=== PATIENT | female | born 1980 | race Caucasian/White ===

== ENCOUNTER 2020-12-09 11:23 | Emergency (ER) | payer OTHER, SELFPAY ==
[2020-12-09 11:27] VITALS: BP 130/105; BP 150/90; PULSE 105; PULSE 115; RESP 18; TEMP 37; O2SAT 100; O2SAT 99; BMI 25.1
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
[2020-12-09] MEDS: clonazePAM 1 MG TABLET PO (12:17)
[2020-12-09] MEDS: Gabapentin 600 MG TABLET PO (12:17)
== END 2020-12-09 12:23 | disposition home or self-care (01) ==
LOC: HO.ED 12:07
PROVIDERS: Emergency Provider Emergency Medicine Emergency Medical Services; PCP Internal Medicine Endocrinology, Diabetes & Metabolism
DX: F41.1 Generalized anxiety disorder (principal); F43.0 Acute stress reaction; Z79.899 Other long term (current) drug therapy; F17.200 Nicotine dependence, unspecified, uncomplicated; Z71.6 Tobacco abuse counseling
CPT/HCPCS: 99283; 99284

== ENCOUNTER 2021-01-01 10:41 | Inpatient (IN) | payer OTHER, SELFPAY ==
--- NOTE | ~2021-01-01 | XR_ITS ---
EXAMINATION: XR ANKLE, RIGHT CLINICAL INFORMATION: Pain bruising COMPARISON: None TECHNIQUE: AP, lateral, and mortise views of the right ankle. FINDINGS: The bones and soft tissues are normal. No fracture. Alignment is anatomic. Joint spaces are maintained. No joint effusion. There is a small posterior calcaneal spur. XR/XR ankle RT 2V IMPRESSION: Small posterior calcaneal spur, No fracture or dislocation.
[2021-01-01 10:50] VITALS: BP 150/72; PULSE 70; O2SAT 100
[2021-01-01 12:07] VITALS: BP 137/77; PULSE 87; RESP 18; TEMP 36.8; O2SAT 97; BMI 25.0
[2021-01-01 14:31] LABS: MANUAL DIFF FLAG NO
[2021-01-01 14:32] VITALS: BP 133/104; PULSE 72; RESP 17; O2SAT 100
[2021-01-01 14:32] LABS: Basophils Percent Auto 0.4 % (0-2); Eosinophils Absolute Auto 0.1 X10*3/uL (0.0-0.4); Eosinophils Percent Auto 1.3 % (0-4); Hematocrit 37.5 % (37.0-47.0); Hemoglobin 11.7 g/dl (12.0-16.0); Imm Gran Abs Auto 0.05 X10*3/uL (0.00-0.03); Imm Gran Pct Auto 0.6 % (0.0-0.4); Lymphocytes Absolute Auto 2.3 X10*3/uL (1.2-4.9); Lymphocytes Percent Auto 25.5 % (20-40); Mean Corpuscular HGB Conc 31.2 g/dl (31.0-35.0); Mean Corpuscular Hemoglobin 25.1 pg (27.0-33.0); Mean Corpuscular Volume 80.5 fL (80.0-98.0); Mean Platelet Volume 9.8 fL (9.4-12.3); Monocytes Percent Auto 10.6 % (2-11); Neutrophils Absolute Auto 5.58 x10*3/uL (2.0-8.3); Neutrophils Percent Auto 61.6 % (45-73); Platelet Count 300 X10*3/uL (160-400); Red Blood Count 4.66 X10*6/uL (4.20-5.50); Red Cell Distribution Width 16.7 % (11.0-16.0); White Blood Count 9.1 X10*3/uL (4.8-10.8)
[2021-01-01] MEDS: 0.9 % Sodium Chloride 1,000 ML 999 ML IV (14:46)
[2021-01-01] MEDS: ondansetron HCL 4 MG/2 ML VIAL IVPUSH (14:47)
[2021-01-01] MEDS: Ketorolac Tromethamine 15 MG/ML VIAL 30 MG IVPUSH (14:48)
[2021-01-01 14:52] LABS: Lactic Acid 3.4 mmol/L (0.5-2.0)
[2021-01-01 14:55] LABS: Alanine Aminotransferase 9 U/L (0-31); Albumin Level 4.5 g/dL (3.5-5.0); Alkaline Phosphatase 63 U/L (39-117); Anion Gap 21 (12-20); Aspartate Amino Transferase 15 U/L (5-31); Bilirubin Total 0.3 mg/dL (0.0-1.0); Blood Urea Nitrogen 14 mg/dL (9-16); Calcium 10.7 mg/dL (8.4-10.2); Carbon Dioxide 20 mmol/L (22-29); Chloride 104 mmol/L (96-108); Estimated Glomerular Filt Rate 54; Glucose Random 97 mg/dL (60-115); Lipase 66 U/L (8-78); Potassium 4.3 mmol/L (3.3-5.1); Sodium 141 mmol/L (135-145); Total Protein 7.8 g/dL (6.5-8.0)
[2021-01-01 15:02] LABS: COVID-19 Test Negative (Negative)
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
[2021-01-01] MEDS: 0.9 % Sodium Chloride 2,041.17 ML 2041.17 ML IV (15:37)
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
[2021-01-01 16:29] LABS: Reflex Lactate? Lactic Acid Added
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
[2021-01-01 16:55] VITALS: BP 151/93; PULSE 80; RESP 20; TEMP 36.9; O2SAT 97
[2021-01-01] MEDS: Ketorolac Tromethamine 15 MG/ML VIAL IVPUSH (16:57)
[2021-01-01 17:49] LABS: Ethanol < 10 mg/dL
[2021-01-01 17:52] LABS: ~Lactic Acid-LAB USE ONLY 0.9 mmol/L (0.5-2.0)
--- NOTE | 2021-01-01 19:02 | PC.NURSE ---
This RN rec'd report from Sid RN including need for pt to have safe DC home. During report, JANY contacted Sid to inquire about CARE team involvement. Sid reports to this RN that she is unsure who is managing pt's plan for DC. This RN spoke with Kristine in CARE team who reports she will touch base with N to discern who is managing pt's DC plan. This rn awaiting update/plan.
[2021-01-01 19:34] VITALS: BP 139/86; PULSE 70; RESP 16; TEMP 36.8; O2SAT 100
[2021-01-01 20:47] LABS: Appearance Urine CLOUDY; Color Urine YELLOW; Glucose Urine UA NEG (NEG); Leukocyte Esterase Urine NEG (NEG); Nitrite Urine NEG (NEG); Specific Gravity - Urine 1.015 (1.005-1.025); UACC Culture Trigger NO; Urine Blood 2+ (NEG); Urine Ketones NEG (NEG); Urine Protein NEG (NEG-TRACE)
[2021-01-01 20:49] LABS: UPreg QC Valid YES; Urine Pregnancy NEGATIVE (NEGATIVE)
--- NOTE | 2021-01-01 20:51 | PHA.MEDREC ---
Pharmacy Consult ? Medication Reconciliation Pharmacy has completed the medication reconciliation. Confirmed doses and directions with [facility] [place] PharmD
[2021-01-01 21:00] LABS: Amphetamine Screen Urine Not Detected (Not Detect); Barbiturates, Urine Not Detected (Not Detect); Benzodiazepines Screen Urine Not Detected (Not Detect); Cannabinoid Screen Urine POSITIVE (Not Detect); Cocaine Screen Urine POSITIVE (Not Detect); Fentanyl, urine Not Detected (Not Detect); Opiate Screen Urine Not Detected (Not Detect); Phencyclidine Screen Urine Not Detected (Not Detect)
[2021-01-01 21:47] LABS: Bacteria Urine 1+ /LPF; Hyaline Casts Urine 0-2 /LPF; Mucus Urine 3+ /LPF; RBC Urine 0 /HPF (0); Squamous Epithelial Cell Urine 4+ /LPF
[2021-01-01 22:37] VITALS: BP 143/101; PULSE 71
[2021-01-01] MEDS: lamoTRIgine 25 MG TABLET 150 MG PO (22:37)
[2021-01-01] MEDS: Propranolol HCL 20 MG TABLET PO (22:37)
[2021-01-01] MEDS: Gabapentin 600 MG TABLET PO (22:37)
[2021-01-01] MEDS: clonazePAM 1 MG TABLET PO (22:39)
[2021-01-01] MEDS: QUEtiapine Fumarate 400 MG TABLET 800 MG PO (22:42)
--- NOTE | 2021-01-02 05:09 | PC.NURSE ---
Patient slept through the night, no distress observed/reported, respiration +/=/non-labored bilaterally, behavior pleasant and appropriate, medication compliant, patient was assessed by care team pending disposition, patient will be reassessed in the morning to confirm disposition, appetite good, contracted for the safety, will continue to monitor.
--- NOTE | 2021-01-02 07:15 | PC.NURSE ---
patient appears to remain asleep at present respirations are even and unlabored, patient appears in no distress
[2021-01-02 08:00] VITALS: BP 132/93; PULSE 75; RESP 15; TEMP 36.4; O2SAT 98
[2021-01-02 10:00] VITALS: BP 132/93; PULSE 75
[2021-01-02] MEDS: Propranolol HCL 20 MG TABLET PO ×3 (10:00→21:12)
[2021-01-02] MEDS: lamoTRIgine 25 MG TABLET 150 MG PO ×2 (10:00→21:11)
[2021-01-02] MEDS: buPROPion HCl XL 300 MG TAB.ER.24H PO (10:00)
[2021-01-02] MEDS: Gabapentin 600 MG TABLET PO ×4 (10:00→20:56)
[2021-01-02] MEDS: clonazePAM 1 MG TABLET PO ×3 (10:05→23:20)
[2021-01-02 14:53] VITALS: BP 132/93; PULSE 75
[2021-01-02 17:33] VITALS: BP 154/99; PULSE 84; RESP 20; TEMP 37.2; O2SAT 100
[2021-01-02] MEDS: Nicotine Polacrilex 2 MG GUM BUCCAL (20:22)
[2021-01-02] MEDS: QUEtiapine Fumarate 400 MG TABLET 800 MG PO (20:56)
[2021-01-02 21:12] VITALS: BP 112/67; PULSE 90
[2021-01-03] VITALS (7 sets, daily range): BP systolic 126–146; BP diastolic 79–106; PULSE 77–103; RESP 16–18; TEMP 36.6–36.7; O2SAT 98–100
--- NOTE | 2021-01-03 | ECG_ITS ---
Test Reason : MEDICAL CLEARANCE Blood Pressure : / mmHG Vent. Rate : 067 BPM Atrial Rate : 067 BPM P-R Int : 162 ms QRS Dur : 080 ms QT Int : 402 ms P-R-T Axes : 054 029 055 degrees QTc Int : 424 ms Normal sinus rhythm Nonspecific ST abnormality Borderline ECG No previous ECGs available Referred By: Denise Brown Electronically Signed By:WILLIAM MONTERO MD
--- NOTE | 2021-01-03 05:41 | PC.NURSE ---
Patient slept through the night, no distress observed/reported, behavior appropriate, medication compliant, appetite good, elimination intact, patient's disposition is voluntary inpatient bed search, VSS, will continue to monitor.
[2021-01-03] MEDS: clonazePAM 1 MG TABLET PO ×3 (07:08→19:44)
--- NOTE | 2021-01-03 07:11 | PC.NURSE ---
patient appears to be relaxing at present was awake upon arrival asking for bacitracin and prn availability. patient appears in no distress
[2021-01-03] MEDS: buPROPion HCl XL 300 MG TAB.ER.24H PO (08:15)
[2021-01-03] MEDS: Gabapentin 600 MG TABLET PO ×4 (08:15→21:01)
[2021-01-03] MEDS: lamoTRIgine 25 MG TABLET 150 MG PO ×2 (08:16→21:02)
[2021-01-03] MEDS: Propranolol HCL 20 MG TABLET PO ×3 (08:16→21:02)
[2021-01-03] MEDS: Nicotine 21 MG PATCH.TD24 TRANSDERMA (09:25)
--- NOTE | 2021-01-03 10:40 | PC.NURSE ---
client expresses irritability, mentions gisselle to myself and another staff. explained to client we may not continue all medication in patients history, client mentioned a higher dose of wellbutrin and buspar. t/w explained that medicianes may be changed or titrated on the inpatient unit
--- NOTE | 2021-01-03 14:27 | PC.NURSE ---
Report given to Loan on M3
[2021-01-03] MEDS: Acetaminophen 325 MG TABLET 650 MG PO (18:39)
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
[2021-01-03] MEDS: QUEtiapine Fumarate 400 MG TABLET 800 MG PO (21:02)
[2021-01-04 08:14] VITALS: BP 136/82; PULSE 86
[2021-01-04] MEDS: Propranolol HCL 20 MG TABLET PO ×3 (08:14→21:27)
[2021-01-04] MEDS: clonazePAM 1 MG TABLET PO ×3 (08:14→19:35)
[2021-01-04] MEDS: Gabapentin 600 MG TABLET PO ×4 (08:14→19:35)
[2021-01-04] MEDS: buPROPion HCl XL 300 MG TAB.ER.24H PO (08:14)
[2021-01-04] MEDS: lamoTRIgine 25 MG TABLET 50 MG PO ×2 (08:14→21:27)
[2021-01-04] MEDS: lamoTRIgine 100 MG TABLET PO ×2 (08:14→21:28)
[2021-01-04 08:17] LABS: Estimated Average Glucose 100 mg/dL; Hemoglobin A1c % 5.1 %
[2021-01-04 08:44] LABS: Cholesterol 177 mg/dL; HDL Cholesterol 45 mg/dL; LDL Cholesterol Calculated 114 mg/dl; Triglycerides 92 mg/dL
[2021-01-04 09:05] LABS: Thyroid Stimulating Hormone 0.48 uIU/mL (0.32-4.0)
[2021-01-04 09:19] VITALS: BP 136/82; PULSE 86; RESP 14; TEMP 36.6; O2SAT 98
[2021-01-04 09:25] LABS: Folate 5.9 ng/mL (> or = 4.0); Vitamin B12 423 pg/mL (200-900)
[2021-01-04] MEDS: Nicotine 21 MG PATCH.TD24 TRANSDERMA (10:20)
--- NOTE | 2021-01-04 12:13 | MHC.CLN ---
RE: WT REVIEW CURRENT WT UPON ADMISSION 149.6# PREVIOUS ADMIT WT HX: 150# (10/23/19) PT REMAINS WITHIN UBW RANGE, BMI 25 INDICATES ADEQUATE WT FOR HT NOTED ALBUMIN 4.5 WNL
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
[2021-01-04 14:28] VITALS: BP 160/97; PULSE 76
[2021-01-04] MEDS: busPIRone HCl 5 MG TABLET 15 MG PO ×2 (14:28→21:28)
[2021-01-04] MEDS: Cyproheptadine HCl 4 MG TABLET PO (16:39)
[2021-01-04] MEDS: Acetaminophen 325 MG TABLET 650 MG PO (19:07)
[2021-01-04 21:25] VITALS: TEMP 36.6; O2SAT 100
[2021-01-04 21:27] VITALS: BP 133/103; PULSE 77
[2021-01-04] MEDS: QUEtiapine Fumarate 300 MG TABLET 600 MG PO (21:28)
[2021-01-05 08:20] VITALS: BP 125/79; PULSE 88; RESP 18; TEMP 36.4; O2SAT 99
[2021-01-05] MEDS: buPROPion HCl XL 150 MG TAB.ER.24H 450 MG PO (08:27)
[2021-01-05 08:28] VITALS: BP 125/79; PULSE 88
[2021-01-05] MEDS: lamoTRIgine 25 MG TABLET 50 MG PO ×2 (08:28→20:14)
[2021-01-05] MEDS: Propranolol HCL 20 MG TABLET PO ×2 (08:28→20:15)
[2021-01-05] MEDS: clonazePAM 1 MG TABLET PO ×4 (08:28→20:14)
[2021-01-05] MEDS: busPIRone HCl 5 MG TABLET 15 MG PO ×2 (08:28→18:22)
[2021-01-05] MEDS: Gabapentin 600 MG TABLET PO ×4 (08:28→20:14)
[2021-01-05] MEDS: lamoTRIgine 100 MG TABLET PO ×2 (08:29→20:14)
[2021-01-05] MEDS: Nicotine 21 MG PATCH.TD24 TRANSDERMA (08:31)
[2021-01-05] MEDS: Acetaminophen 325 MG TABLET 650 MG PO ×2 (13:10→20:58)
--- NOTE | 2021-01-05 13:37 | HO.PSYCHPN ---
Subjective Subjective Date of Service: 01/05/21 Reason For Visit: SI Subjective Notes: Conditional Voluntary Interim History: Viviana reports that she is much calmer today. She reports sleeping fairly well with 600mg po seroquel. We had discussed possibility to akathisia worsened by seroquel. She reports feeling less anxious, less restless, She denies SI/HI. She has been more visible in the unit. Some dysphoric mood noted but not as pronounced. Per nursing, pt visible in the unit, irritable at times but able to be redirected. Medication Compliance: Yes Side effects from medications: No Attending Groups: Yes Review of Systems Review of Systems Yes all other systems are reviewed and are negative Constitutional: Reports headache(s), Reports poor appetite, Reports weakness and Reports weight loss Eyes: Reports no additional eye complaints Reports headache(s) and Denies sore throat Cardiovascular: Denies chest pain, Denies chest pain at rest, Reports epigastric discomfort, Denies diaphoresis, Denies syncope, Denies rapid heart rate, Denies palpitations, Denies dyspnea, Denies orthopnea and Denies slow heart rate Respiratory: Denies dyspnea Gastrointestinal: Denies bloating, Denies GI cramping, Denies excessive flatus, Denies early satiety, Reports dyspepsia and Denies diarrhea Denies syncope, Reports headache(s) and Reports weakness Endocrine: Denies palpitations Mental Status Exam Mental Status Exam Narrative: Appearance: casually groomed, poor hygiene, restless Behavior: calmer, less irritable psychomotor:less agitation noted Speech:clear, normal rate/rhythm/volume, spontaneous Thought process: tangential Thought content:no signs of psychosis, mistrust of system/providers, feeling restless, overwhelmed Mood: better Affect: congruent SI:none -denies plan or intent HI:none VH/AH:none Delusions:none Insight/judgment:poor x 2. Memory/cog: alert, oriented x 3. Diagnostics Vital Signs (24Hr): Vital Signs - 24 hr 01/04/21 21:25 01/04/21 21:27 01/05/21 08:20 Temperature 97.8 F 97.6 F Pulse Rate 77 88 Respiratory Rate 18 Blood Pressure 133/103 H 125/79 Pulse Oximetry 100 99 01/05/21 08:28 Temperature Pulse Rate 88 Respiratory Rate Blood Pressure 125/79 Pulse Oximetry Body Mass Index 25.0 Labs Results: 01/01/21 14:27 01/01/21 14:27 Labs: Laboratory Results - last 48 hr 01/04/21 01/04/21 01/04/21 07:30 07:30 07:30 Estimat Average Glucose 100 Hemoglobin A1c % 5.1 Triglycerides 92 Cholesterol 177 LDL Cholesterol, Calc 114 HDL Cholesterol 45 Vitamin B12 423 Folate 5.9 TSH 0.48 Medications Medications Current Medications Acetaminophen (Acetaminophen 325 Mg Tablet) 650 mg PO Q6H PRN PRN Reason: Headache/Pain Mild Scale (1-3) Last Admin: 01/05/21 13:10 Dose: 650 mg Documented by: Al Hydroxide/Mg Hydroxide (Magnesium Hydrox/Alum Hydrox 30 Ml Oral.Susp) 30 ml PO Q6H PRN PRN Reason: Heartburn/Nausea Bupropion HCl (Bupropion Hcl Xl 150 Mg Tab.Er.24h) 450 mg PO DAILY [facility] Last Admin: 01/05/21 08:27 Dose: 450 mg Documented by: Buspirone HCl (Buspirone Hcl 5 Mg Tablet) 15 mg PO BID [facility] Last Admin: 01/05/21 08:28 Dose: 15 mg Documented by: Clonazepam (Clonazepam 1 Mg Tablet) 1 mg PO DAILY@1400 [facility] Last Admin: 01/05/21 13:05 Dose: 1 mg Documented by: Clonazepam (Clonazepam 1 Mg Tablet) 1 mg PO BID [facility] Cyproheptadine HCl (Cyproheptadine Hcl 4 Mg Tablet) 4 mg PO Q6H PRN PRN Reason: anxiety/sleep Last Admin: 01/04/21 16:39 Dose: 4 mg Documented by: Gabapentin (Gabapentin 600 Mg Tablet) 600 mg PO QID [facility] Last Admin: 01/05/21 12:07 Dose: 600 mg Documented by: Lamotrigine (Lamotrigine 100 Mg Tablet) 100 mg PO BID [facility] Last Admin: 01/05/21 08:29 Dose: 100 mg Documented by: Lamotrigine (Lamotrigine 25 Mg Tablet) 50 mg PO BID [facility] Last Admin: 01/05/21 08:28 Dose: 50 mg Documented by: Magnesium Hydroxide (Milk Of Magnesia 30 Ml Oral.Susp) 30 ml PO DAILY PRN PRN Reason: Constipation Nicotine (Nicotine 21 Mg Patch.Td24) 21 mg TRANSDERMA DAILY [facility] Last Admin: 01/05/21 08:31 Dose: 21 mg Documented by: Propranolol HCl (Propranolol Hcl 20 Mg Tablet) 20 mg PO TID [facility]; Protocol Last Admin: 01/05/21 08:28 Dose: 20 mg Documented by: Quetiapine Fumarate (Quetiapine Fumarate 300 Mg Tablet) 600 mg PO BEDTIME [facility] Last Admin: 01/04/21 21:28 Dose: 600 mg Documented by: Quetiapine Fumarate (Quetiapine Fumarate 200 Mg Tablet) 200 mg PO BEDTIME PRN PRN Reason: sleep Trazodone HCl (Trazodone Hcl 50 Mg Tablet) 50 mg PO BEDTIME PRN PRN Reason: Insomnia Allergies Allergies Allergy/AdvReac Type Severity Reaction Status Date / Time Penicillins [PCN] Allergy Unknown UNKNOWN Verified 01/01/21 19:37 tramadol [TRAMADOL] Allergy Unknown HIVES Verified 01/01/21 19:37 Assessment & Plan Assessment & Plan (1) PTSD (post-traumatic stress disorder): Status: Acute Code(s): F43.10 - Post-traumatic stress disorder, unspecified (2) Cocaine use disorder, moderate, dependence: Status: Acute Code(s): F14.20 - Cocaine dependence, uncomplicated (3) Bipolar 2 disorder, major depressive episode: Status: Acute Code(s): F31.81 - Bipolar II disorder Assessment and Plan: Ms. Rivera is a 40 y/o woman with hx of PTSD, Bipolar Disorder, cocaine use disorder who recently self presented to [facility] ED reporting increase depressed mood, restlessness, anxious mood. She reports recent relapsed on cocaine. In the ED utox positive for cocaine and cannabis. She describes increase restlessness, need to pace, tapping foot. Note that cocaine major risk factor for antipsychotic induced akathisia, which suspect is part of pt's presentation and fact that she is on seroquel 800mg po qhs. Pt reports relieve of symptoms with propanolol and some benefit with buspar. we discussed taper of seroquel, but pt currently hesitant to make changes as she reports severe restlessness and worries that less medications will increase anxiety. Pt explained underlying mechanism by which her sense of restlessness is worsened by antipsychotic. PLAN: 1. Admit to M3 2. Will decrease seroquel from 800mg po to 600mg po qhs due to possible akathisia- pt hesitant to stop completely. 3. Continue propanolol 20mg po TID 4. Continue clonazepam- pt on this medications for years, we discussed risks of misuse/abuse as pt continues to work towards recovery. Pt understands RX has to be continued by her OP provider. 5. Obtain collateral information 6. Aftercare planning. I spent minutes with the patient and/or on the patient floor today, greater than?50% of which was spent counseling/coordinating care. Reason for contiued inpatient stay Substantial Risk for: harm to self
[2021-01-05] MEDS: Cyproheptadine HCl 4 MG TABLET PO (17:56)
[2021-01-05 18:00] VITALS: BP 135/91; PULSE 75; RESP 18; TEMP 36.7; O2SAT 98
[2021-01-05] MEDS: LORazepam 1 MG TABLET PO (18:21)
[2021-01-05 20:15] VITALS: BP 135/91; PULSE 75
[2021-01-05] MEDS: QUEtiapine Fumarate 300 MG TABLET 600 MG PO (23:05)
[2021-01-06 08:00] VITALS: BP 120/91; PULSE 89; RESP 16; TEMP 36.7; O2SAT 97
[2021-01-06 08:06] LABS: Iron 16 mcg/dL (30-160); Percent Iron Saturation 5 % (15-50); Total Iron Binding Capacity 329 mcg/dL (228-428); Unsaturated Iron Binding 313 ug/dL
[2021-01-06] MEDS: clonazePAM 1 MG TABLET PO ×3 (08:20→20:09)
[2021-01-06 08:21] VITALS: BP 120/91; PULSE 89
[2021-01-06] MEDS: Gabapentin 600 MG TABLET PO ×4 (08:21→20:09)
[2021-01-06] MEDS: Propranolol HCL 20 MG TABLET PO ×3 (08:21→20:09)
[2021-01-06] MEDS: busPIRone HCl 5 MG TABLET 15 MG PO ×2 (08:21→14:52)
[2021-01-06] MEDS: lamoTRIgine 25 MG TABLET 50 MG PO ×2 (08:21→20:09)
[2021-01-06] MEDS: buPROPion HCl XL 150 MG TAB.ER.24H 450 MG PO (08:21)
[2021-01-06] MEDS: Nicotine 21 MG PATCH.TD24 TRANSDERMA (08:22)
[2021-01-06] MEDS: lamoTRIgine 100 MG TABLET PO ×2 (08:22→20:09)
[2021-01-06 08:30] LABS: Ferritin 8 ng/mL (10-250)
[2021-01-06] MEDS: Acetaminophen 325 MG TABLET 650 MG PO ×2 (08:51→20:14)
--- NOTE | 2021-01-06 12:48 | HO.PSYCHPN ---
Subjective Subjective Date of Service: 01/06/21 Reason For Visit: SI Subjective Notes: Conditional Voluntary Interim History: The nursing staff reported that the patient was very irritable and yelled on staff, she later apologized and stated that she had an disassociation episode . Today on interview, she was irritable, and manipulative, she wanted more Klonopin and as per her peer, she has withdrawal symptoms of benzodiazepines. Mental Status Exam Mental Status Exam Patient Appearance: Disheveled and Inappropriate Patient Orientation: Person, Place, Time and Situation Level of Consciousness: Awake, Restless and Inappropriate Patient Behavior: Belligerent Mood Description: Hostile and Labile Affect Description: Labile Patient Cognition Impaired: No Ability to Follow Directions: Fair Speech Pattern: Rapid and Loud Hallucinations: None Delusions: Not Present Thought Process: Racing Thought Content: positive for Poverty of Content, positive for Preoccupation and positive for Evasive Judgement: Fair Diagnostics Vital Signs (24Hr): Vital Signs - 24 hr 01/05/21 18:00 01/05/21 20:15 01/06/21 08:00 Temperature 98.0 F 98.0 F Pulse Rate 75 75 89 Respiratory Rate 18 16 Blood Pressure 135/91 H 135/91 H 120/91 H Pulse Oximetry 98 97 01/06/21 08:21 Temperature Pulse Rate 89 Respiratory Rate Blood Pressure 120/91 H Pulse Oximetry Body Mass Index 25.0 Labs Results: 01/01/21 14:27 01/01/21 14:27 Labs: Laboratory Results - last 48 hr 01/06/21 07:21 Iron 16 L TIBC 329 % Saturation 5 L Unsat Iron Binding 313 Ferritin 8 L Medications Medications Current Medications Acetaminophen (Acetaminophen 325 Mg Tablet) 650 mg PO Q6H PRN PRN Reason: Headache/Pain Mild Scale (1-3) Last Admin: 01/06/21 08:51 Dose: 650 mg Documented by: Al Hydroxide/Mg Hydroxide (Magnesium Hydrox/Alum Hydrox 30 Ml Oral.Susp) 30 ml PO Q6H PRN PRN Reason: Heartburn/Nausea Bupropion HCl (Bupropion Hcl Xl 150 Mg Tab.Er.24h) 450 mg PO DAILY [facility] Last Admin: 01/06/21 08:21 Dose: 450 mg Documented by: Buspirone HCl (Buspirone Hcl 5 Mg Tablet) 15 mg PO BID@0900,1500 [facility] Last Admin: 01/06/21 08:21 Dose: 15 mg Documented by: Clonazepam (Clonazepam 1 Mg Tablet) 1 mg PO DAILY@1400 [facility] Last Admin: 01/05/21 13:05 Dose: 1 mg Documented by: Clonazepam (Clonazepam 1 Mg Tablet) 1 mg PO BID [facility] Last Admin: 01/06/21 08:20 Dose: 1 mg Documented by: Cyproheptadine HCl (Cyproheptadine Hcl 4 Mg Tablet) 4 mg PO Q6H PRN PRN Reason: anxiety/sleep Last Admin: 01/05/21 17:56 Dose: 4 mg Documented by: Gabapentin (Gabapentin 600 Mg Tablet) 600 mg PO QID [facility] Last Admin: 01/06/21 08:21 Dose: 600 mg Documented by: Lamotrigine (Lamotrigine 100 Mg Tablet) 100 mg PO BID [facility] Last Admin: 01/06/21 08:22 Dose: 100 mg Documented by: Lamotrigine (Lamotrigine 25 Mg Tablet) 50 mg PO BID [facility] Last Admin: 01/06/21 08:21 Dose: 50 mg Documented by: Magnesium Hydroxide (Milk Of Magnesia 30 Ml Oral.Susp) 30 ml PO DAILY PRN PRN Reason: Constipation Nicotine (Nicotine 21 Mg Patch.Td24) 21 mg TRANSDERMA DAILY [facility] Last Admin: 01/06/21 08:22 Dose: 21 mg Documented by: Non-Formulary Medication (Buspirone) 15 mg PO BID [facility] Propranolol HCl (Propranolol Hcl 20 Mg Tablet) 20 mg PO TID [facility]; Protocol Last Admin: 01/06/21 08:21 Dose: 20 mg Documented by: Quetiapine Fumarate (Quetiapine Fumarate 300 Mg Tablet) 600 mg PO BEDTIME [facility] Last Admin: 01/05/21 23:05 Dose: 600 mg Documented by: Quetiapine Fumarate (Quetiapine Fumarate 200 Mg Tablet) 200 mg PO BEDTIME PRN PRN Reason: sleep Trazodone HCl (Trazodone Hcl 50 Mg Tablet) 50 mg PO BEDTIME PRN PRN Reason: Insomnia Allergies Allergies Allergy/AdvReac Type Severity Reaction Status Date / Time Penicillins [PCN] Allergy Unknown UNKNOWN Verified 01/01/21 19:37 tramadol [TRAMADOL] Allergy Unknown HIVES Verified 01/01/21 19:37 Assessment & Plan Assessment & Plan (1) PTSD (post-traumatic stress disorder): Status: Acute Code(s): F43.10 - Post-traumatic stress disorder, unspecified (2) Cocaine use disorder, moderate, dependence: Status: Acute Code(s): F14.20 - Cocaine dependence, uncomplicated (3) Bipolar 2 disorder, major depressive episode: Status: Acute Code(s): F31.81 - Bipolar II disorder Assessment and Plan: Ms. Rivera is a 40 y/o woman with hx of PTSD, Bipolar Disorder, cocaine use disorder who recently self presented to [facility] ED reporting increase depressed mood, restlessness, anxious mood. She reports recent relapsed on cocaine. In the ED utox positive for cocaine and cannabis. She describes increase restlessness, need to pace, tapping foot. Note that cocaine major risk factor for antipsychotic induced akathisia, which suspect is part of pt's presentation and fact that she is on seroquel 800mg po qhs. Pt reports relieve of symptoms with propanolol and some benefit with buspar. we discussed taper of seroquel, but pt currently hesitant to make changes as she reports severe restlessness and worries that less medications will increase anxiety. Pt explained underlying mechanism by which her sense of restlessness is worsened by antipsychotic. PLAN: 1. Keep same treatment. I spent minutes with the patient and/or on the patient floor today, greater than?50% of which was spent counseling/coordinating care. Reason for contiued inpatient stay Substantial Risk for: inability to function, rapid decompensation and med/psych decompensation
--- NOTE | 2021-01-06 12:51 | PC.NURSE ---
Patient angry, agitated, irritable, yelling at staff feeling like she is having withdrawal from medications. Reports she is having withdrawal from benzo however states she is taking the same amount of benzo she had been taking prior to admission. Reports she is having panic and anxiety and needs increase in dose. Tangential, frustrated I have nothing and I have no idea what I am going to do when I get out . Why do I have to fight for everything What don't you people get ? Reports med times were supposed to be changed yesterday to no avail. Dr. Stanley made aware of request to change med times.
[2021-01-06 14:52] VITALS: BP 127/86; PULSE 84
[2021-01-06] MEDS: LORazepam 1 MG TABLET PO (17:23)
[2021-01-06 20:09] VITALS: BP 132/94; PULSE 80
[2021-01-06 20:15] VITALS: BP 132/94; PULSE 80; RESP 18; TEMP 36.8; O2SAT 98
[2021-01-06] MEDS: QUEtiapine Fumarate 300 MG TABLET 600 MG PO (22:57)
[2021-01-07 06:00] VITALS: BP 114/87; PULSE 82; RESP 16; TEMP 36.3; O2SAT 100
[2021-01-07] MEDS: busPIRone HCl 5 MG TABLET 15 MG PO ×2 (08:14→14:52)
[2021-01-07] MEDS: clonazePAM 1 MG TABLET PO ×3 (08:14→20:08)
[2021-01-07 08:15] VITALS: BP 114/87; PULSE 82
[2021-01-07] MEDS: buPROPion HCl XL 150 MG TAB.ER.24H 450 MG PO (08:15)
[2021-01-07] MEDS: Propranolol HCL 20 MG TABLET PO ×3 (08:15→20:08)
[2021-01-07] MEDS: lamoTRIgine 100 MG TABLET PO ×2 (08:16→20:07)
[2021-01-07] MEDS: lamoTRIgine 25 MG TABLET 50 MG PO ×2 (08:16→20:08)
[2021-01-07] MEDS: Gabapentin 600 MG TABLET PO ×4 (08:16→20:08)
[2021-01-07] MEDS: Nicotine 21 MG PATCH.TD24 TRANSDERMA (08:16)
[2021-01-07] MEDS: Acetaminophen 325 MG TABLET 650 MG PO (08:20)
[2021-01-07 14:52] VITALS: BP 136/90; PULSE 86
--- NOTE | 2021-01-07 15:43 | P.PNPSI_ITS ---
Subjective Subjective Date of Service: 01/07/21 Reason For Visit: SI Interim History: The nursing staff reported that she was pleasant and cooperative after the initial melt-down that she had yesterday with this prescirber since she advocated for more benzodiazepines. She stated to the RN that she was withdrawing of Seroquel . Today, I tried to interview her but she was crying in her room, apparently a peer draw a picture and that upset her. Mental Status Exam Mental Status Exam Patient Appearance: Well Grooomed Patient Orientation: Person and Situation Level of Consciousness: Awake Patient Behavior: Appropriate (childish) Mood Description: Labile Affect Description: Constricted Patient Cognition Impaired: No Ability to Follow Directions: Good Speech Pattern: Clear Hallucinations: None Delusions: Not Present Thought Process: Distracted Thought Content: positive for Circumstantial Judgement: Fair Diagnostics Vital Signs (24Hr): Vital Signs - 24 hr 01/06/21 20:09 01/06/21 20:15 01/07/21 06:00 Temperature 98.2 F 97.3 F Pulse Rate 80 80 82 Respiratory Rate 18 16 Blood Pressure 132/94 H 132/94 H 114/87 Pulse Oximetry 98 100 01/07/21 08:15 01/07/21 14:52 Temperature Pulse Rate 82 86 Respiratory Rate Blood Pressure 114/87 136/90 H Pulse Oximetry Body Mass Index 25.0 Labs Results: 01/01/21 14:27 01/01/21 14:27 Labs: Laboratory Results - last 48 hr 01/06/21 07:21 Iron 16 L TIBC 329 % Saturation 5 L Unsat Iron Binding 313 Ferritin 8 L Medications Medications Current Medications Acetaminophen (Acetaminophen 325 Mg Tablet) 650 mg PO Q6H PRN PRN Reason: Headache/Pain Mild Scale (1-3) Last Admin: 01/07/21 08:20 Dose: 650 mg Documented by: Al Hydroxide/Mg Hydroxide (Magnesium Hydrox/Alum Hydrox 30 Ml Oral.Susp) 30 ml PO Q6H PRN PRN Reason: Heartburn/Nausea Bupropion HCl (Bupropion Hcl Xl 150 Mg Tab.Er.24h) 450 mg PO DAILY [facility] Last Admin: 01/07/21 08:15 Dose: 450 mg Documented by: Buspirone HCl (Buspirone Hcl 5 Mg Tablet) 15 mg PO BID@0900,1500 [facility] Last Admin: 01/07/21 14:52 Dose: 15 mg Documented by: Clonazepam (Clonazepam 1 Mg Tablet) 1 mg PO DAILY@1400 [facility] Last Admin: 01/07/21 13:34 Dose: 1 mg Documented by: Clonazepam (Clonazepam 1 Mg Tablet) 1 mg PO BID [facility] Last Admin: 01/07/21 08:14 Dose: 1 mg Documented by: Cyproheptadine HCl (Cyproheptadine Hcl 4 Mg Tablet) 4 mg PO Q6H PRN PRN Reason: anxiety/sleep Last Admin: 01/05/21 17:56 Dose: 4 mg Documented by: Gabapentin (Gabapentin 600 Mg Tablet) 600 mg PO QID [facility] Last Admin: 01/07/21 13:34 Dose: 600 mg Documented by: Lamotrigine (Lamotrigine 100 Mg Tablet) 100 mg PO BID [facility] Last Admin: 01/07/21 08:16 Dose: 100 mg Documented by: Lamotrigine (Lamotrigine 25 Mg Tablet) 50 mg PO BID [facility] Last Admin: 01/07/21 08:16 Dose: 50 mg Documented by: Lorazepam (Lorazepam 1 Mg Tablet) 1 mg PO DAILY PRN PRN Reason: anxiety Last Admin: 01/06/21 17:23 Dose: 1 mg Documented by: Magnesium Hydroxide (Milk Of Magnesia 30 Ml Oral.Susp) 30 ml PO DAILY PRN PRN Reason: Constipation Nicotine (Nicotine 21 Mg Patch.Td24) 21 mg TRANSDERMA DAILY [facility] Last Admin: 01/07/21 08:16 Dose: 21 mg Documented by: Propranolol HCl (Propranolol Hcl 20 Mg Tablet) 20 mg PO TID [facility]; Protocol Last Admin: 01/07/21 14:52 Dose: 20 mg Documented by: Quetiapine Fumarate (Quetiapine Fumarate 300 Mg Tablet) 600 mg PO BEDTIME [facility] Last Admin: 01/06/21 22:57 Dose: 600 mg Documented by: Quetiapine Fumarate (Quetiapine Fumarate 200 Mg Tablet) 200 mg PO BEDTIME PRN PRN Reason: sleep Trazodone HCl (Trazodone Hcl 50 Mg Tablet) 50 mg PO BEDTIME PRN PRN Reason: Insomnia Allergies Allergies Allergy/AdvReac Type Severity Reaction Status Date / Time Penicillins [PCN] Allergy Unknown UNKNOWN Verified 01/01/21 19:37 tramadol [TRAMADOL] Allergy Unknown HIVES Verified 01/01/21 19:37 Assessment & Plan Assessment & Plan (1) PTSD (post-traumatic stress disorder): Status: Acute Code(s): F43.10 - Post-traumatic stress disorder, unspecified (2) Cocaine use disorder, moderate, dependence: Status: Acute Code(s): F14.20 - Cocaine dependence, uncomplicated (3) Bipolar 2 disorder, major depressive episode: Status: Acute Code(s): F31.81 - Bipolar II disorder Assessment and Plan: Ms. Rivera is a 40 y/o woman with hx of PTSD, Bipolar Disorder, cocaine use disorder who recently self presented to [facility] ED reporting increase depressed mood, restlessness, anxious mood. She reports recent relapsed on cocaine. In the ED utox positive for cocaine and cannabis. She describes increase restlessness, need to pace, tapping foot. Note that cocaine major risk factor for antipsychotic induced akathisia, which suspect is part of pt's presentation and fact that she is on seroquel 800mg po qhs. Pt reports relieve of symptoms with propanolol and some benefit with buspar. we discussed taper of seroquel, but pt currently hesitant to make changes as she reports severe restlessness and worries that less medications will increase anxiety. Pt explained underlying mechanism by which her sense of restlessness is worsened by antipsychotic. PLAN: 1. Keep same treatment. I spent minutes with the patient and/or on the patient floor today, greater than?50% of which was spent counseling/coordinating care. Reason for contiued inpatient stay Substantial Risk for: inability to function, rapid decompensation and med/psych decompensation
[2021-01-07] MEDS: LORazepam 1 MG TABLET PO (16:33)
[2021-01-07 19:59] VITALS: O2SAT 99
[2021-01-07 20:08] VITALS: BP 137/86; PULSE 86
[2021-01-07] MEDS: QUEtiapine Fumarate 300 MG TABLET 600 MG PO (22:29)
[2021-01-08 08:05] VITALS: BP 142/95; PULSE 99; RESP 18; TEMP 36.8; O2SAT 99
[2021-01-08] MEDS: busPIRone HCl 5 MG TABLET 15 MG PO ×2 (08:09→15:11)
[2021-01-08] MEDS: lamoTRIgine 100 MG TABLET PO (08:09)
[2021-01-08] MEDS: clonazePAM 1 MG TABLET PO ×3 (08:10→18:58)
[2021-01-08] MEDS: buPROPion HCl XL 150 MG TAB.ER.24H 450 MG PO (08:10)
[2021-01-08] MEDS: Gabapentin 600 MG TABLET PO ×2 (08:10→12:45)
[2021-01-08 08:11] VITALS: BP 142/95; PULSE 99
[2021-01-08] MEDS: Nicotine 21 MG PATCH.TD24 TRANSDERMA (08:11)
[2021-01-08] MEDS: lamoTRIgine 25 MG TABLET 50 MG PO (08:11)
[2021-01-08] MEDS: Propranolol HCL 20 MG TABLET PO ×3 (08:11→18:58)
[2021-01-08] MEDS: Acetaminophen 325 MG TABLET 650 MG PO ×2 (08:21→16:36)
--- NOTE | 2021-01-08 11:26 | P.PNPSI_ITS ---
Subjective Subjective Date of Service: 01/08/21 Reason For Visit: SI Subjective Notes: Conditional Voluntary Interim History: Pt reports losing it when her medications were not given early in morning. Pt reports anxious mood, restlessness. She does report feeling calmer but feeling that if she does not get medications on time her anxiety would worsened. We discussed again, some of this internal sense of restless, need to pace related to akathisia. We also discussed concerned of adding more benzodiazepines. Pt reports main concern of lowering seroquel would be lack of sleep, which she has been having. She reports passive suicidal ideation but denies any plan or intent to hurt herself. Per nursing, pt has been eating and sleeping through the night. She attends some groups, social with select peers. Medication Compliance: Yes Side effects from medications: Yes (akathisia) Attending Groups: Intermittent Review of Systems Acute medical concerns: No Review of Systems Review of Systems Yes all other systems are reviewed and are negative Constitutional: Reports headache(s), Reports poor appetite, Reports weakness and Reports weight loss Eyes: Reports no additional eye complaints Reports headache(s) and Denies sore throat Cardiovascular: Denies chest pain, Denies chest pain at rest, Reports epigastric discomfort, Denies diaphoresis, Denies syncope, Denies rapid heart rate, Denies palpitations, Denies dyspnea, Denies orthopnea and Denies slow heart rate Respiratory: Denies dyspnea Gastrointestinal: Denies bloating, Denies GI cramping, Denies excessive flatus, Denies early satiety, Reports dyspepsia and Denies diarrhea Denies syncope, Reports headache(s) and Reports weakness Endocrine: Denies palpitations Mental Status Exam Mental Status Exam Narrative: Appearance: casually groomed, poor hygiene, restless Behavior: calmer, less irritable psychomotor:less agitation noted Speech:clear, normal rate/rhythm/volume, spontaneous Thought process: tangential Thought content:no signs of psychosis, mistrust of system/providers, feeling restless, overwhelmed Mood: better Affect: congruent SI:passive -denies plan or intent HI:none VH/AH:none Delusions:none Insight/judgment:poor x 2. Memory/cog: alert, oriented x 3. Diagnostics Vital Signs (24Hr): Vital Signs - 24 hr 01/07/21 14:52 01/07/21 19:59 01/07/21 20:08 Temperature Pulse Rate 86 86 Respiratory Rate Blood Pressure 136/90 H 137/86 Pulse Oximetry 99 01/08/21 08:05 01/08/21 08:11 Temperature 98.3 F Pulse Rate 99 99 Respiratory Rate 18 Blood Pressure 142/95 H 142/95 H Pulse Oximetry 99 Body Mass Index 25.0 Labs Results: 01/01/21 14:27 01/01/21 14:27 Medications Medications Current Medications Acetaminophen (Acetaminophen 325 Mg Tablet) 650 mg PO Q6H PRN PRN Reason: Headache/Pain Mild Scale (1-3) Last Admin: 01/08/21 08:21 Dose: 650 mg Documented by: Al Hydroxide/Mg Hydroxide (Magnesium Hydrox/Alum Hydrox 30 Ml Oral.Susp) 30 ml PO Q6H PRN PRN Reason: Heartburn/Nausea Bupropion HCl (Bupropion Hcl Xl 150 Mg Tab.Er.24h) 450 mg PO DAILY [facility] Last Admin: 01/08/21 08:10 Dose: 450 mg Documented by: Buspirone HCl (Buspirone Hcl 5 Mg Tablet) 15 mg PO BID@0900,1500 [facility] Last Admin: 01/08/21 08:09 Dose: 15 mg Documented by: Clonazepam (Clonazepam 1 Mg Tablet) 1 mg PO DAILY@1300 [facility] Clonazepam (Clonazepam 1 Mg Tablet) 1 mg PO DAILY@0730 [facility] Clonazepam (Clonazepam 1 Mg Tablet) 1 mg PO DAILY@1930 [facility] Cyproheptadine HCl (Cyproheptadine Hcl 4 Mg Tablet) 4 mg PO Q6H PRN PRN Reason: anxiety/sleep Last Admin: 01/05/21 17:56 Dose: 4 mg Documented by: Gabapentin (Gabapentin 600 Mg Tablet) 600 mg PO QID [facility] Last Admin: 01/08/21 08:10 Dose: 600 mg Documented by: Lamotrigine (Lamotrigine 100 Mg Tablet) 100 mg PO BID [facility] Last Admin: 01/08/21 08:09 Dose: 100 mg Documented by: Lamotrigine (Lamotrigine 25 Mg Tablet) 50 mg PO BID [facility] Last Admin: 01/08/21 08:11 Dose: 50 mg Documented by: Lorazepam (Lorazepam 1 Mg Tablet) 1 mg PO DAILY PRN PRN Reason: anxiety Last Admin: 01/07/21 16:33 Dose: 1 mg Documented by: Magnesium Hydroxide (Milk Of Magnesia 30 Ml Oral.Susp) 30 ml PO DAILY PRN PRN Reason: Constipation Nicotine (Nicotine 21 Mg Patch.Td24) 21 mg TRANSDERMA DAILY [facility] Last Admin: 01/08/21 08:11 Dose: 21 mg Documented by: Propranolol HCl (Propranolol Hcl 20 Mg Tablet) 20 mg PO TID [facility]; Protocol Last Admin: 01/08/21 08:11 Dose: 20 mg Documented by: Quetiapine Fumarate (Quetiapine Fumarate 200 Mg Tablet) 200 mg PO BEDTIME PRN PRN Reason: sleep Quetiapine Fumarate (Quetiapine Fumarate 100 Mg Tablet) 500 mg PO BEDTIME [facility] Trazodone HCl (Trazodone Hcl 50 Mg Tablet) 50 mg PO BEDTIME PRN PRN Reason: Insomnia Allergies Allergies Allergy/AdvReac Type Severity Reaction Status Date / Time Penicillins [PCN] Allergy Unknown UNKNOWN Verified 01/01/21 19:37 tramadol [TRAMADOL] Allergy Unknown HIVES Verified 01/01/21 19:37 Assessment & Plan Assessment & Plan (1) PTSD (post-traumatic stress disorder): Status: Acute Code(s): F43.10 - Post-traumatic stress disorder, unspecified (2) Cocaine use disorder, moderate, dependence: Status: Acute Code(s): F14.20 - Cocaine dependence, uncomplicated (3) Bipolar 2 disorder, major depressive episode: Status: Acute Code(s): F31.81 - Bipolar II disorder Assessment and Plan: Ms. Rivera is a 40 y/o woman with hx of PTSD, Bipolar Disorder, cocaine use disorder who recently self presented to [facility] ED reporting increase depressed mood , restlessness, anxious mood. She reports recent relapsed on cocaine. In the ED utox positive for cocaine and cannabis. She describes increase restlessness, need to pace, tapping foot. Note that cocaine major risk factor for antipsychotic induced akathisia, which suspect is part of pt's presentation and fact that she is on seroquel 800mg po qhs. Pt reports relieve of symptoms with propanolol and some benefit with buspar. we discussed taper of seroquel, but pt currently hesitant to make changes as she reports severe restlessness and worries that less medications will increase anxiety. Pt explained underlying mechanism by which her sense of restlessness is worsened by antipsychotic. PLAN: 1. Akathisia- lower seroquel to 500mg po qhs- continue propanolol, clonazepam, 2. Depression- continue wellbutrin current dose, 3. continue gabapentin 4. Aftercare planning- lack of stable housing, referrals to care home, step down to care home. I spent minutes with the patient and/or on the patient floor today, greater than?50% of which was spent counseling/coordinating care. Reason for contiued inpatient stay Substantial Risk for: harm to self
[2021-01-08] MEDS: Magnesium Hydrox/Alum Hydrox 30 ML ORAL.SUSP PO (13:10)
[2021-01-08] MEDS: Gabapentin 400 MG CAPSULE 800 MG PO ×2 (15:11→18:58)
[2021-01-08 15:12] VITALS: BP 126/77; PULSE 85
[2021-01-08] MEDS: LORazepam 1 MG TABLET PO (16:36)
[2021-01-08 18:58] VITALS: BP 128/87; PULSE 82
[2021-01-08] MEDS: lamoTRIgine 25 MG TABLET 150 MG PO (18:59)
[2021-01-08] MEDS: QUEtiapine Fumarate 100 MG TABLET 500 MG PO (22:37)
[2021-01-08] MEDS: Ibuprofen 600 MG TABLET PO (22:48)
[2021-01-09 07:41] VITALS: BP 90/63; PULSE 82; RESP 17; TEMP 36.7; O2SAT 99
[2021-01-09] MEDS: buPROPion HCl XL 150 MG TAB.ER.24H 450 MG PO (07:43)
[2021-01-09 07:44] VITALS: BP 90/63; PULSE 82
[2021-01-09] MEDS: busPIRone HCl 5 MG TABLET 15 MG PO ×2 (07:44→15:52)
[2021-01-09] MEDS: Gabapentin 400 MG CAPSULE 800 MG PO ×3 (07:44→19:48)
[2021-01-09] MEDS: clonazePAM 1 MG TABLET PO ×3 (07:44→19:47)
[2021-01-09] MEDS: Propranolol HCL 20 MG TABLET PO ×3 (07:44→19:48)
[2021-01-09] MEDS: Ibuprofen 600 MG TABLET PO ×2 (08:47→17:10)
[2021-01-09] MEDS: Nicotine 21 MG PATCH.TD24 TRANSDERMA (08:48)
[2021-01-09] MEDS: lamoTRIgine 25 MG TABLET 150 MG PO ×2 (09:37→20:52)
--- NOTE | 2021-01-09 11:20 | P.PNPSI_ITS ---
Subjective Subjective Date of Service: 01/09/21 Reason For Visit: SI Subjective Notes: Conditional Voluntary Interim History: Pt reports she feels less anxious, less depressed. She reports sleeping better but did wake up few times. She denies suicidal or homicidal i deation. She worries about her safety in community as she does not have safe place to stay. She has been visible in the unit, social with select peers. No behavioral concerns. Ankle X-ray completed yesterday- no fracture, small spur of calcanean. Iron deficiency Medication Compliance: Yes Side effects from medications: No Attending Groups: Yes Review of Systems Review of Systems Yes all other systems are reviewed and are negative Constitutional: Reports headache(s), Reports poor appetite, Reports weakness and Reports weight loss Eyes: Reports no additional eye complaints Reports headache(s) and Denies sore throat Cardiovascular: Denies chest pain, Denies chest pain at rest, Reports epigastric discomfort, Denies diaphoresis, Denies syncope, Denies rapid heart rate, Denies palpitations, Denies dyspnea, Denies orthopnea and Denies slow heart rate Respiratory: Denies dyspnea Gastrointestinal: Denies bloating, Denies GI cramping, Denies excessive flatus, Denies early satiety, Reports dyspepsia and Denies diarrhea Denies syncope, Reports headache(s) and Reports weakness Endocrine: Denies palpitations Mental Status Exam Mental Status Exam Narrative: Appearance: casually groomed, poor hygiene, restless Behavior: calmer, less irritable psychomotor:less agitation noted Speech:clear, normal rate/rhythm/volume, spontaneous Thought process: tangential Thought content:no signs of psychosis, mistrust of system/providers, feeling restless, overwhelmed Mood: better Affect: congruent SI:passive -denies plan or intent HI:none VH/AH:none Delusions:none Insight/judgment:poor x 2. Memory/cog: alert, oriented x 3. Diagnostics Vital Signs (24Hr): Vital Signs - 24 hr 01/08/21 15:12 01/08/21 18:58 01/09/21 07:41 Temperature 98.0 F Pulse Rate 85 82 82 Respiratory Rate 17 Blood Pressure 126/77 128/87 90/63 Pulse Oximetry 99 01/09/21 07:44 Temperature Pulse Rate 82 Respiratory Rate Blood Pressure 90/63 Pulse Oximetry Body Mass Index 25.0 Labs Results: 01/01/21 14:27 01/01/21 14:27 Imaging Radiology Impressions: ITS Impressions Ankle X-Ray 01/08/21 16:52 IMPRESSION: Small posterior calcaneal spur, No fracture or dislocation. Medications Medications Current Medications Acetaminophen (Acetaminophen 325 Mg Tablet) 650 mg PO Q6H PRN PRN Reason: Headache/Pain Mild Scale (1-3) Last Admin: 01/08/21 16:36 Dose: 650 mg Documented by: Al Hydroxide/Mg Hydroxide (Magnesium Hydrox/Alum Hydrox 30 Ml Oral.Susp) 30 ml PO Q6H PRN PRN Reason: Heartburn/Nausea Last Admin: 01/08/21 13:10 Dose: 30 ml Documented by: Bupropion HCl (Bupropion Hcl Xl 150 Mg Tab.Er.24h) 450 mg PO DAILY@0730 [facility] Last Admin: 01/09/21 07:43 Dose: 450 mg Documented by: Buspirone HCl (Buspirone Hcl 5 Mg Tablet) 15 mg PO BID@0730,1500 [facility] Last Admin: 01/09/21 07:44 Dose: 15 mg Documented by: Clonazepam (Clonazepam 1 Mg Tablet) 1 mg PO DAILY@1300 [facility] Last Admin: 01/08/21 12:45 Dose: 1 mg Documented by: Clonazepam (Clonazepam 1 Mg Tablet) 1 mg PO DAILY@0730 [facility] Last Admin: 01/09/21 07:44 Dose: 1 mg Documented by: Clonazepam (Clonazepam 1 Mg Tablet) 1 mg PO DAILY@193 [facility] Last Admin: 01/08/21 18:58 Dose: 1 mg Documented by: Cyproheptadine HCl (Cyproheptadine Hcl 4 Mg Tablet) 4 mg PO Q6H PRN PRN Reason: anxiety/sleep Last Admin: 01/05/21 17:56 Dose: 4 mg Documented by: Gabapentin (Gabapentin 400 Mg Capsule) 800 mg PO TID@0730,1300,1930 [facility] Last Admin: 01/09/21 07:44 Dose: 800 mg Documented by: Ibuprofen (Ibuprofen 600 Mg Tablet) 600 mg PO Q6H PRN PRN Reason: Pain, Moderate (Pain Scale 4-6 Last Admin: 01/09/21 08:47 Dose: 600 mg Documented by: Lamotrigine (Lamotrigine 25 Mg Tablet) 150 mg PO BID@0730,1929 [facility] Last Admin: 01/09/21 09:37 Dose: 150 mg Documented by: Lorazepam (Lorazepam 1 Mg Tablet) 1 mg PO DAILY PRN PRN Reason: anxiety Last Admin: 01/08/21 16:36 Dose: 1 mg Documented by: Magnesium Hydroxide (Milk Of Magnesia 30 Ml Oral.Susp) 30 ml PO DAILY PRN PRN Reason: Constipation Nicotine (Nicotine 21 Mg Patch.Td24) 21 mg TRANSDERMA DAILY [facility] Last Admin: 01/09/21 08:48 Dose: 21 mg Documented by: Propranolol HCl (Propranolol Hcl 20 Mg Tablet) 20 mg PO TID@0730,1300,1930 [facility]; Protocol Last Admin: 01/09/21 07:44 Dose: 20 mg Documented by: Quetiapine Fumarate (Quetiapine Fumarate 200 Mg Tablet) 200 mg PO BEDTIME PRN PRN Reason: sleep Quetiapine Fumarate (Quetiapine Fumarate 100 Mg Tablet) 500 mg PO DAILY@193 [facility] Last Admin: 01/08/21 22:37 Dose: 500 mg Documented by: Trazodone HCl (Trazodone Hcl 50 Mg Tablet) 50 mg PO BEDTIME PRN PRN Reason: Insomnia Allergies Allergies Allergy/AdvReac Type Severity Reaction Status Date / Time Penicillins [PCN] Allergy Unknown UNKNOWN Verified 01/01/21 19:37 tramadol [TRAMADOL] Allergy Unknown HIVES Verified 01/01/21 19:37 Assessment & Plan Assessment & Plan (1) PTSD (post-traumatic stress disorder): Status: Acute Code(s): F43.10 - Post-traumatic stress disorder, unspecified (2) Cocaine use disorder, moderate, dependence: Status: Acute Code(s): F14.20 - Cocaine dependence, uncomplicated (3) Bipolar 2 disorder, major depressive episode: Status: Acute Code(s): F31.81 - Bipolar II disorder Assessment and Plan: Ms. Rivera is a 40 y/o woman with hx of PTSD, Bipolar Disorder, cocaine use disorder who recently self presented to [facility] reporting increase depressed mood, restlessness, anxious mood. She reports recent relapsed on cocaine. In the ED utox positive for cocaine and cannabis. She describes increase restlessness, need to pace, tapping foot. Note that cocaine major risk factor for antipsychotic induced akathisia, which suspect is part of pt's presentation and fact that she is on seroquel 800mg po qhs. Pt reports relieve of symptoms with propanolol and some benefit with buspar. we discussed taper of seroquel, but pt currently hesitant to make changes as she reports severe restlessness and worries that less medications will increase anxiety. Pt explained underlying mechanism by which her sense of restlessness is worsened by antipsychotic. PLAN: 1. Akathisia- lower seroquel to 500mg po qhs- continue propanolol, clonazepam, 2. Depression- continue wellbutrin current dose, 3. continue gabapentin 4. Aftercare planning- lack of stable housing, referrals to [facility], step down to [facility]. I spent minutes with the patient and/or on the patient floor today, gre ater than?50% of which was spent counseling/coordinating care. Reason for contiued inpatient stay Substantial Risk for: inability to function
[2021-01-09 12:31] VITALS: BP 147/96; PULSE 73
[2021-01-09] MEDS: LORazepam 1 MG TABLET PO (17:10)
[2021-01-09] MEDS: Cyproheptadine HCl 4 MG TABLET PO (17:10)
[2021-01-09 19:51] VITALS: BP 149/108; PULSE 89; RESP 18; TEMP 36.8; O2SAT 97
[2021-01-09] MEDS: Acetaminophen 325 MG TABLET 650 MG PO (20:02)
[2021-01-09] MEDS: oxyCODONE HCl Immed Release 5 MG TABLET PO (22:51)
[2021-01-09] MEDS: QUEtiapine Fumarate 100 MG TABLET 500 MG PO (22:52)
[2021-01-10] MEDS: Ibuprofen 600 MG TABLET PO ×2 (05:50→22:39)
[2021-01-10 07:30] VITALS: BP 128/85; PULSE 89; RESP 16; TEMP 36.2; O2SAT 93
[2021-01-10 07:49] VITALS: BP 128/85; PULSE 89
[2021-01-10] MEDS: Propranolol HCL 20 MG TABLET PO ×3 (07:49→19:31)
[2021-01-10] MEDS: lamoTRIgine 25 MG TABLET 150 MG PO ×2 (07:50→19:24)
[2021-01-10] MEDS: buPROPion HCl XL 150 MG TAB.ER.24H 450 MG PO (07:50)
[2021-01-10] MEDS: Gabapentin 400 MG CAPSULE 800 MG PO ×3 (07:50→19:24)
[2021-01-10] MEDS: clonazePAM 1 MG TABLET PO ×3 (07:51→19:24)
[2021-01-10] MEDS: oxyCODONE HCl Immed Release 5 MG TABLET PO ×2 (07:51→14:16)
[2021-01-10] MEDS: busPIRone HCl 5 MG TABLET 15 MG PO ×2 (07:52→14:51)
[2021-01-10] MEDS: Nicotine 21 MG PATCH.TD24 TRANSDERMA (08:39)
[2021-01-10 12:32] VITALS: BP 167/112; PULSE 82
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
[2021-01-10] MEDS: LORazepam 1 MG TABLET PO (17:06)
[2021-01-10 19:25] VITALS: BP 159/88; PULSE 84; RESP 18; TEMP 36.6; O2SAT 98
[2021-01-10 19:31] VITALS: BP 159/88; PULSE 84
[2021-01-10] MEDS: QUEtiapine Fumarate 100 MG TABLET 500 MG PO (22:39)
[2021-01-11 06:00] VITALS: BP 130/68; PULSE 90; RESP 18; TEMP 36.5; O2SAT 97
[2021-01-11] MEDS: Nicotine 21 MG PATCH.TD24 TRANSDERMA (07:50)
[2021-01-11] MEDS: Acetaminophen 325 MG TABLET 650 MG PO ×2 (07:50→18:24)
[2021-01-11] MEDS: buPROPion HCl XL 150 MG TAB.ER.24H 450 MG PO (07:50)
[2021-01-11] MEDS: clonazePAM 1 MG TABLET PO ×3 (07:51→18:36)
[2021-01-11] MEDS: oxyCODONE HCl Immed Release 5 MG TABLET PO (07:51)
[2021-01-11] MEDS: lamoTRIgine 25 MG TABLET 150 MG PO ×2 (07:57→18:35)
[2021-01-11] MEDS: Gabapentin 400 MG CAPSULE 800 MG PO ×3 (07:57→18:36)
[2021-01-11 07:58] VITALS: BP 130/68; PULSE 90
[2021-01-11] MEDS: busPIRone HCl 5 MG TABLET 15 MG PO ×2 (07:58→14:56)
[2021-01-11] MEDS: Propranolol HCL 20 MG TABLET PO ×3 (07:58→18:36)
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
[2021-01-11 13:04] VITALS: BP 126/94; PULSE 80
[2021-01-11] MEDS: Ibuprofen 600 MG TABLET PO ×2 (13:52→20:21)
[2021-01-11 18:00] VITALS: BP 161/107; PULSE 100; RESP 18; TEMP 36.4; O2SAT 98
[2021-01-11 18:36] VITALS: BP 167/107; PULSE 100
[2021-01-11 20:27] VITALS: BP 128/68; PULSE 81; RESP 18; O2SAT 95
[2021-01-11] MEDS: LORazepam 1 MG TABLET PO (22:09)
[2021-01-11] MEDS: QUEtiapine Fumarate 100 MG TABLET 500 MG PO (22:38)
[2021-01-12 07:55] VITALS: BP 122/72; PULSE 94; RESP 18; TEMP 36.3; O2SAT 99
[2021-01-12] MEDS: Nicotine 21 MG PATCH.TD24 TRANSDERMA (07:59)
[2021-01-12] MEDS: clonazePAM 1 MG TABLET PO ×3 (08:00→18:34)
[2021-01-12] MEDS: Gabapentin 400 MG CAPSULE 800 MG PO ×3 (08:00→18:34)
[2021-01-12] MEDS: lamoTRIgine 25 MG TABLET 150 MG PO ×2 (08:00→18:35)
[2021-01-12 08:01] VITALS: BP 122/72; PULSE 94
[2021-01-12] MEDS: Ibuprofen 600 MG TABLET PO ×3 (08:01→22:25)
[2021-01-12] MEDS: Propranolol HCL 20 MG TABLET PO ×3 (08:01→18:34)
[2021-01-12] MEDS: busPIRone HCl 5 MG TABLET 15 MG PO ×2 (08:01→14:50)
[2021-01-12] MEDS: buPROPion HCl XL 150 MG TAB.ER.24H 450 MG PO (08:01)
[2021-01-12 12:31] VITALS: BP 134/91; PULSE 82
--- NOTE | 2021-01-12 13:39 | PM.PSYDC ---
DS: Providers Provider Date of admission: 01/03/21 16:12 Primary care physician: Unknown Physician DS: Diagnosis Discharge Diagnosis (1) PTSD (post-traumatic stress disorder): Status: Acute (2) Cocaine use disorder, moderate, dependence: Status: Acute (3) Bipolar 2 disorder, major depressive episode: Status: Acute DS: Medications Discharge Medications Home Medications: Previous Rx's Medication Instructions Recorded bupropion HCl 150 mg 24 hr tablet, 450 mg PO DAILY@0730 #42 tab 01/12/21 extended release buspirone 15 mg tablet 15 mg PO BID@0730,1500 #60 tab 01/12/21 clonazepam 1 mg tablet 1 mg PO TID PRN #42 tab 01/12/21 gabapentin 800 mg tablet 800 mg PO TID@0730,1300,1930 #90 01/12/21 tab ibuprofen 600 mg tablet 600 mg PO Q6H PRN #30 tab 01/12/21 lamotrigine 150 mg tablet 150 mg PO BID@0730,1930 #60 tab 01/12/21 nicotine 21 mg/24 hr daily 21 mg TRANSDERMAL DAILY #30 ea 01/12/21 transdermal patch propranolol 20 mg tablet 20 mg PO TID@0730,1300,1930 #42 tab 01/12/21 quetiapine 300 mg tablet 600 mg PO DAILY@1930 #60 tab 01/12/21 Data Data Completed and Pending Completed studies during hospitalization [Text1]: 01/06/21 07:21 Iron 16 L TIBC 329 % Saturation 5 L Unsat Iron Binding 313 Ferritin 8 L Imaging Diagnostic Imaging Impressions Ankle X-Ray 01/08/21 16:52 IMPRESSION: Small posterior calcaneal spur, No fracture or dislocation. DS: Summary Time Spent with Patient Time attestation: Total time spent providing and/or coordinating discharge services: Discharge Plan Discharge Patient Disposition: Home, Self-Care Discharge Diagnosis: PTSD Bipolar type 2 Disorder BPD cocaine use disorder Referrals: Zach Driscoll (Therapy) [Other] - 01/17/21 11:45 am (Telehealth Appointment) [facility] - [facility]) [Other] - 1 Week (Please follow up daily with Elke Mederos in regards to Bed Availability) Gracie Yang (Psychiatry) [Other] - 1 Week (Your psychiatrist will reach out to you for a follow up appointment via telehealth) Physician,Unknown J [Primary Care Provider] - 1 Week Discharge Medications: New nicotine 21 mg/24 hr Patch 24 Hour 21 mg transdermal DAILY Qty: 30 RF: 0 propranolol 20 mg Tablet 20 mg PO TID@0730,1300,1930 Qty: 42 RF: 0 buspirone 15 mg tablet 15 mg PO BID@0730,1500 Qty: 60 RF: 0 bupropion HCl 150 mg Tablet Extended Release 24 Hr 450 mg PO DAILY@0730 Qty: 42 RF: 0 gabapentin 800 mg tablet 800 mg PO TID@0730,1300,1930 Qty: 90 RF: 0 ibuprofen 600 mg Tablet 600 mg PO Q6H PRN (Reason: Pain, Moderate (Pain Scale 4-6) Qty: 30 RF: 0 lamotrigine 150 mg tablet 150 mg PO BID@0730,1930 Qty: 60 RF: 0 quetiapine 300 mg tablet 600 mg PO DAILY@1930 Qty: 60 RF: 0 Changed clonazepam 1 mg tablet 1 mg PO TID PRN (Reason: Anxiety) Qty: 42 RF: 0 Discontinued gabapentin 600 mg tablet 600 mg PO QID 3 Days Qty: 12 RF: 0 lamotrigine 150 mg Tablet 150 mg PO BID RF: 0 propranolol 20 mg Tablet 20 mg PO TID RF: 0 bupropion HCl 300 mg Tablet Extended Release 24 Hr 300 mg PO QAM RF: 0 quetiapine 400 mg Tablet 800 mg PO BEDTIME RF: 0 clonazepam 1 mg tablet 1 mg PO TID PRN (Reason: Anxiety) RF: 0 bupropion HCl [Wellbutrin XL] 150 mg Tablet Extended Release 24 Hr 150 mg PO DAILY RF: 0 buspirone 15 mg PO BID RF: 0 Discharge Orders: Discharge Order (Routine); Ordered 01/12/21 Ordered By: Mary Ramirez Diet: regular diet Activity on Discharge: As tolerated Stand Alone Forms: Patient Portal Discharge page, Work/School Release Care Plan Goals: 1. Maintain mood. 2. No SI/HI. 3. No aggression towards self or others. Health Concerns: 1. Follow up with PCP Plan of Treatment: 1. Take medications as prescribed 2. Follow up with referrals for residential substance use treatment 3. Go to nearest ED or call 911 in event of emergency Assessment: Pt with much less dysphoric mood. Much less irritable. Brighter affect. Chronic trauma and ongoing substance use, exacerbated by psychosocial stressors including lack of stable housing. No SI/HI.
[2021-01-12] MEDS: LORazepam 1 MG TABLET PO (14:50)
--- NOTE | 2021-01-12 16:00 | P.PNPSI_ITS ---
Subjective Subjective Date of Service: 01/12/21 Reason For Visit: SI Subjective Notes: Conditional Voluntary Interim History: Pt was initially due for discharged today, more stable psychiatrically, no SI. She did get accepted into [facility], bed open Friday. Pt reports she slept well. She reports anxiety related to not having safe place to go. She reports chronic issues with stable housing. Pt has called some shelters with no luck. We had discussed [facility] but they have no beds open. Pt overall appears much less dysphoric. She denies VH/AH. She has been visible in the unit, social with select peers. Medication Compliance: Yes Side effects from medications: No Attending Groups: Intermittent Review of Systems Review of Systems Yes all other systems are reviewed and are negative Constitutional: Reports headache(s), Reports poor appetite, Reports weakness and Reports weight loss Eyes: Reports no additional eye complaints Reports headache(s) and Denies sore throat Cardiovascular: Denies chest pain, Denies chest pain at rest, Reports epigastric discomfort, Denies diaphoresis, Denies syncope, Denies rapid heart rate, Denies palpitations, Denies dyspnea, Denies orthopnea and Denies slow heart rate Respiratory: Denies dyspnea Gastrointestinal: Denies bloating, Denies GI cramping, Denies excessive flatus, Denies early satiety, Reports dyspepsia and Denies diarrhea Denies syncope, Reports headache(s) and Reports weakness Endocrine: Denies palpitations Mental Status Exam Mental Status Exam Narrative: Narrative:?Appearance: casually groomed, poor hygiene, restless Behavior: calmer, less irritable psychomotor:less agitation noted Speech:clear, normal rate/rhythm/volume, spontaneous Thought process: tangential Thought content:no signs of psychosis, mistrust of system/providers, future oriented Mood: better Affect: congruent SI:none -denies plan or intent HI:none VH/AH:none Delusions:none Insight/judgment:poor x 2. Memory/cog: alert, oriented x 3. Patient Appearance: Well Grooomed Patient Orientation: Person and Situation Level of Consciousness: Awake Patient Behavior: Appropriate (childish) Mood Description: Labile Affect Description: Constricted Patient Cognition Impaired: No Ability to Follow Directions: Good Speech Pattern: Clear Diagnostics Vital Signs (24Hr): Vital Signs - 24 hr 01/11/21 18:00 01/11/21 18:36 01/11/21 20:27 Temperature 97.5 F Pulse Rate 100 100 81 Respiratory Rate 18 18 Blood Pressure 161/107 H 167/107 H 128/68 Pulse Oximetry 98 95 01/12/21 07:55 01/12/21 08:01 01/12/21 12:31 Temperature 97.3 F Pulse Rate 94 94 82 Respiratory Rate 18 Blood Pressure 122/72 122/72 134/91 H Pulse Oximetry 99 Body Mass Index 25.0 Labs Results: 01/01/21 14:27 01/01/21 14:27 Imaging Radiology Impressions: ITS Impressions Ankle X-Ray 01/08/21 16:52 IMPRESSION: Small posterior calcaneal spur, No fracture or dislocation. Medications Medications Current Medications Acetaminophen (Acetaminophen 325 Mg Tablet) 650 mg PO Q6H PRN PRN Reason: Headache/Pain Mild Scale (1-3) Last Admin: 01/11/21 18:24 Dose: 650 mg Documented by: Al Hydroxide/Mg Hydroxide (Magnesium Hydrox/Alum Hydrox 30 Ml Oral.Susp) 30 ml PO Q6H PRN PRN Reason: Heartburn/Nausea Last Admin: 01/08/21 13:10 Dose: 30 ml Documented by: Bupropion HCl (Bupropion Hcl Xl 150 Mg Tab.Er.24h) 450 mg PO DAILY@0730 [facility] Last Admin: 01/12/21 08:01 Dose: 450 mg Documented by: Buspirone HCl (Buspirone Hcl 5 Mg Tablet) 15 mg PO BID@0730,1500 [facility] Last Admin: 01/12/21 14:50 Dose: 15 mg Documented by: Clonazepam (Clonazepam 1 Mg Tablet) 1 mg PO DAILY@1300 [facility] Last Admin: 01/12/21 12:31 Dose: 1 mg Documented by: Clonazepam (Clonazepam 1 Mg Tablet) 1 mg PO DAILY@0730 [facility] Last Admin: 01/12/21 08:00 Dose: 1 mg Documented by: Clonazepam (Clonazepam 1 Mg Tablet) 1 mg PO DAILY@1930 [facility] Last Admin: 01/11/21 18:36 Dose: 1 mg Documented by: Cyproheptadine HCl (Cyproheptadine Hcl 4 Mg Tablet) 4 mg PO Q6H PRN PRN Reason: anxiety/sleep Last Admin: 01/09/21 17:10 Dose: 4 mg Documented by: Gabapentin (Gabapentin 400 Mg Capsule) 800 mg PO TID@0730,1300,1929 [facility] Last Admin: 01/12/21 12:31 Dose: 800 mg Documented by: Ibuprofen (Ibuprofen 600 Mg Tablet) 600 mg PO Q6H PRN PRN Reason: Pain, Moderate (Pain Scale 4-6 Last Admin: 01/12/21 14:51 Dose: 600 mg Documented by: Lamotrigine (Lamotrigine 25 Mg Tablet) 150 mg PO BID@07,1929 [facility] Last Admin: 01/12/21 08:00 Dose: 150 mg Documented by: Lorazepam (Lorazepam 1 Mg Tablet) 1 mg PO DAILY PRN PRN Reason: anxiety, agitation Last Admin: 01/12/21 14:50 Dose: 1 mg Documented by: Magnesium Hydroxide (Milk Of Magnesia 30 Ml Oral.Susp) 30 ml PO DAILY PRN PRN Reason: Constipation Nicotine (Nicotine 21 Mg Patch.Td24) 21 mg TRANSDERMA DAILY [facility] Last Admin: 01/12/21 07:59 Dose: 21 mg Documented by: Propranolol HCl (Propranolol Hcl 20 Mg Tablet) 20 mg PO TID@0730,1300,1929 [facility]; Protocol Last Admin: 01/12/21 12:31 Dose: 20 mg Documented by: Quetiapine Fumarate (Quetiapine Fumarate 200 Mg Tablet) 200 mg PO BEDTIME PRN PRN Reason: sleep Quetiapine Fumarate (Quetiapine Fumarate 100 Mg Tablet) 500 mg PO DAILY@1929 [facility] Last Admin: 01/11/21 22:38 Dose: 500 mg Documented by: Trazodone HCl (Trazodone Hcl 50 Mg Tablet) 50 mg PO BEDTIME PRN PRN Reason: Insomnia Allergies Allergies Allergy/AdvReac Type Severity Reaction Status Date / Time Penicillins [PCN] Allergy Unknown UNKNOWN Verified 01/01/21 19:37 tramadol [TRAMADOL] Allergy Unknown HIVES Verified 01/01/21 19:37 Assessment & Plan Assessment & Plan (1) PTSD (post-traumatic stress disorder): Status: Acute Code(s): F43.10 - Post-traumatic stress disorder, unspecified (2) Cocaine use disorder, moderate, dependence: Status: Acute Code(s): F14.20 - Cocaine dependence, uncomplicated (3) Bipolar 2 disorder, major depressive episode: Status: Acute Code(s): F31.81 - Bipolar II disorder Assessment and Plan: Ms. Close is a 40 y/o woman with hx of PTSD, Bipolar Disorder, cocaine use disorder who recently self presented to [facility] ED reporting increase depressed mood, restlessness, anxious mood. She reports recent relapsed on cocaine. In the ED utox positive for cocaine and cannabis. She describes increase restlessness, need to pace, tapping foot. Note that cocaine major risk factor for antipsychotic induced akathisia, which suspect is part of pt's presentation and fact that she is on seroquel 800mg po qhs. Pt reports relieve of symptoms with propanolol and some benefit with buspar. we discussed taper of seroquel, but pt currently hesitant to make changes as she reports severe restlessness and worries that less medications will increase anxiety. Pt explained underlying mechanism by which her sense of restlessness is worsened by antipsychotic. PLAN: 1. Continue seroquel to 500mg po qhs- continue propanolol, clonazepam, 2. Depression- continue wellbutrin current dose, 3. continue gabapentin 4. Aftercare planning- lack of stable housing, referrals to correction, step down to correction. Accepted to [facility] through [facility]. I spent minutes with the patient and/or on the patient floor today, greater than?50% of which was spent counseling/coordinating care. Reason for contiued inpatient stay Substantial Risk for: stable for discharge
[2021-01-12] MEDS: Acetaminophen 325 MG TABLET 650 MG PO (17:55)
[2021-01-12 18:34] VITALS: BP 118/77; PULSE 77
[2021-01-12 21:56] VITALS: TEMP 36.6; O2SAT 100
[2021-01-12] MEDS: QUEtiapine Fumarate 100 MG TABLET 500 MG PO (22:25)
[2021-01-13 07:45] VITALS: BP 122/93; PULSE 80; RESP 16; TEMP 36.4; O2SAT 98
[2021-01-13] MEDS: Nicotine 21 MG PATCH.TD24 TRANSDERMA (07:50)
[2021-01-13] MEDS: buPROPion HCl XL 150 MG TAB.ER.24H 450 MG PO (07:50)
[2021-01-13] MEDS: Gabapentin 400 MG CAPSULE 800 MG PO ×2 (07:50→12:51)
--- NOTE | 2021-01-13 07:50 | HO.PSYCHPN ---
Subjective Subjective Date of Service: 01/13/21 Reason For Visit: SI Interim History: Pt appears much less dysphoric and less irritable. however, asks for increase in dose of clonazepam which was explained to pt would increase already concern of misuse or dependence on benzos. Pt was given prn dose of ativan, which she will not be discharged on. No higher dose of clonazepam, already on 3 mg prescribed by her OP provider. Pt overall appears much less dysphoric. She denies VH/AH. She has been visible in the unit, social with select peers. poor boundaries with peers. Medication Compliance: Yes Side effects from medications: No Review of Systems Review of Systems Yes all other systems are reviewed and are negative Constitutional: Reports headache(s), Reports poor appetite, Reports weakness and Reports weight loss Eyes: Reports no additional eye complaints Reports headache(s) and Denies sore throat Cardiovascular: Denies chest pain, Denies chest pain at rest, Reports epigastric discomfort, Denies diaphoresis, Denies syncope, Denies rapid heart rate, Denies palpitations, Denies dyspnea, Denies orthopnea and Denies slow heart rate Respiratory: Denies dyspnea Gastrointestinal: Denies bloating, Denies GI cramping, Denies excessive flatus, Denies early satiety, Reports dyspepsia and Denies diarrhea Denies syncope, Reports headache(s) and Reports weakness Endocrine: Denies palpitations Mental Status Exam Mental Status Exam Narrative: Narrative:?Appearance: casually groomed, poor hygiene, restless Behavior: calmer, less irritable psychomotor:less agitation noted Speech:clear, normal rate/rhythm/volume, spontaneous Thought process: tangential Thought content:no signs of psychosis, mistrust of system/providers, future oriented Mood: better Affect: congruent SI:none -denies plan or intent HI:none VH/AH:none Delusions:none Insight/judgment:poor x 2. Memory/cog: alert, oriented x 3. Diagnostics Vital Signs (24Hr): Vital Signs - 24 hr 01/13/21 07:51 01/13/21 12:52 01/13/21 19:46 Temperature 98.0 F Pulse Rate 80 80 Respiratory Rate Blood Pressure 122/93 H 143/91 H Pulse Oximetry 97 01/13/21 19:50 01/13/21 21:30 Temperature Pulse Rate 87 80 Respiratory Rate 19 Blood Pressure 173/97 H 130/85 Pulse Oximetry Body Mass Index 25.0 Labs Results: 01/01/21 14:27 01/01/21 14:27 Imaging Radiology Impressions: ITS Impressions Ankle X-Ray 01/08/21 16:52 IMPRESSION: Small posterior calcaneal spur, No fracture or dislocation. Medications Medications Current Medications Acetaminophen (Acetaminophen 325 Mg Tablet) 650 mg PO Q6H PRN PRN Reason: Headache/Pain Mild Scale (1-3) Last Admin: 01/13/21 19:51 Dose: 650 mg Documented by: Al Hydroxide/Mg Hydroxide (Magnesium Hydrox/Alum Hydrox 30 Ml Oral.Susp) 30 ml PO Q6H PRN PRN Reason: Heartburn/Nausea Last Admin: 01/08/21 13:10 Dose: 30 ml Documented by: Bupropion HCl (Bupropion Hcl Xl 150 Mg Tab.Er.24h) 450 mg PO DAILY@0730 [facility] Last Admin: 01/13/21 07:50 Dose: 450 mg Documented by: Buspirone HCl (Buspirone Hcl 5 Mg Tablet) 15 mg PO BID@0730,1500 [facility] Last Admin: 01/13/21 15:00 Dose: 15 mg Documented by: Clonazepam (Clonazepam 1 Mg Tablet) 1 mg PO DAILY@1930 [facility] Last Admin: 01/13/21 20:24 Dose: 1 mg Documented by: Clonazepam (Clonazepam 1 Mg Tablet) 1 mg PO DAILY@0730 [facility] Clonazepam (Clonazepam 1 Mg Tablet) 1 mg PO DAILY@1300 [facility] Cyproheptadine HCl (Cyproheptadine Hcl 4 Mg Tablet) 4 mg PO Q6H PRN PRN Reason: anxiety/sleep Last Admin: 01/09/21 17:10 Dose: 4 mg Documented by: Gabapentin (Gabapentin 400 Mg Capsule) 1,200 mg PO TID@0730,1300,1930 [facility] Last Admin: 01/13/21 19:51 Dose: 1,200 mg Documented by: Ibuprofen (Ibuprofen 600 Mg Tablet) 600 mg PO Q6H PRN PRN Reason: Pain, Moderate (Pain Scale 4-6 Last Admin: 01/13/21 15:01 Dose: 600 mg Documented by: Lamotrigine (Lamotrigine 25 Mg Tablet) 50 mg PO BID@0730,1930 [facility] Lamotrigine (Lamotrigine 100 Mg Tablet) 100 mg PO BID@0730,1929 [facility] Lorazepam (Lorazepam 1 Mg Tablet) 1 mg PO DAILY PRN PRN Reason: anxiety, agitation Last Admin: 01/13/21 12:12 Dose: 1 mg Documented by: Magnesium Hydroxide (Milk Of Magnesia 30 Ml Oral.Susp) 30 ml PO DAILY PRN PRN Reason: Constipation Last Admin: 01/13/21 11:49 Dose: 30 ml Documented by: Nicotine (Nicotine 21 Mg Patch.Td24) 21 mg TRANSDERMA DAILY [facility] Last Admin: 01/13/21 07:50 Dose: 21 mg Documented by: Propranolol HCl (Propranolol Hcl 20 Mg Tablet) 20 mg PO TID@0730,1300,1929 [facility]; Protocol Last Admin: 01/13/21 19:50 Dose: 20 mg Documented by: Quetiapine Fumarate (Quetiapine Fumarate 200 Mg Tablet) 200 mg PO BEDTIME PRN PRN Reason: sleep Quetiapine Fumarate (Quetiapine Fumarate 300 Mg Tablet) 600 mg PO DAILY@1929 [facility] Last Admin: 01/13/21 22:30 Dose: 600 mg Documented by: Trazodone HCl (Trazodone Hcl 50 Mg Tablet) 50 mg PO BEDTIME PRN PRN Reason: Insomnia Allergies Allergies Allergy/AdvReac Type Severity Reaction Status Date / Time Penicillins [PCN] Allergy Unknown UNKNOWN Verified 01/01/21 19:37 tramadol [TRAMADOL] Allergy Unknown HIVES Verified 01/01/21 19:37 Assessment & Plan Assessment & Plan (1) PTSD (post-traumatic stress disorder): Status: Acute Code(s): F43.10 - Post-traumatic stress disorder, unspecified (2) Cocaine use disorder, moderate, dependence: Status: Acute Code(s): F14.20 - Cocaine dependence, uncomplicated (3) Bipolar 2 disorder, major depressive episode: Status: Acute Code(s): F31.81 - Bipolar II disorder Assessment and Plan: Ms. Rivera is a 40 y/o woman with hx of PTSD, Bipolar Disorder, cocaine use disorder who recently self presented to [facility] reporting increase depressed mood, restlessness, anxious mood. She reports recent relapsed on cocaine. In the ED utox positive for cocaine and cannabis. She describes increase restlessness, need to pace, tapping foot. Note that cocaine major risk factor for antipsychotic induced akathisia, which suspect is part of pt's presentation and fact that she is on seroquel 800mg po qhs. Pt reports relieve of symptoms with propanolol and some benefit with buspar. we discussed taper of seroquel, but pt currently hesitant to make changes as she reports severe restlessness and worries that less medications will increase anxiety. Pt explained underlying mechanism by which her sense of restlessness is worsened by antipsychotic. PLAN: 1. Continue seroquel to 500mg po qhs- continue propanolol, clonazepam, 2. Depression- continue wellbutrin current dose, 3. continue gabapentin 4. Aftercare planning- lack of stable housing, referrals to correction, step down to correction. Accepted to [facility] through [facility]. I spent minutes with the patient and/or on the patient floor today, greater than?50% of which was spent counseling/coordinating care. Reason for contiued inpatient stay Substantial Risk for: stable for discharge
[2021-01-13 07:51] VITALS: BP 122/93; PULSE 80
[2021-01-13] MEDS: lamoTRIgine 25 MG TABLET 150 MG PO ×2 (07:51→19:52)
[2021-01-13] MEDS: Propranolol HCL 20 MG TABLET PO ×3 (07:51→19:50)
[2021-01-13] MEDS: busPIRone HCl 5 MG TABLET 15 MG PO ×2 (07:51→15:00)
[2021-01-13] MEDS: Ibuprofen 600 MG TABLET PO ×2 (07:52→15:01)
[2021-01-13] MEDS: clonazePAM 1 MG TABLET PO ×3 (07:52→20:24)
[2021-01-13] MEDS: Milk of Magnesia 30 ML ORAL.SUSP PO (11:49)
[2021-01-13] MEDS: Acetaminophen 325 MG TABLET 650 MG PO ×2 (12:11→19:51)
[2021-01-13] MEDS: LORazepam 1 MG TABLET PO (12:12)
[2021-01-13 12:52] VITALS: BP 143/91; PULSE 80
[2021-01-13] MEDS: bisacodyL 5 MG TABLET.DR 10 MG PO (17:32)
[2021-01-13 19:46] VITALS: TEMP 36.7; O2SAT 97
[2021-01-13 19:50] VITALS: BP 173/97; PULSE 87
[2021-01-13] MEDS: Gabapentin 400 MG CAPSULE 1200 MG PO (19:51)
[2021-01-13 21:30] VITALS: BP 130/85; PULSE 80; RESP 19
[2021-01-13] MEDS: QUEtiapine Fumarate 300 MG TABLET 600 MG PO (22:30)
[2021-01-14] MEDS: Nicotine 21 MG PATCH.TD24 TRANSDERMA (08:40)
[2021-01-14] MEDS: Ibuprofen 600 MG TABLET PO ×2 (08:40→20:09)
[2021-01-14] MEDS: buPROPion HCl XL 150 MG TAB.ER.24H 450 MG PO (08:41)
[2021-01-14] MEDS: Gabapentin 400 MG CAPSULE 1200 MG PO ×3 (08:42→19:51)
[2021-01-14] MEDS: busPIRone HCl 5 MG TABLET 15 MG PO ×2 (08:42→14:39)
[2021-01-14] MEDS: lamoTRIgine 25 MG TABLET 50 MG PO ×2 (08:42→19:51)
[2021-01-14 08:43] VITALS: BP 143/95; PULSE 88
[2021-01-14] MEDS: Propranolol HCL 20 MG TABLET PO ×3 (08:43→19:51)
[2021-01-14] MEDS: clonazePAM 1 MG TABLET PO ×3 (08:43→19:51)
[2021-01-14] MEDS: lamoTRIgine 100 MG TABLET PO ×2 (08:43→19:50)
[2021-01-14 08:46] VITALS: BP 143/95; PULSE 88; RESP 16; TEMP 36.4; O2SAT 95
[2021-01-14 12:57] VITALS: BP 184/108; PULSE 100
[2021-01-14] MEDS: Acetaminophen 325 MG TABLET 650 MG PO (14:40)
[2021-01-14] MEDS: LORazepam 1 MG TABLET PO (15:12)
[2021-01-14 18:00] VITALS: BP 154/100; PULSE 80; RESP 18; TEMP 36.6; O2SAT 98
--- NOTE | 2021-01-14 18:16 | P.PNPSI_ITS ---
Subjective Subjective Date of Service: 01/14/21 Reason For Visit: SI Interim History: pt reports she is feeling well, nearing time to discharge. recent med changes reviewed, pt states her constipation issue has resolved. she has no questions or concerns for MD. planning to discharge friday. per staff, constipated yesterday. had gabapentin and seroquel increased yesterday. slept 9 hours overnight. appetite good. planning to discharge on friday. taking PRNs for ankle pain. Mental Status Exam Mental Status Exam Narrative: Narrative:?Appearance: casually groomed, fair hygiene Behavior: calmer, less irritable psychomotor:less agitation noted Speech:clear, normal rate/rhythm/volume, spontaneous Thought process: generally linear and logical Thought content:no signs of psychosis, mistrust of system/providers, future oriented Mood: euthymic Affect: congruent SI:none -denies plan or intent HI:none VH/AH:none Delusions:none Insight/judgment:poor x 2. Memory/cog: alert, oriented x 3. Diagnostics Vital Signs (24Hr): Vital Signs - 24 hr 01/13/21 19:46 01/13/21 19:50 01/13/21 21:30 Temperature 98.0 F Pulse Rate 87 80 Respiratory Rate 19 Blood Pressure 173/97 H 130/85 Pulse Oximetry 97 01/14/21 08:43 01/14/21 08:46 01/14/21 12:57 Temperature 97.6 F Pulse Rate 88 88 100 Respiratory Rate 16 Blood Pressure 143/95 H 143/95 H 184/108 H Pulse Oximetry 95 Body Mass Index 25.0 Labs Results: 01/01/21 14:27 01/01/21 14:27 Imaging Radiology Impressions: ITS Impressions Ankle X-Ray 01/08/21 16:52 IMPRESSION: Small posterior calcaneal spur, No fracture or dislocation. Medications Medications Current Medications Acetaminophen (Acetaminophen 325 Mg Tablet) 650 mg PO Q6H PRN PRN Reason: Headache/Pain Mild Scale (1-3) Last Admin: 01/14/21 14:40 Dose: 650 mg Documented by: Al Hydroxide/Mg Hydroxide (Magnesium Hydrox/Alum Hydrox 30 Ml Oral.Susp) 30 ml PO Q6H PRN PRN Reason: Heartburn/Nausea Last Admin: 01/08/21 13:10 Dose: 30 ml Documented by: Bupropion HCl (Bupropion Hcl Xl 150 Mg Tab.Er.24h) 450 mg PO DAILY@0730 [facility] Last Admin: 01/14/21 08:41 Dose: 450 mg Documented by: Buspirone HCl (Buspirone Hcl 5 Mg Tablet) 15 mg PO BID@0730,1500 [facility] Last Admin: 01/14/21 14:39 Dose: 15 mg Documented by: Clonazepam (Clonazepam 1 Mg Tablet) 1 mg PO DAILY@1929 [facility] Last Admin: 01/13/21 20:24 Dose: 1 mg Documented by: Clonazepam (Clonazepam 1 Mg Tablet) 1 mg PO DAILY@0730 [facility] Last Admin: 01/14/21 08:43 Dose: 1 mg Documented by: Clonazepam (Clonazepam 1 Mg Tablet) 1 mg PO DAILY@1300 [facility] Last Admin: 01/14/21 12:57 Dose: 1 mg Documented by: Cyproheptadine HCl (Cyproheptadine Hcl 4 Mg Tablet) 4 mg PO Q6H PRN PRN Reason: anxiety/sleep Last Admin: 01/09/21 17:10 Dose: 4 mg Documented by: Gabapentin (Gabapentin 400 Mg Capsule) 1,200 mg PO TID@0730,1300,1930 [facility] Last Admin: 01/14/21 12:57 Dose: 1,200 mg Documented by: Ibuprofen (Ibuprofen 600 Mg Tablet) 600 mg PO Q6H PRN PRN Reason: Pain, Moderate (Pain Scale 4-6 Last Admin: 01/14/21 08:40 Dose: 600 mg Documented by: Lamotrigine (Lamotrigine 25 Mg Tablet) 50 mg PO BID@ [facility] Last Admin: 01/14/21 08:42 Dose: 50 mg Documented by: Lamotrigine (Lamotrigine 100 Mg Tablet) 100 mg PO BID@0730,1930 [facility] Last Admin: 01/14/21 08:43 Dose: 100 mg Documented by: Lorazepam (Lorazepam 1 Mg Tablet) 1 mg PO DAILY PRN PRN Reason: anxiety, agitation Last Admin: 01/14/21 15:12 Dose: 1 mg Documented by: Magnesium Hydroxide (Milk Of Magnesia 30 Ml Oral.Susp) 30 ml PO DAILY PRN PRN Reason: Constipation Last Admin: 01/13/21 11:49 Dose: 30 ml Documented by: Nicotine (Nicotine 21 Mg Patch.Td24) 21 mg TRANSDERMA DAILY [facility] Last Admin: 01/14/21 08:40 Dose: 21 mg Documented by: Propranolol HCl (Propranolol Hcl 20 Mg Tablet) 20 mg PO TID@0730,1300,1930 [facility]; Protocol Last Admin: 01/14/21 12:57 Dose: 20 mg Documented by: Quetiapine Fumarate (Quetiapine Fumarate 200 Mg Tablet) 200 mg PO BEDTIME PRN PRN Reason: sleep Quetiapine Fumarate (Quetiapine Fumarate 300 Mg Tablet) 600 mg PO DAILY@1930 [facility] Last Admin: 01/13/21 22:30 Dose: 600 mg Documented by: Trazodone HCl (Trazodone Hcl 50 Mg Tablet) 50 mg PO BEDTIME PRN PRN Reason: Insomnia Allergies Allergies Allergy/AdvReac Type Severity Reaction Status Date / Time Penicillins [PCN] Allergy Unknown UNKNOWN Verified 01/01/21 19:37 tramadol [TRAMADOL] Allergy Unknown HIVES Verified 01/01/21 19:37 Assessment & Plan Assessment & Plan (1) PTSD (post-traumatic stress disorder): Status: Acute Code(s): F43.10 - Post-traumatic stress disorder, unspecified (2) Cocaine use disorder, moderate, dependence: Status: Acute Code(s): F14.20 - Cocaine dependence, uncomplicated (3) Bipolar 2 disorder, major depressive episode: Status: Acute Code(s): F31.81 - Bipolar II disorder Assessment and Plan: Ms. Rivera is a 40 y/o woman with hx of PTSD, Bipolar Disorder, cocaine use disorder who recently self presented to [facility] ED reporting increase depressed mood, restlessness, anxious mood. She reports recent relapsed on cocaine. In the ED utox positive for cocaine and cannabis. She describes increase restlessness, need to pace, tapping foot. Note that cocaine major risk factor for antipsychotic induced akathisia, which suspect is part of pt's presentation and fact that she is on seroquel 800mg po qhs. Pt reports relieve of symptoms with propanolol and some benefit with buspar. we discussed taper of seroquel, but pt currently hesitant to make changes as she reports severe restlessness and worries that less medications will increase anxiety. Pt explained underlying mechanism by which her sense of restlessness is worsened by antipsychotic. PLAN: 1. Continue seroquel to 500mg po qhs- continue propanolol, clonazepam, 2. Depression- continue wellbutrin current dose, 3. continue gabapentin 4. HTN - start clonidine 0.1 mg TID as propranolol 20 TID is not controlling BP. weigh risk/benefit of using beta may in cocaine user (increased cardiac risk) with utility of propranolol for akathisia. 5. Aftercare planning- lack of stable housing, referrals to detention, step down to detention. Accepted to [facility] through [facility]. I spent minutes with the patient and/or on the patient floor today, greater than?50% of which was spent counseling/coordinating care. Reason for contiued inpatient stay Substantial Risk for: inability to function and rapid decompensation
[2021-01-14 19:51] VITALS: BP 150/100; PULSE 80
[2021-01-14] MEDS: QUEtiapine Fumarate 300 MG TABLET 600 MG PO (22:34)
[2021-01-14] MEDS: cloNIDine HCL 0.1 MG TABLET PO (22:34)
[2021-01-15] VITALS (7 sets, daily range): BP systolic 117–130; BP diastolic 74–88; PULSE 72–94; RESP 18; TEMP 36.6–36.7; O2SAT 97–100
[2021-01-15] MEDS: Nicotine 21 MG PATCH.TD24 TRANSDERMA (07:57)
[2021-01-15] MEDS: busPIRone HCl 5 MG TABLET 15 MG PO ×2 (07:58→15:17)
[2021-01-15] MEDS: buPROPion HCl XL 150 MG TAB.ER.24H 450 MG PO (07:58)
[2021-01-15] MEDS: Gabapentin 400 MG CAPSULE 1200 MG PO ×3 (07:58→18:34)
[2021-01-15] MEDS: lamoTRIgine 100 MG TABLET PO ×2 (07:59→18:35)
[2021-01-15] MEDS: clonazePAM 1 MG TABLET PO ×3 (07:59→18:36)
[2021-01-15] MEDS: cloNIDine HCL 0.1 MG TABLET PO ×2 (07:59→15:16)
[2021-01-15] MEDS: Propranolol HCL 20 MG TABLET PO ×3 (07:59→18:35)
[2021-01-15] MEDS: lamoTRIgine 25 MG TABLET 50 MG PO ×2 (07:59→18:35)
[2021-01-15] MEDS: Ibuprofen 600 MG TABLET PO ×2 (10:59→19:06)
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
[2021-01-15] MEDS: LORazepam 1 MG TABLET PO (15:16)
[2021-01-15] MEDS: QUEtiapine Fumarate 300 MG TABLET 600 MG PO (22:54)
[2021-01-16 07:59] VITALS: BP 116/85; PULSE 89; RESP 16; TEMP 36.7; O2SAT 96
[2021-01-16] MEDS: Nicotine 21 MG PATCH.TD24 TRANSDERMA (08:00)
[2021-01-16] MEDS: buPROPion HCl XL 150 MG TAB.ER.24H 450 MG PO (08:01)
[2021-01-16] MEDS: Ibuprofen 600 MG TABLET PO (08:02)
[2021-01-16] MEDS: clonazePAM 1 MG TABLET PO ×2 (08:03→10:11)
[2021-01-16] MEDS: Gabapentin 400 MG CAPSULE 1200 MG PO ×2 (08:08→10:11)
[2021-01-16] MEDS: lamoTRIgine 100 MG TABLET PO (08:09)
[2021-01-16 08:10] VITALS: BP 116/85; PULSE 89
[2021-01-16] MEDS: lamoTRIgine 25 MG TABLET 50 MG PO (08:10)
[2021-01-16] MEDS: Propranolol HCL 20 MG TABLET PO ×2 (08:10→10:12)
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
[2021-01-16 10:12] VITALS: BP 132/79; PULSE 90
[2021-01-16] MEDS: busPIRone HCl 5 MG TABLET 15 MG PO (10:12)
--- NOTE | 2021-01-16 11:36 | PC.NURSE ---
Patient is alert and oriented x4. Patient's vital signs are stable and within normal limits. Patient is med compliant. Upon approach patient is pleasant and cooperative. Patient denied SI/HI/AH/VH. Patient reported some mild anxiety due to being nervous about happens next . Patient reported feeling safe and ready for discharge. Patient was in agreement and an understanding of discharge. Patient denied complaints at this time.
== END 2021-01-16 10:45 | disposition home or self-care (01) | DRG 753 ==
LOC: HO.ED 19:47 → HO.PADLT16 01-03 16:47
PROVIDERS: Emergency Medicine Emergency Medical Services; Admitting Provider Psychiatry & Neurology Psychiatry; Emergency Provider Emergency Medicine; Visit Provider Social Worker
DX: F31.81 Bipolar II disorder (principal); R45.851 Suicidal ideations; F14.20 Cocaine dependence, uncomplicated; F43.10 Post-traumatic stress disorder, unspecified; F17.210 Nicotine dependence, cigarettes, uncomplicated; Z20.822 Contact with and (suspected) exposure to COVID-19; Z71.6 Tobacco abuse counseling; Z88.0 Allergy status to penicillin; Z88.5 Allergy status to narcotic agent; Z79.1 Long term (current) use of non-steroidal anti-inflammatories (NSAID); Z79.899 Other long term (current) drug therapy
CPT/HCPCS: 36415; 73600; 80053; 80061; 80307; 81001; 81025; 82077; 82607; 82728; 82746; 83036; 83540; 83605; 83690; 84443; 85025; 87635; 93005; 99285; J1885; J2405

== ENCOUNTER 2021-01-28 09:09 | Emergency (ER) | payer OTHER, SELFPAY ==
--- NOTE | ~2021-01-28 | XR_ITS ---
EXAMINATION: XR ABDOMEN KUB CLINICAL INDICATION: Constipation for 12 days. COMPARISON: None TECHNIQUE: AP view of the abdomen. FINDINGS: Lung bases are unremarkable. Cholecystectomy clips in the right upper abdomen. Large amount of fecal material is present in the colon and extending to level of rectum, consistent with history of constipation. The visualized bowel loops are in the normal size range. No pneumoperitoneum. No evidence of renal calculi. Multiple small calcifications in the pelvis have the appearance of phleboliths. Mild dextrocurvature of the lumbar spine. XR/XR KUB IMPRESSION: Findings are consistent with history of constipation. A large volume of fecal material is present within the colon. No evidence of bowel obstruction.
[2021-01-28 09:14] VITALS: BP 123/99; PULSE 83; RESP 16; TEMP 36.8; O2SAT 99; BMI 23.3
--- NOTE | 2021-01-28 09:28 | ED_ITS ---
HPI - Ear Problem General Chief complaint: Ear Problems Stated complaint: bleeding r ear Time Seen by Provider: 01/28/21 09:20 Source: patient Mode of arrival: ambulatory Limitations: no limitations History of Present Illness HPI Narrative: 1-year-old female past medical history significant for cocaine use disorder, PTSD, bipolar disorder presents to the emergency department complaints of bleeding from the right ear, decreased hearing X2 days, headache X1 week and constipation X 12 days. Patient tells me that she was cleaning her ear with a Q-tip yesterday, and she noticed blood, out of the Q-tip. She tells me it happened again this morning. She reports decreased hearing out of bilateral ears. She reports that she has had a diffuse headache for a week, feels like her typical headache. Denies trauma to the area. She also tells me she has not had a bowel movement for 12 days and she is extremely worried. She has been passing flatness without an issue. She tells me she has been eating less than usual. She denies abdominal pain, chest pain, fevers, chills, nausea, vomiting, diarrhea, weakness, headache, dizziness, photophobia Complaint: ear pain Location: right ear Duration: constant Severity: moderate Relieving factors: nothing Exacerbating factors: nothing Discharge from ear: yes - bloody (small amount on Q-tip) Associated symptoms ear: decreased hearing and headache Treatment prior to arrival: none Related Data Previous Rx's Medication Instructions Recorded buspirone 15 mg tablet 15 mg PO BID@0730,1500 #60 tab 01/12/21 ibuprofen 600 mg tablet 600 mg PO Q6H PRN #30 tab 01/12/21 lamotrigine 150 mg tablet 150 mg PO BID@0730,1929 #60 tab 01/12/21 nicotine 21 mg/24 hr daily 21 mg TRANSDERMAL DAILY #30 ea 01/12/21 transdermal patch propranolol 20 mg tablet 20 mg PO TID@0730,1300,1929 #42 tab 01/12/21 quetiapine 300 mg tablet 600 mg PO DAILY@193 #60 tab 01/12/21 bupropion HCl 150 mg 24 hr tablet, 450 mg PO QAM #45 tab 01/16/21 extended release (Wellbutrin XL) buspirone 15 mg tablet 15 mg PO BID #60 tab 01/16/21 clonazepam 1 mg tablet 1 mg PO TID #45 tab 01/16/21 clonidine HCl 0.1 mg tablet 0.1 mg PO TID #45 tab 01/16/21 gabapentin 600 mg tablet 1,200 mg PO TID@0730,1300,1930 #90 01/16/21 tab lamotrigine 150 mg tablet 150 mg PO BID #60 tab 01/16/21 (Lamictal) propranolol 20 mg tablet 20 mg PO TID #45 tab 01/16/21 quetiapine 300 mg tablet 600 mg PO DAILY@1930 #60 tab 01/16/21 docusate sodium 100 mg capsule 100 mg PO BID #20 cap 01/28/21 (Colace) polyethylene glycol 3350 17 17 g PO BID #238 g 01/28/21 gram/dose oral powder (Miralax) sennosides 8.6 mg tablet (senna) 8.6 mg PO BEDTIME #14 tab 01/28/21 Allergies Allergy/AdvReac Type Severity Reaction Status Date / Time Penicillins [PCN] Allergy Unknown UNKNOWN Verified 01/01/21 19:37 tramadol [TRAMADOL] Allergy Unknown HIVES Verified 01/01/21 19:37 Review of Systems Review of Systems: Constitutional : No Weight loss, No Fever, No Chills, No Fatigue, No Malaise ENT/Mouth : No sore throat, No Rhinorrhea, + decreased hearing, + blood from right ear Eyes: No Eye Pain, No Swelling, No Redness Cardiovascular : No Chest Pain, No SOB, No Dyspnea on Exertion, No Orthopnea, No Edema, No Palpitations Respiratory : No Cough, No Sputum, No Wheezing Gastrointestinal : No Nausea, No Vomiting, No Diarrhea, + Constipation, No abdominal Pain, No Hematochezia, No Melena Genitourinary : No Dysuria, No Urinary Frequency, No Hematuria, Musculoskeletal : No joint pain, No Myalgias, No Joint Swelling Skin : No Skin Lesions, No rash Neuro : No Weakness, No Numbness, No Dizziness, + Headache Psych : No Anxiety/Panic, No Depression All other systems reviewed and are negative [facility] Past Medical History Attestation statement: The following information was validated with the patient. Source: old records reviewed and nursing notes reviewed Social History Social History Household Members: Other Household Members Other:: I don't have a home now . Housing: Other Housing Other:: Reports homeless Do you presently have visiting nurse or other home services: Yes ([facility]) Alcohol intake: never Patient Tobacco Use Status: Current everyday Tobacco user Tobacco use type: Cigarette Cigarettes Per Day: 20 Years Smoked: 25 e-Cigarette/Vaping Use: Currently Using Second Hand Smoke Exposure: Yes Substance Use Type: Marijuana and Caffiene Advance Directives: No Advance Directives Information Provided: No service: No Sexual orientation: Straight/Heterosexual Physical Exam Vital Signs: Vital Signs: Last Vital Signs Temp 98.3 F 01/28/21 09:14 Pulse 83 01/28/21 09:14 Resp 16 01/28/21 09:14 BP 123/99 H 01/28/21 09:14 Pulse Ox 99 01/28/21 09:14 Body Mass Index 23.3 VSS Appearance: Alert.? Oriented X3.? No acute distress.? Head: Normocephalic, atraumatic, no step-offs or deformities Eyes: Pupils equal, round and reactive to light.?EOMI ENT: Pharynx normal.? + bilateral small abrasions noted to ear canals. No tympanic membrane erythema, bulging or effusions noted bilaterally. No pain with manipulation of external ear. Neck: Normal inspection.? Neck supple.? CVS: Normal heart rate and rhythm.? Pulses normal.? Respiratory: No respiratory distress.? Breath sounds normal.? Abdomen: Soft and nontender.? Skin: Skin warm and dry.? Normal skin color.? Normal skin turgor.? Extremities: No lower extremity edema.? No calf ttp. 5/5 strength to bilateral upper and lower extremities Back: No midline tenderness, no C-spine tenderness, full range of motion, no CVA tenderness bilaterally Neuro: Oriented X 3.? No motor deficit.? No sensory deficit. Course Reevaluation(s) Reevaluation #1: KUB with large volume stool patient has been given fleet enema, colace and senna. Time: 10:52 Reevaluation #2: Patient still not able to have a bowel movement, I discussed manual disimpaction with her, she tells me that she would rather wait to see of the medication work. She tells me her ear is bothering her however there is no signs of otitis media, otitis externa, foreign body, tympanic membrane perforation, cerumen impaction. I have advised her to follow-up with ENT and have given her phone number she can call to schedule appointment. I have told her to return to the emergency department tomorrow she still does not have a bowel movement. Patient is safe for discharge home with PCP follow-up. And she is to return to the emergency department if she does not have a bowel movement by tomorrow. Time: 11:47 MDM - Ear MDM Narrative Medical decision making narrative: 927 40-year-old female past medical history significant for bipolar disorder, co paxton use disorder, PTSD presenting to the emergency department with bilateral decreased hearing, blood from right ear X2 days s/p trauma with Q-tip, diffuse boring headache (similar to previous) X1 week constipation, passing flatus X 12 days. Upon physical examination patient appears well. S1-S2 appreciated free of murmurs. Lungs are clear. Abdomen soft nontender nondistended with normoactive bowel sounds. Bilateral small abrasions noted to ear canals. No tympanic membrane erythema, bulging or effusions noted bilaterally. No perferated TM. No pain with manipulation of external ear. EOMI. PERRL b/l. No focal neuro deficits. No pain with neck movement. VSS Plan at this time is to give patient a fleet enema and do a KUB to determine stool burden. Critical Care Time Critical Care Time Critical Care Time: No Discharge Plan Discharge Clinical Impression: Abrasion of ear canal Qualifiers: Encounter type: initial encounter Laterality: unspecified laterality Qualified Code(s): S00.419A - Abrasion of unspecified ear, initial encounter Constipation Qualifiers: Constipation type: unspecified constipation type Qualified Code(s): K59.00 - Constipation, unspecified Presbycusis Qualifiers: Laterality: bilateral Qualified Code(s): H91.13 - Presbycusis, bilateral Patient Disposition: Home, Self-Care Instructions: Constipation (ED), High Fiber Diet (ED), Abrasion (ED), Fleet Enema (ED), Ear Abrasion (ED) Additional Instructions: Take your medications as prescribed. Do not use Q-tips anymore. Follow-up with your primary care provider this week. If you do not have a bowel movement by tomorrow you need to return to the emergency department to be reevaluated Return to the emergency department with new or worsening symptoms. Such as worsening headache, vision changes, dizziness, fevers, chills, nausea, vomiting, neck pain, chest pain, shortness of breath, wosening pain. In case of emergency call 911 [facility] [place] [id number] [facility] [address], [place], [place] [id number] Prescriptions: New sennosides [senna] 8.6 mg tablet 8.6 mg PO BEDTIME Qty: 14 RF: 0 docusate sodium [Colace] 100 mg capsule 100 mg PO BID Qty: 20 RF: 0 polyethylene glycol 3350 [Miralax] 17 gram/dose powder 17 g PO BID Qty: 238 RF: 0 No Action nicotine 21 mg/24 hr Patch 24 Hour 21 mg transdermal DAILY Qty: 30 RF: 0 propranolol 20 mg Tablet 20 mg PO TID@0730,1300,193 Qty: 42 RF: 0 buspirone 15 mg tablet 15 mg PO BID@0730,1500 Qty: 60 RF: 0 ibuprofen 600 mg Tablet 600 mg PO Q6H PRN (Reason: Pain, Moderate (Pain Scale 4-6) Qty: 30 RF: 0 lamotrigine 150 mg tablet 150 mg PO BID@07,1929 Qty: 60 RF: 0 quetiapine 300 mg tablet 600 mg PO DAILY@1929 Qty: 60 RF: 0 clonidine HCl 0.1 mg Tablet 0.1 mg PO TID Qty: 45 RF: 0 gabapentin 600 mg tablet 1,200 mg PO TID@0730,1300,0 Qty: 90 RF: 0 quetiapine 300 mg Tablet 600 mg PO DAILY@1929 Qty: 60 RF: 0 clonazepam 1 mg tablet 1 mg PO TID Qty: 45 RF: 0 bupropion HCl [Wellbutrin XL] 150 mg tablet extended release 24 hr 450 mg PO QAM Qty: 45 RF: 0 buspirone 15 mg tablet 15 mg PO BID Qty: 60 RF: 0 propranolol 20 mg tablet 20 mg PO TID Qty: 45 RF: 0 lamotrigine [Lamictal] 150 mg tablet 150 mg PO BID Qty: 60 RF: 0 Referrals: Physician,None [Primary Care Provider] - 2 days
[2021-01-28] MEDS: Sodium Phosphate,Mono-Dibasic 133 ML ENEMA PR (10:13)
[2021-01-28] MEDS: Sennosides 8.6 MG TABLET 17.2 MG PO (10:56)
[2021-01-28] MEDS: Docusate Sodium 100 MG CAPSULE PO (10:56)
== END 2021-01-28 12:01 | disposition home or self-care (01) ==
PROVIDERS: Emergency Provider Emergency Medicine
DX: S00.411A Abrasion of right ear, initial encounter (principal); W45.8XXA Other foreign body or object entering through skin, initial encounter; H91.13 Presbycusis, bilateral; K59.00 Constipation, unspecified; F17.200 Nicotine dependence, unspecified, uncomplicated; Y93.E8 Activity, other personal hygiene; Y92.9 Unspecified place or not applicable; Y99.9 Unspecified external cause status; F31.81 Bipolar II disorder; F14.20 Cocaine dependence, uncomplicated; F43.10 Post-traumatic stress disorder, unspecified
CPT/HCPCS: 74018; 99283

== ENCOUNTER 2021-01-29 10:30 | Emergency (ER) | payer OTHER, SELFPAY ==
--- NOTE | ~2021-01-29 | XR_ITS ---
EXAMINATION: XR ABDOMEN KUB CLINICAL INDICATION: Constipation COMPARISON: None TECHNIQUE: AP view of the abdomen. FINDINGS: There is stool throughout the colon suggestive of constipation. There is mild dilatation of small and large bowel. There is no evidence of free air. No calcifications are seen. There is curvature of the lumbar spine to the right. There are right upper quadrant surgical clips probably from cholecystectomy. XR/XR KUB IMPRESSION: Constipation.
[2021-01-29 10:50] VITALS: BP 122/74; PULSE 75; RESP 16; TEMP 36.8; O2SAT 98; BMI 24.1
[2021-01-29 12:26] LABS: MANUAL DIFF FLAG NO
[2021-01-29 12:28] LABS: Basophils Absolute Auto 0.1 X10*3/uL (0.0-0.2); Basophils Percent Auto 0.6 % (0-2); Eosinophils Absolute Auto 0.2 X10*3/uL (0.0-0.4); Eosinophils Percent Auto 2.3 % (0-4); Hematocrit 37.5 % (37.0-47.0); Hemoglobin 11.1 g/dl (12.0-16.0); Imm Gran Abs Auto 0.03 X10*3/uL (0.00-0.03); Imm Gran Pct Auto 0.4 % (0.0-0.4); Lymphocytes Percent Auto 25.9 % (20-40); Mean Corpuscular HGB Conc 29.6 g/dl (31.0-35.0); Mean Corpuscular Hemoglobin 24.4 pg (27.0-33.0); Mean Corpuscular Volume 82.4 fL (80.0-98.0); Mean Platelet Volume 10.3 fL (9.4-12.3); Monocytes Absolute Auto 0.6 X10*3/uL (0.1-1.2); Neutrophils Absolute Auto 4.8 x10*3/uL (2.0-8.3); Neutrophils Percent Auto 62.8 % (45-73); Platelet Count 305 X10*3/uL (160-400); Red Blood Count 4.55 X10*6/uL (4.20-5.50); Red Cell Distribution Width 16.8 % (11.0-16.0); White Blood Count 7.7 X10*3/uL (4.8-10.8)
[2021-01-29 12:46] LABS: Alanine Aminotransferase 10 U/L (0-31); Albumin Level 4.1 g/dL (3.5-5.0); Alkaline Phosphatase 67 U/L (39-117); Anion Gap 13 (12-20); Aspartate Amino Transferase 12 U/L (5-31); Bilirubin Total 0.2 mg/dL (0.0-1.0); Blood Urea Nitrogen 10 mg/dL (9-16); Calcium 9.7 mg/dL (8.4-10.2); Carbon Dioxide 23 mmol/L (22-29); Chloride 107 mmol/L (96-108); Creatinine Clr Calc Pharmacy 55.9; Estimated Glomerular Filt Rate 50; Glucose Random 96 mg/dL (60-115); Potassium 4.3 mmol/L (3.3-5.1); Sodium 139 mmol/L (135-145); Total Protein 7.3 g/dL (6.5-8.0)
--- NOTE | 2021-01-29 13:56 | ED_ITS ---
HPI - Abdominal Pain General Chief Complaint: Abdominal Pain Stated Complaint: abd pain Time Seen by Provider: 01/29/21 12:17 Source: patient Mode of arrival: ambulatory Limitations: no limitations History of Present Illness HPI narrative: seen yesterday for constipation. patient has not had BM for 11 days. Had an enema with no relief. MD elicited complaint: abdominal pain Pertinent past history: constipation Onset (ago): day(s) (12) Pain Consistency: constant Severity: moderate Quality: cramping Associated symptoms: nausea Related Data Previous Rx's Medication Instructions Recorded buspirone 15 mg tablet 15 mg PO BID@0730,1500 #60 tab 01/12/21 ibuprofen 600 mg tablet 600 mg PO Q6H PRN #30 tab 01/12/21 lamotrigine 150 mg tablet 150 mg PO BID@0730,1930 #60 tab 01/12/21 nicotine 21 mg/24 hr daily 21 mg TRANSDERMAL DAILY #30 ea 01/12/21 transdermal patch propranolol 20 mg tablet 20 mg PO TID@0730,1300,1930 #42 tab 01/12/21 quetiapine 300 mg tablet 600 mg PO DAILY@1930 #60 tab 01/12/21 bupropion HCl 150 mg 24 hr tablet, 450 mg PO QAM #45 tab 01/16/21 extended release (Wellbutrin XL) buspirone 15 mg tablet 15 mg PO BID #60 tab 01/16/21 clonazepam 1 mg tablet 1 mg PO TID #45 tab 01/16/21 clonidine HCl 0.1 mg tablet 0.1 mg PO TID #45 tab 01/16/21 gabapentin 600 mg tablet 1,200 mg PO TID@0730,1300,1930 #90 01/16/21 tab lamotrigine 150 mg tablet 150 mg PO BID #60 tab 01/16/21 (Lamictal) propranolol 20 mg tablet 20 mg PO TID #45 tab 01/16/21 quetiapine 300 mg tablet 600 mg PO DAILY@1930 #60 tab 01/16/21 docusate sodium 100 mg capsule 100 mg PO BID #20 cap 01/28/21 (Colace) polyethylene glycol 3350 17 17 g PO BID #238 g 01/28/21 gram/dose oral powder (Miralax) sennosides 8.6 mg tablet (senna) 8.6 mg PO BEDTIME #14 tab 01/28/21 psyllium husk 0.4 gram capsule 0.4 g PO BEDTIME #30 cap 01/29/21 (Metamucil) Allergies Allergy/AdvReac Type Severity Reaction Status Date / Time Penicillins [PCN] Allergy Unknown UNKNOWN Verified 01/01/21 19:37 tramadol [TRAMADOL] Allergy Unknown HIVES Verified 01/01/21 19:37 Review of Systems Constitutional: Reports no additional constitutional complaints Eyes: Reports no additional eye complaints Denies dizziness Cardiovascular: Reports no additional cardiovascular complaints Respiratory: Reports as per HPI Gastrointestinal: Reports no additional gastrointestinal complaints Genitourinary: Reports no additional female genitourinary complaints Musculoskeletal: Reports no additional musculoskeletal complaints Skin/Breast: Denies rash Reports system reviewed and no additional complaints, except as documented, Denies dizziness and Denies Sensory deficit (Neuro) Psychiatric: Denies anxiety Physical Exam Vital Signs: Vital Signs: Last Vital Signs Temp 98.2 F 01/29/21 10:50 Pulse 75 01/29/21 10:50 Resp 16 01/29/21 10:50 BP 122/74 01/29/21 10:50 Pulse Ox 98 01/29/21 10:50 Body Mass Index 24.1 Const: General: healthy appearing Nutritional Appearance: average body habitus Orientation/consciousness: oriented to person and patient oriented x3 Limitations: no limitations HENMT: Head: Yes normal to inspection Ears: external ears normal General nose exam: Normal external nose present Mouth: Normal oral and palatal mucosa present and oropharynx normal Throat: Yes posterior oropharynx normal Eyes: General: appearance normal, both eyes and all related structures Neck: Other: supple Neck: Yes normal visual inspection Chest: Chest palpation & inspection: normal inspection of the chest Resp: Auscultation: clear to auscultation bilaterally Cardio: Jugular venous distension: no JVD Rate: regular rate Rhythm: regular rhythm Heart sounds: S1 normal heart sound present and S2 normal heart sound present GI: Inspection: Yes normal to inspection Palpation (GI): Soft to palpation, nontender and No hepatosplenomegaly present Auscultation: normal bowel sounds : General: Yes no CVA tenderness Back/Spine/Pelvis: Back: no CVA tenderness Skin: General skin exam: no rashes or lesions noted Neuro: General: oriented to person and patient oriented x3 Cranial nerves: Yes CN's II-XII intact bilaterally Motor exam (neuro): 5/5 motor strength present throughout Sensory Exam: No Sensory deficit (Neuro) Extrem: General: Yes normal to inspection Psych: Appearance: grossly normal Course Reevaluation(s) Reevaluation #1: patient is not toxic, soft abdomen, vitals normal, patient with constipation Time: 14:05 MDM - Abdominal Pain Lab Data Result diagrams: 01/29/21 12:14 01/29/21 12:14 Labs: Lab Results 01/29/21 01/29/21 Range/Units 12:14 12:14 WBC 7.7 (4.8-10.8) X10*3/uL RBC 4.55 (4.20-5.50) X10*6/uL Hgb 11.1 L (12.0-16.0) g/dl Hct 37.5 (37.0-47.0) % MCV 82.4 (80.0-98.0) fL MCH 24.4 L (27.0-33.0) pg MCHC 29.6 L (31.0-35.0) g/dl RDW 16.8 H (11.0-16.0) % Plt Count 305 (160-400) X10*3/uL MPV 10.3 (9.4-12.3) fL Immature Gran % (Auto) 0.4 (0.0-0.4) % Neut % (Auto) 62.8 (45-73) % Lymph % (Auto) 25.9 (20-40) % [place] % (Auto) 8.0 (2-11) % Eos % (Auto) 2.3 (0-4) % Baso % (Auto) 0.6 (0-2) % Lymph # (Auto) 2.0 (1.2-4.9) X10*3/uL [place] # (Auto) 0.6 (0.1-1.2) X10*3/uL Eos # (Auto) 0.2 (0.0-0.4) X10*3/uL Baso # (Auto) 0.1 (0.0-0.2) X10*3/uL Abs Immat Gran (auto) 0.03 (0.00-0.03) X10*3/uL Absolute Neuts (auto) 4.8 (2.0-8.3) x10*3/uL Absolute Nucleated RBC 0.000 (0.0-0.012) X10*3/uL Nucleated RBC % (auto) 0.0 (0.0-0.2) /100WBC Sodium 139 (135-145) mmol/L Potassium 4.3 (3.3-5.1) mmol/L Chloride 107 (96-108) mmol/L Carbon Dioxide 23 (22-29) mmol/L Anion Gap 13 (12-20) BUN 10 (9-16) mg/dL Creatinine 1.19 (0.5-1.4) mg/dL Estim Creat Clear Calc 55.9 Estimated GFR 50 Random Glucose 96 (60-115) mg/dL Calcium 9.7 D (8.4-10.2) mg/dL Total Bilirubin 0.2 (0.0-1.0) mg/dL AST 12 (5-31) U/L ALT 10 (0-31) U/L Alkaline Phosphatase 67 (39-117) U/L Total Protein 7.3 (6.5-8.0) g/dL Albumin 4.1 (3.5-5.0) g/dL Imaging Data KUB: Radiologist's impression: FINDINGS: There is stool throughout the colon suggestive of constipation. There is mild dilatation of small and large bowel. There is no evidence of free air. No calcifications are seen. There is curvature of the lumbar spine to the right. There are right upper quadrant surgical clips probably from cholecystectomy. XR/XR KUB IMPRESSION: Constipation. ? Discharge Plan Discharge Clinical Impression: Constipation Qualifiers: Constipation type: unspecified constipation type Qualified Code(s): K59.00 - Constipation, unspecified Patient Disposition: Home, Self-Care Instructions: Constipation (ED) Additional Instructions: after you start to have liquid stools, stop taking golytely. Then start metamucil Prescriptions: New psyllium husk [Metamucil] 0.4 gram capsule 0.4 g PO BEDTIME Qty: 30 RF: 0 No Action sennosides [senna] 8.6 mg tablet 8.6 mg PO BEDTIME Qty: 14 RF: 0 docusate sodium [Colace] 100 mg capsule 100 mg PO BID Qty: 20 RF: 0 polyethylene glycol 3350 [Miralax] 17 gram/dose powder 17 g PO BID Qty: 238 RF: 0 nicotine 21 mg/24 hr Patch 24 Hour 21 mg transdermal DAILY Qty: 30 RF: 0 propranolol 20 mg Tablet 20 mg PO TID@0730,1300,1930 Qty: 42 RF: 0 buspirone 15 mg tablet 15 mg PO BID@0730,1500 Qty: 60 RF: 0 ibuprofen 600 mg Tablet 600 mg PO Q6H PRN (Reason: Pain, Moderate (Pain Scale 4-6) Qty: 30 RF: 0 lamotrigine 150 mg tablet 150 mg PO BID@07,1929 Qty: 60 RF: 0 quetiapine 300 mg tablet 600 mg PO DAILY@1929 Qty: 60 RF: 0 clonidine HCl 0.1 mg Tablet 0.1 mg PO TID Qty: 45 RF: 0 gabapentin 600 mg tablet 1,200 mg PO TID@0730,1300,0 Qty: 90 RF: 0 quetiapine 300 mg Tablet 600 mg PO DAILY@1929 Qty: 60 RF: 0 clonazepam 1 mg tablet 1 mg PO TID Qty: 45 RF: 0 bupropion HCl [Wellbutrin XL] 150 mg tablet extended release 24 hr 450 mg PO QAM Qty: 45 RF: 0 buspirone 15 mg tablet 15 mg PO BID Qty: 60 RF: 0 propranolol 20 mg tablet 20 mg PO TID Qty: 45 RF: 0 lamotrigine [Lamictal] 150 mg tablet 150 mg PO BID Qty: 60 RF: 0 Referrals: Physician,None [Primary Care Provider] - 1 week [facility] Social History Social History Household Members: Other Household Members Other:: I don't have a home now . Housing: Other Housing Other:: Reports homeless Do you presently have visiting nurse or other home services: Yes ([facility]) Alcohol intake: never Patient Tobacco Use Status: Current everyday Tobacco user Tobacco use type: Cigarette Cigarettes Per Day: 20 Years Smoked: 25 e-Cigarette/Vaping Use: Currently Using Second Hand Smoke Exposure: Yes Substance Use Type: Marijuana and Caffiene Advance Directives: No service: No Sexual orientation: Straight/Heterosexual
[2021-01-29] MEDS: PEG 3350/Na Sulf,Bicarb,Cl/KCL 4,000 ML SOLN.RECON 4000 ML PO (14:54)
== END 2021-01-29 14:55 | disposition home or self-care (01) ==
PROVIDERS: Emergency Provider Emergency Medicine
DX: K59.00 Constipation, unspecified (principal); R10.9 Unspecified abdominal pain; Z79.899 Other long term (current) drug therapy
CPT/HCPCS: 36415; 74018; 80053; 85025; 99283

== ENCOUNTER 2022-11-05 21:30 | Inpatient (IN) | payer OTHER, SELFPAY ==
[2022-11-05 23:24] VITALS: BMI 29.5
--- NOTE | 2022-11-05 23:39 | PC.ADMIT ---
Pt is a 41y/o female admitted on CV for Psychosis, Pt is alert and oriented x2, VSS, Covid negative, tox screen positive for cocaine, THC, Benzos. Per crises reports; Pt was found trying to enter into cars in a [employer] parking lot two days prior to her admission at [facility]. Pt presents as calm, uncooperative, disorganized, sleepy. Speech is tangential, unable to participate in admission and asked to go to bed. She declined to sign a release. She denies depression and anxiety, endorsed vague SI, Denies AH/VH. Pt states that she needs help to get back on her meds. Admission order obtained.
[2022-11-06] MEDS: Nicotine Polacrilex 2 MG GUM 4 MG BUCCAL (00:22)
[2022-11-06] MEDS: Acetaminophen 325 MG TABLET 650 MG PO (00:23)
[2022-11-06] MEDS: hydrOXYzine HCL 25 MG TABLET PO (08:59)
[2022-11-06 09:00] VITALS: BP 170/92; PULSE 113; RESP 18; TEMP 36.2; O2SAT 97
[2022-11-06 09:44] LABS: Estimated Average Glucose 97 mg/dL
[2022-11-06] MEDS: Docusate Sodium 100 MG CAPSULE PO ×2 (10:13→20:38)
[2022-11-06] MEDS: Gabapentin 400 MG CAPSULE 1200 MG PO ×3 (10:13→20:38)
[2022-11-06] MEDS: buPROPion HCl XL 150 MG TAB.ER.24H 450 MG PO (10:13)
[2022-11-06] MEDS: clonazePAM 1 MG TABLET PO ×3 (10:13→20:38)
[2022-11-06] MEDS: busPIRone HCl 5 MG TABLET 15 MG PO ×2 (10:13→14:04)
[2022-11-06 10:23] LABS: Alanine Aminotransferase 19 U/L (0-31); Albumin Level 4.6 g/dL (3.5-5.0); Alkaline Phosphatase 72 U/L (39-117); Anion Gap 15 (12-20); Aspartate Amino Transferase 24 U/L (5-31); Bilirubin Total 0.2 mg/dL (0.0-1.0); Blood Urea Nitrogen 16 mg/dL (9-16); Calcium 10.7 mg/dL (8.4-10.2); Carbon Dioxide 26 mmol/L (22-29); Chloride 105 mmol/L (96-108); Cholesterol 218 mg/dL (<200); Creatinine Clr Calc Pharmacy 66.3; Estimated Glomerular Filt Rate 45; Glucose Fasting 92 mg/dL (60-99); HDL Cholesterol 71 mg/dL (>40); LDL Cholesterol Calculated 125 mg/dL (<100); Potassium 4.3 mmol/L (3.3-5.1); Sodium 142 mmol/L (135-145); Total Protein 8.5 g/dL (6.5-8.0); Triglycerides 114 mg/dL (<150)
[2022-11-06 10:42] LABS: Free T4 (Free Thyroxine) 0.96 ng/dL (0.71-1.85); Thyroid Stimulating Hormone 1.06 uIU/mL (0.32-4.0)
[2022-11-06 10:54] LABS: Folate 12.5 ng/mL (> or = 4.0); Vitamin B12 627 pg/mL (200-900)
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
--- NOTE | 2022-11-06 17:29 | PC.NURSE ---
Pt signed 3-day notice at 1700. Pt had difficulty understanding 3-day process and insists I have done nothing wrong, so I should be free to go . This loan underwriter exhaustively explained to pt that 3-day is about safety, is between her and her provider, and is up on 11/11/22. Pt says she has someone coming to pick her up tonight.
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
[2022-11-06 19:30] VITALS: BP 135/94; PULSE 104; TEMP 36.1
--- NOTE | 2022-11-06 22:54 | PC.NURSE ---
At 1245 pt has appeared confused. Pt stated, Someone put an extra bed in my room. When I came in, there was only one bed. Pt entered 515, a single room inhabited by another patient and stated, This was my room. Who moved all of this stuff in here? At 2220, pt entered 514, another inhabited single bedroom. Pt did appear receptive to redirection.
[2022-11-07 07:00] VITALS: BMI 23.5
[2022-11-07] MEDS: Docusate Sodium 100 MG CAPSULE PO ×2 (08:53→21:44)
[2022-11-07] MEDS: busPIRone HCl 5 MG TABLET 15 MG PO ×2 (08:53→14:49)
[2022-11-07] MEDS: clonazePAM 1 MG TABLET PO ×3 (08:53→21:44)
[2022-11-07] MEDS: buPROPion HCl XL 150 MG TAB.ER.24H 450 MG PO (08:53)
[2022-11-07] MEDS: Gabapentin 400 MG CAPSULE 1200 MG PO ×3 (08:56→21:44)
[2022-11-07 09:02] VITALS: BP 156/100; PULSE 87; RESP 18; TEMP 36.1; O2SAT 100
--- NOTE | 2022-11-07 09:06 | HO.PSYCHPN ---
Subjective Subjective Date of Service: 11/07/22 Reason For Visit: F43.10 F16.959 F31.9 Interim History: Met with patient; discussed with team feels much less pressure now that she knows her housing situation is stable. However, expressing paranoid thinking, saying aware that nursing staff using drugs and may have contaminated her urine with PCP. Put in 3 day notice wanting discharge; later however agreed she's not ready for DC and still not clear minded, needing a few more days. HTN remians Mental Status Exam Mental Status Exam Narrative: Pt is alert and oriented; behavior is cooperative, intermittently disorganized; patient is not in distress; dressed in casual attire, disheveled; mood is described as anxious and affect congruent; eye contact appropriate; Speech normal rate, prosody, normal volume; no psychomotor agitation/retardation present; thought process is goal oriented, sometimes circumstantial; Thought content is on what happened, a treatment, discharge; still with some confusion; patient has some paranoid thinking; denies any SI/HI. Denies AVH Patients insight and judgment impaired Diagnostics Vital Signs (24Hr): Vital Signs - 24 hr 11/06/22 19:30 11/07/22 09:02 Temperature 97 F 97.0 F Pulse Rate 104 H 87 Respiratory Rate 18 Blood Pressure 135/94 H 156/100 H Pulse Oximetry 100 Oxygen Delivery Method Room Air BMI result Body Mass Index 29.5 Labs 11/06/22 08:10 Labs: Laboratory Results - last 48 hr 11/06/22 08:10 Sodium 142 Potassium 4.3 Chloride 105 Carbon Dioxide 26 Anion Gap 15 BUN 16 Creatinine 1.29 Estim Creat Clear Calc 66.3 Estimated GFR 45 Fasting Glucose 92 Estimat Average Glucose 97 Hemoglobin A1c % 5.0 Calcium 10.7 H D Total Bilirubin 0.2 AST 24 ALT 19 Alkaline Phosphatase 72 Total Protein 8.5 H Albumin 4.6 Triglycerides 114 Cholesterol 218 H LDL Cholesterol, Calc 125 H HDL Cholesterol 71 Vitamin B12 627 Folate 12.5 TSH 1.06 Free T4 0.96 Medications Medications Current Medications Acetaminophen (Acetaminophen 325 Mg Tablet) 650 mg PO Q6H PRN PRN Reason: Headache/Pain Mild Scale (1-3) Last Admin: 11/06/22 00:23 Dose: 650 mg Al Hydroxide/Mg Hydroxide (Magnesium Hydrox/Alum Hydrox 30 Ml Oral.Susp) 30 ml PO Q6H PRN PRN Reason: Heartburn/Nausea Bupropion HCl (Bupropion Hcl Xl 150 Mg Tab.Er.24h) 450 mg PO DAILY [facility] Last Admin: 11/07/22 08:53 Dose: 450 mg Buspirone HCl (Buspirone Hcl 5 Mg Tablet) 15 mg PO BID@0730,1500 [facility] Last Admin: 11/07/22 08:53 Dose: 15 mg Clonazepam (Clonazepam 1 Mg Tablet) 1 mg PO TID [facility] Last Admin: 11/07/22 08:53 Dose: 1 mg Docusate Sodium (Docusate Sodium 100 Mg Capsule) 100 mg PO BID [facility] Last Admin: 11/07/22 08:53 Dose: 100 mg Gabapentin (Gabapentin 400 Mg Capsule) 1,200 mg PO 0730,1300,1930 [facility] Last Admin: 11/07/22 08:56 Dose: 1,200 mg Hydroxyzine HCl (Hydroxyzine Hcl 25 Mg Tablet) 25 mg PO Q6H PRN PRN Reason: Anxiety Last Admin: 11/06/22 08:59 Dose: 25 mg Ibuprofen (Ibuprofen 600 Mg Tablet) 600 mg PO Q6H PRN PRN Reason: Pain, Mild (Pain Scale 1-3) Magnesium Hydroxide (Milk Of Magnesia 30 Ml Oral.Susp) 30 ml PO DAILY PRN PRN Reason: Constipation Nicotine Polacrilex (Nicotine Polacrilex 2 Mg Gum) 4 mg BUCCAL Q2H PRN PRN Reason: Nicotine Cravings Last Admin: 11/06/22 00:22 Dose: 4 mg Trazodone HCl (Trazodone Hcl 50 Mg Tablet) 50 mg PO BEDTIME MRX1 PRN PRN Reason: Insomnia Allergies Allergies Allergy/AdvReac Type Severity Reaction Status Date / Time Penicillins [PCN] Allergy Unknown UNKNOWN Verified 01/01/21 19:37 tramadol [TRAMADOL] Allergy Unknown HIVES Verified 01/01/21 19:37 Assessment & Plan Assessment & Plan (1) Phencyclidine (PCP)-induced psychosis: Status: Acute Code(s): F16.959 - Hallucinogen use, unspecified with hallucinogen-induced psychotic disorder, unspecified (2) Bipolar disorder: Status: Acute Code(s): F31.9 - Bipolar disorder, unspecified (3) PTSD (post-traumatic stress disorder): Status: Acute Code(s): F43.10 - Post-traumatic stress disorder, unspecified (4) Cocaine use disorder, moderate, dependence: Status: Acute Code(s): F14.20 - Cocaine dependence, uncomplicated Plan Patient is a 41-year-old female with history of bipolar disorder, substance abuse, PTSD, hypertension, CKD, hep B, hep C who presents for dysregulated behavior, psychotic symptoms and the face of substance abuse including PCP. Patient reports she has no idea how she 1st got to [place]; she says she hardly remembers anything prior to coming to [place]. Patient said that she has been taking her medications and went to a friend's house to smoke some cannabis and spent time. She does not think he has the type of person that would spike the cannabis but accepts that PCP was found in her urine. After going to a friend's house patient was found and [employer]'s parking lot trying to get into various scars, disorganized and nonsensical and was then taken to [facility] ED. Patient still feels a little confused but is grateful that she is now more clear minded. Wants to continue with medications. -patient talked with provider from [facility]; initially psychiatry thought that patients psychotic confusion, secondary to PCP was resolving and she was going to be discharged, however on reassessment, patient remained confused and not a baseline and so was presented for admission. Patient saying for the 1st time in a few days is starting to be more clear minded. Wants to stabilize and discharge hospital course: 11/07 still some confusion, paranoid thinking; says she not yet back to regular self; signed 3 day but agrees to remain longer to better stabilize Plan: 3 day Q 15 minute checks Continue home medication Continue to monitor Patient educated on: diagnosis, medication risk/benefits, substance abuse and therapeutic strategies Informed Consent: understands and further education needed Reason for continued inpatient stay Substantial Risk for: rapid decompensation Time Spent With Patient Time: Total time managing care of this patient today ____ minutes.
[2022-11-07] MEDS: Nicotine 21 MG PATCH.TD24 TRANSDERMA (11:28)
[2022-11-07] MEDS: Ibuprofen 600 MG TABLET PO (12:11)
[2022-11-07 14:50] VITALS: BP 162/97; PULSE 111
[2022-11-07 16:32] VITALS: BP 155/99; PULSE 91; RESP 18; TEMP 36.5; O2SAT 97
[2022-11-07] MEDS: traZODone HCL 50 MG TABLET PO (23:07)
[2022-11-07] MEDS: hydrOXYzine HCL 25 MG TABLET PO (23:09)
[2022-11-08 08:00] VITALS: BP 135/80; PULSE 108; RESP 18; TEMP 36.3; O2SAT 97
[2022-11-08] MEDS: clonazePAM 1 MG TABLET PO ×3 (08:29→19:55)
[2022-11-08] MEDS: busPIRone HCl 5 MG TABLET 15 MG PO ×2 (08:29→14:57)
[2022-11-08] MEDS: buPROPion HCl XL 150 MG TAB.ER.24H 450 MG PO (08:29)
[2022-11-08] MEDS: Docusate Sodium 100 MG CAPSULE PO ×2 (08:29→19:55)
[2022-11-08] MEDS: Gabapentin 400 MG CAPSULE 1200 MG PO ×3 (08:31→18:32)
[2022-11-08] MEDS: Nicotine 21 MG PATCH.TD24 TRANSDERMA (08:33)
--- NOTE | 2022-11-08 10:45 | HO.PSYCHPN ---
Subjective Subjective Date of Service: 11/08/22 Reason For Visit: F43.10 F16.959 F31.9 Subjective Notes: Conditional Voluntary Interim History: Pt reports feeling very restless. She reports having some cravings to use cocaine. She reports she was not aware PCP was laced with cocaine. She reports seroquel had been very helpful- wants to have it back. She used to be on 200mg po daily and 600mg po qhs. She denies SI. She reports head feeling like smaller than brain- she describes as pressure. Pt also reports seeing floaties, white spots. Medication Compliance: Yes Diagnostics Vital Signs (24Hr): Vital Signs - 24 hr 11/07/22 14:50 11/07/22 16:32 11/08/22 08:00 Temperature 97.7 F 97.4 F Pulse Rate 111 H 91 108 H Respiratory Rate 18 18 Blood Pressure 162/97 H 155/99 H 135/80 Pulse Oximetry 97 97 Oxygen Delivery Method Room Air Room Air BMI result Body Mass Index 23.5 Labs 11/06/22 08:10 Labs: Laboratory Results - last 48 hr 11/06/22 08:10 Vitamin B12 627 Folate 12.5 Medications Medications Current Medications Acetaminophen (Acetaminophen 325 Mg Tablet) 650 mg PO Q6H PRN PRN Reason: Headache/Pain Mild Scale (1-3) Last Admin: 11/06/22 00:23 Dose: 650 mg Al Hydroxide/Mg Hydroxide (Magnesium Hydrox/Alum Hydrox 30 Ml Oral.Susp) 30 ml PO Q6H PRN PRN Reason: Heartburn/Nausea Bupropion HCl (Bupropion Hcl Xl 150 Mg Tab.Er.24h) 450 mg PO DAILY [facility] Last Admin: 11/08/22 08:29 Dose: 450 mg Buspirone HCl (Buspirone Hcl 5 Mg Tablet) 15 mg PO BID@0730,1500 [facility] Last Admin: 11/08/22 08:29 Dose: 15 mg Clonazepam (Clonazepam 1 Mg Tablet) 1 mg PO TID [facility] Last Admin: 11/08/22 08:29 Dose: 1 mg Docusate Sodium (Docusate Sodium 100 Mg Capsule) 100 mg PO BID [facility] Last Admin: 11/08/22 08:29 Dose: 100 mg Gabapentin (Gabapentin 400 Mg Capsule) 1,200 mg PO 0730,1300,1930 [facility] Last Admin: 11/08/22 08:31 Dose: 1,200 mg Hydroxyzine HCl (Hydroxyzine Hcl 25 Mg Tablet) 25 mg PO Q6H PRN PRN Reason: Anxiety Last Admin: 11/07/22 23:09 Dose: 25 mg Ibuprofen (Ibuprofen 600 Mg Tablet) 600 mg PO Q6H PRN PRN Reason: Pain, Mild (Pain Scale 1-3) Last Admin: 11/07/22 12:11 Dose: 600 mg Magnesium Hydroxide (Milk Of Magnesia 30 Ml Oral.Susp) 30 ml PO DAILY PRN PRN Reason: Constipation Nicotine (Nicotine 21 Mg Patch.Td24) 21 mg TRANSDERMA DAILY [facility] Last Admin: 11/08/22 08:33 Dose: 21 mg Nicotine Polacrilex (Nicotine Polacrilex 2 Mg Gum) 4 mg BUCCAL Q2H PRN PRN Reason: Nicotine Cravings Last Admin: 11/06/22 00:22 Dose: 4 mg Trazodone HCl (Trazodone Hcl 50 Mg Tablet) 50 mg PO BEDTIME MRX1 PRN PRN Reason: Insomnia Last Admin: 11/07/22 23:07 Dose: 50 mg Allergies Allergies Allergy/AdvReac Type Severity Reaction Status Date / Time Penicillins [PCN] Allergy Unknown UNKNOWN Verified 01/01/21 19:37 tramadol [TRAMADOL] Allergy Unknown HIVES Verified 01/01/21 19:37 Assessment & Plan Assessment & Plan (1) Phencyclidine (PCP)-induced psychosis: Status: Acute Code(s): F16.959 - Hallucinogen use, unspecified with hallucinogen-induced psychotic disorder, unspecified (2) Bipolar disorder: Status: Acute Code(s): F31.9 - Bipolar disorder, unspecified (3) PTSD (post-traumatic stress disorder): Status: Acute Code(s): F43.10 - Post-traumatic stress disorder, unspecified (4) Cocaine use disorder, moderate, dependence: Status: Acute Code(s): F14.20 - Cocaine dependence, uncomplicated Plan Patient is a 41-year-old female with history of bipolar disorder, substance abuse, PTSD, hypertension, CKD, hep B, hep C who presents for dysregulated behavior, psychotic symptoms and the face of substance abuse including PCP. Patient reports she has no idea how she 1st got to [place]; she says she hardly remembers anything prior to coming to [place]. Patient said that she has been taking her medications and went to a friend's house to smoke some cannabis and spent time. She does not think he has the type of person that would spike the cannabis but accepts that PCP was found in her urine. After going to a friend's house patient was found and [employer] parking lot trying to get into various scars, disorganized and nonsensical and was then taken to [facility] ED. Patient still feels a little confused but is grateful that she is now more clear minded. Wants to continue with medications. -patient talked with provider from [facility]; initially psychiatry thought that patients psychotic confusion, secondary to PCP was resolving and she was going to be discharged, however on reassessment, patient remained confused and not a baseline and so was presented for admission. Patient saying for the 1st time in a few days is starting to be more clear minded. Wants to stabilize and discharge hospital course: 11/07 still some confusion, paranoid thinking; says she not yet back to regular self; signed 3 day but agrees to remain longer to better stabilize Plan: 3 day Q 15 minute checks Continue home medication Continue to monitor 11/08 pt reports feeling restless, restarted seroquel and lamictal. Reason for continued inpatient stay Substantial Risk for: inability to function Time Spent With Patient Time: Total time managing care of this patient today ____ minutes.
[2022-11-08] MEDS: QUEtiapine Fumarate 200 MG TABLET PO (11:01)
[2022-11-08] MEDS: lamoTRIgine 100 MG TABLET 300 MG PO (11:23)
[2022-11-08 17:30] VITALS: BP 139/81; PULSE 104; RESP 18; TEMP 36.9
[2022-11-08] MEDS: traZODone HCL 50 MG TABLET PO ×3 (19:55→23:34)
[2022-11-08] MEDS: QUEtiapine Fumarate 300 MG TABLET 600 MG PO (19:55)
[2022-11-08] MEDS: hydrOXYzine HCL 25 MG TABLET PO (23:34)
--- NOTE | 2022-11-09 08:48 | P.PNPSI_ITS ---
Subjective Subjective Date of Service: 11/09/22 Reason For Visit: F43.10 F16.959 F31.9 Interim History: Pt seen, discussed with team. Plan of care reviewed. Pt resting when seen- asks that we change timing of Klonopin to 0900,1300,1700 which is completed. Reports sleep and appetite are adjusting since admission. Attributes this to Lamictal, Seroquel reintroduction. Medication Compliance: Yes Side effects from medications: No Attending Groups: Intermittent Review of Systems Acute medical concerns: No Medical Review of Systems: unchanged Mental Status Exam Mental Status Exam Patient Appearance: Fatigued Patient Orientation: Person, Place, Time and Situation Level of Consciousness: Alert Patient Behavior: Talkative and Good Eye Contact Mood Description: Labile Affect Description: Constricted Patient Cognition Impaired: No Ability to Follow Directions: Good Speech Pattern: Spontaneous Speech Thought Process: Distracted Thought Content: positive for [place] and positive for Circumstantial Judgement: Fair Diagnostics Vital Signs (24Hr): Vital Signs - 24 hr 11/08/22 17:30 Temperature 98.4 F Pulse Rate 104 H Respiratory Rate 18 Blood Pressure 139/81 BMI result Body Mass Index 23.5 Labs 11/06/22 08:10 Medications Medications Current Medications Acetaminophen (Acetaminophen 325 Mg Tablet) 650 mg PO Q6H PRN PRN Reason: Headache/Pain Mild Scale (1-3) Last Admin: 11/06/22 00:23 Dose: 650 mg Al Hydroxide/Mg Hydroxide (Magnesium Hydrox/Alum Hydrox 30 Ml Oral.Susp) 30 ml PO Q6H PRN PRN Reason: Heartburn/Nausea Bupropion HCl (Bupropion Hcl Xl 300 Mg Tab.Er.24h) 300 mg PO DAILY [facility] Buspirone HCl (Buspirone Hcl 5 Mg Tablet) 15 mg PO BID@0730,1500 [facility] Last Admin: 11/08/22 14:57 Dose: 15 mg Clonazepam (Clonazepam 1 Mg Tablet) 1 mg PO TID [facility] Last Admin: 11/08/22 19:55 Dose: 1 mg Docusate Sodium (Docusate Sodium 100 Mg Capsule) 100 mg PO BID [facility] Last Admin: 11/08/22 19:55 Dose: 100 mg Gabapentin (Gabapentin 400 Mg Capsule) 1,200 mg PO 0730,1300,1930 [facility] Last Admin: 11/08/22 18:32 Dose: 1,200 mg Hydroxyzine HCl (Hydroxyzine Hcl 25 Mg Tablet) 25 mg PO Q6H PRN PRN Reason: Anxiety Last Admin: 11/08/22 23:34 Dose: 25 mg Ibuprofen (Ibuprofen 600 Mg Tablet) 600 mg PO Q6H PRN PRN Reason: Pain, Mild (Pain Scale 1-3) Last Admin: 11/07/22 12:11 Dose: 600 mg Lamotrigine (Lamotrigine 100 Mg Tablet) 300 mg PO DAILY [facility] Last Admin: 11/08/22 11:23 Dose: 300 mg Magnesium Hydroxide (Milk Of Magnesia 30 Ml Oral.Susp) 30 ml PO DAILY PRN PRN Reason: Constipation Nicotine (Nicotine 21 Mg Patch.Td24) 21 mg TRANSDERMA DAILY [facility] Last Admin: 11/08/22 08:33 Dose: 21 mg Nicotine Polacrilex (Nicotine Polacrilex 2 Mg Gum) 4 mg BUCCAL Q2H PRN PRN Reason: Nicotine Cravings Last Admin: 11/06/22 00:22 Dose: 4 mg Quetiapine Fumarate (Quetiapine Fumarate 200 Mg Tablet) 200 mg PO DAILY [facility] Last Admin: 11/08/22 11:01 Dose: 200 mg Quetiapine Fumarate (Quetiapine Fumarate 300 Mg Tablet) 600 mg PO BEDTIME [facility] Last Admin: 11/08/22 19:55 Dose: 600 mg Trazodone HCl (Trazodone Hcl 50 Mg Tablet) 50 mg PO BEDTIME MRX1 PRN PRN Reason: Insomnia Last Admin: 11/08/22 23:34 Dose: 50 mg Allergies Allergies Allergy/AdvReac Type Severity Reaction Status Date / Time Penicillins [PCN] Allergy Unknown UNKNOWN Verified 01/01/21 19:37 tramadol [TRAMADOL] Allergy Unknown HIVES Verified 01/01/21 19:37 Assessment & Plan Assessment & Plan (1) Phencyclidine (PCP)-induced psychosis: Status: Acute Code(s): F16.959 - Hallucinogen use, unspecified with hallucinogen-induced psychotic disorder, unspecified (2) Bipolar disorder: Status: Acute Code(s): F31.9 - Bipolar disorder, unspecified (3) PTSD (post-traumatic stress disorder): Status: Acute Code(s): F43.10 - Post-traumatic stress disorder, unspecified (4) Cocaine use disorder, moderate, dependence: Status: Acute Code(s): F14.20 - Cocaine dependence, uncomplicated Plan Patient is a 41-year-old female with history of bipolar disorder, substance abuse, PTSD, hypertension, CKD, hep B, hep C who presents for dysregulated behavior, psychotic symptoms and the face of substance abuse including PCP. Patient reports she has no idea how she 1st got to [place]; she says she hardly remembers anything prior to coming to [place]. Patient said that she has been taking her medications and went to a friend's house to smoke some cannabis and spent time. She does not think he has the type of person that would spike the cannabis but accepts that PCP was found in her urine. After going to a friend's house patient was found and [employer]'s parking lot trying to get into various scars, disorganized and nonsensical and was then taken to [facility] ED. Patient still feels a little confused but is grateful that she is now more clear minded. Wants to continue with medications. -patient talked with provider from [facility]; initially psychiatry thought that patients psychotic confusion, secondary to PCP was resolving and she was going to be discharged, however on reassessment, patient remained confused and not a baseline and so was presented for admission. Patient saying for the 1st time in a few days is starting to be more clear minded. Wants to stabilize and discharge hospital course: 11/07 still some confusion, paranoid thinking; says she not yet back to regular self; signed 3 day but agrees to remain longer to better stabilize Plan: 3 day Q 15 minute checks Continue home medication Continue to monitor 11/08 pt reports feeling restless, restarted seroquel and lamictal. 11/09 klonopin times changes, continue regime/plan. Informed Consent: understands Reason for continued inpatient stay Substantial Risk for: rapid decompensation Time Spent With Patient Time: Total time managing care of this patient today ____ minutes.
[2022-11-09] MEDS: Nicotine 21 MG PATCH.TD24 TRANSDERMA (08:49)
[2022-11-09] MEDS: lamoTRIgine 100 MG TABLET 300 MG PO (08:50)
[2022-11-09] MEDS: QUEtiapine Fumarate 200 MG TABLET PO (08:51)
[2022-11-09] MEDS: clonazePAM 1 MG TABLET PO ×3 (08:51→18:17)
[2022-11-09] MEDS: busPIRone HCl 5 MG TABLET 15 MG PO ×2 (08:51→14:01)
[2022-11-09] MEDS: buPROPion HCl XL 300 MG TAB.ER.24H PO (08:51)
[2022-11-09] MEDS: Docusate Sodium 100 MG CAPSULE PO ×2 (08:51→19:15)
[2022-11-09] MEDS: Gabapentin 400 MG CAPSULE 1200 MG PO ×3 (08:58→19:15)
[2022-11-09 09:00] VITALS: BP 125/66; PULSE 82; RESP 18; TEMP 36.6; O2SAT 98
[2022-11-09 13:00] VITALS: RESP 16
[2022-11-09] MEDS: hydrOXYzine HCL 25 MG TABLET PO (13:32)
[2022-11-09 18:00] VITALS: BP 118/84; PULSE 98; TEMP 36.6; O2SAT 98
[2022-11-09] MEDS: QUEtiapine Fumarate 300 MG TABLET 600 MG PO (19:15)
--- NOTE | 2022-11-09 21:49 | PC.NURSE ---
pt was given third dose of kloponin on 11/09 unscheduled due to medication change starting tomorrow 11/10.
--- NOTE | 2022-11-10 05:56 | P.PNPSI_ITS ---
Subjective Subjective Date of Service: 11/10/22 Reason For Visit: F43.10 F16.959 F31.9 Interim History: Pt seen in milieu, discussed with team. Plan of care reviewed. She seems more integrated, less distressed today. No concerns about medication/regime raised. Sleep/Appetite improving Pt learned today that she will not be able to return to her apartment She is processing this with the team with greater insight. She is reflective on precipitants to her admission and acknowledging substance use. Medication Compliance: Yes Side effects from medications: No Attending Groups: Intermittent Review of Systems Acute medical concerns: No Medical Review of Systems: unchanged Mental Status Exam Mental Status Exam Patient Appearance: Fatigued Patient Orientation: Person, Place, Time and Situation Level of Consciousness: Alert Patient Behavior: Talkative and Good Eye Contact Mood Description: Labile Affect Description: Constricted Patient Cognition Impaired: No Ability to Follow Directions: Good Speech Pattern: Spontaneous Speech Thought Process: Distracted Thought Content: positive for [place] and positive for Circumstantial Judgement: Fair Diagnostics Vital Signs (24Hr): Vital Signs - 24 hr 11/09/22 09:00 11/09/22 13:00 11/09/22 18:00 Temperature 97.9 F 97.9 F Pulse Rate 82 98 Respiratory Rate 18 16 Blood Pressure 125/66 118/84 Pulse Oximetry 98 98 Oxygen Delivery Method Room Air Room Air BMI result Body Mass Index 23.5 Labs 11/06/22 08:10 Medications Medications Current Medications Acetaminophen (Acetaminophen 325 Mg Tablet) 650 mg PO Q6H PRN PRN Reason: Headache/Pain Mild Scale (1-3) Last Admin: 11/06/22 00:23 Dose: 650 mg Al Hydroxide/Mg Hydroxide (Magnesium Hydrox/Alum Hydrox 30 Ml Oral.Susp) 30 ml PO Q6H PRN PRN Reason: Heartburn/Nausea Bupropion HCl (Bupropion Hcl Xl 300 Mg Tab.Er.24h) 300 mg PO DAILY [facility] Last Admin: 11/09/22 08:51 Dose: 300 mg Buspirone HCl (Buspirone Hcl 5 Mg Tablet) 15 mg PO BID@0730,1500 [facility] Last Admin: 11/09/22 14:01 Dose: 15 mg Clonazepam (Clonazepam 1 Mg Tablet) 1 mg PO 0900,1300,1700 [facility] Last Admin: 11/09/22 18:17 Dose: 1 mg Docusate Sodium (Docusate Sodium 100 Mg Capsule) 100 mg PO BID [facility] Last Admin: 11/09/22 19:15 Dose: 100 mg Gabapentin (Gabapentin 400 Mg Capsule) 1,200 mg PO 0730,1300,1930 [facility] Last Admin: 11/09/22 19:15 Dose: 1,200 mg Hydroxyzine HCl (Hydroxyzine Hcl 25 Mg Tablet) 25 mg PO Q6H PRN PRN Reason: Anxiety Last Admin: 11/09/22 13:32 Dose: 25 mg Ibuprofen (Ibuprofen 600 Mg Tablet) 600 mg PO Q6H PRN PRN Reason: Pain, Mild (Pain Scale 1-3) Last Admin: 11/07/22 12:11 Dose: 600 mg Lamotrigine (Lamotrigine 100 Mg Tablet) 300 mg PO DAILY [facility] Last Admin: 11/09/22 08:50 Dose: 300 mg Magnesium Hydroxide (Milk Of Magnesia 30 Ml Oral.Susp) 30 ml PO DAILY PRN PRN Reason: Constipation Nicotine (Nicotine 21 Mg Patch.Td24) 21 mg TRANSDERMA DAILY [facility] Last Admin: 11/09/22 08:49 Dose: 21 mg Nicotine Polacrilex (Nicotine Polacrilex 2 Mg Gum) 4 mg BUCCAL Q2H PRN PRN Reason: Nicotine Cravings Last Admin: 11/06/22 00:22 Dose: 4 mg Quetiapine Fumarate (Quetiapine Fumarate 200 Mg Tablet) 200 mg PO DAILY [facility] Last Admin: 11/09/22 08:51 Dose: 200 mg Quetiapine Fumarate (Quetiapine Fumarate 300 Mg Tablet) 600 mg PO BEDTIME [facility] Last Admin: 11/09/22 19:15 Dose: 600 mg Trazodone HCl (Trazodone Hcl 50 Mg Tablet) 50 mg PO BEDTIME MRX1 PRN PRN Reason: Insomnia Last Admin: 11/08/22 23:34 Dose: 50 mg Allergies Allergies Allergy/AdvReac Type Severity Reaction Status Date / Time Penicillins [PCN] Allergy Unknown UNKNOWN Verified 01/01/21 19:37 tramadol [TRAMADOL] Allergy Unknown HIVES Verified 01/01/21 19:37 Assessment & Plan Assessment & Plan (1) Phencyclidine (PCP)-induced psychosis: Status: Acute Code(s): F16.959 - Hallucinogen use, unspecified with hallucinogen-induced psychotic disorder, unspecified (2) Bipolar disorder: Status: Acute Code(s): F31.9 - Bipolar disorder, unspecified (3) PTSD (post-traumatic stress disorder): Status: Acute Code(s): F43.10 - Post-traumatic stress disorder, unspecified (4) Cocaine use disorder, moderate, dependence: Status: Acute Code(s): F14.20 - Cocaine dependence, uncomplicated Plan Patient is a 41-year-old female with history of bipolar disorder, substance abuse, PTSD, hypertension, CKD, hep B, hep C who presents for dysregulated behavior, psychotic symptoms and the face of substance abuse including PCP. Patient reports she has no idea how she 1st got to [place]; she says she hardly remembers anything prior to coming to [email or web address]. Patient said that she has been taking her medications and went to a friend's house to smoke some cannabis and spent time. She does not think he has the type of person that would spike the cannabis but accepts that PCP was found in her urine. After going to a friend's house patient was found and [employer] parking lot trying to get into various scars, disorganized and nonsensical and was then taken to [facility] ED. Patient still feels a little confused but is grateful that she is now more clear minded. Wants to continue with medications. -patient talked with provider from [facility]; initially psychiatry thought that patients psychotic confusion, secondary to PCP was resolving and she was going to be discharged, however on reassessment, patient remained confused and not a baseline and so was presented for admission. Patient saying for the 1st time in a few days is starting to be more clear minded. Wants to stabilize and discharge hospital course: 11/07 still some confusion, paranoid thinking; says she not yet back to regular self; signed 3 day but agrees to remain longer to better stabilize Plan: 3 day Q 15 minute checks Continue home medication Continue to monitor 11/08 pt reports feeling restless, restarted seroquel and lamictal. 11/10 continue current plan of care and regime Informed Consent: understands Reason for continued inpatient stay Substantial Risk for: rapid decompensation Time Spent With Patient Time: Total time managing care of this patient today ____ minutes.
[2022-11-10 08:38] VITALS: BP 133/76; PULSE 90; RESP 16; TEMP 36.6; O2SAT 99
[2022-11-10] MEDS: Nicotine 21 MG PATCH.TD24 TRANSDERMA (08:39)
[2022-11-10] MEDS: Docusate Sodium 100 MG CAPSULE PO ×2 (08:41→20:05)
[2022-11-10] MEDS: lamoTRIgine 100 MG TABLET 300 MG PO (08:41)
[2022-11-10] MEDS: buPROPion HCl XL 300 MG TAB.ER.24H PO (08:42)
[2022-11-10] MEDS: busPIRone HCl 5 MG TABLET 15 MG PO ×2 (08:42→14:21)
[2022-11-10] MEDS: clonazePAM 1 MG TABLET PO ×3 (08:42→16:34)
[2022-11-10] MEDS: QUEtiapine Fumarate 200 MG TABLET PO (08:42)
[2022-11-10] MEDS: Gabapentin 400 MG CAPSULE 1200 MG PO ×3 (08:51→20:07)
[2022-11-10] MEDS: hydrOXYzine HCL 25 MG TABLET PO (14:21)
[2022-11-10 14:22] VITALS: BP 141/73; PULSE 96; RESP 16; TEMP 36.6; O2SAT 96
[2022-11-10] MEDS: OLANZapine 5 MG TABLET PO (15:46)
[2022-11-10 16:47] VITALS: BP 149/92; PULSE 90; TEMP 36.4; O2SAT 97
[2022-11-10] MEDS: QUEtiapine Fumarate 300 MG TABLET 600 MG PO (20:05)
[2022-11-11] MEDS: Nicotine 21 MG PATCH.TD24 TRANSDERMA (08:44)
[2022-11-11] MEDS: Docusate Sodium 100 MG CAPSULE PO (08:45)
[2022-11-11] MEDS: lamoTRIgine 100 MG TABLET 300 MG PO (08:45)
[2022-11-11] MEDS: QUEtiapine Fumarate 200 MG TABLET PO (08:45)
[2022-11-11] MEDS: buPROPion HCl XL 300 MG TAB.ER.24H PO (08:45)
[2022-11-11] MEDS: busPIRone HCl 5 MG TABLET 15 MG PO (08:45)
[2022-11-11] MEDS: clonazePAM 1 MG TABLET PO ×2 (08:45→12:28)
[2022-11-11 08:48] VITALS: BP 152/91; PULSE 92; RESP 16; TEMP 36.8; O2SAT 100
[2022-11-11] MEDS: Gabapentin 400 MG CAPSULE 1200 MG PO ×2 (08:52→12:46)
[2022-11-11] MEDS: Ibuprofen 600 MG TABLET PO (11:19)
[2022-11-11] MEDS: hydrOXYzine HCL 25 MG TABLET PO (11:19)
--- NOTE | 2022-11-11 11:36 | PM.PSYDC ---
DS: Providers Provider Date of Service: 11/11/22 Date of admission: 11/05/22 21:30 Date of discharge: 11/11/22 Primary care physician: Unknown Physician Attending physician on admission: Stan Vargas Consults: 11/05/22 21:40 Consult to Hospitalist Routine Comment: Consulting Provider: Hospitalist Reason For Exam: OSH admission 11/08/22 10:59 Consult to Hospitalist Routine Comment: Consulting Provider: Hospitalist Reason For Exam: new onset white spots (floaties), headache Attending physician on discharge: Stan Vargas DS: Diagnosis Discharge Diagnosis (1) Phencyclidine (PCP)-induced psychosis: Status: Acute (2) Bipolar disorder: Status: Acute (3) PTSD (post-traumatic stress disorder): Status: Acute (4) Cocaine use disorder, moderate, dependence: Status: Acute DS: Medications Discharge Medications Home Medications: Previous Rx's Medication Instructions Recorded ibuprofen 600 mg tablet 600 mg PO Q6H PRN Pain, Moderate 01/12/21 (Pain Scale 4-6 #30 tabs docusate sodium 100 mg capsule 100 mg PO BID #20 caps 01/28/21 (Colace) polyethylene glycol 3350 17 17 g PO BID #238 grams 01/28/21 gram/dose oral powder (Miralax) sennosides 8.6 mg tablet (senna) 8.6 mg PO BEDTIME #14 tabs 01/28/21 psyllium husk 0.4 gram capsule 0.4 g PO BEDTIME #30 caps 01/29/21 (Metamucil) bupropion HCl 300 mg 24 hr tablet, 300 mg PO QAM 30 days #30 tabs 11/11/22 extended release buspirone 15 mg tablet 15 mg PO BID@0730,1500 3 days #60 11/11/22 tabs clonazepam 1 mg tablet 1 mg PO TID 7 days #21 tabs 11/11/22 gabapentin 600 mg tablet 1,200 mg (2 x 600 mg) PO 11/11/22 TID@0730,1300,1930 7 days #42 tabs hydroxyzine HCl 25 mg tablet 25 mg PO Q6H PRN Anxiety 30 days 11/11/22 #60 tabs lamotrigine 150 mg tablet 150 mg PO BID 30 days #60 tabs 11/11/22 (Lamictal) nicotine (polacrilex) 2 mg gum 4 mg buccal Q2H PRN Nicotine 11/11/22 Cravings 30 days #100 ea nicotine 21 mg/24 hr daily 21 mg transdermal DAILY 28 days 11/11/22 transdermal patch #28 ea quetiapine 200 mg tablet See Rx Instructions .Route 11/11/22 .COMPLEX 30 days #120 tabs Mental Status Exam Mental Status Exam Narrative: Pt is alert and oriented; behavior is cooperative, intermittently disorganized; patient is not in distress; dressed in casual attire, adequate grooming/hygiene; mood is described as better and affect congruent; eye contact appropriate; Speech normal rate, prosody, normal volume; no psychomotor agitation/retardation present; thought process is goal oriented, organized; Thought content is discharge and returning home; relevant to conversation and no paranoid/delusional thinking; denies any SI/HI. Denies AVH Patients insight and judgment fair. Data Data Completed and Pending Completed studies during hospitalization [Text1]: 11/06/22 08:10 Sodium 142 Potassium 4.3 Chloride 105 Carbon Dioxide 26 Anion Gap 15 BUN 16 Creatinine 1.29 Estim Creat Clear Calc 66.3 Estimated GFR 45 Fasting Glucose 92 Estimat Average Glucose 97 Hemoglobin A1c % 5.0 Calcium 10.7 H D Total Bilirubin 0.2 AST 24 ALT 19 Alkaline Phosphatase 72 Total Protein 8.5 H Albumin 4.6 Triglycerides 114 Cholesterol 218 H LDL Cholesterol, Calc 125 H HDL Cholesterol 71 Vitamin B12 627 Folate 12.5 TSH 1.06 Free T4 0.96 DS: Summary Hospital Course Hospital Course: HPI: Patient is a 41-year-old female with history of bipolar disorder, substance abuse, PTSD, hypertension, CKD, hep B, hep C who presents for dysregulated behavior, psychotic symptoms and the face of substance abuse including PCP. Patient reports she has no idea how she 1st got to [place]; she says she hardly remembers anything prior to coming to [facility]. Patient said that she has been taking her medications and went to a friend's house to smoke some cannabis and spent time. She does not think he has the type of person that would spike the cannabis but accepts that PCP was found in her urine. After going to a friend's house patient was found and [employer] parking lot trying to get into various scars, disorganized and nonsensical and was then taken to [facility] ED. Patient still feels a little confused but is grateful that she is now more clear minded. Wants to continue with medications. Hospital course: Patient said she was feeling better on admission and that this was the 1st time she is feeling more clear minded; she reported having very little memory of what happened prior to coming to [facility] other than she was tased by police in the community. Patient maintains that she had no idea PCP was mixed in with other drugs she was using. Although patient says she was starting to feel more clear headed, was still confused the 1st couple days and had some delusional, paranoid type thinking but, surmising that nurses were using drugs in the back room and put PCP in her urine. Patient was continued on home medication; she asked if Seroquel could be restarted which it was. Patient continued to clear up and returned to baseline. No delusional thinking, no SI or HI or AVH. She had placed a 3 day notice. Patient felt that she was doing much better and ready to return home. Patient has extensive outpatient support with providers, therapist and case management. On the unit she was appropriate with peers and staff and remained in good behavioral and impulse control throughout her stay on the unit. No manic symptoms observed. Three day notice came due and patient felt ready for discharge. She was not in imminent risk for harm to self or others and request for discharge honored. Time spent discussing smoking cessation with patient: 3 to 10 minutes Status at Discharge Functional status at discharge: independent ambulation Overall status at discharge: patient is back to baseline Time Spent with Patient Time attestation: Total time managing care of this patient today ____ minutes. Time spent: Less than 30 minutes Discharge Plan Discharge Anticipated Discharge Date/Time: 11/11/22 11:45 Patient Disposition: Home, Self-Care Discharge Diagnosis: PCP induced psychosis, in full remission. Referrals: EVELYN Iqbal Medication Management [Other] - 11/22/22 9:00 am Physician,Unknown J [Primary Care Provider] - 1 Week Discharge Medications: New nicotine (polacrilex) 2 mg Gum 4 mg buccal Q2H PRN (Reason: Nicotine Cravings) 30 Days Qty: 100 1RF quetiapine 200 mg Tablet See Rx Instructions .ROUTE .COMPLEX 30 Days Qty: 120 0RF Rx Instructions: take 1 tab daily and take 3 tabs at bedtime hydroxyzine HCl 25 mg Tablet 25 mg PO Q6H PRN (Reason: Anxiety) 30 Days Qty: 60 0RF Continued sennosides [senna] 8.6 mg tablet 8.6 mg PO BEDTIME Qty: 14 0RF docusate sodium [Colace] 100 mg capsule 100 mg PO BID Qty: 20 0RF polyethylene glycol 3350 [Miralax] 17 gram/dose powder 17 g PO BID Qty: 238 0RF psyllium husk [Metamucil] 0.4 gram capsule 0.4 g PO BEDTIME Qty: 30 0RF ibuprofen 600 mg Tablet 600 mg PO Q6H PRN (Reason: Pain, Moderate (Pain Scale 4-6) Qty: 30 0RF lamotrigine [Lamictal] 150 mg tablet 150 mg PO BID 30 Days Qty: 60 0RF gabapentin 600 mg tablet 1,200 mg PO TID@0730,1300,1930 7 Days Qty: 42 0RF clonazepam 1 mg tablet 1 mg PO TID 7 Days Qty: 21 0RF nicotine 21 mg/24 hr Patch 24 Hour 21 mg transdermal DAILY 28 Days Qty: 28 1RF buspirone 15 mg tablet 15 mg PO BID@0730,1500 3 Days Qty: 60 0RF Changed bupropion HCl 300 mg tablet extended release 24 hr 300 mg PO QAM 30 Days Qty: 30 0RF Discontinued propranolol 20 mg Tablet 20 mg PO TID@0730,1300,1930 Qty: 42 0RF Protocol: Hold for SBP/HR < HOLD for SBP < : 90 HOLD for HR < : 60 lamotrigine 150 mg tablet 150 mg PO BID@0730,1930 Qty: 60 0RF quetiapine 300 mg tablet 600 mg PO DAILY@1930 Qty: 60 0RF clonidine HCl 0.1 mg Tablet 0.1 mg PO TID Qty: 45 0RF Protocol: Hold for SBP< HOLD for SBP < : 90 quetiapine 300 mg Tablet 600 mg PO DAILY@1930 Qty: 60 0RF buspirone 15 mg tablet 15 mg PO BID Qty: 60 0RF propranolol 20 mg tablet 20 mg PO TID Qty: 45 0RF Discharge Orders: Discharge Order (Routine); Ordered 11/11/22 Ordered By: Stan Vargas Diet: Regular diet Activity on Discharge: As tolerated Stand Alone Forms: Patient Portal Discharge page Care Plan Goals: Maintain mood and safe behaviors Take medications as prescribed Continue to pursue sobriety Practice coping skills Continue with outpatient providers and reach out to them as needed Health Concerns: Mood stability and behaviors Sobriety Plan of Treatment: Follow up with your PCP, psychiatric provider and other outpatient providers regarding above concerns Take medications as prescribed Assessment: Risk assessment at time of discharge:? Patient was interviewed prior to discharge and found to be fully oriented and without any SI or HI. Patient has insight and demonstrates good judgment in terms of wanting to pursue treatment. Patient is not in imminent risk of harm to self or others and has a safety plan that includes presenting to the closest ER or calling 911 if feeling unsafe.? Patient has been observed closely by nursing and unit staff throughout admission; patient has not engaged in any behaviors that suggest dangerousness to self or others and has demonstrated appropriate behaviors and impulse control
== END 2022-11-11 13:00 | disposition home or self-care (01) | DRG 774 ==
PROVIDERS: Admitting Provider Psychiatry & Neurology Psychiatry; Visit Provider Psychiatry & Neurology Psychiatry
DX: F16.159 Hallucinogen abuse with hallucinogen-induced psychotic disorder, unspecified (principal); F14.20 Cocaine dependence, uncomplicated; F31.9 Bipolar disorder, unspecified; F17.210 Nicotine dependence, cigarettes, uncomplicated; F43.10 Post-traumatic stress disorder, unspecified; I12.9 Hypertensive chronic kidney disease with stage 1 through stage 4 chronic kidney disease, or unspecified chronic kidney disease; N18.9 Chronic kidney disease, unspecified; Z59.02 Unsheltered homelessness; Z71.6 Tobacco abuse counseling; Z79.899 Other long term (current) drug therapy
CPT/HCPCS: 36415; 80053; 80061; 82607; 82746; 83036; 84439; 84443

== ENCOUNTER → 2022-11-05 21:30 | Outpatient (BNV) | payer OTHER, SELFPAY | PROVIDERS: Admitting Provider Psychiatry & Neurology Psychiatry; Visit Provider Psychiatry & Neurology Psychiatry | DX: F16.959 Hallucinogen use, unspecified with hallucinogen-induced psychotic disorder, unspecified (principal); F31.9 Bipolar disorder, unspecified; F43.11 Post-traumatic stress disorder, acute; F14.20 Cocaine dependence, uncomplicated | CPT/HCPCS: 90792; 99231; 99232; 99238 ==

== ENCOUNTER → 2022-11-05 21:30 | Outpatient (BNV) | payer OTHER, SELFPAY | PROVIDERS: Admitting Provider Psychiatry & Neurology Psychiatry; Visit Provider Student in an Organized Health Care Education/Training Program | DX: Z02.2 Encounter for examination for admission to residential institution (principal) | CPT/HCPCS: 99429 ==

== ENCOUNTER 2022-11-23 10:18 | Inpatient (IN) | payer OTHER, SELFPAY ==
[2022-11-23 10:33] VITALS: BP 128/90; BP 134/82; PULSE 104; PULSE 122; RESP 18; TEMP 36.2; O2SAT 96; O2SAT 99; BMI 27.5
[2022-11-23 11:16] LABS: MANUAL DIFF FLAG NO
[2022-11-23 11:17] LABS: Basophils Absolute Auto 0.1 X10*3/uL (0.0-0.2); Eosinophils Absolute Auto 0.1 X10*3/uL (0.0-0.4); Eosinophils Percent Auto 2.2 % (0-4); Hematocrit 29.5 % (37.0-47.0); Hemoglobin 8.8 g/dl (12.0-16.0); Imm Gran Abs Auto 0.02 X10*3/uL (0.00-0.03); Imm Gran Pct Auto 0.4 % (0.0-0.4); Lymphocytes Absolute Auto 1.5 X10*3/uL (1.2-4.9); Lymphocytes Percent Auto 31.3 % (20-40); Mean Corpuscular HGB Conc 29.8 g/dl (31.0-35.0); Mean Corpuscular Hemoglobin 20.5 pg (27.0-33.0); Mean Corpuscular Volume 68.8 fL (80.0-98.0); Mean Platelet Volume 9.4 fL (9.4-12.3); Monocytes Absolute Auto 0.4 X10*3/uL (0.1-1.2); Monocytes Percent Auto 8.2 % (2-11); Neutrophils Absolute Auto 2.8 x10*3/uL (2.0-8.3); Neutrophils Percent Auto 56.9 % (45-73); Platelet Count 393 X10*3/uL (160-400); Red Blood Count 4.29 X10*6/uL (4.20-5.50); Red Cell Distribution Width 20.2 % (11.0-16.0); White Blood Count 4.9 X10*3/uL (4.8-10.8)
[2022-11-23 11:37] LABS: Alanine Aminotransferase 14 U/L (0-31); Albumin Level 4.2 g/dL (3.5-5.0); Alkaline Phosphatase 64 U/L (39-117); Anion Gap 15 (12-20); Aspartate Amino Transferase 23 U/L (5-31); Bilirubin Total 0.3 mg/dL (0.0-1.0); Blood Urea Nitrogen 8 mg/dL (9-16); Calcium 9.4 mg/dL (8.4-10.2); Carbon Dioxide 21 mmol/L (22-29); Chloride 106 mmol/L (96-108); Creatinine Clr Calc Pharmacy 56.6; Estimated Glomerular Filt Rate 45; Glucose Fasting 96 mg/dL (60-99); Potassium 4.1 mmol/L (3.3-5.1); Sodium 138 mmol/L (135-145); Total Protein 7.6 g/dL (6.5-8.0)
[2022-11-23 11:43] LABS: Ethanol < 10 mg/dL
[2022-11-23 11:44] LABS: Acetaminophen LAB < 17 mcg/mL (<30); Salicylate < 5.0 mg/dL (15-30)
--- NOTE | 2022-11-23 11:46 | ED.PSYCH ---
HPI - Psych General Chief Complaint: Psychiatric Symptoms Stated Complaint: PSYCH,NON MED COMP PER [facility] Time Seen by Provider: 11/23/22 10:36 Source: patient Mode of arrival: ambulatory Limitations: no limitations History of Present Illness HPI Narrative: 41-year-old female with history of bipolar disorder, substance abuse, PTSD, hypertension, CKD, hep B, hep C who presents to the emergency department for evaluation of paranoid ideation on a Section 12. The patient states that she has had 2 nervous breakdowns recently and does not remember being hospitalized. She states that at home, she felt that her roommate was coming after her and that people were after her as well. The patient was recently hospitalized on our psychiatric service from 11/06/2022 until 11/11/2022 for dysregulated behavior, psychotic symptoms attributed to substance use disorder with a urine tox screen positive for PCP and THC. Related Data Previous Rx's Medication Instructions Recorded ibuprofen 600 mg tablet 600 mg PO Q6H PRN Pain, Moderate 01/12/21 (Pain Scale 4-6 #30 tabs docusate sodium 100 mg capsule 100 mg PO BID #20 caps 01/28/21 (Colace) polyethylene glycol 3350 17 17 g PO BID #238 grams 01/28/21 gram/dose oral powder (Miralax) sennosides 8.6 mg tablet (senna) 8.6 mg PO BEDTIME #14 tabs 01/28/21 psyllium husk 0.4 gram capsule 0.4 g PO BEDTIME #30 caps 01/29/21 (Metamucil) bupropion HCl 300 mg 24 hr tablet, 300 mg PO QAM 30 days #30 tabs 11/11/22 extended release buspirone 15 mg tablet 15 mg PO BID@0730,1500 3 days #60 11/11/22 tabs clonazepam 1 mg tablet 1 mg PO TID 7 days #21 tabs 11/11/22 gabapentin 600 mg tablet 1,200 mg (2 x 600 mg) PO 11/11/22 TID@0730,1300,1930 7 days #42 tabs hydroxyzine HCl 25 mg tablet 25 mg PO Q6H PRN Anxiety 30 days 11/11/22 #60 tabs lamotrigine 150 mg tablet 150 mg PO BID 30 days #60 tabs 11/11/22 (Lamictal) nicotine (polacrilex) 2 mg gum 4 mg buccal Q2H PRN Nicotine 11/11/22 Cravings 30 days #100 ea nicotine 21 mg/24 hr daily 21 mg transdermal DAILY 28 days 11/11/22 transdermal patch #28 ea quetiapine 200 mg tablet (Seroquel) 200 mg PO DAILY 30 days #30 tabs 11/12/22 quetiapine 300 mg tablet (Seroquel) 600 mg (2 x 300 mg) PO BEDTIME 30 11/12/22 days #60 tabs Allergies Allergy/AdvReac Type Severity Reaction Status Date / Time Penicillins [PCN] Allergy Unknown UNKNOWN Verified 01/01/21 19:37 tramadol [TRAMADOL] Allergy Unknown HIVES Verified 01/01/21 19:37 Review of Systems Review of Systems: Yes all other systems are reviewed and are negative [facility] Past Medical History [facility] Narrative: Past medical history: bipolar disorder, substance abuse, PTSD, hypertension, CKD, hep B, hep C , substance abuse including PCP. Social history: She does smoke cigarettes, she denies alcohol use, she states she smokes marijuana but denies other drug use. Medical History Bipolar disorder Social History Social History Household Members: None Household Members Other:: I don't have a home now . Housing: Homeless Housing Other:: Reports homeless Do you presently have visiting nurse or other home services: No Alcohol intake: never Patient Tobacco Use Status: Current everyday Tobacco user Tobacco use type: Cigarette Cigarettes Per Day: 20 Years Smoked: 25 e-Cigarette/Vaping Use: Currently Using Second Hand Smoke Exposure: No Substance Use Type: Crack/Cocaine, Marijuana and Opiates Advance Directives: No service: No Sexual orientation: Bisexual Physical Exam Vital Signs: Vital Signs: Last Vital Signs Temp 97.2 F 11/23/22 10:33 Pulse 122 H 11/23/22 10:33 Resp 18 11/23/22 10:33 BP 134/82 11/23/22 10:33 Pulse Ox 96 11/23/22 10:33 O2 Del Method Room Air 11/23/22 10:33 BMI result Body Mass Index 27.5 Vital signs revealed an elevated heart rate of 122 Exam: General: Awake, alert in no distress Head: Normocephalic, atraumatic EENT: Pupils are symmetric and dilated, Lids normal, sclera normal, conjunctiva normal, nose normal , ears normal, throat without erythema or exudates Neck: Supple, no adenopathy, trachea midline and nontender Lung: breath sounds symmetric, no wheezing, rales or rhonchi Chest: symmetric movement, nontender Heart: regular rate and rhythm, normal S1, S2 no murmurs or rubs Abdomen: soft, non-tender, nondistended, normal bowel sounds Back: no vertebral tenderness, no CVAT Extremities: no deformities, moves all extremities symmetrically Skin: no rashes, no lesion, normal color and warmth Neuro: Awake, alert, oriented, normal speech, cranial nerves intact, moves all extremities symmetrically Psych: Pleasant, cooperative, patient answers questions appropriately, does have paranoid ideation, denies suicidal ideation. Medical Decision Making Medical Decision Making [facility] Narrative: 41-year-old female with history of bipolar disorder, substance abuse, PTSD, hypertension, CKD, hep B, hep C who presents to the emergency department for evaluation of paranoid ideation on a Section 12. Patient did have paranoid ideation but denied suicidal ideation, exam did reveal dilated pupils which is most likely caused by substance abuse. The following was ordered on the patient: CBC, CMP, urine drug screen, ethanol level, salicylate and acetaminophen levels, urinalysis, urine , COVID-19, influenza, RSV. 1209: Start physician observation Patient's laboratory evaluation was consistent with a microcytic anemia-iron profile was added. Patient's labs otherwise unremarkable, urine tox screen is pending. Patient is medically further evaluation, patient remained on Section 12 until disposition can be determined or patient's symptoms improve over time. Differential Diagnosis Differential Diagnoses: The differential diagnosis associated with the presentation includes Differential diagnosis includes was not limit paranoid ideation, decompensation of bipolar disorder, polysubstance use, electrolyte abnormalities, anemia Admission/Observation Consideration of admission/observation: Escalation of care including admission/observation considered Lab Data [facility] Lab Attestation statement: I reviewed the patient's lab results. Patient's laboratory evaluation did reveal microcytic anemia with an H&H of 8.829.5 MCV of 68. Iron profile was added. BMP and liver profile was normal. I ETOH was below detectable limits, acetaminophen and salicylates were nondetectable. Urine drug screen is pending. 11/23/22 11:08 11/23/22 11:08 Labs: Lab Results 11/23/22 Range/Units 11:08 WBC 4.9 (4.8-10.8) X10*3/uL RBC 4.29 (4.20-5.50) X10*6/uL Hgb 8.8 L D (12.0-16.0) g/dl Hct 29.5 L D (37.0-47.0) % MCV 68.8 L (80.0-98.0) fL MCH 20.5 L (27.0-33.0) pg MCHC 29.8 L (31.0-35.0) g/dl RDW 20.2 H (11.0-16.0) % Plt Count 393 D (160-400) X10*3/uL MPV 9.4 (9.4-12.3) fL Immature Gran % (Auto) 0.4 (0.0-0.4) % Neut % (Auto) 56.9 (45-73) % Lymph % (Auto) 31.3 (20-40) % Braxton % (Auto) 8.2 (2-11) % Eos % (Auto) 2.2 (0-4) % Baso % (Auto) 1.0 (0-2) % Lymph # (Auto) 1.5 (1.2-4.9) X10*3/uL Braxton # (Auto) 0.4 (0.1-1.2) X10*3/uL Eos # (Auto) 0.1 (0.0-0.4) X10*3/uL Baso # (Auto) 0.1 (0.0-0.2) X10*3/uL Abs Immat Gran (auto) 0.02 (0.00-0.03) X10*3/uL Absolute Neuts (auto) 2.8 (2.0-8.3) x10*3/uL Absolute Nucleated RBC 0.000 (0.0-0.012) X10*3/uL Nucleated RBC % (auto) 0.0 (0.0-0.2) /100WBC Sodium 138 (135-145) mmol/L Potassium 4.1 (3.3-5.1) mmol/L Chloride 106 (96-108) mmol/L Carbon Dioxide 21 L (22-29) mmol/L Anion Gap 15 (12-20) BUN 8 L (9-16) mg/dL Creatinine 1.31 (0.5-1.4) mg/dL Estim Creat Clear Calc 56.6 Estimated GFR 45 Fasting Glucose 96 (60-99) mg/dL Calcium 9.4 D (8.4-10.2) mg/dL Total Bilirubin 0.3 (0.0-1.0) mg/dL AST 23 (5-31) U/L ALT 14 (0-31) U/L Alkaline Phosphatase 64 (39-117) U/L Total Protein 7.6 (6.5-8.0) g/dL Albumin 4.2 (3.5-5.0) g/dL Salicylates < 5.0 L (15-30) mg/dL Acetaminophen < 17 (<30) mcg/mL Ethyl Alcohol < 10 mg/dL Discharge Plan Discharge Clinical Impression: Paranoid ideation Patient Disposition: Still a Patient Prescriptions: No Action sennosides [senna] 8.6 mg tablet 8.6 mg PO BEDTIME Qty: 14 0RF docusate sodium [Colace] 100 mg capsule 100 mg PO BID Qty: 20 0RF polyethylene glycol 3350 [Miralax] 17 gram/dose powder 17 g PO BID Qty: 238 0RF psyllium husk [Metamucil] 0.4 gram capsule 0.4 g PO BEDTIME Qty: 30 0RF ibuprofen 600 mg Tablet 600 mg PO Q6H PRN (Reason: Pain, Moderate (Pain Scale 4-6) Qty: 30 0RF nicotine (polacrilex) 2 mg Gum 4 mg buccal Q2H PRN (Reason: Nicotine Cravings) 30 Days Qty: 100 1RF hydroxyzine HCl 25 mg Tablet 25 mg PO Q6H PRN (Reason: Anxiety) 30 Days Qty: 60 0RF lamotrigine [Lamictal] 150 mg tablet 150 mg PO BID 30 Days Qty: 60 0RF gabapentin 600 mg tablet 1,200 mg PO TID@0730,1300,1930 7 Days Qty: 42 0RF clonazepam 1 mg tablet 1 mg PO TID 7 Days Qty: 21 0RF nicotine 21 mg/24 hr Patch 24 Hour 21 mg transdermal DAILY 28 Days Qty: 28 1RF buspirone 15 mg tablet 15 mg PO BID@0730,1500 3 Days Qty: 60 0RF bupropion HCl 300 mg tablet extended release 24 hr 300 mg PO QAM 30 Days Qty: 30 0RF quetiapine [Seroquel] 200 mg tablet 200 mg PO DAILY 30 Days Qty: 30 0RF quetiapine [Seroquel] 300 mg tablet 600 mg PO BEDTIME 30 Days Qty: 60 0RF Interventions: [place]-Suicide Risk Severity Scale Last Done: 11/23/22 11:44
[2022-11-23] MEDS: Nicotine 21 MG PATCH.TD24 TRANSDERMA (12:00)
[2022-11-23 12:48] LABS: Influenza A PCR NEGATIVE (Negative); Influenza B PCR NEGATIVE (Negative); Resp Syncy Virus RNA Qual PCR NEGATIVE (Negative); SARS COV2 PCR INHOUSE NEGATIVE (Negative)
[2022-11-23 14:20] LABS: Appearance Urine Cloudy; Color Urine Yellow; Glucose Urine UA Negative (Negative); Leukocyte Esterase Urine Moderate (2+) (Negative); Nitrite Urine Positive (Negative); Specific Gravity - Urine 1.015 (1.005-1.025); UMIC TRIGGER UACC YES; Urine Blood Negative (Negative); Urine Ketones Negative (Negative); Urine Protein 30 (1+) mg/dL (Neg-Trace)
[2022-11-23 14:23] LABS: Bacteria Urine 4+ (None Seen); Hyaline Casts Urine 0-2 /LPF (0-2); RBC Urine 0-2 /HPF (0-2); Squamous Epithelial Cell Urine >20 /HPF (0-2); UACC Culture Trigger YES
[2022-11-23 14:24] LABS: Amphetamine Screen Urine Not Detected (Not Detect); Barbiturates, Urine Not Detected (Not Detect); Benzodiazepines Screen Urine POSITIVE (Not Detect); Cannabinoid Screen Urine POSITIVE (Not Detect); Cocaine Screen Urine POSITIVE (Not Detect); Fentanyl, urine Not Detected (Not Detect); Opiate Screen Urine Not Detected (Not Detect); Phencyclidine Screen Urine Not Detected (Not Detect)
[2022-11-23 14:25] LABS: UPreg QC Valid YES; Urine Pregnancy NEGATIVE (NEGATIVE)
--- NOTE | 2022-11-23 16:58 | PHA.MEDREC ---
Pharmacy Consult ? Medication Reconciliation Pharmacy has completed the medication reconciliation. Spoke to patient to confirm meds.
[2022-11-23] MEDS: Gabapentin 300 MG CAPSULE 600 MG PO ×2 (17:37→20:45)
[2022-11-23 19:27] VITALS: BP 135/89; PULSE 85; RESP 18; TEMP 36.1; O2SAT 98
[2022-11-23 19:48] LABS: Iron 12 mcg/dL (30-160); Percent Iron Saturation 4 % (15-50); Total Iron Binding Capacity 310 mcg/dL (228-428); Unsaturated Iron Binding 298 ug/dL
[2022-11-23] MEDS: lamoTRIgine 25 MG TABLET 150 MG PO (20:46)
[2022-11-23] MEDS: Lurasidone HCl 40 MG TABLET PO (20:46)
[2022-11-23] MEDS: cloNIDine HCL 0.1 MG TABLET PO (20:46)
[2022-11-23] MEDS: Benztropine Mesylate 0.5 MG TABLET PO (20:46)
[2022-11-23] MEDS: clonazePAM 1 MG TABLET PO (20:46)
[2022-11-23] MEDS: QUEtiapine Fumarate 300 MG TABLET 600 MG PO (20:48)
--- NOTE | 2022-11-24 | ECG_ITS ---
Test Reason : POSITIVE COCAINE Blood Pressure : / mmHG Vent. Rate : 080 BPM Atrial Rate : 080 BPM P-R Int : 162 ms QRS Dur : 086 ms QT Int : 402 ms P-R-T Axes : 034 032 056 degrees QTc Int : 463 ms Normal sinus rhythm Normal ECG When compared with ECG of 03-JAN-2021 10:21, No significant change was found Referred By: Riki Storm Electronically Signed By:LINDY BALTAZAR
--- NOTE | 2022-11-24 05:46 | PC.NURSE ---
Patient slept through the night, no distress observed/reported, disposition per [facility] is section 12 inpatient bed search fro paranoid ideation, behavior non concerning, medication compliant, labs completed/resulted, VSS, will continue to monitor.
[2022-11-24 06:33] VITALS: BP 119/80; PULSE 73; RESP 16; TEMP 36.7; O2SAT 98
--- NOTE | 2022-11-24 07:05 | PC.NURSE ---
Resumed care of patient this am, she is up and at nursing station, redirected to room to eat breakfast. Pt kept asking staff if she was in trouble, support provided to cindy. Awaiting careteam/placement at this time
[2022-11-24] MEDS: Nicotine 21 MG PATCH.TD24 TRANSDERMA (07:33)
[2022-11-24] MEDS: Gabapentin 300 MG CAPSULE 600 MG PO ×4 (07:33→20:19)
[2022-11-24] MEDS: clonazePAM 1 MG TABLET PO ×3 (07:33→20:18)
[2022-11-24] MEDS: lamoTRIgine 25 MG TABLET 150 MG PO ×2 (07:34→20:18)
[2022-11-24] MEDS: cloNIDine HCL 0.1 MG TABLET PO ×3 (07:34→20:18)
[2022-11-24] MEDS: buPROPion HCl XL 300 MG TAB.ER.24H PO (07:34)
[2022-11-24] MEDS: busPIRone HCl 10 MG TABLET 30 MG PO ×2 (07:34→14:27)
[2022-11-24] MEDS: QUEtiapine Fumarate 200 MG TABLET PO (07:35)
[2022-11-24] MEDS: Benztropine Mesylate 0.5 MG TABLET PO ×2 (07:35→20:18)
--- NOTE | 2022-11-24 12:08 | PC.NURSE ---
Nurse to nurse report given
[2022-11-24] MEDS: hydrOXYzine HCL 25 MG TABLET PO (14:27)
[2022-11-24 14:48] VITALS: BP 117/79; PULSE 75; RESP 18; TEMP 36.1; O2SAT 100
--- NOTE | 2022-11-24 15:36 | PC.NURSE ---
patient is sleeping in room at this time, per previous nurse, report has been called and we are just awaiting transport upstairs at this time
[2022-11-24 16:43] VITALS: BP 140/89; PULSE 99; RESP 16; TEMP 36.4; O2SAT 100; BMI 25.4
[2022-11-24 18:00] VITALS: BP 140/89; PULSE 80; RESP 16; TEMP 36.4; O2SAT 100
[2022-11-24] MEDS: QUEtiapine Fumarate 300 MG TABLET 600 MG PO (20:18)
[2022-11-24] MEDS: Lurasidone HCl 40 MG TABLET PO (20:18)
--- NOTE | 2022-11-24 21:57 | PC.ADMIT ---
Pt is a 41 year old female admitted on CV for increased paranoia, delusions, and auditory hallucination. Pt appears disorganized in thoughts, confused, and flat in affect. Pt is alert and oriented to self, calm and cooperative. Vital signs stable, Covid negative, tox screen positive for cocaine, marijuana and opioids. Per care team: Pt reports that she is scaring herself as she feels people are after her and trying to steal her items. Pt endorses AH and reports telling herself she is not suicidal. Pt confirms she has not been taking her meds. Pt appears sedated. kept tilting to the side during admission assessment. Speech is pressured, with normal tone. Pt denies SI/HI/AH/VH. She endorsed depression of 5/10, anxiety of 6/10. Pt is paraniod; She was concerned about getting all her medications and became tearful when talking about it. Pt is currently in bed resting. respirations are normal, no sign of distress noted/reported. Admission order obtained to start treatment.
[2022-11-25 08:24] VITALS: BP 119/78; PULSE 109; RESP 16; TEMP 36.1; O2SAT 99
[2022-11-25] MEDS: clonazePAM 1 MG TABLET PO ×3 (08:27→20:03)
[2022-11-25] MEDS: cloNIDine HCL 0.1 MG TABLET PO ×3 (08:27→20:03)
[2022-11-25] MEDS: busPIRone HCl 10 MG TABLET 30 MG PO ×2 (08:27→14:42)
[2022-11-25] MEDS: lamoTRIgine 25 MG TABLET 150 MG PO ×2 (08:27→20:03)
[2022-11-25] MEDS: Gabapentin 300 MG CAPSULE 600 MG PO ×4 (08:27→20:02)
[2022-11-25] MEDS: Benztropine Mesylate 0.5 MG TABLET PO ×2 (08:27→20:03)
[2022-11-25] MEDS: buPROPion HCl XL 300 MG TAB.ER.24H PO (08:28)
[2022-11-25] MEDS: QUEtiapine Fumarate 200 MG TABLET PO (08:28)
[2022-11-25] MEDS: Nicotine 21 MG PATCH.TD24 TRANSDERMA (09:17)
[2022-11-25 09:47] VITALS: BP 118/70; PULSE 86; RESP 16; O2SAT 97
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
[2022-11-25 14:35] VITALS: BP 133/78; PULSE 100
[2022-11-25] MEDS: Lactulose 20 GM/30 ML SOLUTION 10 GM PO (16:48)
[2022-11-25] MEDS: Acetaminophen 325 MG TABLET 650 MG PO (16:50)
[2022-11-25 18:00] VITALS: BP 139/82; PULSE 116; TEMP 36.3; O2SAT 99
[2022-11-25] MEDS: Lurasidone HCl 40 MG TABLET PO (20:02)
[2022-11-25] MEDS: QUEtiapine Fumarate 300 MG TABLET 600 MG PO (20:03)
[2022-11-26 08:21] VITALS: BP 128/61; PULSE 73; RESP 16; TEMP 36.2; O2SAT 100
[2022-11-26] MEDS: QUEtiapine Fumarate 200 MG TABLET PO (08:28)
[2022-11-26] MEDS: clonazePAM 1 MG TABLET PO ×3 (08:28→19:19)
[2022-11-26] MEDS: cloNIDine HCL 0.1 MG TABLET PO ×2 (08:28→14:56)
[2022-11-26] MEDS: lamoTRIgine 25 MG TABLET 150 MG PO ×2 (08:28→19:19)
[2022-11-26] MEDS: buPROPion HCl XL 300 MG TAB.ER.24H PO (08:29)
[2022-11-26] MEDS: Benztropine Mesylate 0.5 MG TABLET PO ×2 (08:29→19:19)
[2022-11-26] MEDS: Gabapentin 300 MG CAPSULE 600 MG PO ×4 (08:29→19:18)
[2022-11-26] MEDS: Nicotine 21 MG PATCH.TD24 TRANSDERMA (08:30)
[2022-11-26] MEDS: busPIRone HCl 10 MG TABLET 30 MG PO ×2 (09:09→14:56)
--- NOTE | 2022-11-26 09:59 | HO.PSYCHPN ---
Subjective Subjective Date of Service: 11/26/22 Reason For Visit: paranoia Subjective Notes: Conditional Voluntary Interim History: Reviewed in team and . Patient reports feeling sad and anxious today. Patient stated, I'm too anxious to be around people but I will try to go to one group today . Patient reports she is not having paranoia anymore ; pt reports nightmares; risks/benefits discussed regarding Prozosin, pt agreed to trial. Medication Compliance: Yes Side effects from medications: No Attending Groups: No Review of Systems Review of Systems Yes all other systems are reviewed and are negative Constitutional: Reports as per HPI Eyes: Reports as per HPI Reports as per HPI Cardiovascular: Reports as per HPI Respiratory: Reports as per HPI Gastrointestinal: Reports as per HPI Genitourinary: Reports as per HPI Musculoskeletal: Reports as per HPI Skin/Breast: Reports as per HPI Reports as per HPI Psychiatric: Reports as per HPI Endocrine: Reports as per HPI Hematologic/Lymphatic: Reports as per HPI Allergic/Immunologic: Reports as per HPI Mental Status Exam Mental Status Exam Narrative: Pt is alert and oriented; behavior is cooperative and calm; dressed in casual attire; mood is described as depressed and anxious ; eye contact appropriate; Speech is normal rate, volume and prosody and not pressured; no psychomotor agitation/retardation present; thought process is organized and goal directed; Thought content is on tx; denies SI/HI/VH. Pt reports auditory hallucinations of mumbles .Patients insight and judgment are poor. Diagnostics Vital Signs (24Hr): Vital Signs - 24 hr 11/25/22 14:35 11/25/22 18:00 11/26/22 08:21 Temperature 97.3 F 97.2 F Pulse Rate 100 116 H 73 Respiratory Rate 16 Blood Pressure 133/78 139/82 128/61 Pulse Oximetry 99 100 Oxygen Delivery Method Room Air Room Air BMI result Body Mass Index 25.4 Labs 11/23/22 11:08 11/23/22 11:08 Medications Medications Current Medications Acetaminophen (Acetaminophen 325 Mg Tablet) 650 mg PO Q6H PRN PRN Reason: Headache/Pain Mild Scale (1-3) Last Admin: 11/25/22 16:50 Dose: 650 mg Al Hydroxide/Mg Hydroxide (Magnesium Hydrox/Alum Hydrox 30 Ml Oral.Susp) 30 ml PO Q6H PRN PRN Reason: Heartburn/Nausea Benztropine Mesylate (Benztropine Mesylate 0.5 Mg Tablet) 0.5 mg PO BID [facility] Last Admin: 11/26/22 08:29 Dose: 0.5 mg Bupropion HCl (Bupropion Hcl Xl 300 Mg Tab.Er.24h) 300 mg PO DAILY [facility] Last Admin: 11/26/22 08:29 Dose: 300 mg Buspirone HCl (Buspirone Hcl 10 Mg Tablet) 30 mg PO BID@0730,1500 [facility] Last Admin: 11/26/22 09:09 Dose: 30 mg Cefuroxime Axetil (Cefuroxime Axetil 250 Mg Tablet) 250 mg PO BID [facility] Stop: 11/27/22 09:01 Last Admin: 11/26/22 08:30 Dose: 250 mg Clonazepam (Clonazepam 1 Mg Tablet) 1 mg PO TID [facility] Last Admin: 11/26/22 08:28 Dose: 1 mg Clonidine HCl (Clonidine Hcl 0.1 Mg Tablet) 0.1 mg PO TID [facility]; Protocol Last Admin: 11/26/22 08:28 Dose: 0.1 mg Gabapentin (Gabapentin 300 Mg Capsule) 600 mg PO QID [facility] Last Admin: 11/26/22 08:29 Dose: 600 mg Hydroxyzine HCl (Hydroxyzine Hcl 25 Mg Tablet) 25 mg PO Q6H PRN PRN Reason: Anxiety Last Admin: 11/24/22 14:27 Dose: 25 mg Lamotrigine (Lamotrigine 25 Mg Tablet) 150 mg PO BID [facility] Last Admin: 11/26/22 08:28 Dose: 150 mg Lurasidone HCl (Lurasidone Hcl 40 Mg Tablet) 40 mg PO BEDTIME [facility] Last Admin: 11/25/22 20:02 Dose: 40 mg Magnesium Hydroxide (Milk Of Magnesia 30 Ml Oral.Susp) 30 ml PO DAILY PRN PRN Reason: Constipation Nicotine (Nicotine 21 Mg Patch.Td24) 21 mg TRANSDERMA DAILY [facility] Last Admin: 11/26/22 08:30 Dose: 21 mg Nicotine Polacrilex (Nicotine Polacrilex 2 Mg Gum) 4 mg BUCCAL Q2H PRN PRN Reason: Nicotine Cravings Quetiapine Fumarate (Quetiapine Fumarate 200 Mg Tablet) 200 mg PO DAILY [facility] Last Admin: 11/26/22 08:28 Dose: 200 mg Quetiapine Fumarate (Quetiapine Fumarate 300 Mg Tablet) 600 mg PO BEDTIME [facility] Last Admin: 11/25/22 20:03 Dose: 600 mg Allergies Allergies Allergy/AdvReac Type Severity Reaction Status Date / Time Penicillins [PCN] Allergy Unknown UNKNOWN Verified 01/01/21 19:37 tramadol [TRAMADOL] Allergy Unknown HIVES Verified 01/01/21 19:37 Assessment & Plan Assessment & Plan (1) Bipolar disorder: Status: Acute Code(s): F31.9 - Bipolar disorder, unspecified (2) PTSD (post-traumatic stress disorder): Status: Acute Code(s): F43.10 - Post-traumatic stress disorder, unspecified (3) Cocaine use disorder, moderate, dependence: Status: Acute Code(s): F14.20 - Cocaine dependence, uncomplicated Plan Patient is a 41 year old female with hx of Bipolar d/o, PTSD and cocaine use who was recently discharged from on 11/11/22, who self presented to [facility] with increased paranoid, auditory hallucinations and paranoia, secondary to medication non-adherence. Plan: CV 15 minute safety checks restart home medications Referral for recovery agent? Referral for respite 11/26: Patient reports feeling sad and anxious today. Patient stated, I'm too anxious to be around people but I will try to go to one group today . Patient reports she is not having paranoia anymore ; pt reports nightmares; risks/benefits discussed regarding Prozosin, pt agreed to trial. Start prazosin 1mg PO bedtime; monitor BPs. Patient educated on: diagnosis, medication risk/benefits and therapeutic strategies Informed Consent: understands Reason for continued inpatient stay Substantial Risk for: med/psych decompensation Time Spent With Patient Time: Total time managing care of this patient today _30___ minutes.
[2022-11-26 14:58] VITALS: BP 144/73; PULSE 97
[2022-11-26 19:15] VITALS: BP 132/95; PULSE 87; TEMP 36.6; O2SAT 94
[2022-11-26] MEDS: Prazosin HCL 1 MG CAPSULE PO (19:18)
[2022-11-26] MEDS: QUEtiapine Fumarate 300 MG TABLET 600 MG PO (19:19)
[2022-11-26] MEDS: Lurasidone HCl 40 MG TABLET PO (19:19)
--- NOTE | 2022-11-26 19:33 | PC.NURSE ---
Patient reported to this technical report writer that she has a history of seizures. Information is noted and will be passed on.
[2022-11-27 07:58] VITALS: BP 126/97; PULSE 78; RESP 16; TEMP 36.5; O2SAT 96
[2022-11-27] MEDS: lamoTRIgine 25 MG TABLET 150 MG PO ×2 (08:00→19:43)
[2022-11-27] MEDS: Benztropine Mesylate 0.5 MG TABLET PO ×2 (08:00→19:43)
[2022-11-27] MEDS: clonazePAM 1 MG TABLET PO ×3 (08:00→19:43)
[2022-11-27] MEDS: busPIRone HCl 10 MG TABLET 30 MG PO ×2 (08:00→14:09)
[2022-11-27] MEDS: QUEtiapine Fumarate 200 MG TABLET PO (08:00)
[2022-11-27] MEDS: buPROPion HCl XL 300 MG TAB.ER.24H PO (08:01)
[2022-11-27] MEDS: Gabapentin 300 MG CAPSULE 600 MG PO ×4 (08:01→19:43)
[2022-11-27] MEDS: cloNIDine HCL 0.1 MG TABLET PO ×2 (08:01→14:09)
[2022-11-27] MEDS: Milk of Magnesia 30 ML ORAL.SUSP PO (08:11)
[2022-11-27] MEDS: Nicotine 21 MG PATCH.TD24 TRANSDERMA (08:14)
--- NOTE | 2022-11-27 10:06 | HO.PSYCHPN ---
Subjective Subjective Date of Service: 11/27/22 Reason For Visit: paranoia Subjective Notes: Conditional Voluntary Interim History: Reviewed in team and . T/W and social and human services assistant met with patient together. Patient does not recall meeting with this financial writer prior. Patient labile during during meeting; believes she is not allowed back in her current apartment d/t her neighbor not getting along with her. Pt stated, I can hear her whispering and talking about me . detention worker confirmed that patient is allowed back in her apartment. She continues to report of nightmares; will increase prazosin to 2mg PO bedtime. c/o of abdominal pain; pt has a hx of constipation, ordered miralax, senna and labs. Review of Systems Review of Systems Yes all other systems are reviewed and are negative Constitutional: Reports as per HPI Eyes: Reports as per HPI Reports as per HPI Cardiovascular: Reports as per HPI Respiratory: Reports as per HPI Gastrointestinal: Reports as per HPI Genitourinary: Reports as per HPI Musculoskeletal: Reports as per HPI Skin/Breast: Reports as per HPI Reports as per HPI Psychiatric: Reports as per HPI Endocrine: Reports as per HPI Hematologic/Lymphatic: Reports as per HPI Allergic/Immunologic: Reports as per HPI Mental Status Exam Mental Status Exam Narrative: Pt is alert and oriented; behavior is cooperative, irritable, labile; dressed in casual attire; mood is described as depressed and anxious ; eye contact appropriate; Speech is normal rate, volume and prosody and not pressured; no psychomotor agitation/retardation present; thought process is organized and goal directed; Thought content is on tx; pt presents with some suspicious thought content regarding her neighbor and the treatment teams intent. denies SI/HI/VH. Pt reports auditory hallucinations of mumbles .Patients insight and judgment are poor. Diagnostics Vital Signs (24Hr): Vital Signs - 24 hr 11/26/22 14:58 11/26/22 19:15 11/27/22 07:58 Temperature 98 F 97.7 F Pulse Rate 97 87 78 Respiratory Rate 16 Blood Pressure 144/73 H 132/95 H 126/97 H Pulse Oximetry 94 96 Oxygen Delivery Method Room Air Room Air BMI result Body Mass Index 25.4 Labs 11/23/22 11:08 11/23/22 11:08 Medications Medications Current Medications Acetaminophen (Acetaminophen 325 Mg Tablet) 650 mg PO Q6H PRN PRN Reason: Headache/Pain Mild Scale (1-3) Last Admin: 11/25/22 16:50 Dose: 650 mg Al Hydroxide/Mg Hydroxide (Magnesium Hydrox/Alum Hydrox 30 Ml Oral.Susp) 30 ml PO Q6H PRN PRN Reason: Heartburn/Nausea Benztropine Mesylate (Benztropine Mesylate 0.5 Mg Tablet) 0.5 mg PO BID [facility] Last Admin: 11/27/22 08:00 Dose: 0.5 mg Bupropion HCl (Bupropion Hcl Xl 300 Mg Tab.Er.24h) 300 mg PO DAILY [facility] Last Admin: 11/27/22 08:01 Dose: 300 mg Buspirone HCl (Buspirone Hcl 10 Mg Tablet) 30 mg PO BID@0730,1500 [facility] Last Admin: 11/27/22 08:00 Dose: 30 mg Clonazepam (Clonazepam 1 Mg Tablet) 1 mg PO TID [facility] Last Admin: 11/27/22 08:00 Dose: 1 mg Clonidine HCl (Clonidine Hcl 0.1 Mg Tablet) 0.1 mg PO BID@0800,1500 [facility]; Protocol Last Admin: 11/27/22 08:01 Dose: 0.1 mg Gabapentin (Gabapentin 300 Mg Capsule) 600 mg PO QID [facility] Last Admin: 11/27/22 08:01 Dose: 600 mg Hydroxyzine HCl (Hydroxyzine Hcl 25 Mg Tablet) 25 mg PO Q6H PRN PRN Reason: Anxiety Last Admin: 11/24/22 14:27 Dose: 25 mg Lamotrigine (Lamotrigine 25 Mg Tablet) 150 mg PO BID [facility] Last Admin: 11/27/22 08:00 Dose: 150 mg Lurasidone HCl (Lurasidone Hcl 40 Mg Tablet) 40 mg PO BEDTIME [facility] Last Admin: 11/26/22 19:19 Dose: 40 mg Magnesium Hydroxide (Milk Of Magnesia 30 Ml Oral.Susp) 30 ml PO DAILY PRN PRN Reason: Constipation Last Admin: 11/27/22 08:11 Dose: 30 ml Nicotine (Nicotine 21 Mg Patch.Td24) 21 mg TRANSDERMA DAILY [facility] Last Admin: 11/27/22 08:14 Dose: 21 mg Nicotine Polacrilex (Nicotine Polacrilex 2 Mg Gum) 4 mg BUCCAL Q2H PRN PRN Reason: Nicotine Cravings Prazosin HCl (Prazosin Hcl 1 Mg Capsule) 1 mg PO BEDTIME [facility]; Protocol Last Admin: 11/26/22 19:18 Dose: 1 mg Quetiapine Fumarate (Quetiapine Fumarate 200 Mg Tablet) 200 mg PO DAILY [facility] Last Admin: 11/27/22 08:00 Dose: 200 mg Quetiapine Fumarate (Quetiapine Fumarate 300 Mg Tablet) 600 mg PO BEDTIME [facility] Last Admin: 11/26/22 19:19 Dose: 600 mg Allergies Allergies Allergy/AdvReac Type Severity Reaction Status Date / Time Penicillins [PCN] Allergy Unknown UNKNOWN Verified 01/01/21 19:37 tramadol [TRAMADOL] Allergy Unknown HIVES Verified 01/01/21 19:37 Assessment & Plan Assessment & Plan (1) Bipolar disorder: Status: Acute Code(s): F31.9 - Bipolar disorder, unspecified (2) PTSD (post-traumatic stress disorder): Status: Acute Code(s): F43.10 - Post-traumatic stress disorder, unspecified (3) Cocaine use disorder, moderate, dependence: Status: Acute Code(s): F14.20 - Cocaine dependence, uncomplicated Plan Patient is a 41 year old female with hx of Bipolar d/o, PTSD and cocaine use who was recently discharged from on 11/11/22, who self presented to [facility] with increased paranoid, auditory hallucinations and paranoia, secondary to medication non-adherence. Plan: CV 15 minute safety checks restart home medications Referral for recovery operator? Referral for respite 11/26: Patient reports feeling sad and anxious today. Patient stated, I'm too anxious to be around people but I will try to go to one group today . Patient reports she is not having paranoia anymore ; pt reports nightmares; risks/benefits discussed regarding Prozosin, pt agreed to trial. Start prazosin 1mg PO bedtime; monitor BPs. 11/27: T/W and social and human services assistant met with patient together. Patient does not recall meeting with this financial writer prior. Patient labile during during meeting; believes she is not allowed back in her current apartment d/t her neighbor not getting along with her. Pt stated, I can hear her whispering and talking about me . detention worker confirmed that patient is allowed back in her apartment. She continues to report of nightmares; will increase prazosin to 2mg PO bedtime. c/o of abdominal pain; pt has a hx of constipation, ordered miralax, senna and labs. Latuda increased to 60mg PO bedtime. Patient educated on: diagnosis, medication risk/benefits and therapeutic strategies Informed Consent: understands and further education needed Reason for continued inpatient stay Substantial Risk for: med/psych decompensation Time Spent With Patient Time: Total time managing care of this patient today _30___ minutes.
[2022-11-27] MEDS: hydrOXYzine HCL 25 MG TABLET PO (12:21)
[2022-11-27 14:00] VITALS: BP 127/78; PULSE 77
[2022-11-27] MEDS: Acetaminophen 325 MG TABLET 650 MG PO (14:55)
[2022-11-27] MEDS: Sennosides 8.6 MG TABLET PO (14:56)
[2022-11-27] MEDS: polyethylene glycoL 3350 17 GM POWD.PACK PO (14:56)
[2022-11-27 15:34] LABS: Ammonia 21 umol/L (13-55)
[2022-11-27 15:42] LABS: Alanine Aminotransferase 11 U/L (0-31); Albumin Level 3.9 g/dL (3.5-5.0); Alkaline Phosphatase 59 U/L (39-117); Anion Gap 12 (12-20); Aspartate Amino Transferase 15 U/L (5-31); Bilirubin Direct < 0.2 mg/dL (0.0-0.5); Bilirubin Total 0.2 mg/dL (0.0-1.0); Blood Urea Nitrogen 14 mg/dL (9-16); Calcium 9.6 mg/dL (8.4-10.2); Carbon Dioxide 28 mmol/L (22-29); Chloride 106 mmol/L (96-108); Creatinine Clr Calc Pharmacy 54.2; Estimated Glomerular Filt Rate 44; Glucose Random 118 mg/dL (60-115); Lipase 31 U/L (8-78); Potassium 4.4 mmol/L (3.3-5.1); Sodium 142 mmol/L (135-145); Total Protein 7.2 g/dL (6.5-8.0)
[2022-11-27 18:00] VITALS: BP 124/78; PULSE 78; TEMP 36.8; O2SAT 97
[2022-11-27] MEDS: QUEtiapine Fumarate 300 MG TABLET 600 MG PO (19:42)
[2022-11-27] MEDS: Prazosin HCL 1 MG CAPSULE 2 MG PO (19:42)
[2022-11-27] MEDS: Lurasidone HCl 20 MG TABLET 60 MG PO (19:43)
[2022-11-28] MEDS: busPIRone HCl 10 MG TABLET 30 MG PO ×2 (06:13→14:15)
[2022-11-28 08:00] VITALS: BP 138/80; PULSE 91; RESP 16; TEMP 36.3; O2SAT 100
[2022-11-28] MEDS: buPROPion HCl XL 300 MG TAB.ER.24H PO (08:26)
[2022-11-28] MEDS: lamoTRIgine 25 MG TABLET 150 MG PO (08:26)
[2022-11-28] MEDS: Benztropine Mesylate 0.5 MG TABLET PO (08:26)
[2022-11-28] MEDS: cloNIDine HCL 0.1 MG TABLET PO ×2 (08:26→14:14)
[2022-11-28] MEDS: Nicotine 21 MG PATCH.TD24 TRANSDERMA (08:27)
[2022-11-28] MEDS: Gabapentin 300 MG CAPSULE 600 MG PO ×4 (08:27→19:50)
[2022-11-28] MEDS: Sennosides 8.6 MG TABLET PO (08:27)
[2022-11-28] MEDS: Acetaminophen 325 MG TABLET 650 MG PO (08:27)
[2022-11-28] MEDS: QUEtiapine Fumarate 200 MG TABLET PO (08:27)
[2022-11-28] MEDS: clonazePAM 1 MG TABLET PO ×3 (08:27→19:50)
[2022-11-28] MEDS: polyethylene glycoL 3350 17 GM POWD.PACK PO (08:28)
--- NOTE | 2022-11-28 09:49 | P.PNPSI_ITS ---
Subjective Subjective Date of Service: 11/28/22 Reason For Visit: paranoia Subjective Notes: Conditional Voluntary Interim History: Reviewed in team and . T/W and clinical social work therapist met with patient together. Patient labile during during meeting; yelling at T/W and clinical social work therapist. Patient was upset at clinical social work therapist because she was accusing her of breaking HIPAA by talking to the treatment team. Patient was educated regarding the importance of the treatment team communicating; pt was unable to accept response and continued to state that T/W and clinical social work therapist were wrong. Patient began to yell at T/W when discussing medications and became demanding, stated she did not want any of her medications touched. T/W explained the benefits of increasing some of her medications to assist in stabilizing her mood and paranoia. Patient was able to calm down and apologized, stating I know you're not the devil. I'm trying to trust you . Medication Compliance: Yes Side effects from medications: No Attending Groups: Intermittent Review of Systems Review of Systems Yes all other systems are reviewed and are negative Constitutional: Reports as per HPI Eyes: Reports as per HPI Reports as per HPI Cardiovascular: Reports as per HPI Respiratory: Reports as per HPI Gastrointestinal: Reports as per HPI Genitourinary: Reports as per HPI Musculoskeletal: Reports as per HPI Skin/Breast: Reports as per HPI Reports as per HPI Psychiatric: Reports as per HPI Endocrine: Reports as per HPI Hematologic/Lymphatic: Reports as per HPI Allergic/Immunologic: Reports as per HPI Mental Status Exam Mental Status Exam Narrative: Pt is alert and oriented; behavior is cooperative, irritable, labile, yelling; dressed in casual attire; mood is described as depressed and anxious ; eye contact appropriate; Speech is normal rate, loud volume and pressured; no psychomotor agitation/retardation present; thought process is organized and goal directed; Thought content is on tx; pt presents with some suspicious thought content regarding her neighbor and the treatment teams intent. denies SI/HI/VH. Pt reports auditory hallucinations of mumbles .Patients insight and judgment are poor. Diagnostics Vital Signs (24Hr): Vital Signs - 24 hr 11/27/22 14:00 11/27/22 18:00 Temperature 98.2 F Pulse Rate 77 78 Blood Pressure 127/78 124/78 Pulse Oximetry 97 Oxygen Delivery Method Room Air BMI result Body Mass Index 25.4 Labs 11/23/22 11:08 11/27/22 15:15 Labs: Laboratory Results - last 48 hr 11/27/22 15:15 Sodium 142 Potassium 4.4 Chloride 106 Carbon Dioxide 28 Anion Gap 12 BUN 14 Creatinine 1.32 Estim Creat Clear Calc 54.2 Estimated GFR 44 Random Glucose 118 H Calcium 9.6 Total Bilirubin 0.2 Direct Bilirubin < 0.2 AST 15 ALT 11 Alkaline Phosphatase 59 Ammonia 21 Total Protein 7.2 Albumin 3.9 Lipase 31 Medications Medications Current Medications Acetaminophen (Acetaminophen 325 Mg Tablet) 650 mg PO Q6H PRN PRN Reason: Headache/Pain Mild Scale (1-3) Last Admin: 11/28/22 08:27 Dose: 650 mg Al Hydroxide/Mg Hydroxide (Magnesium Hydrox/Alum Hydrox 30 Ml Oral.Susp) 30 ml PO Q6H PRN PRN Reason: Heartburn/Nausea Benztropine Mesylate (Benztropine Mesylate 0.5 Mg Tablet) 0.5 mg PO BID [facility] TO [facility] Last Admin: 11/28/22 08:26 Dose: 0.5 mg Bupropion HCl (Bupropion Hcl Xl 300 Mg Tab.Er.24h) 300 mg PO DAILY [facility] Last Admin: 11/28/22 08:26 Dose: 300 mg Buspirone HCl (Buspirone Hcl 10 Mg Tablet) 30 mg PO BID@0730,1500 [facility] Last Admin: 11/28/22 06:13 Dose: 30 mg Clonazepam (Clonazepam 1 Mg Tablet) 1 mg PO TID [facility] Last Admin: 11/28/22 08:27 Dose: 1 mg Clonidine HCl (Clonidine Hcl 0.1 Mg Tablet) 0.1 mg PO BID@0800,1500 [facility]; Protocol Last Admin: 11/28/22 08:26 Dose: 0.1 mg Gabapentin (Gabapentin 300 Mg Capsule) 600 mg PO QID [facility] Last Admin: 11/28/22 08:27 Dose: 600 mg Hydroxyzine HCl (Hydroxyzine Hcl 25 Mg Tablet) 25 mg PO Q6H PRN PRN Reason: Anxiety Last Admin: 11/27/22 12:21 Dose: 25 mg Lamotrigine (Lamotrigine 25 Mg Tablet) 150 mg PO BID [facility] Last Admin: 11/28/22 08:26 Dose: 150 mg Lurasidone HCl (Lurasidone Hcl 20 Mg Tablet) 60 mg PO BEDTIME [facility] Last Admin: 11/27/22 19:43 Dose: 60 mg Magnesium Hydroxide (Milk Of Magnesia 30 Ml Oral.Susp) 30 ml PO DAILY PRN PRN Reason: Constipation Last Admin: 11/27/22 08:11 Dose: 30 ml Nicotine (Nicotine 21 Mg Patch.Td24) 21 mg TRANSDERMA DAILY [facility] Last Admin: 11/28/22 08:27 Dose: 21 mg Nicotine Polacrilex (Nicotine Polacrilex 2 Mg Gum) 4 mg BUCCAL Q2H PRN PRN Reason: Nicotine Cravings Polyethylene Glycol (Polyethylene Glycol 3350 17 Gm Powd.Pack) 17 gm PO DAILY [facility] Last Admin: 11/28/22 08:28 Dose: 17 gm Prazosin HCl (Prazosin Hcl 1 Mg Capsule) 2 mg PO BEDTIME [facility]; Protocol Last Admin: 11/27/22 19:42 Dose: 2 mg Quetiapine Fumarate (Quetiapine Fumarate 200 Mg Tablet) 200 mg PO DAILY [facility] Last Admin: 11/28/22 08:27 Dose: 200 mg Quetiapine Fumarate (Quetiapine Fumarate 300 Mg Tablet) 600 mg PO BEDTIME [facility] Last Admin: 11/27/22 19:42 Dose: 600 mg Senna (Sennosides 8.6 Mg Tablet) 8.6 mg PO DAILY [facility] Last Admin: 11/28/22 08:27 Dose: 8.6 mg Allergies Allergies Allergy/AdvReac Type Severity Reaction Status Date / Time Penicillins [PCN] Allergy Unknown UNKNOWN Verified 01/01/21 19:37 tramadol [TRAMADOL] Allergy Unknown HIVES Verified 01/01/21 19:37 Assessment & Plan Assessment & Plan (1) Bipolar disorder: Status: Acute Code(s): F31.9 - Bipolar disorder, unspecified (2) PTSD (post-traumatic stress disorder): Status: Acute Code(s): F43.10 - Post-traumatic stress disorder, unspecified (3) Cocaine use disorder, moderate, dependence: Status: Acute Code(s): F14.20 - Cocaine dependence, uncomplicated Plan Patient is a 41 year old female with hx of Bipolar d/o, PTSD and cocaine use who was recently discharged from on 11/11/22, who self presented to [facility] with increased paranoid, auditory hallucinations and paranoia, secondary to medication non-adherence. Plan: CV 15 minute safety checks restart home medications Referral for fitness coach? Referral for respite 11/26: Patient reports feeling sad and anxious today. Patient stated, I'm too anxious to be around people but I will try to go to one group today . Patient reports she is not having paranoia anymore ; pt reports nightmares; risks/benefits discussed regarding Prozosin, pt agreed to trial. Start prazosin 1mg PO bedtime; monitor BPs. 11/27: T/W and clinical social work therapist met with patient together. Patient does not recall meeting with this field underwriter prior. Patient labile during during meeting; believes she is not allowed back in her current apartment d/t her neighbor not getting along with her. Pt stated, I can hear her whispering and talking about me . form worker confirmed that patient is allowed back in her apartment. She continues to report of nightmares; will increase prazosin to 2mg PO bedtime. c/o of abdominal pain; pt has a hx of constipation, ordered miralax, senna and labs. Latuda increased to 60mg PO bedtime. 11/28: T/W and clinical social work therapist met with patient together. Patient labile during during meeting; yelling at T/W and clinical social work therapist. Patient was upset at clinical social work therapist because she was accusing her of breaking HIPAA by talking to the treatment team. Patient was educated regarding the importance of the treatment team communicating; pt was unable to accept response and continued to state that T/W and clinical social work therapist were wrong. Patient began to yell at T/W when discussing medications and became demanding, stated she did not want any of her medications touched. T/W explained the benefits of increasing some of her medications to assist in stabilizing her mood and paranoia. Patient was able to calm down and apologized, stating I know you're not the devil. I'm trying to trust you . Lamictal increased 200mg PO BID Latuda increased 80mg PO daily CORY Huynh DC Seroquel 200mg PO daily Will discuss possibly adding another antipsychotic with patient tomorrow. Patient educated on: diagnosis, medication risk/benefits and therapeutic strategies Informed Consent: understands and further education needed Reason for continued inpatient stay Substantial Risk for: med/psych decompensation Time Spent With Patient Time: Total time managing care of this patient today _30___ minutes.
[2022-11-28] MEDS: hydrOXYzine HCL 25 MG TABLET PO (12:40)
[2022-11-28 18:00] VITALS: BP 173/109; PULSE 90; TEMP 36.9; O2SAT 99
[2022-11-28] MEDS: Prazosin HCL 1 MG CAPSULE 2 MG PO (19:49)
[2022-11-28] MEDS: QUEtiapine Fumarate 300 MG TABLET 600 MG PO (19:49)
[2022-11-28] MEDS: Lurasidone HCl 80 MG TABLET PO (19:49)
[2022-11-28] MEDS: lamoTRIgine 100 MG TABLET 200 MG PO (19:50)
[2022-11-28 20:20] VITALS: BP 177/90
[2022-11-29] MEDS: hydrOXYzine HCL 25 MG TABLET PO ×2 (01:16→11:03)
[2022-11-29 06:00] VITALS: BP 125/58; PULSE 83; RESP 18; TEMP 36.2; O2SAT 100
[2022-11-29] MEDS: Nicotine 21 MG PATCH.TD24 TRANSDERMA (08:00)
[2022-11-29] MEDS: busPIRone HCl 10 MG TABLET 30 MG PO ×2 (08:01→14:31)
[2022-11-29] MEDS: buPROPion HCl XL 300 MG TAB.ER.24H PO (08:01)
[2022-11-29] MEDS: Sennosides 8.6 MG TABLET PO (08:02)
[2022-11-29] MEDS: lamoTRIgine 100 MG TABLET 200 MG PO ×2 (08:02→19:50)
[2022-11-29] MEDS: cloNIDine HCL 0.1 MG TABLET PO ×2 (08:02→14:32)
[2022-11-29] MEDS: clonazePAM 1 MG TABLET PO ×3 (08:03→19:49)
[2022-11-29] MEDS: Gabapentin 300 MG CAPSULE 600 MG PO ×4 (08:03→19:50)
--- NOTE | 2022-11-29 13:19 | HO.PSYCHPN ---
Subjective Subjective Date of Service: 11/29/22 Reason For Visit: paranoia Subjective Notes: 3 Day Interim History: Reviewed in team and . Patient labile during during meeting; continues to perseverate on social sciences department chair breaking HIPAA by talking to treatment team. T/W explained the benefits of possibly being on a long acting injectable medication; patient was open to the idea and agreed to a trial of risperidone; risks/benefits discussed. Will start risperidone 1mg PO BID. Medication Compliance: Yes Side effects from medications: No Attending Groups: Intermittent Review of Systems Constitutional: Reports as per HPI Eyes: Reports as per HPI Reports as per HPI Cardiovascular: Reports as per HPI Respiratory: Reports as per HPI Gastrointestinal: Reports as per HPI Genitourinary: Reports as per HPI Musculoskeletal: Reports as per HPI Skin/Breast: Reports as per HPI Reports as per HPI Psychiatric: Reports as per HPI Endocrine: Reports as per HPI Hematologic/Lymphatic: Reports as per HPI Allergic/Immunologic: Reports as per HPI Mental Status Exam Mental Status Exam Narrative: Pt is alert and oriented; behavior is cooperative, irritable, labile; dressed in casual attire; mood is described as depressed and anxious ; eye contact appropriate; Speech is normal rate, volume and not pressured; no psychomotor agitation/retardation present; thought process is organized and goal directed; Thought content is on tx; pt presents with some suspicious thought content regarding her neighbor and the treatment teams intent. denies SI/HI/VH. Pt reports auditory hallucinations of mumbles .Patients insight and judgment are poor. Diagnostics Vital Signs (24Hr): Vital Signs - 24 hr 11/28/22 18:00 11/28/22 20:20 11/29/22 06:00 Temperature 98.4 F 97.1 F Pulse Rate 90 83 Respiratory Rate 18 Blood Pressure 173/109 H 177/90 H 125/58 L Pulse Oximetry 99 100 Oxygen Delivery Method Room Air Room Air BMI result Body Mass Index 25.4 Labs 11/23/22 11:08 11/27/22 15:15 Labs: Laboratory Results - last 48 hr 11/27/22 15:15 Sodium 142 Potassium 4.4 Chloride 106 Carbon Dioxide 28 Anion Gap 12 BUN 14 Creatinine 1.32 Estim Creat Clear Calc 54.2 Estimated GFR 44 Random Glucose 118 H Calcium 9.6 Total Bilirubin 0.2 Direct Bilirubin < 0.2 AST 15 ALT 11 Alkaline Phosphatase 59 Ammonia 21 Total Protein 7.2 Albumin 3.9 Lipase 31 Medications Medications Current Medications Acetaminophen (Acetaminophen 325 Mg Tablet) 650 mg PO Q6H PRN PRN Reason: Headache/Pain Mild Scale (1-3) Last Admin: 11/28/22 08:27 Dose: 650 mg Al Hydroxide/Mg Hydroxide (Magnesium Hydrox/Alum Hydrox 30 Ml Oral.Susp) 30 ml PO Q6H PRN PRN Reason: Heartburn/Nausea Bupropion HCl (Bupropion Hcl Xl 300 Mg Tab.Er.24h) 300 mg PO DAILY [facility] Last Admin: 11/29/22 08:01 Dose: 300 mg Buspirone HCl (Buspirone Hcl 10 Mg Tablet) 30 mg PO BID@0730,1500 [facility] Last Admin: 11/29/22 08:01 Dose: 30 mg Clonazepam (Clonazepam 1 Mg Tablet) 1 mg PO TID [facility] Last Admin: 11/29/22 08:03 Dose: 1 mg Clonidine HCl (Clonidine Hcl 0.1 Mg Tablet) 0.1 mg PO BID@0800,1500 [facility]; Protocol Last Admin: 11/29/22 08:02 Dose: 0.1 mg Gabapentin (Gabapentin 300 Mg Capsule) 600 mg PO QID [facility] Last Admin: 11/29/22 12:06 Dose: 600 mg Hydroxyzine HCl (Hydroxyzine Hcl 25 Mg Tablet) 25 mg PO Q6H PRN PRN Reason: Anxiety Last Admin: 11/29/22 11:03 Dose: 25 mg Lamotrigine (Lamotrigine 100 Mg Tablet) 200 mg PO BID [facility] Last Admin: 11/29/22 08:02 Dose: 200 mg Lurasidone HCl (Lurasidone Hcl 80 Mg Tablet) 80 mg PO BEDTIME [facility] Last Admin: 11/28/22 19:49 Dose: 80 mg Magnesium Hydroxide (Milk Of Magnesia 30 Ml Oral.Susp) 30 ml PO DAILY PRN PRN Reason: Constipation Last Admin: 11/27/22 08:11 Dose: 30 ml Nicotine (Nicotine 21 Mg Patch.Td24) 21 mg TRANSDERMA DAILY [facility] Last Admin: 11/29/22 08:00 Dose: 21 mg Nicotine Polacrilex (Nicotine Polacrilex 2 Mg Gum) 4 mg BUCCAL Q2H PRN PRN Reason: Nicotine Cravings Polyethylene Glycol (Polyethylene Glycol 3350 17 Gm Powd.Pack) 17 gm PO DAILY [facility] Last Admin: 11/29/22 08:42 Dose: Not Given Prazosin HCl (Prazosin Hcl 1 Mg Capsule) 2 mg PO BEDTIME [facility]; Protocol Last Admin: 11/28/22 19:49 Dose: 2 mg Quetiapine Fumarate (Quetiapine Fumarate 300 Mg Tablet) 600 mg PO BEDTIME [facility] Last Admin: 11/28/22 19:49 Dose: 600 mg Senna (Sennosides 8.6 Mg Tablet) 8.6 mg PO DAILY [facility] Last Admin: 11/29/22 08:02 Dose: 8.6 mg Allergies Allergies Allergy/AdvReac Type Severity Reaction Status Date / Time Penicillins [PCN] Allergy Unknown UNKNOWN Verified 01/01/21 19:37 tramadol [TRAMADOL] Allergy Unknown HIVES Verified 01/01/21 19:37 Assessment & Plan Assessment & Plan (1) Bipolar disorder: Status: Acute Code(s): F31.9 - Bipolar disorder, unspecified (2) PTSD (post-traumatic stress disorder): Status: Acute Code(s): F43.10 - Post-traumatic stress disorder, unspecified (3) Cocaine use disorder, moderate, dependence: Status: Acute Code(s): F14.20 - Cocaine dependence, uncomplicated Plan Patient is a 41 year old female with hx of Bipolar d/o, PTSD and cocaine use who was recently discharged from on 11/11/22, who self presented to [facility] with increased paranoid, auditory hallucinations and paranoia, secondary to medication non-adherence. Plan: CV 15 minute safety checks restart home medications Referral for motor coach driver? Referral for respite 11/26: Patient reports feeling sad and anxious today. Patient stated, I'm too anxious to be around people but I will try to go to one group today . Patient reports she is not having paranoia anymore ; pt reports nightmares; risks/benefits discussed regarding Prozosin, pt agreed to trial. Start prazosin 1mg PO bedtime; monitor BPs. 11/27: T/W and social sciences department chair met with patient together. Patient does not recall meeting with this tag writer prior. Patient labile during during meeting; believes she is not allowed back in her current apartment d/t her neighbor not getting along with her. Pt stated, I can hear her whispering and talking about me . workers' compensation claims examiner confirmed that patient is allowed back in her apartment. She continues to report of nightmares; will increase prazosin to 2mg PO bedtime. c/o of abdominal pain; pt has a hx of constipation, ordered miralax, senna and labs. Latuda increased to 60mg PO bedtime. 11/28: T/W and social sciences department chair met with patient together. Patient labile during during meeting; yelling at T/W and social sciences department chair. Patient was upset at social sciences department chair because she was accusing her of breaking HIPAA by talking to the treatment team. Patient was educated regarding the importance of the treatment team communicating; pt was unable to accept response and continued to state that T/W and social sciences department chair were wrong. Patient began to yell at T/W when discussing medications and became demanding, stated she did not want any of her medications touched. T/W explained the benefits of increasing some of her medications to assist in stabilizing her mood and paranoia. Patient was able to calm down and apologized, stating I know you're not the devil. I'm trying to trust you . Lamictal increased 200mg PO BID Latuda increased 80mg PO daily DC Cogentin CORY Seroquel 200mg PO daily Will discuss possibly adding another antipsychotic with patient tomorrow. 11/29: Patient labile during during meeting; continues to perseverate on social sciences department chair breaking HIPAA by talking to treatment team. T/W explained the benefits of possibly being on a long acting injectable medication; patient was open to the idea and agreed to a trial of risperidone; risks/benefits discussed. Will start risperidone 1mg PO BID. Patient educated on: diagnosis, medication risk/benefits and therapeutic strategies Informed Consent: understands and further education needed Reason for continued inpatient stay Substantial Risk for: med/psych decompensation Time Spent With Patient Time: Total time managing care of this patient today _30___ minutes.
[2022-11-29] MEDS: risperiDONE 1 MG TABLET PO ×2 (14:32→19:51)
[2022-11-29 14:34] VITALS: BP 128/90; PULSE 97
[2022-11-29] MEDS: Acetaminophen 325 MG TABLET 650 MG PO (16:04)
[2022-11-29 18:00] VITALS: BP 128/68; PULSE 82; RESP 16; TEMP 36.4; O2SAT 98
[2022-11-29] MEDS: QUEtiapine Fumarate 300 MG TABLET 600 MG PO (19:49)
[2022-11-29] MEDS: Ibuprofen 600 MG TABLET PO (19:50)
[2022-11-29] MEDS: Prazosin HCL 1 MG CAPSULE 2 MG PO (19:50)
[2022-11-29] MEDS: Lurasidone HCl 80 MG TABLET PO (19:51)
[2022-11-30 08:00] VITALS: BP 131/75; PULSE 101; RESP 16; TEMP 36.1; O2SAT 99
[2022-11-30] MEDS: busPIRone HCl 10 MG TABLET 30 MG PO ×2 (08:07→14:07)
[2022-11-30] MEDS: polyethylene glycoL 3350 17 GM POWD.PACK PO (08:07)
[2022-11-30] MEDS: lamoTRIgine 100 MG TABLET 200 MG PO ×2 (08:08→19:19)
[2022-11-30] MEDS: cloNIDine HCL 0.1 MG TABLET PO ×2 (08:08→14:07)
[2022-11-30] MEDS: Ibuprofen 600 MG TABLET PO ×2 (08:08→19:22)
[2022-11-30] MEDS: Gabapentin 300 MG CAPSULE 600 MG PO ×4 (08:09→19:18)
[2022-11-30] MEDS: risperiDONE 1 MG TABLET PO ×2 (08:09→19:19)
[2022-11-30] MEDS: clonazePAM 1 MG TABLET PO ×3 (08:09→19:18)
[2022-11-30] MEDS: Sennosides 8.6 MG TABLET PO (08:09)
[2022-11-30] MEDS: buPROPion HCl XL 300 MG TAB.ER.24H PO (08:09)
[2022-11-30] MEDS: Nicotine 21 MG PATCH.TD24 TRANSDERMA (08:11)
[2022-11-30] MEDS: hydrOXYzine HCL 25 MG TABLET PO ×2 (11:32→19:19)
--- NOTE | 2022-11-30 11:47 | HO.PSYCHPN ---
Subjective Subjective Date of Service: 11/30/22 Reason For Visit: paranoia Subjective Notes: Conditional Voluntary Interim History: Pt denies SI/HI. She reports sleeping well. She reports feeling better. No signs of psychosis. She is visible on the unit and attends some groups. No behavioral concerns. Pt slept most of the night. Medication Compliance: Yes Review of Systems Review of Systems Yes all other systems are reviewed and are negative Constitutional: Reports as per HPI Eyes: Reports as per HPI Reports as per HPI Cardiovascular: Reports as per HPI Respiratory: Reports as per HPI Gastrointestinal: Reports as per HPI Musculoskeletal: Reports as per HPI Skin/Breast: Reports as per HPI Reports as per HPI Psychiatric: Reports as per HPI Endocrine: Reports as per HPI Hematologic/Lymphatic: Reports as per HPI Allergic/Immunologic: Reports as per HPI Mental Status Exam Mental Status Exam Narrative: Pt is alert and oriented; behavior is cooperative, irritable, labile; dressed in casual attire; mood is described as depressed and anxious ; eye contact appropriate; Speech is normal rate, volume and not pressured; no psychomotor agitation/retardation present; thought process is organized and goal directed; Thought content is on tx; pt presents with some suspicious thought content regarding her neighbor and the treatment teams intent. denies SI/HI/VH. Pt reports auditory hallucinations of mumbles .Patients insight and judgment are poor. Diagnostics Vital Signs (24Hr): Vital Signs - 24 hr 11/29/22 14:34 11/29/22 18:00 11/30/22 08:00 Temperature 97.6 F 97 F Pulse Rate 97 82 101 H Respiratory Rate 16 16 Blood Pressure 128/90 H 128/68 131/75 Pulse Oximetry 98 99 Oxygen Delivery Method Room Air Room Air BMI result Body Mass Index 25.4 Labs 11/23/22 11:08 11/27/22 15:15 Medications Medications Current Medications Acetaminophen (Acetaminophen 325 Mg Tablet) 650 mg PO Q6H PRN PRN Reason: Headache/Pain Mild Scale (1-3) Last Admin: 11/29/22 16:04 Dose: 650 mg Al Hydroxide/Mg Hydroxide (Magnesium Hydrox/Alum Hydrox 30 Ml Oral.Susp) 30 ml PO Q6H PRN PRN Reason: Heartburn/Nausea Bupropion HCl (Bupropion Hcl Xl 300 Mg Tab.Er.24h) 300 mg PO DAILY CLAUDIO Last Admin: 11/30/22 08:09 Dose: 300 mg Buspirone HCl (Buspirone Hcl 10 Mg Tablet) 30 mg PO BID@0730,1500 [facility] Last Admin: 11/30/22 08:07 Dose: 30 mg Clonazepam (Clonazepam 1 Mg Tablet) 1 mg PO TID [facility] Last Admin: 11/30/22 08:09 Dose: 1 mg Clonidine HCl (Clonidine Hcl 0.1 Mg Tablet) 0.1 mg PO BID@0800,1500 [facility]; Protocol Last Admin: 11/30/22 08:08 Dose: 0.1 mg Gabapentin (Gabapentin 300 Mg Capsule) 600 mg PO QID [facility] Last Admin: 11/30/22 08:09 Dose: 600 mg Hydroxyzine HCl (Hydroxyzine Hcl 25 Mg Tablet) 25 mg PO Q6H PRN PRN Reason: Anxiety Last Admin: 11/30/22 11:32 Dose: 25 mg Ibuprofen (Ibuprofen 600 Mg Tablet) 600 mg PO Q6H PRN PRN Reason: pain not responsive to tylenol Last Admin: 11/30/22 08:08 Dose: 600 mg Lamotrigine (Lamotrigine 100 Mg Tablet) 200 mg PO BID [facility] Last Admin: 11/30/22 08:08 Dose: 200 mg Lurasidone HCl (Lurasidone Hcl 80 Mg Tablet) 80 mg PO BEDTIME [facility] Last Admin: 11/29/22 19:51 Dose: 80 mg Magnesium Hydroxide (Milk Of Magnesia 30 Ml Oral.Susp) 30 ml PO DAILY PRN PRN Reason: Constipation Last Admin: 11/27/22 08:11 Dose: 30 ml Nicotine (Nicotine 21 Mg Patch.Td24) 21 mg TRANSDERMA DAILY [facility] Last Admin: 11/30/22 08:11 Dose: 21 mg Nicotine Polacrilex (Nicotine Polacrilex 2 Mg Gum) 4 mg BUCCAL Q2H PRN PRN Reason: Nicotine Cravings Polyethylene Glycol (Polyethylene Glycol 3350 17 Gm Powd.Pack) 17 gm PO DAILY [facility] Last Admin: 11/30/22 08:07 Dose: 17 gm Prazosin HCl (Prazosin Hcl 1 Mg Capsule) 2 mg PO BEDTIME [facility]; Protocol Last Admin: 11/29/22 19:50 Dose: 2 mg Quetiapine Fumarate (Quetiapine Fumarate 300 Mg Tablet) 600 mg PO BEDTIME [facility] Last Admin: 11/29/22 19:49 Dose: 600 mg Risperidone (Risperidone 1 Mg Tablet) 1 mg PO BID [facility] Last Admin: 11/30/22 08:09 Dose: 1 mg Senna (Sennosides 8.6 Mg Tablet) 8.6 mg PO DAILY [facility] Last Admin: 11/30/22 08:09 Dose: 8.6 mg Allergies Allergies Allergy/AdvReac Type Severity Reaction Status Date / Time Penicillins [PCN] Allergy Unknown UNKNOWN Verified 01/01/21 19:37 tramadol [TRAMADOL] Allergy Unknown HIVES Verified 01/01/21 19:37 Assessment & Plan Assessment & Plan (1) Bipolar disorder: Status: Acute Code(s): F31.9 - Bipolar disorder, unspecified (2) PTSD (post-traumatic stress disorder): Status: Acute Code(s): F43.10 - Post-traumatic stress disorder, unspecified (3) Cocaine use disorder, moderate, dependence: Status: Acute Code(s): F14.20 - Cocaine dependence, uncomplicated Plan Patient is a 41 year old female with hx of Bipolar d/o, PTSD and cocaine use who was recently discharged from on 11/11/22, who self presented to [facility] [place] [place] [facility] with increased paranoid, auditory hallucinations and paranoia, secondary to medication non-adherence. Plan: CV 15 minute safety checks restart home medications Referral for manager of disaster recovery? Referral for respite 11/26: Patient reports feeling sad and anxious today. Patient stated, I'm too anxious to be around people but I will try to go to one group today . Patient reports she is not having paranoia anymore ; pt reports nightmares; risks/benefits discussed regarding Prozosin, pt agreed to trial. Start prazosin 1mg PO bedtime; monitor BPs. 11/27: T/W and school social worker met with patient together. Patient does not recall meeting with this blog writer prior. Patient labile during during meeting; believes she is not allowed back in her current apartment d/t her neighbor not getting along with her. Pt stated, I can hear her whispering and talking about me . target worker confirmed that patient is allowed back in her apartment. She continues to report of nightmares; will increase prazosin to 2mg PO bedtime. c/o of abdominal pain; pt has a hx of constipation, ordered miralax, senna and labs. Latuda increased to 60mg PO bedtime. 11/28: T/W and school social worker met with patient together. Patient labile during during meeting; yelling at T/W and school social worker. Patient was upset at school social worker because she was accusing her of breaking HIPAA by talking to the treatment team. Patient was educated regarding the importance of the treatment team communicating; pt was unable to accept response and continued to state that T/W and school social worker were wrong. Patient began to yell at T/W when discussing medications and became demanding, stated she did not want any of her medications touched. T/W explained the benefits of increasing some of her medications to assist in stabilizing her mood and paranoia. Patient was able to calm down and apologized, stating I know you're not the devil. I'm trying to trust you . Lamictal increased 200mg PO BID Latuda increased 80mg PO daily DC Cogentin DC Seroquel 200mg PO daily Will discuss possibly adding another antipsychotic with patient tomorrow. 11/29: Patient labile during during meeting; continues to perseverate on school social worker breaking HIPAA by talking to treatment team. T/W explained the benefits of possibly being on a long acting injectable medication; patient was open to the idea and agreed to a trial of risperidone; risks/benefits discussed. Will start risperidone 1mg PO BID. 11/30 continue tx. Reason for continued inpatient stay Substantial Risk for: inability to function Time Spent With Patient Time: Total time managing care of this patient today ____ minutes.
--- NOTE | 2022-11-30 13:34 | PM.EVENT ---
Documented by User: [email or web address] Caceres 11/30/22 13:39 Event Note Date of Service: 11/30/22 Event Note: Spoke with patient in hallway while seeing other patients on the unit. Patient complains of difficulty and pain with ambulation and standing. States pain began 4-5 days earlier in her right upper thigh. Walked with patient up and down the hallway twice. Patient was able to move the walked slowly with minor limp. Patient states has been having problems with balance and especially with standing up from sitting or lying down. Patient voiced similar complaints of difficulty walking on prior admission 11/06/2022, though this time patient's pain was located bilaterally in her ankles. Suggested PT/OT evaluation at that time, the evaluation was apparently not done. Will re-consult with PT. Time Spent With Patient Time: Total time managing care of this patient today ____ minutes. Documented by User: [email or web address] Lr MD 11/30/22 14:34 Event Note Date of Service: 11/30/22
[2022-11-30 14:05] VITALS: BP 126/80; PULSE 94
[2022-11-30 15:05] VITALS: BP 131/88; PULSE 98; RESP 16; TEMP 36.3; O2SAT 99
[2022-11-30] MEDS: Acetaminophen 325 MG TABLET 650 MG PO (16:06)
[2022-11-30 19:09] VITALS: BP 141/70; PULSE 106; TEMP 36.2
[2022-11-30] MEDS: QUEtiapine Fumarate 300 MG TABLET 600 MG PO (19:19)
[2022-11-30] MEDS: Lurasidone HCl 80 MG TABLET PO (19:19)
[2022-11-30] MEDS: Prazosin HCL 1 MG CAPSULE 2 MG PO (19:19)
[2022-12-01 07:50] VITALS: BP 129/84; PULSE 105; RESP 18; TEMP 36.3; O2SAT 99
[2022-12-01] MEDS: Nicotine 21 MG PATCH.TD24 TRANSDERMA (08:37)
[2022-12-01] MEDS: busPIRone HCl 10 MG TABLET 30 MG PO ×2 (08:38→14:39)
[2022-12-01] MEDS: clonazePAM 1 MG TABLET PO ×3 (08:39→19:38)
[2022-12-01] MEDS: Gabapentin 300 MG CAPSULE 600 MG PO ×4 (08:39→19:38)
[2022-12-01] MEDS: buPROPion HCl XL 300 MG TAB.ER.24H PO (08:40)
[2022-12-01] MEDS: lamoTRIgine 100 MG TABLET 200 MG PO ×2 (08:40→19:38)
[2022-12-01] MEDS: cloNIDine HCL 0.1 MG TABLET PO ×2 (08:40→14:39)
[2022-12-01] MEDS: Sennosides 8.6 MG TABLET PO (08:41)
[2022-12-01] MEDS: risperiDONE 1 MG TABLET PO ×2 (08:41→19:38)
[2022-12-01] MEDS: polyethylene glycoL 3350 17 GM POWD.PACK PO (08:42)
[2022-12-01] MEDS: Ibuprofen 600 MG TABLET PO (09:16)
[2022-12-01] MEDS: hydrOXYzine HCL 25 MG TABLET PO ×2 (13:01→19:38)
[2022-12-01 14:20] VITALS: BP 127/79; PULSE 102
--- NOTE | 2022-12-01 19:24 | HO.PSYCHPN ---
Subjective Subjective Date of Service: 12/01/22 Reason For Visit: paranoia Subjective Notes: Conditional Voluntary Interim History: Pt continues to denie SI/HI. She reports sleeping well. She reports feeling better. No signs of psychosis. She is visible on the unit and attends some groups. No behavioral concerns. Pt slept most of the night. She is concern that credit card not in her wallet. Review of Systems Review of Systems Yes all other systems are reviewed and are negative Constitutional: Reports as per HPI Eyes: Reports as per HPI Reports as per HPI Cardiovascular: Reports as per HPI Respiratory: Reports as per HPI Gastrointestinal: Reports as per HPI Musculoskeletal: Reports as per HPI Skin/Breast: Reports as per HPI Reports as per HPI Psychiatric: Reports as per HPI Endocrine: Reports as per HPI Hematologic/Lymphatic: Reports as per HPI Allergic/Immunologic: Reports as per HPI Mental Status Exam Mental Status Exam Narrative: Pt is alert and oriented; behavior is cooperative, irritable, labile; dressed in casual attire; mood is described as depressed and anxious ; eye contact appropriate; Speech is normal rate, volume and not pressured; no psychomotor agitation/retardation present; thought process is organized and goal directed; Thought content is on tx; pt presents with some suspicious thought content regarding her neighbor and the treatment teams intent. denies SI/HI/VH. Pt reports auditory hallucinations of mumbles .Patients insight and judgment are poor. Diagnostics Vital Signs (24Hr): Vital Signs - 24 hr 12/01/22 07:50 12/01/22 14:20 Temperature 97.3 F Pulse Rate 105 H 102 H Respiratory Rate 18 Blood Pressure 129/84 127/79 Pulse Oximetry 99 Oxygen Delivery Method Room Air BMI result Body Mass Index 25.4 Labs 11/23/22 11:08 11/27/22 15:15 Medications Medications Current Medications Acetaminophen (Acetaminophen 325 Mg Tablet) 650 mg PO Q6H PRN PRN Reason: Headache/Pain Mild Scale (1-3) Last Admin: 11/30/22 16:06 Dose: 650 mg Al Hydroxide/Mg Hydroxide (Magnesium Hydrox/Alum Hydrox 30 Ml Oral.Susp) 30 ml PO Q6H PRN PRN Reason: Heartburn/Nausea Bupropion HCl (Bupropion Hcl Xl 300 Mg Tab.Er.24h) 300 mg PO DAILY CLAUDIO Last Admin: 12/01/22 08:40 Dose: 300 mg Buspirone HCl (Buspirone Hcl 10 Mg Tablet) 30 mg PO BID@0730,1500 [facility] Last Admin: 12/01/22 14:39 Dose: 30 mg Clonazepam (Clonazepam 1 Mg Tablet) 1 mg PO TID [facility] Last Admin: 12/01/22 14:39 Dose: 1 mg Clonidine HCl (Clonidine Hcl 0.1 Mg Tablet) 0.1 mg PO BID@0800,1500 [facility]; Protocol Last Admin: 12/01/22 14:39 Dose: 0.1 mg Gabapentin (Gabapentin 300 Mg Capsule) 600 mg PO QID [facility] Last Admin: 12/01/22 16:08 Dose: 600 mg Hydroxyzine HCl (Hydroxyzine Hcl 25 Mg Tablet) 25 mg PO Q6H PRN PRN Reason: Anxiety Last Admin: 12/01/22 13:01 Dose: 25 mg Ibuprofen (Ibuprofen 600 Mg Tablet) 600 mg PO Q6H PRN PRN Reason: pain not responsive to tylenol Last Admin: 12/01/22 09:16 Dose: 600 mg Lamotrigine (Lamotrigine 100 Mg Tablet) 200 mg PO BID [facility] Last Admin: 12/01/22 08:40 Dose: 200 mg Lurasidone HCl (Lurasidone Hcl 80 Mg Tablet) 80 mg PO BEDTIME [facility] Last Admin: 11/30/22 19:19 Dose: 80 mg Magnesium Hydroxide (Milk Of Magnesia 30 Ml Oral.Susp) 30 ml PO DAILY PRN PRN Reason: Constipation Last Admin: 11/27/22 08:11 Dose: 30 ml Nicotine (Nicotine 21 Mg Patch.Td24) 21 mg TRANSDERMA DAILY [facility] Last Admin: 12/01/22 08:37 Dose: 21 mg Nicotine Polacrilex (Nicotine Polacrilex 2 Mg Gum) 4 mg BUCCAL Q2H PRN PRN Reason: Nicotine Cravings Polyethylene Glycol (Polyethylene Glycol 3350 17 Gm Powd.Pack) 17 gm PO DAILY [facility] Last Admin: 12/01/22 08:42 Dose: 17 gm Prazosin HCl (Prazosin Hcl 1 Mg Capsule) 2 mg PO BEDTIME [facility]; Protocol Last Admin: 11/30/22 19:19 Dose: 2 mg Quetiapine Fumarate (Quetiapine Fumarate 300 Mg Tablet) 600 mg PO BEDTIME [facility] Last Admin: 11/30/22 19:19 Dose: 600 mg Risperidone (Risperidone 1 Mg Tablet) 1 mg PO BID [facility] Last Admin: 12/01/22 08:41 Dose: 1 mg Senna (Sennosides 8.6 Mg Tablet) 8.6 mg PO DAILY [facility] Last Admin: 12/01/22 08:41 Dose: 8.6 mg Allergies Allergies Allergy/AdvReac Type Severity Reaction Status Date / Time Penicillins [PCN] Allergy Unknown UNKNOWN Verified 01/01/21 19:37 tramadol [TRAMADOL] Allergy Unknown HIVES Verified 01/01/21 19:37 Assessment & Plan Assessment & Plan (1) Bipolar disorder: Status: Acute Code(s): F31.9 - Bipolar disorder, unspecified (2) PTSD (post-traumatic stress disorder): Status: Acute Code(s): F43.10 - Post-traumatic stress disorder, unspecified (3) Cocaine use disorder, moderate, dependence: Status: Acute Code(s): F14.20 - Cocaine dependence, uncomplicated Plan Patient is a 41 year old female with hx of Bipolar d/o, PTSD and cocaine use who was recently discharged from on 11/11/22, who self presented to [facility] [place] with increased paranoid, auditory hallucinations and paranoia, secondary to medication non-adherence. Plan: CV 15 minute safety checks restart home medications Referral for lean coach? Referral for respite 11/26: Patient reports feeling sad and anxious today. Patient stated, I'm too anxious to be around people but I will try to go to one group today . Patient reports she is not having paranoia anymore ; pt reports nightmares; risks/benefits discussed regarding Prozosin, pt agreed to trial. Start prazosin 1mg PO bedtime; monitor BPs. 11/27: T/W and public health social worker met with patient together. Patient does not recall meeting with this ad copy writer prior. Patient labile during during meeting; believes she is not allowed back in her current apartment d/t her neighbor not getting along with her. Pt stated, I can hear her whispering and talking about me . mental health social worker confirmed that patient is allowed back in her apartment. She continues to report of nightmares; will increase prazosin to 2mg PO bedtime. c/o of abdominal pain; pt has a hx of constipation, ordered miralax, senna and labs. Latuda increased to 60mg PO bedtime. 11/28: T/W and public health social worker met with patient together. Patient labile during during meeting; yelling at T/W and public health social worker. Patient was upset at public health social worker because she was accusing her of breaking HIPAA by talking to the treatment team. Patient was educated regarding the importance of the treatment team communicating; pt was unable to accept response and continued to state that T/W and public health social worker were wrong. Patient began to yell at T/W when discussing medications and became demanding, stated she did not want any of her medications touched. T/W explained the benefits of increasing some of her medications to assist in stabilizing her mood and paranoia. Patient was able to calm down and apologized, stating I know you're not the devil. I'm trying to trust you . Lamictal increased 200mg PO BID Latuda increased 80mg PO daily CORY Cogentin CORY Seroquel 200mg PO daily Will discuss possibly adding another antipsychotic with patient tomorrow. 11/29: Patient labile during during meeting; continues to perseverate on public health social worker breaking HIPAA by talking to treatment team. T/W explained the benefits of possibly being on a long acting injectable medication; patient was open to the idea and agreed to a trial of risperidone; risks/benefits discussed. Will start risperidone 1mg PO BID. 11/30 continue tx. 12/01 continue tx. Reason for continued inpatient stay Substantial Risk for: stable for discharge Time Spent With Patient Time: Total time managing care of this patient today ____ minutes.
[2022-12-01 19:35] VITALS: BP 161/101; PULSE 100; TEMP 36.6
[2022-12-01] MEDS: QUEtiapine Fumarate 300 MG TABLET 600 MG PO (19:37)
[2022-12-01] MEDS: Acetaminophen 325 MG TABLET 650 MG PO (19:37)
[2022-12-01] MEDS: Prazosin HCL 1 MG CAPSULE 2 MG PO (19:37)
[2022-12-01] MEDS: Lurasidone HCl 80 MG TABLET PO (19:38)
--- NOTE | 2022-12-01 23:10 | PC.NURSE ---
PT reported to this RN that a former patient has been calling her multiple times per day. PT requested that if pt calls again, that staff please speak with him. I ensured pt that we will help in any way we can and to please alert staff if the calls continue.
[2022-12-02 08:00] VITALS: BP 131/82; PULSE 103; RESP 16; TEMP 36.1; O2SAT 96
[2022-12-02] MEDS: lamoTRIgine 100 MG TABLET 200 MG PO ×2 (08:03→20:04)
[2022-12-02] MEDS: busPIRone HCl 10 MG TABLET 30 MG PO ×2 (08:03→14:33)
[2022-12-02] MEDS: buPROPion HCl XL 300 MG TAB.ER.24H PO (08:04)
[2022-12-02] MEDS: Gabapentin 300 MG CAPSULE 600 MG PO ×4 (08:04→20:05)
[2022-12-02] MEDS: cloNIDine HCL 0.1 MG TABLET PO ×2 (08:04→14:33)
[2022-12-02] MEDS: clonazePAM 1 MG TABLET PO ×3 (08:04→20:05)
[2022-12-02] MEDS: risperiDONE 1 MG TABLET PO (08:04)
[2022-12-02] MEDS: Sennosides 8.6 MG TABLET PO (08:04)
[2022-12-02] MEDS: Nicotine 21 MG PATCH.TD24 TRANSDERMA (08:05)
[2022-12-02] MEDS: polyethylene glycoL 3350 17 GM POWD.PACK PO (08:05)
[2022-12-02 14:28] VITALS: BP 144/86; PULSE 113; RESP 16; O2SAT 99
[2022-12-02 18:00] VITALS: BP 124/90; PULSE 94; TEMP 36.7; O2SAT 99
--- NOTE | 2022-12-02 18:25 | P.PNPSI_ITS ---
Subjective Subjective Date of Service: 12/02/22 Reason For Visit: paranoia Subjective Notes: Conditional Voluntary Healthcare Proxy: No Guardianship: No Medical Problems Affecting Mental Status: No Interim History: Reports medications are working well. Retracted three day notice, interested in pursuit of PRIETO-Sustenna as she is tolerating Risperdal thus far. Feeling some improvement, hopeful this will sustain. Medication Compliance: Yes Side effects from medications: No Attending Groups: Yes Review of Systems Acute medical concerns: No Medical Review of Systems: unchanged Mental Status Exam Mental Status Exam Patient Appearance: Appropriate Patient Orientation: Person, Place, Time and Situation Level of Consciousness: Alert Patient Behavior: Appropriate, Talkative, Cooperative and Good Eye Contact Mood Description: Appropriate Affect Description: Flat Patient Cognition Impaired: No Ability to Follow Directions: Good Speech Pattern: Spontaneous Speech Memory Description: Intact Hallucinations: None Delusions: Not Present Thought Process: Intact and Goal Oriented Thought Content: positive for Intact, positive for Goal Oriented and positive for Suicidal Ideation (denies) Judgement: Fair Diagnostics Vital Signs (24Hr): Vital Signs - 24 hr 12/01/22 19:35 12/02/22 08:00 12/02/22 14:28 Temperature 97.8 F 97 F Pulse Rate 100 103 H 113 H Respiratory Rate 16 16 Blood Pressure 161/101 H 131/82 144/86 H Pulse Oximetry 96 99 Oxygen Delivery Method Room Air Room Air BMI result Body Mass Index 25.4 Labs 11/23/22 11:08 11/27/22 15:15 Medications Medications Current Medications Acetaminophen (Acetaminophen 325 Mg Tablet) 650 mg PO Q6H PRN PRN Reason: Headache/Pain Mild Scale (1-3) Last Admin: 12/01/22 19:37 Dose: 650 mg Al Hydroxide/Mg Hydroxide (Magnesium Hydrox/Alum Hydrox 30 Ml Oral.Susp) 30 ml PO Q6H PRN PRN Reason: Heartburn/Nausea Bupropion HCl (Bupropion Hcl Xl 300 Mg Tab.Er.24h) 300 mg PO DAILY [facility] Last Admin: 12/02/22 08:04 Dose: 300 mg Buspirone HCl (Buspirone Hcl 10 Mg Tablet) 30 mg PO BID@0730,1500 [facility] Last Admin: 12/02/22 14:33 Dose: 30 mg Clonazepam (Clonazepam 1 Mg Tablet) 1 mg PO TID [facility] Last Admin: 12/02/22 14:33 Dose: 1 mg Clonidine HCl (Clonidine Hcl 0.1 Mg Tablet) 0.1 mg PO BID@0800,1500 [facility]; Protocol Last Admin: 12/02/22 14:33 Dose: 0.1 mg Gabapentin (Gabapentin 300 Mg Capsule) 600 mg PO QID [facility] Last Admin: 12/02/22 17:28 Dose: 600 mg Hydroxyzine HCl (Hydroxyzine Hcl 25 Mg Tablet) 25 mg PO Q6H PRN PRN Reason: Anxiety Last Admin: 12/01/22 19:38 Dose: 25 mg Ibuprofen (Ibuprofen 600 Mg Tablet) 600 mg PO Q6H PRN PRN Reason: pain not responsive to tylenol Last Admin: 12/01/22 09:16 Dose: 600 mg Lamotrigine (Lamotrigine 100 Mg Tablet) 200 mg PO BID [facility] Last Admin: 12/02/22 08:03 Dose: 200 mg Lurasidone HCl (Lurasidone Hcl 80 Mg Tablet) 80 mg PO BEDTIME [facility] Last Admin: 12/01/22 19:38 Dose: 80 mg Magnesium Hydroxide (Milk Of Magnesia 30 Ml Oral.Susp) 30 ml PO DAILY PRN PRN Reason: Constipation Last Admin: 11/27/22 08:11 Dose: 30 ml Multivitamins/Vitamin C (Multivitamin Tablet) 1 tab PO DAILY [facility] Nicotine (Nicotine 21 Mg Patch.Td24) 21 mg TRANSDERMA DAILY [facility] Last Admin: 12/02/22 08:05 Dose: 21 mg Nicotine Polacrilex (Nicotine Polacrilex 2 Mg Gum) 4 mg BUCCAL Q2H PRN PRN Reason: Nicotine Cravings Polyethylene Glycol (Polyethylene Glycol 3350 17 Gm Powd.Pack) 17 gm PO DAILY [facility] Last Admin: 12/02/22 08:05 Dose: 17 gm Prazosin HCl (Prazosin Hcl 1 Mg Capsule) 2 mg PO BEDTIME [facility]; Protocol Last Admin: 12/01/22 19:37 Dose: 2 mg Quetiapine Fumarate (Quetiapine Fumarate 300 Mg Tablet) 600 mg PO BEDTIME [facility] Last Admin: 12/01/22 19:37 Dose: 600 mg Risperidone (Risperidone 1 Mg Tablet) 1 mg PO 0900,1500 [facility] Senna (Sennosides 8.6 Mg Tablet) 8.6 mg PO DAILY [facility] Last Admin: 12/02/22 08:04 Dose: 8.6 mg Thiamine HCl (Thiamine Hcl 100 Mg Tablet) 100 mg PO DAILY [facility] Vitamin D (Cholecalciferol (Vitamin D3) 10 Mcg Tablet) 10 mcg PO DAILY [facility] Allergies Allergies Allergy/AdvReac Type Severity Reaction Status Date / Time Penicillins [PCN] Allergy Unknown UNKNOWN Verified 01/01/21 19:37 tramadol [TRAMADOL] Allergy Unknown HIVES Verified 01/01/21 19:37 Assessment & Plan Assessment & Plan (1) Bipolar disorder: Status: Acute Code(s): F31.9 - Bipolar disorder, unspecified (2) PTSD (post-traumatic stress disorder): Status: Acute Code(s): F43.10 - Post-traumatic stress disorder, unspecified (3) Cocaine use disorder, moderate, dependence: Status: Acute Code(s): F14.20 - Cocaine dependence, uncomplicated Plan Patient is a 41 year old female with hx of Bipolar d/o, PTSD and cocaine use who was recently discharged from on 11/11/22, who self presented to [facility] with increased paranoid, auditory hallucinations and paranoia, secondary to medication non-adherence. Plan: CV 15 minute safety checks restart home medications Referral for ice skating coach? Referral for respite 11/26: Patient reports feeling sad and anxious today. Patient stated, I'm too anxious to be around people but I will try to go to one group today . Patient reports she is not having paranoia anymore ; pt reports nightmares; risks/benefits discussed regarding Prozosin, pt agreed to trial. Start prazosin 1mg PO bedtime; monitor BPs. 11/27: T/W and social media strategist met with patient together. Patient does not recall meeting with this teletypewriter installer prior. Patient labile during during meeting; believes she is not allowed back in her current apartment d/t her neighbor not getting along with her. Pt stated, I can hear her whispering and talking about me . washtub worker confirmed that patient is allowed back in her apartment. She continues to report of nightmares; will increase prazosin to 2mg PO bedtime. c/o of abdominal pain; pt has a hx of constipation, ordered miralax, senna and labs. Latuda increased to 60mg PO bedtime. 11/28: T/W and social media strategist met with patient together. Patient labile during during meeting; yelling at T/W and social media strategist. Patient was upset at social media strategist because she was accusing her of breaking HIPAA by talking to the treatment team. Patient was educated regarding the importance of the treatment team communicating; pt was unable to accept response and continued to state that T/W and social media strategist were wrong. Patient began to yell at T/W when discussing medications and became demanding, stated she did not want any of her medications touched. T/W explained the benefits of increasing some of her medications to assist in stabilizing her mood and paranoia. Patient was able to calm down and apologized, stating I know you're not the devil. I'm trying to trust you . Lamictal increased 200mg PO BID Latuda increased 80mg PO daily DC Cogentin DC Seroquel 200mg PO daily Will discuss possibly adding another antipsychotic with patient tomorrow. 11/29: Patient labile during during meeting; continues to perseverate on social media strategist breaking HIPAA by talking to treatment team. T/W explained the benefits of possibly being on a long acting injectable medication; patient was open to the idea and agreed to a trial of risperidone; risks/benefits discussed. Will start risperidone 1mg PO BID. 11/30 continue tx. 12/01 continue tx. 12/02 No adverse effects from Risperdal. Continue to monitor. Pt has retracted three day notice and has interest in [facility] if Risperdal trial is helpful. Patient educated on: medication risk/benefits and therapeutic strategies Informed Consent: understands Reason for continued inpatient stay Substantial Risk for: harm to self and rapid decompensation Time Spent With Patient Time: Total time managing care of this patient today ____ minutes.
[2022-12-02] MEDS: Lurasidone HCl 80 MG TABLET PO (20:05)
[2022-12-02] MEDS: Prazosin HCL 1 MG CAPSULE 2 MG PO (20:05)
[2022-12-02] MEDS: QUEtiapine Fumarate 300 MG TABLET 600 MG PO (20:05)
[2022-12-02] MEDS: Ibuprofen 600 MG TABLET PO (21:29)
[2022-12-03 06:00] VITALS: BP 141/75; PULSE 91; RESP 16; TEMP 36.3; O2SAT 95
[2022-12-03] MEDS: busPIRone HCl 10 MG TABLET 30 MG PO ×2 (08:19→14:06)
[2022-12-03] MEDS: cloNIDine HCL 0.1 MG TABLET PO ×2 (08:19→14:06)
[2022-12-03] MEDS: Sennosides 8.6 MG TABLET PO (08:19)
[2022-12-03] MEDS: Multivitamin TABLET 1 TAB PO (08:19)
[2022-12-03] MEDS: Gabapentin 300 MG CAPSULE 600 MG PO ×4 (08:19→19:51)
[2022-12-03] MEDS: Cholecalciferol (Vitamin D3) 10 MCG TABLET PO (08:19)
[2022-12-03] MEDS: clonazePAM 1 MG TABLET PO ×4 (08:19→19:51)
[2022-12-03] MEDS: risperiDONE 1 MG TABLET PO ×3 (08:19→16:13)
[2022-12-03] MEDS: buPROPion HCl XL 300 MG TAB.ER.24H PO (08:19)
[2022-12-03] MEDS: Thiamine HCL 100 MG TABLET PO (08:19)
[2022-12-03] MEDS: lamoTRIgine 100 MG TABLET 200 MG PO ×2 (08:19→19:51)
[2022-12-03] MEDS: Nicotine 21 MG PATCH.TD24 TRANSDERMA (08:20)
--- NOTE | 2022-12-03 10:10 | P.PNPSI_ITS ---
Subjective Subjective Date of Service: 12/03/22 Reason For Visit: paranoia Subjective Notes: Conditional Voluntary Healthcare Proxy: No Guardianship: No Medical Problems Affecting Mental Status: No Interim History: A very difficult day. Triggered by a former patient who called her on the unit. This was enhanced by a current peer on the unit. 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 Met with board writer to review. Discussed history and how she has been treated by male peers in family relationships and as a partner. Discussed some of her realizations after both of the interactions today and was able to relate to her past and past responses. Discussed diagnoses given and her responses. Difficult but seemingly therapeutic for pt today. Medication Compliance: Yes Side effects from medications: No Attending Groups: Yes Review of Systems Acute medical concerns: No Medical Review of Systems: unchanged Mental Status Exam Mental Status Exam Patient Appearance: Appropriate Patient Orientation: Person, Place, Time and Situation Level of Consciousness: Alert Patient Behavior: Appropriate, Talkative, Cooperative and Good Eye Contact Mood Description: Suspicious, Withdrawn, Depressed, Fearful, Angry and Apprehensive Affect Description: Sad Patient Cognition Impaired: No Ability to Follow Directions: Good Speech Pattern: Spontaneous Speech Memory Description: Intact Hallucinations: None Delusions: Not Present Perceptual Disturbances: Depersonalization and Derealization Thought Process: Rumination Thought Content: positive for Circumstantial and positive for Perseveration Depressive Symptoms: Increased Anxiety, Increased Irritability, Feelings of Worthlessness, Hopelessness, Feelings of Guilt, Unhappiness, Low Self Esteem and Difficulty Concentrating Judgement: Good Diagnostics Vital Signs (24Hr): Vital Signs - 24 hr 12/02/22 14:28 12/02/22 18:00 12/03/22 06:00 Temperature 98.1 F 97.4 F Pulse Rate 113 H 94 91 Respiratory Rate 16 16 Blood Pressure 144/86 H 124/90 H 141/75 H Pulse Oximetry 99 99 95 Oxygen Delivery Method Room Air Room Air Room Air BMI result Body Mass Index 25.4 Labs 11/23/22 11:08 11/27/22 15:15 Medications Medications Current Medications Acetaminophen (Acetaminophen 325 Mg Tablet) 650 mg PO Q6H PRN PRN Reason: Headache/Pain Mild Scale (1-3) Last Admin: 12/01/22 19:37 Dose: 650 mg Al Hydroxide/Mg Hydroxide (Magnesium Hydrox/Alum Hydrox 30 Ml Oral.Susp) 30 ml PO Q6H PRN PRN Reason: Heartburn/Nausea Bupropion HCl (Bupropion Hcl Xl 300 Mg Tab.Er.24h) 300 mg PO DAILY [facility] Last Admin: 12/03/22 08:19 Dose: 300 mg Buspirone HCl (Buspirone Hcl 10 Mg Tablet) 30 mg PO BID@0730,1500 [facility] Last Admin: 12/03/22 08:19 Dose: 30 mg Clonazepam (Clonazepam 1 Mg Tablet) 1 mg PO TID [facility] Last Admin: 12/03/22 08:19 Dose: 1 mg Clonidine HCl (Clonidine Hcl 0.1 Mg Tablet) 0.1 mg PO BID@0800,1500 [facility]; Protocol Last Admin: 12/03/22 08:19 Dose: 0.1 mg Gabapentin (Gabapentin 300 Mg Capsule) 600 mg PO QID [facility] Last Admin: 12/03/22 08:19 Dose: 600 mg Hydroxyzine HCl (Hydroxyzine Hcl 25 Mg Tablet) 25 mg PO Q6H PRN PRN Reason: Anxiety Last Admin: 12/01/22 19:38 Dose: 25 mg Ibuprofen (Ibuprofen 600 Mg Tablet) 600 mg PO Q6H PRN PRN Reason: pain not responsive to tylenol Last Admin: 12/02/22 21:29 Dose: 600 mg Lamotrigine (Lamotrigine 100 Mg Tablet) 200 mg PO BID [facility] Last Admin: 12/03/22 08:19 Dose: 200 mg Lurasidone HCl (Lurasidone Hcl 80 Mg Tablet) 80 mg PO BEDTIME [facility] Last Admin: 12/02/22 20:05 Dose: 80 mg Magnesium Hydroxide (Milk Of Magnesia 30 Ml Oral.Susp) 30 ml PO DAILY PRN PRN Reason: Constipation Last Admin: 11/27/22 08:11 Dose: 30 ml Multivitamins/Vitamin C (Multivitamin Tablet) 1 tab PO DAILY [facility] Last Admin: 12/03/22 08:19 Dose: 1 tab Nicotine (Nicotine 21 Mg Patch.Td24) 21 mg TRANSDERMA DAILY [facility] Last Admin: 12/03/22 08:20 Dose: 21 mg Nicotine Polacrilex (Nicotine Polacrilex 2 Mg Gum) 4 mg BUCCAL Q2H PRN PRN Reason: Nicotine Cravings Polyethylene Glycol (Polyethylene Glycol 3350 17 Gm Powd.Pack) 17 gm PO DAILY [facility] Last Admin: 12/03/22 08:23 Dose: Not Given Prazosin HCl (Prazosin Hcl 1 Mg Capsule) 2 mg PO BEDTIME [facility]; Protocol Last Admin: 12/02/22 20:05 Dose: 2 mg Quetiapine Fumarate (Quetiapine Fumarate 300 Mg Tablet) 600 mg PO BEDTIME [facility] Last Admin: 12/02/22 20:05 Dose: 600 mg Risperidone (Risperidone 1 Mg Tablet) 1 mg PO 0900,1500 [facility] Last Admin: 12/03/22 08:19 Dose: 1 mg Senna (Sennosides 8.6 Mg Tablet) 8.6 mg PO DAILY [facility] Last Admin: 12/03/22 08:19 Dose: 8.6 mg Thiamine HCl (Thiamine Hcl 100 Mg Tablet) 100 mg PO DAILY [facility] Last Admin: 12/03/22 08:19 Dose: 100 mg Vitamin D (Cholecalciferol (Vitamin D3) 10 Mcg Tablet) 10 mcg PO DAILY [facility] Last Admin: 12/03/22 08:19 Dose: 10 mcg Allergies Allergies Allergy/AdvReac Type Severity Reaction Status Date / Time Penicillins [PCN] Allergy Unknown UNKNOWN Verified 01/01/21 19:37 tramadol [TRAMADOL] Allergy Unknown HIVES Verified 01/01/21 19:37 Assessment & Plan Assessment & Plan (1) Bipolar disorder: Status: Acute Code(s): F31.9 - Bipolar disorder, unspecified (2) PTSD (post-traumatic stress disorder): Status: Acute Code(s): F43.10 - Post-traumatic stress disorder, unspecified (3) Cocaine use disorder, moderate, dependence: Status: Acute Code(s): F14.20 - Cocaine dependence, uncomplicated Plan Patient is a 41 year old female with hx of Bipolar d/o, PTSD and cocaine use who was recently discharged from on 11/11/22, who [place] [facility] [place] increased paranoid, auditory hallucinations and paranoia, secondary to medication non-adherence. Plan: CV 15 minute safety checks restart home medications Referral for pitching coach? Referral for respite 11/26: Patient reports feeling sad and anxious today. Patient stated, I'm too anxious to be around people but I will try to go to one group today . Patient reports she is not having paranoia anymore ; pt reports nightmares; risks/benefits discussed regarding Prozosin, pt agreed to trial. Start prazosin 1mg PO bedtime; monitor BPs. 11/27: T/W and social media project manager met with patient together. Patient does not recall meeting with this board writer prior. Patient labile during during meeting; believes she is not allowed back in her current apartment d/t her neighbor not getting along with her. Pt stated, I can hear her whispering and talking about me . crisis worker confirmed that patient is allowed back in her apartment. She continues to report of nightmares; will increase prazosin to 2mg PO bedtime. c/o of abdominal pain; pt has a hx of constipation, ordered miralax, senna and labs. Latuda increased to 60mg PO bedtime. 11/28: T/W and social media project manager met with patient together. Patient labile during during meeting; yelling at T/W and social media project manager. Patient was upset at social media project manager because she was accusing her of breaking HIPAA by talking to the treatment team. Patient was educated regarding the importance of the treatment team communicating; pt was unable to accept response and continued to state that T/W and social media project manager were wrong. Patient began to yell at T/W when discussing medications and became demanding, stated she did not want any of her medications touched. T/W explained the benefits of increasing some of her medications to assist in stabilizing her mood and paranoia. Patient was able to calm down and apologized, stating I know you're not the devil. I'm trying to trust you . Lamictal increased 200mg PO BID Latuda increased 80mg PO daily CORY Huynh DC Seroquel 200mg PO daily Will discuss possibly adding another antipsychotic with patient tomorrow. 11/29: Patient labile during during meeting; continues to perseverate on social media project manager breaking HIPAA by talking to treatment team. T/W explained the benefits of possibly being on a long acting injectable medication; patient was open to the idea and agreed to a trial of risperidone; risks/benefits discussed. Will start risperidone 1mg PO BID. 11/30 continue tx. 12/01 continue tx. 12/02 added one extra dose of Risperdal and Klonopin today to sx mgt. Patient educated on: medication risk/benefits and therapeutic strategies Informed Consent: understands and further education needed Reason for continued inpatient stay Substantial Risk for: rapid decompensation Time Spent With Patient Time: Total time managing care of this patient today ____ minutes.
[2022-12-03] MEDS: Ibuprofen 600 MG TABLET PO (12:18)
[2022-12-03 14:12] VITALS: BP 164/99; PULSE 100
[2022-12-03 17:30] VITALS: BP 133/89; PULSE 81; TEMP 36.3; O2SAT 98
[2022-12-03 19:44] VITALS: BP 131/76; PULSE 93
[2022-12-03] MEDS: Lurasidone HCl 80 MG TABLET PO (19:50)
[2022-12-03] MEDS: QUEtiapine Fumarate 300 MG TABLET 600 MG PO (19:50)
[2022-12-03] MEDS: hydrOXYzine HCL 25 MG TABLET PO (19:51)
[2022-12-03] MEDS: Prazosin HCL 1 MG CAPSULE 2 MG PO (19:51)
[2022-12-04] MEDS: Thiamine HCL 100 MG TABLET PO (08:00)
[2022-12-04] MEDS: Sennosides 8.6 MG TABLET PO (08:00)
[2022-12-04] MEDS: busPIRone HCl 10 MG TABLET 30 MG PO ×2 (08:01→14:23)
[2022-12-04] MEDS: Cholecalciferol (Vitamin D3) 10 MCG TABLET PO (08:01)
[2022-12-04] MEDS: risperiDONE 1 MG TABLET PO ×2 (08:01→14:23)
[2022-12-04] MEDS: clonazePAM 1 MG TABLET PO ×3 (08:01→19:38)
[2022-12-04] MEDS: Gabapentin 300 MG CAPSULE 600 MG PO ×4 (08:01→19:39)
[2022-12-04] MEDS: buPROPion HCl XL 300 MG TAB.ER.24H PO (08:01)
[2022-12-04] MEDS: Multivitamin TABLET 1 TAB PO (08:02)
[2022-12-04] MEDS: cloNIDine HCL 0.1 MG TABLET PO ×2 (08:02→14:23)
[2022-12-04] MEDS: Nicotine 21 MG PATCH.TD24 TRANSDERMA (08:04)
[2022-12-04 08:18] VITALS: BP 132/85; PULSE 85; RESP 16; TEMP 36.2; O2SAT 96
[2022-12-04] MEDS: lamoTRIgine 100 MG TABLET 200 MG PO ×2 (08:50→19:38)
[2022-12-04] MEDS: hydrOXYzine HCL 25 MG TABLET PO ×2 (12:58→19:38)
[2022-12-04 14:25] VITALS: BP 131/73; PULSE 123
--- NOTE | 2022-12-04 16:10 | HO.PSYCHPN ---
Subjective Subjective Date of Service: 12/04/22 Reason For Visit: paranoia Subjective Notes: Conditional Voluntary Healthcare Proxy: No Guardianship: No Medical Problems Affecting Mental Status: No Interim History: Full med review with pt to discuss efficacy, tolerance and SE of each agent. Pt pleased with the regime, reports improved efficacy. Tolerating Risperdal, plan to give Sustenna 156 mg 12/06. with follow up IM 12/13 as tolerated and discharge. Will need initial monitoring for SE as pt is taking more than one agent in this group. Discussed self-esteem issues which lead to SI and decompensation. Feeling meds are helping her to manage mood and affect more effectively. Medication Compliance: Yes Side effects from medications: No Attending Groups: Yes Review of Systems Acute medical concerns: No Medical Review of Systems: unchanged Mental Status Exam Mental Status Exam Patient Appearance: Appropriate Patient Orientation: Person, Place, Time and Situation Level of Consciousness: Alert Patient Behavior: Appropriate, Talkative, Cooperative and Good Eye Contact Mood Description: Depressed, Fearful and Apprehensive Affect Description: Flat Patient Cognition Impaired: No Ability to Follow Directions: Good Speech Pattern: Spontaneous Speech Memory Description: Intact Hallucinations: None Delusions: Not Present Perceptual Disturbances: Depersonalization and Derealization Thought Process: Rumination Thought Content: positive for Circumstantial and positive for Perseveration Depressive Symptoms: Increased Anxiety, Feelings of Worthlessness, Hopelessness, Feelings of Guilt, Unhappiness, Low Self Esteem and Difficulty Concentrating Judgement: Good Diagnostics Vital Signs (24Hr): Vital Signs - 24 hr 12/03/22 17:30 12/03/22 19:44 12/04/22 08:18 Temperature 97.3 F 97.1 F Pulse Rate 81 93 85 Respiratory Rate 16 Blood Pressure 133/89 131/76 132/85 Pulse Oximetry 98 96 Oxygen Delivery Method Room Air Room Air 12/04/22 14:25 Temperature Pulse Rate 123 H Respiratory Rate Blood Pressure 131/73 Pulse Oximetry Oxygen Delivery Method BMI result Body Mass Index 25.4 Labs 11/23/22 11:08 11/27/22 15:15 Medications Medications Current Medications Acetaminophen (Acetaminophen 325 Mg Tablet) 650 mg PO Q6H PRN PRN Reason: Headache/Pain Mild Scale (1-3) Last Admin: 12/01/22 19:37 Dose: 650 mg Al Hydroxide/Mg Hydroxide (Magnesium Hydrox/Alum Hydrox 30 Ml Oral.Susp) 30 ml PO Q6H PRN PRN Reason: Heartburn/Nausea Bupropion HCl (Bupropion Hcl Xl 300 Mg Tab.Er.24h) 300 mg PO DAILY [facility] Last Admin: 12/04/22 08:01 Dose: 300 mg Buspirone HCl (Buspirone Hcl 10 Mg Tablet) 30 mg PO BID@0730,1500 [facility] Last Admin: 12/04/22 14:23 Dose: 30 mg Clonazepam (Clonazepam 1 Mg Tablet) 1 mg PO TID [facility] Last Admin: 12/04/22 14:23 Dose: 1 mg Clonidine HCl (Clonidine Hcl 0.1 Mg Tablet) 0.1 mg PO BID@0800,1500 [facility]; Protocol Last Admin: 12/04/22 14:23 Dose: 0.1 mg Gabapentin (Gabapentin 300 Mg Capsule) 600 mg PO QID [facility] Last Admin: 12/04/22 12:58 Dose: 600 mg Hydroxyzine HCl (Hydroxyzine Hcl 25 Mg Tablet) 25 mg PO Q6H PRN PRN Reason: Anxiety Last Admin: 12/04/22 12:58 Dose: 25 mg Ibuprofen (Ibuprofen 600 Mg Tablet) 600 mg PO Q6H PRN PRN Reason: pain not responsive to tylenol Last Admin: 12/03/22 12:18 Dose: 600 mg Lamotrigine (Lamotrigine 100 Mg Tablet) 200 mg PO BID [facility] Last Admin: 12/04/22 08:50 Dose: 200 mg Lurasidone HCl (Lurasidone Hcl 80 Mg Tablet) 80 mg PO BEDTIME [facility] Last Admin: 12/03/22 19:50 Dose: 80 mg Magnesium Hydroxide (Milk Of Magnesia 30 Ml Oral.Susp) 30 ml PO DAILY PRN PRN Reason: Constipation Last Admin: 11/27/22 08:11 Dose: 30 ml Multivitamins/Vitamin C (Multivitamin Tablet) 1 tab PO DAILY [facility] Last Admin: 12/04/22 08:02 Dose: 1 tab Nicotine (Nicotine 21 Mg Patch.Td24) 21 mg TRANSDERMA DAILY [facility] Last Admin: 12/04/22 08:04 Dose: 21 mg Nicotine Polacrilex (Nicotine Polacrilex 2 Mg Gum) 4 mg BUCCAL Q2H PRN PRN Reason: Nicotine Cravings Polyethylene Glycol (Polyethylene Glycol 3350 17 Gm Powd.Pack) 17 gm PO DAILY [facility] Last Admin: 12/04/22 08:50 Dose: Not Given Prazosin HCl (Prazosin Hcl 1 Mg Capsule) 2 mg PO BEDTIME [facility]; Protocol Last Admin: 12/03/22 19:51 Dose: 2 mg Quetiapine Fumarate (Quetiapine Fumarate 300 Mg Tablet) 600 mg PO BEDTIME [facility] Last Admin: 12/03/22 19:50 Dose: 600 mg Risperidone (Risperidone 1 Mg Tablet) 1 mg PO 0900,1500 [facility] Last Admin: 12/04/22 14:23 Dose: 1 mg Senna (Sennosides 8.6 Mg Tablet) 8.6 mg PO DAILY [facility] Last Admin: 12/04/22 08:00 Dose: 8.6 mg Thiamine HCl (Thiamine Hcl 100 Mg Tablet) 100 mg PO DAILY [facility] Last Admin: 12/04/22 08:00 Dose: 100 mg Vitamin D (Cholecalciferol (Vitamin D3) 10 Mcg Tablet) 10 mcg PO DAILY [facility] Last Admin: 12/04/22 08:01 Dose: 10 mcg Allergies Allergies Allergy/AdvReac Type Severity Reaction Status Date / Time Penicillins [PCN] Allergy Unknown UNKNOWN Verified 01/01/21 19:37 tramadol [TRAMADOL] Allergy Unknown HIVES Verified 01/01/21 19:37 Assessment & Plan Assessment & Plan (1) Bipolar disorder: Status: Acute Code(s): F31.9 - Bipolar disorder, unspecified (2) PTSD (post-traumatic stress disorder): Status: Acute Code(s): F43.10 - Post-traumatic stress disorder, unspecified (3) Cocaine use disorder, moderate, dependence: Status: Acute Code(s): F14.20 - Cocaine dependence, uncomplicated Plan Patient is a 41 year old female with hx of Bipolar d/o, PTSD and cocaine use who was recently discharged from on 11/11/22, who self presented to [facility] ER with increased paranoid, auditory hallucinations and paranoia, secondary to medication non-adherence. Plan: CV 15 minute safety checks restart home medications Referral for defensive line coach? Referral for respite 11/26: Patient reports feeling sad and anxious today. Patient stated, I'm too anxious to be around people but I will try to go to one group today . Patient reports she is not having paranoia anymore ; pt reports nightmares; risks/benefits discussed regarding Prozosin, pt agreed to trial. Start prazosin 1mg PO bedtime; monitor BPs. 11/27: T/W and social contact worker met with patient together. Patient does not recall meeting with this program writer prior. Patient labile during during meeting; believes she is not allowed back in her current apartment d/t her neighbor not getting along with her. Pt stated, I can hear her whispering and talking about me . composite worker confirmed that patient is allowed back in her apartment. She continues to report of nightmares; will increase prazosin to 2mg PO bedtime. c/o of abdominal pain; pt has a hx of constipation, ordered miralax, senna and labs. Latuda increased to 60mg PO bedtime. 11/28: T/W and social contact worker met with patient together. Patient labile during during meeting; yelling at T/W and social contact worker. Patient was upset at social contact worker because she was accusing her of breaking HIPAA by talking to the treatment team. Patient was educated regarding the importance of the treatment team communicating; pt was unable to accept response and continued to state that T/W and social contact worker were wrong. Patient began to yell at T/W when discussing medications and became demanding, stated she did not want any of her medications touched. T/W explained the benefits of increasing some of her medications to assist in stabilizing her mood and paranoia. Patient was able to calm down and apologized, stating I know you're not the devil. I'm trying to trust you . Lamictal increased 200mg PO BID Latuda increased 80mg PO daily CORY Huynh DC Seroquel 200mg PO daily Will discuss possibly adding another antipsychotic with patient tomorrow. 11/29: Patient labile during during meeting; continues to perseverate on social contact worker breaking HIPAA by talking to treatment team. T/W explained the benefits of possibly being on a long acting injectable medication; patient was open to the idea and agreed to a trial of risperidone; risks/benefits discussed. Will start risperidone 1mg PO BID. 11/30 continue tx. 12/01 continue tx. 12/02 added one extra dose of Risperdal and Klonopin today to sx mgt. 12/04/22 continue regime and plan of care. Sustenna scheduled for 12/06. Patient educated on: medication risk/benefits and therapeutic strategies Informed Consent: understands Reason for continued inpatient stay Substantial Risk for: harm to self and rapid decompensation Time Spent With Patient Time: Total time managing care of this patient today ____ minutes.
[2022-12-04] MEDS: Ibuprofen 600 MG TABLET PO (17:31)
[2022-12-04 19:35] VITALS: BP 143/86; PULSE 91; RESP 18; TEMP 36.7; O2SAT 98
[2022-12-04] MEDS: QUEtiapine Fumarate 300 MG TABLET 600 MG PO (19:38)
[2022-12-04] MEDS: Prazosin HCL 1 MG CAPSULE 2 MG PO (19:38)
[2022-12-04] MEDS: Lurasidone HCl 80 MG TABLET PO (19:38)
[2022-12-05 07:00] VITALS: BMI 28.5
[2022-12-05] MEDS: Gabapentin 300 MG CAPSULE 600 MG PO ×4 (07:57→20:34)
[2022-12-05] MEDS: buPROPion HCl XL 300 MG TAB.ER.24H PO (07:57)
[2022-12-05] MEDS: Sennosides 8.6 MG TABLET PO (07:57)
[2022-12-05] MEDS: busPIRone HCl 10 MG TABLET 30 MG PO ×2 (07:57→14:14)
[2022-12-05] MEDS: Cholecalciferol (Vitamin D3) 10 MCG TABLET PO (07:58)
[2022-12-05] MEDS: Thiamine HCL 100 MG TABLET PO (07:58)
[2022-12-05] MEDS: Nicotine 21 MG PATCH.TD24 TRANSDERMA (07:58)
[2022-12-05] MEDS: clonazePAM 1 MG TABLET PO ×3 (07:58→20:34)
[2022-12-05] MEDS: risperiDONE 1 MG TABLET PO (07:58)
[2022-12-05] MEDS: cloNIDine HCL 0.1 MG TABLET PO ×2 (07:58→14:14)
[2022-12-05] MEDS: Multivitamin TABLET 1 TAB PO (07:58)
[2022-12-05] MEDS: lamoTRIgine 100 MG TABLET 200 MG PO ×2 (08:03→20:33)
[2022-12-05 08:05] VITALS: BP 134/67; PULSE 81; RESP 16; TEMP 36.3; O2SAT 98
[2022-12-05] MEDS: polyethylene glycoL 3350 17 GM POWD.PACK PO (12:34)
--- NOTE | 2022-12-05 15:52 | HO.PSYCHPN ---
Subjective Subjective Date of Service: 12/05/22 Reason For Visit: paranoia Subjective Notes: Conditional Voluntary Interim History: Discussed Invega Sustenna injection, questions addressed. Plans dosing 12/06 Discussed allowing team to discuss admission with OP team. Pt fearful that OP team will terminate with her due to relapse. Discussed her belief that she relapsed on cocaine, not PCP, Fentanyl with resulting psychosis. Expressed a lot of shame, guilt, remorse and believes she will be judged by her OP team. Attempted to reassure, educate Medication Compliance: Yes Side effects from medications: No Attending Groups: Yes Review of Systems Acute medical concerns: No Medical Review of Systems: unchanged Mental Status Exam Mental Status Exam Patient Appearance: Appropriate Patient Orientation: Person, Place, Time and Situation Level of Consciousness: Alert Patient Behavior: Appropriate, Talkative, Cooperative and Good Eye Contact Mood Description: Depressed, Fearful and Apprehensive Affect Description: Flat Patient Cognition Impaired: No Ability to Follow Directions: Good Speech Pattern: Spontaneous Speech Memory Description: Intact Hallucinations: None Delusions: Not Present Perceptual Disturbances: Depersonalization and Derealization Thought Process: Rumination Thought Content: positive for Circumstantial and positive for Perseveration Depressive Symptoms: Increased Anxiety, Feelings of Worthlessness, Hopelessness, Feelings of Guilt, Unhappiness, Low Self Esteem and Difficulty Concentrating Judgement: Good Diagnostics Vital Signs (24Hr): Vital Signs - 24 hr 12/04/22 19:35 12/05/22 08:05 Temperature 98.1 F 97.3 F Pulse Rate 91 81 Respiratory Rate 18 16 Blood Pressure 143/86 H 134/67 Pulse Oximetry 98 98 Oxygen Delivery Method Room Air Room Air BMI result Body Mass Index 28.5 Labs 11/23/22 11:08 11/27/22 15:15 Medications Medications Current Medications Acetaminophen (Acetaminophen 325 Mg Tablet) 650 mg PO Q6H PRN PRN Reason: Headache/Pain Mild Scale (1-3) Last Admin: 12/01/22 19:37 Dose: 650 mg Al Hydroxide/Mg Hydroxide (Magnesium Hydrox/Alum Hydrox 30 Ml Oral.Susp) 30 ml PO Q6H PRN PRN Reason: Heartburn/Nausea Bisacodyl (Bisacodyl 5 Mg Tablet.Dr) 10 mg PO DAILY PRN PRN Reason: Constipation Last Admin: 12/05/22 14:14 Dose: 10 mg Bupropion HCl (Bupropion Hcl Xl 300 Mg Tab.Er.24h) 300 mg PO DAILY [facility] Last Admin: 12/05/22 07:57 Dose: 300 mg Buspirone HCl (Buspirone Hcl 10 Mg Tablet) 30 mg PO BID@0730,1500 [facility] Last Admin: 12/05/22 14:14 Dose: 30 mg Clonazepam (Clonazepam 1 Mg Tablet) 1 mg PO TID [facility] Last Admin: 12/05/22 14:14 Dose: 1 mg Clonidine HCl (Clonidine Hcl 0.1 Mg Tablet) 0.1 mg PO BID@0800,1500 [facility]; Protocol Last Admin: 12/05/22 14:14 Dose: 0.1 mg Gabapentin (Gabapentin 300 Mg Capsule) 600 mg PO QID [facility] Last Admin: 12/05/22 12:33 Dose: 600 mg Hydroxyzine HCl (Hydroxyzine Hcl 25 Mg Tablet) 25 mg PO Q6H PRN PRN Reason: Anxiety Last Admin: 12/04/22 19:38 Dose: 25 mg Ibuprofen (Ibuprofen 600 Mg Tablet) 600 mg PO Q6H PRN PRN Reason: pain not responsive to tylenol Last Admin: 12/04/22 17:31 Dose: 600 mg Lamotrigine (Lamotrigine 100 Mg Tablet) 200 mg PO BID [facility] Last Admin: 12/05/22 08:03 Dose: 200 mg Lurasidone HCl (Lurasidone Hcl 80 Mg Tablet) 80 mg PO BEDTIME [facility] Last Admin: 12/04/22 19:38 Dose: 80 mg Magnesium Hydroxide (Milk Of Magnesia 30 Ml Oral.Susp) 30 ml PO DAILY PRN PRN Reason: Constipation Last Admin: 11/27/22 08:11 Dose: 30 ml Multivitamins/Vitamin C (Multivitamin Tablet) 1 tab PO DAILY [facility] Last Admin: 12/05/22 07:58 Dose: 1 tab Nicotine (Nicotine 21 Mg Patch.Td24) 21 mg TRANSDERMA DAILY [facility] Last Admin: 12/05/22 07:58 Dose: 21 mg Nicotine Polacrilex (Nicotine Polacrilex 2 Mg Gum) 4 mg BUCCAL Q2H PRN PRN Reason: Nicotine Cravings Paliperidone Palmitate (Paliperidone Palmitate 156 Mg/Ml Syringe) 156 mg IM ONCE ONE Stop: 12/06/22 09:10 Polyethylene Glycol (Polyethylene Glycol 3350 17 Gm Powd.Pack) 17 gm PO DAILY [facility] Last Admin: 12/05/22 12:34 Dose: 17 gm Prazosin HCl (Prazosin Hcl 1 Mg Capsule) 2 mg PO BEDTIME [facility]; Protocol Last Admin: 12/04/22 19:38 Dose: 2 mg Quetiapine Fumarate (Quetiapine Fumarate 300 Mg Tablet) 600 mg PO BEDTIME [facility] Last Admin: 12/04/22 19:38 Dose: 600 mg Risperidone (Risperidone 1 Mg Tablet) 1 mg PO 0900,1500 [facility] Last Admin: 12/05/22 14:14 Dose: 1 mg Senna (Sennosides 8.6 Mg Tablet) 8.6 mg PO DAILY [facility] Last Admin: 12/05/22 07:57 Dose: 8.6 mg Thiamine HCl (Thiamine Hcl 100 Mg Tablet) 100 mg PO DAILY [facility] Last Admin: 12/05/22 07:58 Dose: 100 mg Vitamin D (Cholecalciferol (Vitamin D3) 10 Mcg Tablet) 10 mcg PO DAILY [facility] Last Admin: 12/05/22 07:58 Dose: 10 mcg Allergies Allergies Allergy/AdvReac Type Severity Reaction Status Date / Time Penicillins [PCN] Allergy Unknown UNKNOWN Verified 01/01/21 19:37 tramadol [TRAMADOL] Allergy Unknown HIVES Verified 01/01/21 19:37 Assessment & Plan Assessment & Plan (1) Bipolar disorder: Status: Acute Code(s): F31.9 - Bipolar disorder, unspecified (2) PTSD (post-traumatic stress disorder): Status: Acute Code(s): F43.10 - Post-traumatic stress disorder, unspecified (3) Cocaine use disorder, moderate, dependence: Status: Acute Code(s): F14.20 - Cocaine dependence, uncomplicated Plan Patient is a 41 year old female with hx of Bipolar d/o, PTSD and cocaine use who was recently discharged from on 11/11/22, who self presented to [facility] ER with increased paranoid, auditory hallucinations and paranoia, secondary to medication non-adherence. Plan: CV 15 minute safety checks restart home medications Referral for production recovery operator? Referral for respite 11/26: Patient reports feeling sad and anxious today. Patient stated, I'm too anxious to be around people but I will try to go to one group today . Patient reports she is not having paranoia anymore ; pt reports nightmares; risks/benefits discussed regarding Prozosin, pt agreed to trial. Start prazosin 1mg PO bedtime; monitor BPs. 11/27: T/W and social service assistant met with patient together. Patient does not recall meeting with this ad writer prior. Patient labile during during meeting; believes she is not allowed back in her current apartment d/t her neighbor not getting along with her. Pt stated, I can hear her whispering and talking about me . structural steel worker confirmed that patient is allowed back in her apartment. She continues to report of nightmares; will increase prazosin to 2mg PO bedtime. c/o of abdominal pain; pt has a hx of constipation, ordered miralax, senna and labs. Latuda increased to 60mg PO bedtime. 11/28: T/W and social service assistant met with patient together. Patient labile during during meeting; yelling at T/W and social service assistant. Patient was upset at social service assistant because she was accusing her of breaking HIPAA by talking to the treatment team. Patient was educated regarding the importance of the treatment team communicating; pt was unable to accept response and continued to state that T/W and social service assistant were wrong. Patient began to yell at T/W when discussing medications and became demanding, stated she did not want any of her medications touched. T/W explained the benefits of increasing some of her medications to assist in stabilizing her mood and paranoia. Patient was able to calm down and apologized, stating I know you're not the devil. I'm trying to trust you . Lamictal increased 200mg PO BID Latuda increased 80mg PO daily CORY Huynh DC Seroquel 200mg PO daily Will discuss possibly adding another antipsychotic with patient tomorrow. 11/29: Patient labile during during meeting; continues to perseverate on social service assistant breaking HIPAA by talking to treatment team. T/W explained the benefits of possibly being on a long acting injectable medication; patient was open to the idea and agreed to a trial of risperidone; risks/benefits discussed. Will start risperidone 1mg PO BID. 11/30 continue tx. 12/01 continue tx. 12/02 added one extra dose of Risperdal and Klonopin today to sx mgt. 12/04/22 continue regime and plan of care. Sustenna scheduled for 12/06. 12/05/22 Discussion of relapse and moving forward. Pt experiencing a great deal of remorse, guilt, fear of resulting psychosis after using what she thought was cocaine, not PCP, Fentanyl. Continue current regime and plan of care. Patient educated on: medication risk/benefits, substance abuse and therapeutic strategies Informed Consent: understands and further education needed Reason for continued inpatient stay Substantial Risk for: rapid decompensation Time Spent With Patient Time: Total time managing care of this patient today ____ minutes.
[2022-12-05] MEDS: Ibuprofen 600 MG TABLET PO (17:20)
[2022-12-05] MEDS: hydrOXYzine HCL 25 MG TABLET PO (17:21)
[2022-12-05 18:00] VITALS: BP 141/75; PULSE 84; TEMP 36.8; O2SAT 95
[2022-12-05] MEDS: Lurasidone HCl 80 MG TABLET PO (20:33)
[2022-12-05] MEDS: Prazosin HCL 1 MG CAPSULE 2 MG PO (20:34)
[2022-12-05] MEDS: QUEtiapine Fumarate 300 MG TABLET 600 MG PO (20:34)
[2022-12-06 08:15] VITALS: BP 125/78; PULSE 109; RESP 18; TEMP 36.1; O2SAT 98
[2022-12-06] MEDS: polyethylene glycoL 3350 17 GM POWD.PACK PO (08:32)
[2022-12-06] MEDS: Gabapentin 300 MG CAPSULE 600 MG PO ×4 (08:34→19:36)
[2022-12-06] MEDS: buPROPion HCl XL 300 MG TAB.ER.24H PO (08:35)
[2022-12-06] MEDS: cloNIDine HCL 0.1 MG TABLET PO ×2 (08:35→14:08)
[2022-12-06] MEDS: lamoTRIgine 100 MG TABLET 200 MG PO ×2 (08:36→19:37)
[2022-12-06] MEDS: Sennosides 8.6 MG TABLET PO (08:37)
[2022-12-06] MEDS: busPIRone HCl 10 MG TABLET 30 MG PO ×2 (08:37→14:07)
[2022-12-06] MEDS: clonazePAM 1 MG TABLET PO ×3 (08:37→19:38)
[2022-12-06] MEDS: Nicotine 21 MG PATCH.TD24 TRANSDERMA (08:38)
[2022-12-06] MEDS: Ibuprofen 600 MG TABLET PO (09:17)
--- NOTE | 2022-12-06 11:25 | HO.PSYCHPN ---
Subjective Subjective Date of Service: 12/06/22 Reason For Visit: paranoia Subjective Notes: Conditional Voluntary Interim History: Tolerated Invega injection without distress. Continued discussion today about relapse and contact with OP providers. Encouraged pt to draft a letter to her OP Team this weekend to describe relapse and feelings/concerns around this. Medication Compliance: Yes Side effects from medications: No Review of Systems Acute medical concerns: No Medical Review of Systems: unchanged Mental Status Exam Mental Status Exam Patient Appearance: Appropriate Patient Orientation: Person, Place, Time and Situation Level of Consciousness: Alert Patient Behavior: Appropriate, Talkative, Cooperative and Good Eye Contact Mood Description: Depressed, Fearful and Apprehensive Affect Description: Flat Patient Cognition Impaired: No Ability to Follow Directions: Good Speech Pattern: Spontaneous Speech Memory Description: Intact Hallucinations: None Delusions: Not Present Perceptual Disturbances: Depersonalization and Derealization Thought Process: Rumination Thought Content: positive for Circumstantial and positive for Perseveration Depressive Symptoms: Increased Anxiety, Feelings of Worthlessness, Hopelessness, Feelings of Guilt, Unhappiness, Low Self Esteem and Difficulty Concentrating Judgement: Good Diagnostics Vital Signs (24Hr): Vital Signs - 24 hr 12/05/22 18:00 12/06/22 08:15 Temperature 98.2 F 97.0 F Pulse Rate 84 109 H Respiratory Rate 18 Blood Pressure 141/75 H 125/78 Pulse Oximetry 95 98 Oxygen Delivery Method Room Air Room Air BMI result Body Mass Index 28.5 Labs 11/23/22 11:08 11/27/22 15:15 Medications Medications Current Medications Acetaminophen (Acetaminophen 325 Mg Tablet) 650 mg PO Q6H PRN PRN Reason: Headache/Pain Mild Scale (1-3) Last Admin: 12/01/22 19:37 Dose: 650 mg Al Hydroxide/Mg Hydroxide (Magnesium Hydrox/Alum Hydrox 30 Ml Oral.Susp) 30 ml PO Q6H PRN PRN Reason: Heartburn/Nausea Bisacodyl (Bisacodyl 5 Mg Tablet.Dr) 10 mg PO DAILY PRN PRN Reason: Constipation Last Admin: 12/05/22 14:14 Dose: 10 mg Bupropion HCl (Bupropion Hcl Xl 300 Mg Tab.Er.24h) 300 mg PO DAILY [facility] Last Admin: 12/06/22 08:35 Dose: 300 mg Buspirone HCl (Buspirone Hcl 10 Mg Tablet) 30 mg PO BID@0730,1500 [facility] Last Admin: 12/06/22 08:37 Dose: 30 mg Clonazepam (Clonazepam 1 Mg Tablet) 1 mg PO TID [facility] Last Admin: 12/06/22 08:37 Dose: 1 mg Clonidine HCl (Clonidine Hcl 0.1 Mg Tablet) 0.1 mg PO BID@0800,1500 [facility]; Protocol Last Admin: 12/06/22 08:35 Dose: 0.1 mg Gabapentin (Gabapentin 300 Mg Capsule) 600 mg PO QID [facility] Last Admin: 12/06/22 08:34 Dose: 600 mg Hydroxyzine HCl (Hydroxyzine Hcl 25 Mg Tablet) 25 mg PO Q6H PRN PRN Reason: Anxiety Last Admin: 12/05/22 17:21 Dose: 25 mg Ibuprofen (Ibuprofen 600 Mg Tablet) 600 mg PO Q6H PRN PRN Reason: pain not responsive to tylenol Last Admin: 12/06/22 09:17 Dose: 600 mg Lamotrigine (Lamotrigine 100 Mg Tablet) 200 mg PO BID [facility] Last Admin: 12/06/22 08:36 Dose: 200 mg Lurasidone HCl (Lurasidone Hcl 80 Mg Tablet) 80 mg PO BEDTIME [facility] Last Admin: 12/05/22 20:33 Dose: 80 mg Magnesium Hydroxide (Milk Of Magnesia 30 Ml Oral.Susp) 30 ml PO DAILY PRN PRN Reason: Constipation Last Admin: 11/27/22 08:11 Dose: 30 ml Multivitamins/Vitamin C (Multivitamin Tablet) 1 tab PO DAILY [facility] Last Admin: 12/06/22 08:36 Dose: 1 tab Nicotine (Nicotine 21 Mg Patch.Td24) 21 mg TRANSDERMA DAILY [facility] Last Admin: 12/06/22 08:38 Dose: 21 mg Nicotine Polacrilex (Nicotine Polacrilex 2 Mg Gum) 4 mg BUCCAL Q2H PRN PRN Reason: Nicotine Cravings Polyethylene Glycol (Polyethylene Glycol 3350 17 Gm Powd.Pack) 17 gm PO DAILY [facility] Last Admin: 12/06/22 08:32 Dose: 17 gm Prazosin HCl (Prazosin Hcl 1 Mg Capsule) 2 mg PO BEDTIME [facility]; Protocol Last Admin: 12/05/22 20:34 Dose: 2 mg Quetiapine Fumarate (Quetiapine Fumarate 300 Mg Tablet) 600 mg PO BEDTIME [facility] Last Admin: 12/05/22 20:34 Dose: 600 mg Risperidone (Risperidone 1 Mg Tablet) 1 mg PO BID PRN PRN Reason: agitation Senna (Sennosides 8.6 Mg Tablet) 8.6 mg PO DAILY [facility] Last Admin: 12/06/22 08:37 Dose: 8.6 mg Thiamine HCl (Thiamine Hcl 100 Mg Tablet) 100 mg PO DAILY [facility] Last Admin: 12/06/22 08:35 Dose: 100 mg Vitamin D (Cholecalciferol (Vitamin D3) 10 Mcg Tablet) 10 mcg PO DAILY [facility] Last Admin: 12/06/22 08:35 Dose: 10 mcg Allergies Allergies Allergy/AdvReac Type Severity Reaction Status Date / Time Penicillins [PCN] Allergy Unknown UNKNOWN Verified 01/01/21 19:37 tramadol [TRAMADOL] Allergy Unknown HIVES Verified 01/01/21 19:37 Assessment & Plan Assessment & Plan (1) Bipolar disorder: Status: Acute Code(s): F31.9 - Bipolar disorder, unspecified (2) PTSD (post-traumatic stress disorder): Status: Acute Code(s): F43.10 - Post-traumatic stress disorder, unspecified (3) Cocaine use disorder, moderate, dependence: Status: Acute Code(s): F14.20 - Cocaine dependence, uncomplicated Plan Patient is a 41 year old female with hx of Bipolar d/o, PTSD and cocaine use who was recently discharged from on 11/11/22, who self presented to [facility] ER with increased paranoid, auditory hallucinations and paranoia, secondary to medication non-adherence. Plan: CV 15 minute safety checks restart home medications Referral for reading coach? Referral for respite 11/26: Patient reports feeling sad and anxious today. Patient stated, I'm too anxious to be around people but I will try to go to one group today . Patient reports she is not having paranoia anymore ; pt reports nightmares; risks/benefits discussed regarding Prozosin, pt agreed to trial. Start prazosin 1mg PO bedtime; monitor BPs. 11/27: T/W and licensed clinical social worker met with patient together. Patient does not recall meeting with this movie writer prior. Patient labile during during meeting; believes she is not allowed back in her current apartment d/t her neighbor not getting along with her. Pt stated, I can hear her whispering and talking about me . transfer worker confirmed that patient is allowed back in her apartment. She continues to report of nightmares; will increase prazosin to 2mg PO bedtime. c/o of abdominal pain; pt has a hx of constipation, ordered miralax, senna and labs. Latuda increased to 60mg PO bedtime. 11/28: T/W and licensed clinical social worker met with patient together. Patient labile during during meeting; yelling at T/W and licensed clinical social worker. Patient was upset at licensed clinical social worker because she was accusing her of breaking HIPAA by talking to the treatment team. Patient was educated regarding the importance of the treatment team communicating; pt was unable to accept response and continued to state that T/W and licensed clinical social worker were wrong. Patient began to yell at T/W when discussing medications and became demanding, stated she did not want any of her medications touched. T/W explained the benefits of increasing some of her medications to assist in stabilizing her mood and paranoia. Patient was able to calm down and apologized, stating I know you're not the devil. I'm trying to trust you . Lamictal increased 200mg PO BID Latuda increased 80mg PO daily DC Cogentin CORY Seroquel 200mg PO daily Will discuss possibly adding another antipsychotic with patient tomorrow. 11/29: Patient labile during during meeting; continues to perseverate on licensed clinical social worker breaking HIPAA by talking to treatment team. T/W explained the benefits of possibly being on a long acting injectable medication; patient was open to the idea and agreed to a trial of risperidone; risks/benefits discussed. Will start risperidone 1mg PO BID. 11/30 continue tx. 12/01 continue tx. 12/02 added one extra dose of Risperdal and Klonopin today to sx mgt. 12/04/22 continue regime and plan of care. Sustenna scheduled for 12/06. 12/06/22 Continue current regime and plan of care. Patient educated on: medication risk/benefits, substance abuse and therapeutic strategies Informed Consent: understands and further education needed Reason for continued inpatient stay Substantial Risk for: rapid decompensation Time Spent With Patient Time: Total time managing care of this patient today ____ minutes.
[2022-12-06 14:05] VITALS: BP 139/77; PULSE 111
[2022-12-06 19:32] VITALS: BP 137/84; PULSE 95; RESP 18; TEMP 36.3
[2022-12-06] MEDS: Prazosin HCL 1 MG CAPSULE 2 MG PO (19:36)
[2022-12-06] MEDS: QUEtiapine Fumarate 300 MG TABLET 600 MG PO (19:37)
[2022-12-06] MEDS: Acetaminophen 325 MG TABLET 650 MG PO (19:37)
[2022-12-06] MEDS: Lurasidone HCl 80 MG TABLET PO (19:37)
[2022-12-07 08:10] VITALS: BP 124/82; PULSE 111; RESP 18; TEMP 36.6; O2SAT 99
[2022-12-07] MEDS: Sennosides 8.6 MG TABLET PO (08:46)
[2022-12-07] MEDS: Gabapentin 300 MG CAPSULE 600 MG PO ×3 (08:46→16:31)
[2022-12-07] MEDS: clonazePAM 1 MG TABLET PO ×3 (08:46→20:36)
[2022-12-07] MEDS: busPIRone HCl 10 MG TABLET 30 MG PO ×2 (08:46→13:48)
[2022-12-07] MEDS: cloNIDine HCL 0.1 MG TABLET PO ×2 (08:46→13:47)
[2022-12-07] MEDS: lamoTRIgine 100 MG TABLET 200 MG PO ×2 (08:46→19:29)
[2022-12-07] MEDS: Nicotine 21 MG PATCH.TD24 TRANSDERMA (08:47)
[2022-12-07 16:25] VITALS: BP 140/89; PULSE 86; TEMP 36.7; O2SAT 100
--- NOTE | 2022-12-07 16:35 | HO.PSYCHPN ---
Subjective Subjective Date of Service: 12/07/22 Reason For Visit: paranoia Subjective Notes: Conditional Voluntary Interim History: A difficult day. Triggered by a male peer-discussed her thoughts/feelings about this. Discussed use of prn medication, she did take Risperdal with reported relief. Menses has just ended and she is feeling worn. Given a weekend assignment to write a letter to OP provider- struggling with this. Medication Compliance: Yes Side effects from medications: No Attending Groups: Yes Review of Systems Acute medical concerns: No Medical Review of Systems: unchanged Mental Status Exam Mental Status Exam Patient Appearance: Appropriate Patient Orientation: Person, Place, Time and Situation Level of Consciousness: Alert Patient Behavior: Appropriate, Talkative, Cooperative and Good Eye Contact Mood Description: Depressed, Fearful and Apprehensive Affect Description: Flat Patient Cognition Impaired: No Ability to Follow Directions: Good Speech Pattern: Spontaneous Speech Memory Description: Intact Hallucinations: None Delusions: Not Present Perceptual Disturbances: Depersonalization and Derealization Thought Process: Rumination Thought Content: positive for Circumstantial and positive for Perseveration Depressive Symptoms: Increased Anxiety, Feelings of Worthlessness, Hopelessness, Feelings of Guilt, Unhappiness, Low Self Esteem and Difficulty Concentrating Judgement: Good Diagnostics Vital Signs (24Hr): Vital Signs - 24 hr 12/06/22 19:32 12/07/22 08:10 12/07/22 16:25 Temperature 97.4 F 97.9 F 98.1 F Pulse Rate 95 111 H 86 Respiratory Rate 18 18 Blood Pressure 137/84 124/82 140/89 H Pulse Oximetry 99 100 Oxygen Delivery Method Room Air Room Air BMI result Body Mass Index 28.5 Labs 11/23/22 11:08 11/27/22 15:15 Medications Medications Current Medications Acetaminophen (Acetaminophen 325 Mg Tablet) 650 mg PO Q6H PRN PRN Reason: Headache/Pain Mild Scale (1-3) Last Admin: 12/06/22 19:37 Dose: 650 mg Al Hydroxide/Mg Hydroxide (Magnesium Hydrox/Alum Hydrox 30 Ml Oral.Susp) 30 ml PO Q6H PRN PRN Reason: Heartburn/Nausea Bisacodyl (Bisacodyl 5 Mg Tablet.Dr) 10 mg PO DAILY PRN PRN Reason: Constipation Last Admin: 12/07/22 09:00 Dose: 10 mg Bupropion HCl (Bupropion Hcl Xl 300 Mg Tab.Er.24h) 300 mg PO DAILY [facility] Last Admin: 12/07/22 08:46 Dose: 300 mg Buspirone HCl (Buspirone Hcl 10 Mg Tablet) 30 mg PO BID@0730,1500 [facility] Last Admin: 12/07/22 13:48 Dose: 30 mg Clonazepam (Clonazepam 1 Mg Tablet) 1 mg PO TID [facility] Last Admin: 12/07/22 13:48 Dose: 1 mg Clonidine HCl (Clonidine Hcl 0.1 Mg Tablet) 0.1 mg PO BID@0800,1500 [facility]; Protocol Last Admin: 12/07/22 13:47 Dose: 0.1 mg Gabapentin (Gabapentin 300 Mg Capsule) 600 mg PO QID [facility] Last Admin: 12/07/22 16:31 Dose: 600 mg Hydroxyzine HCl (Hydroxyzine Hcl 25 Mg Tablet) 25 mg PO Q6H PRN PRN Reason: Anxiety Last Admin: 12/05/22 17:21 Dose: 25 mg Ibuprofen (Ibuprofen 600 Mg Tablet) 600 mg PO Q6H PRN PRN Reason: pain not responsive to tylenol Last Admin: 12/06/22 09:17 Dose: 600 mg Lamotrigine (Lamotrigine 100 Mg Tablet) 200 mg PO BID [facility] Last Admin: 12/07/22 08:46 Dose: 200 mg Lurasidone HCl (Lurasidone Hcl 80 Mg Tablet) 80 mg PO BEDTIME [facility] Last Admin: 12/06/22 19:37 Dose: 80 mg Magnesium Hydroxide (Milk Of Magnesia 30 Ml Oral.Susp) 30 ml PO DAILY PRN PRN Reason: Constipation Last Admin: 11/27/22 08:11 Dose: 30 ml Multivitamins/Vitamin C (Multivitamin Tablet) 1 tab PO DAILY [facility] Last Admin: 12/07/22 08:46 Dose: 1 tab Nicotine (Nicotine 21 Mg Patch.Td24) 21 mg TRANSDERMA DAILY [facility] Last Admin: 12/07/22 08:47 Dose: 21 mg Nicotine Polacrilex (Nicotine Polacrilex 2 Mg Gum) 4 mg BUCCAL Q2H PRN PRN Reason: Nicotine Cravings Polyethylene Glycol (Polyethylene Glycol 3350 17 Gm Powd.Pack) 17 gm PO DAILY [facility] Last Admin: 12/07/22 08:45 Dose: 17 gm Prazosin HCl (Prazosin Hcl 1 Mg Capsule) 2 mg PO BEDTIME [facility]; Protocol Last Admin: 12/06/22 19:36 Dose: 2 mg Quetiapine Fumarate (Quetiapine Fumarate 300 Mg Tablet) 600 mg PO BEDTIME [facility] Last Admin: 12/06/22 19:37 Dose: 600 mg Risperidone (Risperidone 1 Mg Tablet) 1 mg PO BID PRN PRN Reason: agitation Last Admin: 12/07/22 13:49 Dose: 1 mg Senna (Sennosides 8.6 Mg Tablet) 8.6 mg PO DAILY [facility] Last Admin: 12/07/22 08:46 Dose: 8.6 mg Thiamine HCl (Thiamine Hcl 100 Mg Tablet) 100 mg PO DAILY [facility] Last Admin: 12/07/22 08:46 Dose: 100 mg Vitamin D (Cholecalciferol (Vitamin D3) 10 Mcg Tablet) 10 mcg PO DAILY [facility] Last Admin: 12/07/22 08:46 Dose: 10 mcg Allergies Allergies Allergy/AdvReac Type Severity Reaction Status Date / Time Penicillins [PCN] Allergy Unknown UNKNOWN Verified 01/01/21 19:37 tramadol [TRAMADOL] Allergy Unknown HIVES Verified 01/01/21 19:37 Assessment & Plan Assessment & Plan (1) Bipolar disorder: Status: Acute Code(s): F31.9 - Bipolar disorder, unspecified (2) PTSD (post-traumatic stress disorder): Status: Acute Code(s): F43.10 - Post-traumatic stress disorder, unspecified (3) Cocaine use disorder, moderate, dependence: Status: Acute Code(s): F14.20 - Cocaine dependence, uncomplicated Plan Patient is a 41 year old female with hx of Bipolar d/o, PTSD and cocaine use who was recently discharged from on 11/11/22, who self presented to [facility] with increased paranoid, auditory hallucinations and paranoia, secondary to medication non-adherence. Plan: CV 15 minute safety checks restart home medications Referral for volleyball coach? Referral for respite 11/26: Patient reports feeling sad and anxious today. Patient stated, I'm too anxious to be around people but I will try to go to one group today . Patient reports she is not having paranoia anymore ; pt reports nightmares; risks/benefits discussed regarding Prozosin, pt agreed to trial. Start prazosin 1mg PO bedtime; monitor BPs. 11/27: T/W and social work msw met with patient together. Patient does not recall meeting with this documentation writer prior. Patient labile during during meeting; believes she is not allowed back in her current apartment d/t her neighbor not getting along with her. Pt stated, I can hear her whispering and talking about me . sexual assault social worker confirmed that patient is allowed back in her apartment. She continues to report of nightmares; will increase prazosin to 2mg PO bedtime. c/o of abdominal pain; pt has a hx of constipation, ordered miralax, senna and labs. Latuda increased to 60mg PO bedtime. 11/28: T/W and social work msw met with patient together. Patient labile during during meeting; yelling at T/W and social work msw. Patient was upset at social work msw because she was accusing her of breaking HIPAA by talking to the treatment team. Patient was educated regarding the importance of the treatment team communicating; pt was unable to accept response and continued to state that T/W and social work msw were wrong. Patient began to yell at T/W when discussing medications and became demanding, stated she did not want any of her medications touched. T/W explained the benefits of increasing some of her medications to assist in stabilizing her mood and paranoia. Patient was able to calm down and apologized, stating I know you're not the devil. I'm trying to trust you . Lamictal increased 200mg PO BID Latuda increased 80mg PO daily CORY Cogentin CORY Seroquel 200mg PO daily Will discuss possibly adding another antipsychotic with patient tomorrow. 11/29: Patient labile during during meeting; continues to perseverate on social work msw breaking HIPAA by talking to treatment team. T/W explained the benefits of possibly being on a long acting injectable medication; patient was open to the idea and agreed to a trial of risperidone; risks/benefits discussed. Will start risperidone 1mg PO BID. 11/30 continue tx. 12/01 continue tx. 12/02 added one extra dose of Risperdal and Klonopin today to sx mgt. 12/04/22 continue regime and plan of care. Sustenna scheduled for 12/06. 12/06/22 Continue current regime and plan of care. 12/07/22 Ferrous Sulfate 325 mg daily Prolactin, FSH, Estradiol levels. Patient educated on: therapeutic strategies Informed Consent: understands Reason for continued inpatient stay Substantial Risk for: rapid decompensation Time Spent With Patient Time: Total time managing care of this patient today ____ minutes.
[2022-12-07] MEDS: Ibuprofen 600 MG TABLET PO (18:46)
[2022-12-07] MEDS: Lurasidone HCl 80 MG TABLET PO (19:29)
[2022-12-07] MEDS: QUEtiapine Fumarate 300 MG TABLET 600 MG PO (19:29)
[2022-12-07] MEDS: Prazosin HCL 1 MG CAPSULE 2 MG PO (19:30)
[2022-12-08 08:35] VITALS: BP 134/63; PULSE 100; RESP 16; TEMP 36.2; O2SAT 98
[2022-12-08] MEDS: busPIRone HCl 10 MG TABLET 30 MG PO ×2 (08:38→14:00)
[2022-12-08] MEDS: Sennosides 8.6 MG TABLET PO (08:39)
[2022-12-08] MEDS: lamoTRIgine 100 MG TABLET 200 MG PO ×2 (08:39→20:01)
[2022-12-08] MEDS: cloNIDine HCL 0.1 MG TABLET PO ×2 (08:39→14:00)
[2022-12-08] MEDS: Nicotine 21 MG PATCH.TD24 TRANSDERMA (08:40)
[2022-12-08] MEDS: Nicotine Polacrilex 2 MG GUM 4 MG BUCCAL (09:50)
[2022-12-08] MEDS: Ibuprofen 600 MG TABLET PO (13:24)
--- NOTE | 2022-12-08 13:41 | HO.PSYCHPN ---
Subjective Subjective Date of Service: 12/08/22 Reason For Visit: paranoia Subjective Notes: Conditional Voluntary Interim History: Using prn Risperdal with efficacy. Awoke this a.m. with agitation she reports. Was able to contact her landlord yesterday and she reports all is well, they look forward to her return next week. Discussed supporting another peer and feels at times in the middle of others conflicts. A good day today she reports, feeling improved. Labs pending. Medication Compliance: Yes Side effects from medications: No Attending Groups: Yes Review of Systems Acute medical concerns: No Mental Status Exam Mental Status Exam Patient Appearance: Appropriate Patient Orientation: Person, Place, Time and Situation Level of Consciousness: Alert Patient Behavior: Appropriate, Talkative, Cooperative and Good Eye Contact Mood Description: Depressed, Fearful and Apprehensive Affect Description: Flat Patient Cognition Impaired: No Ability to Follow Directions: Good Speech Pattern: Spontaneous Speech Memory Description: Intact Hallucinations: None Delusions: Not Present Perceptual Disturbances: Depersonalization and Derealization Thought Process: Rumination Thought Content: positive for Circumstantial and positive for Perseveration Depressive Symptoms: Increased Anxiety, Feelings of Worthlessness, Hopelessness, Feelings of Guilt, Unhappiness, Low Self Esteem and Difficulty Concentrating Judgement: Good Diagnostics Vital Signs (24Hr): Vital Signs - 24 hr 12/07/22 16:25 12/08/22 08:35 Temperature 98.1 F 97.1 F Pulse Rate 86 100 Respiratory Rate 16 Blood Pressure 140/89 H 134/63 Pulse Oximetry 100 98 Oxygen Delivery Method Room Air Room Air BMI result Body Mass Index 28.5 Labs 11/23/22 11:08 11/27/22 15:15 Medications Medications Current Medications Acetaminophen (Acetaminophen 325 Mg Tablet) 650 mg PO Q6H PRN PRN Reason: Headache/Pain Mild Scale (1-3) Last Admin: 12/06/22 19:37 Dose: 650 mg Al Hydroxide/Mg Hydroxide (Magnesium Hydrox/Alum Hydrox 30 Ml Oral.Susp) 30 ml PO Q6H PRN PRN Reason: Heartburn/Nausea Bisacodyl (Bisacodyl 5 Mg Tablet.Dr) 10 mg PO DAILY PRN PRN Reason: Constipation Last Admin: 12/07/22 09:00 Dose: 10 mg Bupropion HCl (Bupropion Hcl Xl 300 Mg Tab.Er.24h) 300 mg PO DAILY [facility] Last Admin: 10/08/23 08:39 Dose: 300 mg Buspirone HCl (Buspirone Hcl 10 Mg Tablet) 30 mg PO BID@0730,1500 [facility] Last Admin: 12/08/22 08:38 Dose: 30 mg Clonazepam (Clonazepam 1 Mg Tablet) 1 mg PO TID [facility] Last Admin: 12/08/22 08:39 Dose: 1 mg Clonidine HCl (Clonidine Hcl 0.1 Mg Tablet) 0.1 mg PO BID@0800,1500 [facility]; Protocol Last Admin: 12/08/22 08:39 Dose: 0.1 mg Ferrous Sulfate (Ferrous Sulfate 324 Mg Tablet.Dr) 324 mg PO DAILY [facility] Last Admin: 12/08/22 08:39 Dose: 324 mg Gabapentin (Gabapentin 300 Mg Capsule) 600 mg PO QID [facility] Last Admin: 12/08/22 12:02 Dose: 600 mg Hydroxyzine HCl (Hydroxyzine Hcl 25 Mg Tablet) 25 mg PO Q6H PRN PRN Reason: Anxiety Last Admin: 12/05/22 17:21 Dose: 25 mg Ibuprofen (Ibuprofen 600 Mg Tablet) 600 mg PO Q6H PRN PRN Reason: pain not responsive to tylenol Last Admin: 12/08/22 13:24 Dose: 600 mg Lamotrigine (Lamotrigine 100 Mg Tablet) 200 mg PO BID [facility] Last Admin: 12/08/22 08:39 Dose: 200 mg Lurasidone HCl (Lurasidone Hcl 80 Mg Tablet) 80 mg PO BEDTIME [facility] Last Admin: 12/07/22 19:29 Dose: 80 mg Magnesium Hydroxide (Milk Of Magnesia 30 Ml Oral.Susp) 30 ml PO DAILY PRN PRN Reason: Constipation Last Admin: 11/27/22 08:11 Dose: 30 ml Multivitamins/Vitamin C (Multivitamin Tablet) 1 tab PO DAILY [facility] Last Admin: 12/08/22 08:39 Dose: 1 tab Nicotine (Nicotine 21 Mg Patch.Td24) 21 mg TRANSDERMA DAILY [facility] Last Admin: 12/08/22 08:40 Dose: 21 mg Nicotine Polacrilex (Nicotine Polacrilex 2 Mg Gum) 4 mg BUCCAL Q2H PRN PRN Reason: Nicotine Cravings Last Admin: 12/08/22 09:50 Dose: 4 mg Polyethylene Glycol (Polyethylene Glycol 3350 17 Gm Powd.Pack) 17 gm PO DAILY [facility] Last Admin: 12/08/22 08:37 Dose: 17 gm Prazosin HCl (Prazosin Hcl 1 Mg Capsule) 2 mg PO BEDTIME [facility]; Protocol Last Admin: 12/07/22 19:30 Dose: 2 mg Quetiapine Fumarate (Quetiapine Fumarate 300 Mg Tablet) 600 mg PO BEDTIME [facility] Last Admin: 12/07/22 19:29 Dose: 600 mg Risperidone (Risperidone 1 Mg Tablet) 1 mg PO BID PRN PRN Reason: agitation Last Admin: 12/08/22 12:02 Dose: 1 mg Senna (Sennosides 8.6 Mg Tablet) 8.6 mg PO DAILY [facility] Last Admin: 12/08/22 08:39 Dose: 8.6 mg Thiamine HCl (Thiamine Hcl 100 Mg Tablet) 100 mg PO DAILY [facility] Last Admin: 12/08/22 08:39 Dose: 100 mg Vitamin D (Cholecalciferol (Vitamin D3) 10 Mcg Tablet) 10 mcg PO DAILY [facility] Last Admin: 12/08/22 08:39 Dose: 10 mcg Allergies Allergies Allergy/AdvReac Type Severity Reaction Status Date / Time Penicillins [PCN] Allergy Unknown UNKNOWN Verified 01/01/21 19:37 tramadol [TRAMADOL] Allergy Unknown HIVES Verified 01/01/21 19:37 Assessment & Plan Assessment & Plan (1) Bipolar disorder: Status: Acute Code(s): F31.9 - Bipolar disorder, unspecified (2) PTSD (post-traumatic stress disorder): Status: Acute Code(s): F43.10 - Post-traumatic stress disorder, unspecified (3) Cocaine use disorder, moderate, dependence: Status: Acute Code(s): F14.20 - Cocaine dependence, uncomplicated Plan Patient is a 41 year old female with hx of Bipolar d/o, PTSD and cocaine use who was recently discharged from on 11/11/22, who self [place] [facility] with increased paranoid, auditory hallucinations and paranoia, secondary to medication non-adherence. Plan: CV 15 minute safety checks restart home medications Referral for head boys golf coach? Referral for respite 11/26: Patient reports feeling sad and anxious today. Patient stated, I'm too anxious to be around people but I will try to go to one group today . Patient reports she is not having paranoia anymore ; pt reports nightmares; risks/benefits discussed regarding Prozosin, pt agreed to trial. Start prazosin 1mg PO bedtime; monitor BPs. 11/27: T/W and home health care social worker met with patient together. Patient does not recall meeting with this writer editor prior. Patient labile during during meeting; believes she is not allowed back in her current apartment d/t her neighbor not getting along with her. Pt stated, I can hear her whispering and talking about me . structural ironworker confirmed that patient is allowed back in her apartment. She continues to report of nightmares; will increase prazosin to 2mg PO bedtime. c/o of abdominal pain; pt has a hx of constipation, ordered miralax, senna and labs. Latuda increased to 60mg PO bedtime. 11/28: T/W and home health care social worker met with patient together. Patient labile during during meeting; yelling at T/W and home health care social worker. Patient was upset at home health care social worker because she was accusing her of breaking HIPAA by talking to the treatment team. Patient was educated regarding the importance of the treatment team communicating; pt was unable to accept response and continued to state that T/W and home health care social worker were wrong. Patient began to yell at T/W when discussing medications and became demanding, stated she did not want any of her medications touched. T/W explained the benefits of increasing some of her medications to assist in stabilizing her mood and paranoia. Patient was able to calm down and apologized, stating I know you're not the devil. I'm trying to trust you . Lamictal increased 200mg PO BID Latuda increased 80mg PO daily CORY Huynh DC Seroquel 200mg PO daily Will discuss possibly adding another antipsychotic with patient tomorrow. 11/29: Patient labile during during meeting; continues to perseverate on home health care social worker breaking HIPAA by talking to treatment team. T/W explained the benefits of possibly being on a long acting injectable medication; patient was open to the idea and agreed to a trial of risperidone; risks/benefits discussed. Will start risperidone 1mg PO BID. 11/30 continue tx. 12/01 continue tx. 12/02 added one extra dose of Risperdal and Klonopin today to sx mgt. 12/04/22 continue regime and plan of care. Sustenna scheduled for 12/06. 12/06/22 Continue current regime and plan of care. 12/07/22 Ferrous Sulfate 325 mg daily Prolactin, FSH, Estradiol levels. 12/08/22 continue rx Informed Consent: understands Reason for continued inpatient stay Substantial Risk for: rapid decompensation Time Spent With Patient Time: Total time managing care of this patient today ____ minutes.
[2022-12-08 14:06] VITALS: BP 148/91; PULSE 112
[2022-12-08 19:55] VITALS: BP 140/91; PULSE 104; TEMP 36.7; O2SAT 98
[2022-12-08] MEDS: Prazosin HCL 1 MG CAPSULE 2 MG PO (20:00)
[2022-12-08] MEDS: Lurasidone HCl 80 MG TABLET PO (20:01)
[2022-12-08] MEDS: QUEtiapine Fumarate 300 MG TABLET 600 MG PO (20:07)
[2022-12-09] MEDS: Nicotine 21 MG PATCH.TD24 TRANSDERMA (08:08)
[2022-12-09] MEDS: lamoTRIgine 100 MG TABLET 200 MG PO ×2 (08:09→20:45)
[2022-12-09] MEDS: cloNIDine HCL 0.1 MG TABLET PO ×2 (08:09→14:03)
[2022-12-09] MEDS: busPIRone HCl 10 MG TABLET 30 MG PO ×2 (08:09→14:03)
[2022-12-09] MEDS: Sennosides 8.6 MG TABLET PO (08:09)
[2022-12-09 08:22] VITALS: BP 131/77; PULSE 88; RESP 16; TEMP 36.1; O2SAT 98
--- NOTE | 2022-12-09 13:27 | HO.PSYCHPN ---
Subjective Subjective Date of Service: 12/09/22 Reason For Visit: paranoia Subjective Notes: Conditional Voluntary Healthcare Proxy: No Guardianship: No Medical Problems Affecting Mental Status: No Interim History: Beginning to write letter to OP team to discuss relapse and rationale. Reviewed and discussed. Reports RLS sx and some EPS. Will trial Benztropine. Medication Compliance: Yes Side effects from medications: Yes (RLS, EPS) Attending Groups: Yes Review of Systems Acute medical concerns: No Mental Status Exam Mental Status Exam Patient Appearance: Appropriate Patient Orientation: Person, Place, Time and Situation Level of Consciousness: Alert Patient Behavior: Appropriate, Talkative, Cooperative and Good Eye Contact Mood Description: Depressed, Fearful and Apprehensive Affect Description: Flat Patient Cognition Impaired: No Ability to Follow Directions: Good Speech Pattern: Spontaneous Speech Memory Description: Intact Hallucinations: None Delusions: Not Present Perceptual Disturbances: Depersonalization and Derealization Thought Process: Rumination Thought Content: positive for Circumstantial and positive for Perseveration Depressive Symptoms: Increased Anxiety, Feelings of Worthlessness, Hopelessness, Feelings of Guilt, Unhappiness, Low Self Esteem and Difficulty Concentrating Judgement: Good Diagnostics Vital Signs (24Hr): Vital Signs - 24 hr 12/08/22 14:06 12/08/22 19:55 12/09/22 08:22 Temperature 98.1 F 96.9 F Pulse Rate 112 H 104 H 88 Respiratory Rate 16 Blood Pressure 148/91 H 140/91 H 131/77 Pulse Oximetry 98 98 Oxygen Delivery Method Room Air Room Air BMI result Body Mass Index 28.5 Labs 11/23/22 11:08 11/27/22 15:15 Medications Medications Current Medications Acetaminophen (Acetaminophen 325 Mg Tablet) 650 mg PO Q6H PRN PRN Reason: Headache/Pain Mild Scale (1-3) Last Admin: 12/06/22 19:37 Dose: 650 mg Al Hydroxide/Mg Hydroxide (Magnesium Hydrox/Alum Hydrox 30 Ml Oral.Susp) 30 ml PO Q6H PRN PRN Reason: Heartburn/Nausea Bisacodyl (Bisacodyl 5 Mg Tablet.Dr) 10 mg PO DAILY PRN PRN Reason: Constipation Last Admin: 12/08/22 14:02 Dose: 10 mg Bupropion HCl (Bupropion Hcl Xl 300 Mg Tab.Er.24h) 300 mg PO DAILY [facility] Last Admin: 12/09/22 08:09 Dose: 300 mg Buspirone HCl (Buspirone Hcl 10 Mg Tablet) 30 mg PO BID@0730,1500 [facility] Last Admin: 12/09/22 08:09 Dose: 30 mg Clonazepam (Clonazepam 1 Mg Tablet) 1 mg PO TID [facility] Last Admin: 12/09/22 08:09 Dose: 1 mg Clonidine HCl (Clonidine Hcl 0.1 Mg Tablet) 0.1 mg PO BID@0800,1500 [facility]; Protocol Last Admin: 12/09/22 08:09 Dose: 0.1 mg Ferrous Sulfate (Ferrous Sulfate 324 Mg Tablet.Dr) 324 mg PO DAILY [facility] Last Admin: 12/09/22 08:09 Dose: 324 mg Gabapentin (Gabapentin 300 Mg Capsule) 600 mg PO QID [facility] Last Admin: 12/09/22 12:10 Dose: 600 mg Hydroxyzine HCl (Hydroxyzine Hcl 25 Mg Tablet) 25 mg PO Q6H PRN PRN Reason: Anxiety Last Admin: 12/05/22 17:21 Dose: 25 mg Ibuprofen (Ibuprofen 600 Mg Tablet) 600 mg PO Q6H PRN PRN Reason: pain not responsive to tylenol Last Admin: 12/08/22 13:24 Dose: 600 mg Lamotrigine (Lamotrigine 100 Mg Tablet) 200 mg PO BID [facility] Last Admin: 12/09/22 08:09 Dose: 200 mg Lurasidone HCl (Lurasidone Hcl 80 Mg Tablet) 80 mg PO BEDTIME [facility] Last Admin: 12/08/22 20:01 Dose: 80 mg Magnesium Hydroxide (Milk Of Magnesia 30 Ml Oral.Susp) 30 ml PO DAILY PRN PRN Reason: Constipation Last Admin: 11/27/22 08:11 Dose: 30 ml Multivitamins/Vitamin C (Multivitamin Tablet) 1 tab PO DAILY [facility] Last Admin: 12/09/22 08:09 Dose: 1 tab Nicotine (Nicotine 21 Mg Patch.Td24) 21 mg TRANSDERMA DAILY [facility] Last Admin: 12/09/22 08:08 Dose: 21 mg Nicotine Polacrilex (Nicotine Polacrilex 2 Mg Gum) 4 mg BUCCAL Q2H PRN PRN Reason: Nicotine Cravings Last Admin: 12/08/22 09:50 Dose: 4 mg Nicotine Polacrilex (Nicotine Polacrilex Lozenge 4 Mg Lozenge) 4 mg BUCCAL Q2H PRN PRN Reason: Nicotine Cravings Polyethylene Glycol (Polyethylene Glycol 3350 17 Gm Powd.Pack) 17 gm PO DAILY [facility] Last Admin: 12/09/22 08:08 Dose: 17 gm Prazosin HCl (Prazosin Hcl 1 Mg Capsule) 2 mg PO BEDTIME [facility]; Protocol Last Admin: 12/08/22 20:00 Dose: 2 mg Quetiapine Fumarate (Quetiapine Fumarate 300 Mg Tablet) 600 mg PO BEDTIME [facility] Last Admin: 12/08/22 20:07 Dose: 600 mg Risperidone (Risperidone 1 Mg Tablet) 1 mg PO BID PRN PRN Reason: agitation Last Admin: 12/09/22 12:10 Dose: 1 mg Senna (Sennosides 8.6 Mg Tablet) 8.6 mg PO DAILY [facility] Last Admin: 12/09/22 08:09 Dose: 8.6 mg Thiamine HCl (Thiamine Hcl 100 Mg Tablet) 100 mg PO DAILY [facility] Last Admin: 12/09/22 08:09 Dose: 100 mg Vitamin D (Cholecalciferol (Vitamin D3) 10 Mcg Tablet) 10 mcg PO DAILY [facility] Last Admin: 12/09/22 08:09 Dose: 10 mcg Allergies Allergies Allergy/AdvReac Type Severity Reaction Status Date / Time Penicillins [PCN] Allergy Unknown UNKNOWN Verified 01/01/21 19:37 tramadol [TRAMADOL] Allergy Unknown HIVES Verified 01/01/21 19:37 Assessment & Plan Assessment & Plan (1) Bipolar disorder: Status: Acute Code(s): F31.9 - Bipolar disorder, unspecified (2) PTSD (post-traumatic stress disorder): Status: Acute Code(s): F43.10 - Post-traumatic stress disorder, unspecified (3) Cocaine use disorder, moderate, dependence: Status: Acute Code(s): F14.20 - Cocaine dependence, uncomplicated Plan Patient is a 41 year old female with hx of Bipolar d/o, PTSD and cocaine use who was recently discharged from on 11/11/22, who self [place] [facility] with increased paranoid, auditory hallucinations and paranoia, secondary to medication non-adherence. Plan: CV 15 minute safety checks restart home medications Referral for chief engineer drilling and recovery? Referral for respite 11/26: Patient reports feeling sad and anxious today. Patient stated, I'm too anxious to be around people but I will try to go to one group today . Patient reports she is not having paranoia anymore ; pt reports nightmares; risks/benefits discussed regarding Prozosin, pt agreed to trial. Start prazosin 1mg PO bedtime; monitor BPs. 11/27: T/W and social science analyst met with patient together. Patient does not recall meeting with this insurance underwriter sales prior. Patient labile during during meeting; believes she is not allowed back in her current apartment d/t her neighbor not getting along with her. Pt stated, I can hear her whispering and talking about me . domestic laundry worker confirmed that patient is allowed back in her apartment. She continues to report of nightmares; will increase prazosin to 2mg PO bedtime. c/o of abdominal pain; pt has a hx of constipation, ordered miralax, senna and labs. Latuda increased to 60mg PO bedtime. 11/28: T/W and social science analyst met with patient together. Patient labile during during meeting; yelling at T/W and social science analyst. Patient was upset at social science analyst because she was accusing her of breaking HIPAA by talking to the treatment team. Patient was educated regarding the importance of the treatment team communicating; pt was unable to accept response and continued to state that T/W and social science analyst were wrong. Patient began to yell at T/W when discussing medications and became demanding, stated she did not want any of her medications touched. T/W explained the benefits of increasing some of her medications to assist in stabilizing her mood and paranoia. Patient was able to calm down and apologized, stating I know you're not the devil. I'm trying to trust you . Lamictal increased 200mg PO BID Latuda increased 80mg PO daily CORY Huynh DC Seroquel 200mg PO daily Will discuss possibly adding another antipsychotic with patient tomorrow. 11/29: Patient labile during during meeting; continues to perseverate on social science analyst breaking HIPAA by talking to treatment team. T/W explained the benefits of possibly being on a long acting injectable medication; patient was open to the idea and agreed to a trial of risperidone; risks/benefits discussed. Will start risperidone 1mg PO BID. 11/30 continue tx. 12/01 continue tx. 12/02 added one extra dose of Risperdal and Klonopin today to sx mgt. 12/04/22 continue regime and plan of care. Sustenna scheduled for 12/06. 12/06/22 Continue current regime and plan of care. 12/07/22 Ferrous Sulfate 325 mg daily Prolactin, FSH, Estradiol levels. 12/08/22 continue rx 12/09/22 Benztropine trial Patient educated on: medication risk/benefits, therapeutic strategies and medical condition Informed Consent: understands Reason for continued inpatient stay Substantial Risk for: rapid decompensation Time Spent With Patient Time: Total time managing care of this patient today ____ minutes.
[2022-12-09 18:00] VITALS: BP 137/80; PULSE 88; TEMP 36.2; O2SAT 97
[2022-12-09] MEDS: Ibuprofen 600 MG TABLET PO (18:54)
[2022-12-09 20:40] VITALS: BP 134/74; PULSE 92
[2022-12-09] MEDS: QUEtiapine Fumarate 300 MG TABLET 600 MG PO (20:45)
[2022-12-09] MEDS: Prazosin HCL 1 MG CAPSULE 2 MG PO (20:45)
[2022-12-10 08:05] VITALS: BP 136/81; PULSE 84; RESP 18; TEMP 36.2; O2SAT 98
[2022-12-10] MEDS: Nicotine 21 MG PATCH.TD24 TRANSDERMA (08:18)
[2022-12-10] MEDS: lamoTRIgine 100 MG TABLET 200 MG PO ×2 (08:22→19:25)
[2022-12-10] MEDS: cloNIDine HCL 0.1 MG TABLET PO ×2 (08:23→14:09)
[2022-12-10] MEDS: busPIRone HCl 10 MG TABLET 30 MG PO ×2 (08:24→14:09)
[2022-12-10] MEDS: Ibuprofen 600 MG TABLET PO (15:43)
--- NOTE | 2022-12-10 16:43 | P.PNPSI_ITS ---
Subjective Subjective Date of Service: 12/10/22 Reason For Visit: paranoia Subjective Notes: Conditional Voluntary Healthcare Proxy: No Guardianship: No Medical Problems Affecting Mental Status: No Interim History: Pt seen, discussed with team. Discussed transition to home, back to her life and challenges she faces. Reviewed letter she wrote to her OP team and further discussed her thoughts/fears on sharing truth with them. Medication Compliance: Yes Side effects from medications: No (has benztropine for eps sx, reports these are gone when she uses it) Attending Groups: Yes Review of Systems Acute medical concerns: No Medical Review of Systems: unchanged Mental Status Exam Mental Status Exam Patient Appearance: Appropriate Patient Orientation: Person, Place, Time and Situation Level of Consciousness: Alert Patient Behavior: Appropriate, Talkative, Cooperative and Good Eye Contact Mood Description: Apprehensive Affect Description: Apprehensive Patient Cognition Impaired: No Ability to Follow Directions: Good Speech Pattern: Spontaneous Speech Memory Description: Intact Hallucinations: None Delusions: Not Present Perceptual Disturbances: Depersonalization and Derealization Thought Process: Rumination Thought Content: positive for Circumstantial and positive for Perseveration Depressive Symptoms: Increased Anxiety, Feelings of Worthlessness, Feelings of Guilt, Unhappiness, Low Self Esteem and Difficulty Concentrating Judgement: Good Diagnostics Vital Signs (24Hr): Vital Signs - 24 hr 12/09/22 18:00 12/09/22 20:40 12/10/22 08:05 Temperature 97.2 F 97.2 F Pulse Rate 88 92 84 Respiratory Rate 18 Blood Pressure 137/80 134/74 136/81 Pulse Oximetry 97 98 Oxygen Delivery Method Room Air Room Air BMI result Body Mass Index 28.5 Labs 11/23/22 11:08 11/27/22 15:15 Medications Medications Current Medications Acetaminophen (Acetaminophen 325 Mg Tablet) 650 mg PO Q6H PRN PRN Reason: Headache/Pain Mild Scale (1-3) Last Admin: 12/06/22 19:37 Dose: 650 mg Al Hydroxide/Mg Hydroxide (Magnesium Hydrox/Alum Hydrox 30 Ml Oral.Susp) 30 ml PO Q6H PRN PRN Reason: Heartburn/Nausea Benztropine Mesylate (Benztropine Mesylate 1 Mg Tablet) 1 mg PO BID PRN PRN Reason: Extrapyramidal Effects Last Admin: 12/10/22 08:23 Dose: 1 mg Bisacodyl (Bisacodyl 5 Mg Tablet.) 10 mg PO DAILY PRN PRN Reason: Constipation Last Admin: 12/09/22 12:48 Dose: 10 mg Bupropion HCl (Bupropion Hcl Xl 300 Mg Tab.Er.24h) 300 mg PO DAILY [facility] Last Admin: 12/10/22 08:21 Dose: 300 mg Buspirone HCl (Buspirone Hcl 10 Mg Tablet) 30 mg PO BID@0730,1500 [facility] Last Admin: 12/10/22 14:09 Dose: 30 mg Clonazepam (Clonazepam 1 Mg Tablet) 1 mg PO TID [facility] Last Admin: 12/10/22 14:09 Dose: 1 mg Clonidine HCl (Clonidine Hcl 0.1 Mg Tablet) 0.1 mg PO BID@0800,1500 [facility]; Protocol Last Admin: 12/10/22 14:09 Dose: 0.1 mg Ferrous Sulfate (Ferrous Sulfate 324 Mg Tablet.) 324 mg PO DAILY [facility] Last Admin: 12/10/22 08:23 Dose: 324 mg Gabapentin (Gabapentin 300 Mg Capsule) 600 mg PO QID [facility] Last Admin: 12/10/22 12:01 Dose: 600 mg Hydroxyzine HCl (Hydroxyzine Hcl 25 Mg Tablet) 25 mg PO Q6H PRN PRN Reason: Anxiety Last Admin: 12/05/22 17:21 Dose: 25 mg Ibuprofen (Ibuprofen 600 Mg Tablet) 600 mg PO Q6H PRN PRN Reason: pain not responsive to tylenol Last Admin: 12/10/22 15:43 Dose: 600 mg Lamotrigine (Lamotrigine 100 Mg Tablet) 200 mg PO BID [facility] Last Admin: 12/10/22 08:22 Dose: 200 mg Lurasidone HCl (Lurasidone Hcl 80 Mg Tablet) 80 mg PO BEDTIME [facility] Last Admin: 12/09/22 20:45 Dose: 80 mg Magnesium Hydroxide (Milk Of Magnesia 30 Ml Oral.Susp) 30 ml PO DAILY PRN PRN Reason: Constipation Last Admin: 11/27/22 08:11 Dose: 30 ml Multivitamins/Vitamin C (Multivitamin Tablet) 1 tab PO DAILY [facility] Last Admin: 12/10/22 08:22 Dose: 1 tab Nicotine (Nicotine 21 Mg Patch.Td24) 21 mg TRANSDERMA DAILY [facility] Last Admin: 12/10/22 08:18 Dose: 21 mg Nicotine Polacrilex (Nicotine Polacrilex 2 Mg Gum) 4 mg BUCCAL Q2H PRN PRN Reason: Nicotine Cravings Last Admin: 12/08/22 09:50 Dose: 4 mg Nicotine Polacrilex (Nicotine Polacrilex Lozenge 4 Mg Lozenge) 4 mg BUCCAL Q2H PRN PRN Reason: Nicotine Cravings Last Admin: 12/10/22 15:43 Dose: 4 mg Polyethylene Glycol (Polyethylene Glycol 3350 17 Gm Powd.Pack) 17 gm PO DAILY [facility] Last Admin: 12/10/22 08:19 Dose: 17 gm Prazosin HCl (Prazosin Hcl 1 Mg Capsule) 2 mg PO BEDTIME [facility]; Protocol Last Admin: 12/09/22 20:45 Dose: 2 mg Quetiapine Fumarate (Quetiapine Fumarate 300 Mg Tablet) 600 mg PO BEDTIME [facility] Last Admin: 12/09/22 20:45 Dose: 600 mg Risperidone (Risperidone 1 Mg Tablet) 1 mg PO BID PRN PRN Reason: agitation Last Admin: 12/10/22 11:40 Dose: 1 mg Senna (Sennosides 8.6 Mg Tablet) 8.6 mg PO DAILY [facility] Last Admin: 12/10/22 08:24 Dose: 8.6 mg Thiamine HCl (Thiamine Hcl 100 Mg Tablet) 100 mg PO DAILY [facility] Last Admin: 12/10/22 08:22 Dose: 100 mg Vitamin D (Cholecalciferol (Vitamin D3) 10 Mcg Tablet) 10 mcg PO DAILY [facility] Last Admin: 12/10/22 08:22 Dose: 10 mcg Allergies Allergies Allergy/AdvReac Type Severity Reaction Status Date / Time Penicillins [PCN] Allergy Unknown UNKNOWN Verified 01/01/21 19:37 tramadol [TRAMADOL] Allergy Unknown HIVES Verified 01/01/21 19:37 Assessment & Plan Assessment & Plan (1) Bipolar disorder: Status: Acute Code(s): F31.9 - Bipolar disorder, unspecified (2) PTSD (post-traumatic stress disorder): Status: Acute Code(s): F43.10 - Post-traumatic stress disorder, unspecified (3) Cocaine use disorder, moderate, dependence: Status: Acute Code(s): F14.20 - Cocaine dependence, uncomplicated Plan Patient is a 41 year old female with hx of Bipolar d/o, PTSD and cocaine use who was recently discharged from on 11/11/22, who self [place] [facility] [place] with increased paranoid, auditory hallucinations and paranoia, secondary to medication non-adherence. Plan: CV 15 minute safety checks restart home medications Referral for aircraft launch and recovery technician? Referral for respite 11/26: Patient reports feeling sad and anxious today. Patient stated, I'm too anxious to be around people but I will try to go to one group today . Patient reports she is not having paranoia anymore ; pt reports nightmares; risks/benefits discussed regarding Prozosin, pt agreed to trial. Start prazosin 1mg PO bedtime; monitor BPs. 11/27: T/W and school social worker met with patient together. Patient does not recall meeting with this resume writer prior. Patient labile during during meeting; believes she is not allowed back in her current apartment d/t her neighbor not getting along with her. Pt stated, I can hear her whispering and talking about me . casino worker confirmed that patient is allowed back in her apartment. She continues to report of nightmares; will increase prazosin to 2mg PO bedtime. c/o of abdominal pain; pt has a hx of constipation, ordered miralax, senna and labs. Latuda increased to 60mg PO bedtime. 11/28: T/W and school social worker met with patient together. Patient labile during during meeting; yelling at T/W and school social worker. Patient was upset at school social worker because she was accusing her of breaking HIPAA by talking to the treatment team. Patient was educated regarding the importance of the treatment team communicating; pt was unable to accept response and continued to state that T/W and school social worker were wrong. Patient began to yell at T/W when discussing medications and became demanding, stated she did not want any of her medications touched. T/W explained the benefits of increasing some of her medications to assist in stabilizing her mood and paranoia. Patient was able to calm down and apologized, stating I know you're not the devil. I'm trying to trust you . Lamictal increased 200mg PO BID Latuda increased 80mg PO daily CORY Huynh DC Seroquel 200mg PO daily Will discuss possibly adding another antipsychotic with patient tomorrow. 11/29: Patient labile during during meeting; continues to perseverate on school social worker breaking HIPAA by talking to treatment team. T/W explained the benefits of possibly being on a long acting injectable medication; patient was open to the idea and agreed to a trial of risperidone; risks/benefits discussed. Will start risperidone 1mg PO BID. 11/30 continue tx. 12/01 continue tx. 12/02 added one extra dose of Risperdal and Klonopin today to sx mgt. 12/04/22 continue regime and plan of care. Sustenna scheduled for 12/06. 12/06/22 Continue current regime and plan of care. 12/07/22 Ferrous Sulfate 325 mg daily Prolactin, FSH, Estradiol levels. 12/08/22 continue rx 12/10/22 continue plan/regime Patient educated on: therapeutic strategies Informed Consent: understands Reason for continued inpatient stay Substantial Risk for: rapid decompensation Time Spent With Patient Time: Total time managing care of this patient today ____ minutes.
[2022-12-10 19:10] VITALS: BP 131/89; PULSE 90; TEMP 36.4
[2022-12-10] MEDS: Prazosin HCL 1 MG CAPSULE 2 MG PO (19:24)
[2022-12-10] MEDS: QUEtiapine Fumarate 300 MG TABLET 600 MG PO (19:24)
[2022-12-11 08:00] VITALS: BP 125/71; PULSE 91; RESP 18; TEMP 37.3; O2SAT 99
[2022-12-11] MEDS: cloNIDine HCL 0.1 MG TABLET PO (08:26)
[2022-12-11] MEDS: lamoTRIgine 100 MG TABLET 200 MG PO ×2 (08:27→19:49)
[2022-12-11] MEDS: busPIRone HCl 10 MG TABLET 30 MG PO ×2 (08:27→14:05)
[2022-12-11] MEDS: Ibuprofen 600 MG TABLET PO ×2 (12:06→19:49)
--- NOTE | 2022-12-11 15:11 | HO.PSYCHPN ---
Subjective Subjective Date of Service: 12/11/22 Reason For Visit: paranoia Subjective Notes: Conditional Voluntary Healthcare Proxy: No Guardianship: No Medical Problems Affecting Mental Status: No Interim History: Reports poor sleep last night, however wore nicotine patch to bed. Education provided. Benztropine helpful she reports Review of literature on Invega/Risperdal with team Anxious about leaving, some irritability and agitation present which appears to be related to discharge. Medication Compliance: Yes Side effects from medications: No Attending Groups: Yes Review of Systems Acute medical concerns: No Medical Review of Systems: unchanged Mental Status Exam Mental Status Exam Patient Appearance: Appropriate Patient Orientation: Person, Place, Time and Situation Level of Consciousness: Alert Patient Behavior: Appropriate, Talkative, Cooperative and Good Eye Contact Mood Description: Apprehensive Affect Description: Apprehensive Patient Cognition Impaired: No Ability to Follow Directions: Good Speech Pattern: Spontaneous Speech Memory Description: Intact Hallucinations: None Delusions: Not Present Perceptual Disturbances: Depersonalization and Derealization Thought Process: Rumination Thought Content: positive for Circumstantial and positive for Perseveration Depressive Symptoms: Increased Anxiety, Feelings of Worthlessness, Feelings of Guilt, Unhappiness, Low Self Esteem and Difficulty Concentrating Judgement: Good Diagnostics Vital Signs (24Hr): Vital Signs - 24 hr 12/10/22 19:10 12/11/22 08:00 Temperature 97.5 F 99.2 F Pulse Rate 90 91 Respiratory Rate 18 Blood Pressure 131/89 125/71 Pulse Oximetry 99 Oxygen Delivery Method Room Air BMI result Body Mass Index 28.5 Labs 11/23/22 11:08 11/27/22 15:15 Medications Medications Current Medications Acetaminophen (Acetaminophen 325 Mg Tablet) 650 mg PO Q6H PRN PRN Reason: Headache/Pain Mild Scale (1-3) Last Admin: 12/06/22 19:37 Dose: 650 mg Al Hydroxide/Mg Hydroxide (Magnesium Hydrox/Alum Hydrox 30 Ml Oral.Susp) 30 ml PO Q6H PRN PRN Reason: Heartburn/Nausea Benztropine Mesylate (Benztropine Mesylate 1 Mg Tablet) 1 mg PO BID PRN PRN Reason: Extrapyramidal Effects Last Admin: 12/11/22 10:11 Dose: 1 mg Bisacodyl (Bisacodyl 5 Mg Tablet.Dr) 10 mg PO DAILY PRN PRN Reason: Constipation Last Admin: 12/09/22 12:48 Dose: 10 mg Bupropion HCl (Bupropion Hcl Xl 300 Mg Tab.Er.24h) 300 mg PO DAILY [facility] Last Admin: 12/11/22 08:32 Dose: 300 mg Buspirone HCl (Buspirone Hcl 10 Mg Tablet) 30 mg PO BID@0730,1500 [facility] Last Admin: 12/11/22 14:05 Dose: 30 mg Clonazepam (Clonazepam 1 Mg Tablet) 1 mg PO TID [facility] Last Admin: 12/11/22 14:25 Dose: 1 mg Clonidine HCl (Clonidine Hcl 0.1 Mg Tablet) 0.1 mg PO BID@0800,1500 [facility]; Protocol Last Admin: 12/11/22 14:05 Dose: 0.1 mg Ferrous Sulfate (Ferrous Sulfate 324 Mg Tablet.Dr) 324 mg PO DAILY [facility] Last Admin: 12/11/22 08:27 Dose: 324 mg Gabapentin (Gabapentin 300 Mg Capsule) 600 mg PO QID [facility] Last Admin: 12/11/22 12:06 Dose: 600 mg Hydroxyzine HCl (Hydroxyzine Hcl 25 Mg Tablet) 25 mg PO Q6H PRN PRN Reason: Anxiety Last Admin: 12/11/22 14:04 Dose: 25 mg Ibuprofen (Ibuprofen 600 Mg Tablet) 600 mg PO Q6H PRN PRN Reason: pain not responsive to tylenol Last Admin: 12/11/22 12:06 Dose: 600 mg Lamotrigine (Lamotrigine 100 Mg Tablet) 200 mg PO BID [facility] Last Admin: 12/11/22 08:27 Dose: 200 mg Lurasidone HCl (Lurasidone Hcl 80 Mg Tablet) 80 mg PO BEDTIME [facility] Last Admin: 12/10/22 19:24 Dose: 80 mg Magnesium Hydroxide (Milk Of Magnesia 30 Ml Oral.Susp) 30 ml PO DAILY PRN PRN Reason: Constipation Last Admin: 11/27/22 08:11 Dose: 30 ml Multivitamins/Vitamin C (Multivitamin Tablet) 1 tab PO DAILY [facility] Last Admin: 12/11/22 08:32 Dose: 1 tab Nicotine (Nicotine 21 Mg Patch.Td24) 21 mg TRANSDERMA DAILY [facility] Last Admin: 12/11/22 08:33 Dose: 21 mg Nicotine Polacrilex (Nicotine Polacrilex 2 Mg Gum) 4 mg BUCCAL Q2H PRN PRN Reason: Nicotine Cravings Last Admin: 12/08/22 09:50 Dose: 4 mg Nicotine Polacrilex (Nicotine Polacrilex Lozenge 4 Mg Lozenge) 4 mg BUCCAL Q2H PRN PRN Reason: Nicotine Cravings Last Admin: 12/10/22 20:22 Dose: 4 mg Polyethylene Glycol (Polyethylene Glycol 3350 17 Gm Powd.Pack) 17 gm PO DAILY [facility] Last Admin: 12/11/22 08:30 Dose: 17 gm Prazosin HCl (Prazosin Hcl 1 Mg Capsule) 2 mg PO BEDTIME [facility]; Protocol Last Admin: 12/10/22 19:24 Dose: 2 mg Quetiapine Fumarate (Quetiapine Fumarate 300 Mg Tablet) 600 mg PO BEDTIME [facility] Last Admin: 12/10/22 19:24 Dose: 600 mg Risperidone (Risperidone 1 Mg Tablet) 1 mg PO BID PRN PRN Reason: agitation Last Admin: 12/11/22 15:05 Dose: 1 mg Senna (Sennosides 8.6 Mg Tablet) 8.6 mg PO DAILY [facility] Last Admin: 12/11/22 08:26 Dose: 8.6 mg Thiamine HCl (Thiamine Hcl 100 Mg Tablet) 100 mg PO DAILY [facility] Last Admin: 12/11/22 08:27 Dose: 100 mg Vitamin D (Cholecalciferol (Vitamin D3) 10 Mcg Tablet) 10 mcg PO DAILY [facility] Last Admin: 12/11/22 08:32 Dose: 10 mcg Allergies Allergies Allergy/AdvReac Type Severity Reaction Status Date / Time Penicillins [PCN] Allergy Unknown UNKNOWN Verified 01/01/21 19:37 tramadol [TRAMADOL] Allergy Unknown HIVES Verified 01/01/21 19:37 Assessment & Plan Assessment & Plan (1) Bipolar disorder: Status: Acute Code(s): F31.9 - Bipolar disorder, unspecified (2) PTSD (post-traumatic stress disorder): Status: Acute Code(s): F43.10 - Post-traumatic stress disorder, unspecified (3) Cocaine use disorder, moderate, dependence: Status: Acute Code(s): F14.20 - Cocaine dependence, uncomplicated Plan Patient is a 41 year old female with hx of Bipolar d/o, PTSD and cocaine use who was recently discharged from on 11/11/22, who self presented to [facility] [place] [facility] with increased paranoid, auditory hallucinations and paranoia, secondary to medication non-adherence. Plan: CV 15 minute safety checks restart home medications Referral for graduation coach? Referral for respite 11/26: Patient reports feeling sad and anxious today. Patient stated, I'm too anxious to be around people but I will try to go to one group today . Patient reports she is not having paranoia anymore ; pt reports nightmares; risks/benefits discussed regarding Prozosin, pt agreed to trial. Start prazosin 1mg PO bedtime; monitor BPs. 11/27: T/W and social media sr strategy manager met with patient together. Patient does not recall meeting with this show card writer prior. Patient labile during during meeting; believes she is not allowed back in her current apartment d/t her neighbor not getting along with her. Pt stated, I can hear her whispering and talking about me . deli worker confirmed that patient is allowed back in her apartment. She continues to report of nightmares; will increase prazosin to 2mg PO bedtime. c/o of abdominal pain; pt has a hx of constipation, ordered miralax, senna and labs. Latuda increased to 60mg PO bedtime. 11/28: T/W and social media sr strategy manager met with patient together. Patient labile during during meeting; yelling at T/W and social media sr strategy manager. Patient was upset at social media sr strategy manager because she was accusing her of breaking HIPAA by talking to the treatment team. Patient was educated regarding the importance of the treatment team communicating; pt was unable to accept response and continued to state that T/W and social media sr strategy manager were wrong. Patient began to yell at T/W when discussing medications and became demanding, stated she did not want any of her medications touched. T/W explained the benefits of increasing some of her medications to assist in stabilizing her mood and paranoia. Patient was able to calm down and apologized, stating I know you're not the devil. I'm trying to trust you . Lamictal increased 200mg PO BID Latuda increased 80mg PO daily CORY Huynh DC Seroquel 200mg PO daily Will discuss possibly adding another antipsychotic with patient tomorrow. 11/29: Patient labile during during meeting; continues to perseverate on social media sr strategy manager breaking HIPAA by talking to treatment team. T/W explained the benefits of possibly being on a long acting injectable medication; patient was open to the idea and agreed to a trial of risperidone; risks/benefits discussed. Will start risperidone 1mg PO BID. 11/30 continue tx. 12/01 continue tx. 12/02 added one extra dose of Risperdal and Klonopin today to sx mgt. 12/04/22 continue regime and plan of care. Sustenna scheduled for 12/06. 12/06/22 Continue current regime and plan of care. 12/07/22 Ferrous Sulfate 325 mg daily Prolactin, FSH, Estradiol levels. 12/08/22 continue rx 12/11/22 Preparing for discharge, medication education provided. Patient educated on: medication risk/benefits and therapeutic strategies Informed Consent: understands and further education needed Reason for continued inpatient stay Substantial Risk for: rapid decompensation Time Spent With Patient Time: Total time managing care of this patient today ____ minutes.
[2022-12-11] MEDS: Gabapentin 300 MG CAPSULE 600 MG PO ×2 (16:26→19:49)
[2022-12-11] MEDS: Nicotine Polacrilex Lozenge 4 MG LOZENGE BUCCAL ×2 (16:44→19:49)
[2022-12-11] MEDS: risperiDONE 1 MG TABLET PO (18:05)
[2022-12-11] MEDS: Acetaminophen 325 MG TABLET 650 MG PO (18:05)
[2022-12-11] MEDS: Benztropine Mesylate 1 MG TABLET PO (18:05)
[2022-12-11 19:46] VITALS: BP 137/79; PULSE 106; TEMP 36.4
[2022-12-11] MEDS: Prazosin HCL 1 MG CAPSULE 2 MG PO (19:49)
[2022-12-11] MEDS: QUEtiapine Fumarate 300 MG TABLET 600 MG PO (19:49)
[2022-12-11] MEDS: clonazePAM 1 MG TABLET PO (19:49)
[2022-12-11] MEDS: Lurasidone HCl 80 MG TABLET PO (19:49)
[2022-12-11] MEDS: bisacodyL 5 MG TABLET.DR 10 MG PO (19:53)
[2022-12-12 06:00] VITALS: BP 129/59; PULSE 79; RESP 18; TEMP 36.6; O2SAT 100
[2022-12-12 07:00] VITALS: BMI 28.6
[2022-12-12] MEDS: Nicotine 21 MG PATCH.TD24 TRANSDERMA (08:02)
[2022-12-12] MEDS: Multivitamin TABLET 1 TAB PO (08:03)
[2022-12-12] MEDS: Thiamine HCL 100 MG TABLET PO (08:03)
[2022-12-12] MEDS: cloNIDine HCL 0.1 MG TABLET PO ×2 (08:03→14:29)
[2022-12-12] MEDS: busPIRone HCl 10 MG TABLET 30 MG PO ×2 (08:03→14:29)
[2022-12-12] MEDS: buPROPion HCl XL 300 MG TAB.ER.24H PO (08:03)
[2022-12-12] MEDS: lamoTRIgine 100 MG TABLET 200 MG PO ×2 (08:04→19:36)
[2022-12-12] MEDS: Cholecalciferol (Vitamin D3) 10 MCG TABLET PO (08:04)
[2022-12-12] MEDS: Gabapentin 300 MG CAPSULE 600 MG PO ×4 (08:04→19:35)
[2022-12-12] MEDS: clonazePAM 1 MG TABLET PO ×3 (08:05→19:36)
[2022-12-12] MEDS: Ferrous Sulfate 324 MG TABLET.DR PO (08:05)
[2022-12-12] MEDS: Sennosides 8.6 MG TABLET PO (08:05)
[2022-12-12] MEDS: polyethylene glycoL 3350 17 GM POWD.PACK PO (08:06)
[2022-12-12] MEDS: Ibuprofen 600 MG TABLET PO ×2 (11:20→20:34)
[2022-12-12] MEDS: Benztropine Mesylate 1 MG TABLET PO ×2 (11:20→16:32)
[2022-12-12] MEDS: risperiDONE 1 MG TABLET PO ×2 (11:20→16:32)
--- NOTE | 2022-12-12 12:51 | HO.PSYCHPN ---
Subjective Subjective Date of Service: 12/12/22 Reason For Visit: paranoia Subjective Notes: Conditional Voluntary Healthcare Proxy: No Guardianship: No Medical Problems Affecting Mental Status: No Interim History: Full med review for discharge. Discussion of antipsychotic use, currently 4, risks and benefits. Pt reports feeling well. Discussed PRIETO trial and that Risperdal would probably not be needed for much longer. Discussed Latuda use and efficacy-she would like to keep this. Seroquel she wants for sleep. Labs in the a.m. Discussed refusal to sign JASON for OP team. Discussed mistrust, anger. Discussed if this is part of termination with team. Pt concerned OP team will no longer prescribe her regime. She drafted a letter to them and will present when she goes for appt. She declines us to have contact until she meets with provider and makes an assessment of their feelings about her use prior to admit. Call to [facility] to make initial appt. Message left. Medication Compliance: Yes Side effects from medications: No Attending Groups: Yes Review of Systems Acute medical concerns: No Medical Review of Systems: unchanged Mental Status Exam Mental Status Exam Patient Appearance: Appropriate Patient Orientation: Person, Place, Time and Situation Level of Consciousness: Alert Patient Behavior: Appropriate, Talkative, Cooperative and Good Eye Contact Mood Description: Apprehensive Affect Description: Apprehensive Patient Cognition Impaired: No Ability to Follow Directions: Good Speech Pattern: Spontaneous Speech Memory Description: Intact Hallucinations: None Delusions: Not Present Perceptual Disturbances: Depersonalization and Derealization Thought Process: Rumination Thought Content: positive for Circumstantial and positive for Perseveration Depressive Symptoms: Increased Anxiety, Feelings of Worthlessness, Feelings of Guilt, Unhappiness, Low Self Esteem and Difficulty Concentrating Judgement: Good Diagnostics Vital Signs (24Hr): Vital Signs - 24 hr 12/11/22 19:46 12/12/22 06:00 Temperature 97.6 F 97.8 F Pulse Rate 106 H 79 Respiratory Rate 18 Blood Pressure 137/79 129/59 L Pulse Oximetry 100 Oxygen Delivery Method Room Air BMI result Body Mass Index 28.6 Labs 11/23/22 11:08 11/27/22 15:15 Medications Medications Current Medications Acetaminophen (Acetaminophen 325 Mg Tablet) 650 mg PO Q6H PRN PRN Reason: Headache/Pain Mild Scale (1-3) Last Admin: 12/11/22 18:05 Dose: 650 mg Al Hydroxide/Mg Hydroxide (Magnesium Hydrox/Alum Hydrox 30 Ml Oral.Susp) 30 ml PO Q6H PRN PRN Reason: Heartburn/Nausea Benztropine Mesylate (Benztropine Mesylate 1 Mg Tablet) 1 mg PO BID PRN PRN Reason: Extrapyramidal Effects Last Admin: 12/12/22 11:20 Dose: 1 mg Bisacodyl (Bisacodyl 5 Mg Tablet.Dr) 10 mg PO DAILY PRN PRN Reason: Constipation Last Admin: 12/11/22 19:53 Dose: 10 mg Bupropion HCl (Bupropion Hcl Xl 300 Mg Tab.Er.24h) 300 mg PO DAILY [facility] Last Admin: 12/12/22 08:03 Dose: 300 mg Buspirone HCl (Buspirone Hcl 10 Mg Tablet) 30 mg PO BID@0730,1500 [facility] Last Admin: 12/12/22 08:03 Dose: 30 mg Clonazepam (Clonazepam 1 Mg Tablet) 1 mg PO TID [facility] Last Admin: 12/12/22 08:05 Dose: 1 mg Clonidine HCl (Clonidine Hcl 0.1 Mg Tablet) 0.1 mg PO BID@0800,1500 [facility]; Protocol Last Admin: 12/12/22 08:03 Dose: 0.1 mg Ferrous Sulfate (Ferrous Sulfate 324 Mg Tablet.) 324 mg PO DAILY [facility] Last Admin: 12/12/22 08:05 Dose: 324 mg Gabapentin (Gabapentin 300 Mg Capsule) 600 mg PO QID [facility] Last Admin: 12/12/22 12:43 Dose: 600 mg Hydroxyzine HCl (Hydroxyzine Hcl 25 Mg Tablet) 25 mg PO Q6H PRN PRN Reason: Anxiety Last Admin: 12/11/22 14:04 Dose: 25 mg Ibuprofen (Ibuprofen 600 Mg Tablet) 600 mg PO Q6H PRN PRN Reason: pain not responsive to tylenol Last Admin: 12/12/22 11:20 Dose: 600 mg Lamotrigine (Lamotrigine 100 Mg Tablet) 200 mg PO BID [facility] Last Admin: 12/12/22 08:04 Dose: 200 mg Lurasidone HCl (Lurasidone Hcl 80 Mg Tablet) 80 mg PO BEDTIME [facility] Last Admin: 12/11/22 19:49 Dose: 80 mg Magnesium Hydroxide (Milk Of Magnesia 30 Ml Oral.Susp) 30 ml PO DAILY PRN PRN Reason: Constipation Last Admin: 11/27/22 08:11 Dose: 30 ml Multivitamins/Vitamin C (Multivitamin Tablet) 1 tab PO DAILY [facility] Last Admin: 12/12/22 08:03 Dose: 1 tab Nicotine (Nicotine 21 Mg Patch.Td24) 21 mg TRANSDERMA DAILY [facility] Last Admin: 12/12/22 08:02 Dose: 21 mg Nicotine Polacrilex (Nicotine Polacrilex 2 Mg Gum) 4 mg BUCCAL Q2H PRN PRN Reason: Nicotine Cravings Last Admin: 12/08/22 09:50 Dose: 4 mg Nicotine Polacrilex (Nicotine Polacrilex Lozenge 4 Mg Lozenge) 4 mg BUCCAL Q2H PRN PRN Reason: Nicotine Cravings Last Admin: 12/11/22 19:49 Dose: 4 mg Paliperidone Palmitate (Paliperidone Palmitate 156 Mg/Ml Syringe) 156 mg IM ONCE ONE Stop: 12/13/22 09:01 Polyethylene Glycol (Polyethylene Glycol 3350 17 Gm Powd.Pack) 17 gm PO DAILY [facility] Last Admin: 12/12/22 08:06 Dose: 17 gm Prazosin HCl (Prazosin Hcl 1 Mg Capsule) 2 mg PO BEDTIME [facility]; Protocol Last Admin: 12/11/22 19:49 Dose: 2 mg Quetiapine Fumarate (Quetiapine Fumarate 300 Mg Tablet) 600 mg PO BEDTIME [facility] Last Admin: 12/11/22 19:49 Dose: 600 mg Risperidone (Risperidone 1 Mg Tablet) 1 mg PO BID PRN PRN Reason: agitation Last Admin: 12/12/22 11:20 Dose: 1 mg Senna (Sennosides 8.6 Mg Tablet) 8.6 mg PO DAILY [facility] Last Admin: 12/12/22 08:05 Dose: 8.6 mg Thiamine HCl (Thiamine Hcl 100 Mg Tablet) 100 mg PO DAILY [facility] Last Admin: 12/12/22 08:03 Dose: 100 mg Vitamin D (Cholecalciferol (Vitamin D3) 10 Mcg Tablet) 10 mcg PO DAILY [facility] Last Admin: 12/12/22 08:04 Dose: 10 mcg Allergies Allergies Allergy/AdvReac Type Severity Reaction Status Date / Time Penicillins [PCN] Allergy Unknown UNKNOWN Verified 01/01/21 19:37 tramadol [TRAMADOL] Allergy Unknown HIVES Verified 01/01/21 19:37 Assessment & Plan Assessment & Plan (1) Bipolar disorder: Status: Acute Code(s): F31.9 - Bipolar disorder, unspecified (2) PTSD (post-traumatic stress disorder): Status: Acute Code(s): F43.10 - Post-traumatic stress disorder, unspecified (3) Cocaine use disorder, moderate, dependence: Status: Acute Code(s): F14.20 - Cocaine dependence, uncomplicated Plan Patient is a 41 year old female with hx of Bipolar d/o, PTSD and cocaine use who was recently discharged from on 11/11/22, who self presented to [facility] ER with increased paranoid, auditory hallucinations and paranoia, secondary to medication non-adherence. Plan: CV 15 minute safety checks restart home medications Referral for disaster recovery coordinator? Referral for respite 11/26: Patient reports feeling sad and anxious today. Patient stated, I'm too anxious to be around people but I will try to go to one group today . Patient reports she is not having paranoia anymore ; pt reports nightmares; risks/benefits discussed regarding Prozosin, pt agreed to trial. Start prazosin 1mg PO bedtime; monitor BPs. 11/27: T/W and bilingual social worker met with patient together. Patient does not recall meeting with this insurance underwriter sales prior. Patient labile during during meeting; believes she is not allowed back in her current apartment d/t her neighbor not getting along with her. Pt stated, I can hear her whispering and talking about me . painting and coating worker confirmed that patient is allowed back in her apartment. She continues to report of nightmares; will increase prazosin to 2mg PO bedtime. c/o of abdominal pain; pt has a hx of constipation, ordered miralax, senna and labs. Latuda increased to 60mg PO bedtime. 11/28: T/W and bilingual social worker met with patient together. Patient labile during during meeting; yelling at T/W and bilingual social worker. Patient was upset at bilingual social worker because she was accusing her of breaking HIPAA by talking to the treatment team. Patient was educated regarding the importance of the treatment team communicating; pt was unable to accept response and continued to state that T/W and bilingual social worker were wrong. Patient began to yell at T/W when discussing medications and became demanding, stated she did not want any of her medications touched. T/W explained the benefits of increasing some of her medications to assist in stabilizing her mood and paranoia. Patient was able to calm down and apologized, stating I know you're not the devil. I'm trying to trust you . Lamictal increased 200mg PO BID Latuda increased 80mg PO daily CORY Huynh DC Seroquel 200mg PO daily Will discuss possibly adding another antipsychotic with patient tomorrow. 11/29: Patient labile during during meeting; continues to perseverate on bilingual social worker breaking HIPAA by talking to treatment team. T/W explained the benefits of possibly being on a long acting injectable medication; patient was open to the idea and agreed to a trial of risperidone; risks/benefits discussed. Will start risperidone 1mg PO BID. 11/30 continue tx. 12/01 continue tx. 12/02 added one extra dose of Risperdal and Klonopin today to sx mgt. 12/04/22 continue regime and plan of care. Sustenna scheduled for 12/06. 12/06/22 Continue current regime and plan of care. 12/07/22 Ferrous Sulfate 325 mg daily Prolactin, FSH, Estradiol levels. 12/08/22 continue rx 12/10/22 continue plan/regime 12/12/22 Sustenna injection 12/13. Discharge 12/13 Declines us contact with OP team at this time. She will present herself and a letter explaining her situation, then decided if we may have communication CBCD, CMP, A1C, Lipids Patient educated on: medication risk/benefits Informed Consent: understands Reason for continued inpatient stay Substantial Risk for: rapid decompensation Time Spent With Patient Time: Total time managing care of this patient today ____ minutes.
[2022-12-12 19:35] VITALS: BP 151/84; RESP 16
[2022-12-12] MEDS: Nicotine Polacrilex Lozenge 4 MG LOZENGE BUCCAL (19:35)
[2022-12-12] MEDS: QUEtiapine Fumarate 300 MG TABLET 600 MG PO (19:35)
[2022-12-12] MEDS: Lurasidone HCl 80 MG TABLET PO (19:36)
[2022-12-12] MEDS: Prazosin HCL 1 MG CAPSULE 2 MG PO (19:36)
[2022-12-12 22:43] LABS: Estradiol Ultra Sensitive 41 pg/mL
[2022-12-13 07:45] VITALS: BP 140/90; PULSE 87; RESP 18; TEMP 36.5; O2SAT 99
[2022-12-13] MEDS: Nicotine 21 MG PATCH.TD24 TRANSDERMA (08:21)
[2022-12-13] MEDS: polyethylene glycoL 3350 17 GM POWD.PACK PO (08:24)
[2022-12-13] MEDS: cloNIDine HCL 0.1 MG TABLET PO (08:25)
[2022-12-13] MEDS: Gabapentin 300 MG CAPSULE 600 MG PO (08:25)
[2022-12-13] MEDS: busPIRone HCl 10 MG TABLET 30 MG PO (08:25)
[2022-12-13] MEDS: lamoTRIgine 100 MG TABLET 200 MG PO (08:26)
[2022-12-13] MEDS: Thiamine HCL 100 MG TABLET PO (08:27)
[2022-12-13] MEDS: clonazePAM 1 MG TABLET PO (08:27)
[2022-12-13] MEDS: Ferrous Sulfate 324 MG TABLET.DR PO (08:27)
[2022-12-13] MEDS: Multivitamin TABLET 1 TAB PO (08:27)
[2022-12-13] MEDS: Cholecalciferol (Vitamin D3) 10 MCG TABLET PO (08:27)
[2022-12-13] MEDS: Sennosides 8.6 MG TABLET PO (08:28)
[2022-12-13] MEDS: buPROPion HCl XL 300 MG TAB.ER.24H PO (08:28)
[2022-12-13] MEDS: Benztropine Mesylate 1 MG TABLET PO (08:32)
[2022-12-13] MEDS: risperiDONE 1 MG TABLET PO (08:32)
[2022-12-13 08:52] LABS: MANUAL DIFF FLAG NO
[2022-12-13 08:56] LABS: Basophils Absolute Auto 0.1 X10*3/uL (0.0-0.2); Basophils Percent Auto 0.9 % (0-2); Eosinophils Absolute Auto 0.3 X10*3/uL (0.0-0.4); Eosinophils Percent Auto 3.4 % (0-4); Hematocrit 28.7 % (37.0-47.0); Hemoglobin 8.3 g/dl (12.0-16.0); Imm Gran Abs Auto 0.09 X10*3/uL (0.00-0.03); Imm Gran Pct Auto 1.2 % (0.0-0.4); Lymphocytes Absolute Auto 1.8 X10*3/uL (1.2-4.9); Lymphocytes Percent Auto 24.1 % (20-40); Mean Corpuscular HGB Conc 28.9 g/dl (31.0-35.0); Mean Corpuscular Hemoglobin 20.2 pg (27.0-33.0); Mean Corpuscular Volume 69.8 fL (80.0-98.0); Mean Platelet Volume 9.7 fL (9.4-12.3); Monocytes Absolute Auto 0.7 X10*3/uL (0.1-1.2); Monocytes Percent Auto 9.2 % (2-11); Neutrophils Absolute Auto 4.5 x10*3/uL (2.0-8.3); Neutrophils Percent Auto 61.2 % (45-73); Platelet Count 299 X10*3/uL (160-400); Red Blood Count 4.11 X10*6/uL (4.20-5.50); Red Cell Distribution Width 19.9 % (11.0-16.0); White Blood Count 7.4 X10*3/uL (4.8-10.8)
[2022-12-13] MEDS: Ibuprofen 600 MG TABLET PO (08:58)
[2022-12-13 09:02] LABS: Estimated Average Glucose 105 mg/dL; Hemoglobin A1c % 5.3 % (<6.0)
--- NOTE | 2022-12-13 09:24 | P.DS_ITS ---
DS: Providers Provider Date of Service: 12/13/22 Date of admission: 11/24/22 14:35 Date of discharge: 12/13/22 Primary care physician: Unknown Physician Admitting clinician: Gill Hernandez Attending physician on admission: Mian Garber Attending physician on discharge: Mian Garber Discharging clinician: Gill Hernandez DS: Diagnosis Discharge Diagnosis (1) Bipolar disorder: Status: Acute (2) PTSD (post-traumatic stress disorder): Status: Acute (3) Cocaine use disorder, moderate, dependence: Status: Acute DS: Medications Discharge Medications Home Medications: Previous Rx's Medication Instructions Recorded benztropine 1 mg tablet 1 mg PO BID PRN Extrapyramidal 12/12/22 Effects #30 tabs bisacodyl 5 mg tablet,delayed 10 mg (2 x 5 mg) PO DAILY PRN 12/12/22 release Constipation #14 tabs bupropion HCl 300 mg 24 hr tablet, 300 mg PO DAILY #30 tabs 12/12/22 extended release buspirone 30 mg tablet 30 mg PO BID@0730,1500 #30 tabs 12/12/22 cholecalciferol (vitamin D3) 10 10 mcg PO DAILY #30 tabs 12/12/22 mcg (400 unit) tablet (Vitamin D3) clonazepam 1 mg tablet 1 mg PO TID #21 tabs 12/12/22 clonazepam 1 mg tablet 1 mg PO TID 7 days #21 tabs 12/12/22 clonidine HCl 0.1 mg tablet 0.1 mg PO BID@0800,1500 #30 tabs 12/12/22 ferrous sulfate 324 mg (65 mg 324 mg PO DAILY #30 tabs 12/12/22 iron) tablet,delayed release gabapentin 600 mg tablet 600 mg PO TID #21 tabs 12/12/22 lamotrigine 200 mg tablet 200 mg PO BID #30 tabs 12/12/22 (Lamictal) lurasidone 80 mg tablet (Latuda) 80 mg PO BEDTIME #30 tabs 12/12/22 multivitamin (Daily-Fina tablet) 1 tab PO DAILY #30 tabs 12/12/22 nicotine (polacrilex) 2 mg gum 4 mg buccal Q2H PRN Nicotine 12/12/22 Cravings 30 days #100 ea nicotine 21 mg/24 hr daily 21 mg transdermal DAILY 28 days 12/12/22 transdermal patch #28 ea prazosin 2 mg capsule 2 mg PO BEDTIME #14 caps 12/12/22 quetiapine 300 mg tablet (Seroquel) 600 mg (2 x 300 mg) PO BEDTIME #14 12/12/22 tabs risperidone 1 mg tablet 1 mg PO BID PRN agitation #14 tabs 12/12/22 sennosides 8.6 mg tablet (Senna 8.6 mg PO DAILY #30 tabs 12/12/22 Lax) thiamine mononitrate (vit B1) 100 100 mg PO DAILY #30 tabs 12/12/22 mg tablet Mental Status Exam Mental Status Exam Narrative: Pt is alert and oriented; behavior is cooperative, friendly and calm; dressed in casual attire; mood is described as good ; eye contact appropriate; Speech is normal rate, volume and prosody and not pressured; no psychomotor agitation/retardation present; thought process is organized and goal directed; Thought content is on tx; otherwise pertinent to relevant topics and without any delusional content, paranoid ideations or grandiosity; denies SI/HI. There is no evidence of perceptual disturbance. Patients insight and judgment are fair. Data Data Completed and Pending Completed studies during hospitalization [Text1]: 12/07/22 12/13/22 17:39 07:59 WBC 7.4 RBC 4.11 L Hgb 8.3 L Hct 28.7 L MCV 69.8 L MCH 20.2 L MCHC 28.9 L RDW 19.9 H Plt Count 299 MPV 9.7 Immature Gran % (Auto) 1.2 H Neut % (Auto) 61.2 Lymph % (Auto) 24.1 [place] % (Auto) 9.2 Eos % (Auto) 3.4 Baso % (Auto) 0.9 Lymph # (Auto) 1.8 [place] # (Auto) 0.7 Eos # (Auto) 0.3 Baso # (Auto) 0.1 Abs Immat Gran (auto) 0.09 H Absolute Neuts (auto) 4.5 Absolute Nucleated RBC 0.000 Nucleated RBC % (auto) 0.0 Sodium Pending Potassium Pending Chloride Pending Carbon Dioxide Pending Anion Gap Pending BUN Pending Creatinine Pending Estim Creat Clear Calc Pending Estimated GFR Pending Random Glucose Pending Estimat Average Glucose 105 Hemoglobin A1c % 5.3 Calcium Pending Total Bilirubin Pending AST Pending ALT Pending Alkaline Phosphatase Pending Total Protein Pending Albumin Pending Triglycerides Pending Cholesterol Pending LDL Cholesterol, Calc Pending HDL Cholesterol Pending Estradiol Ultra LCMSMS 41 11/23/22 Unknown Urine clean catch - Urine jansen top Urine Culture - Final DS: Summary Hospital Course Hospital Course: Patient is a 41 year old female with hx of Bipolar d/o, PTSD and cocaine use who was recently discharged from on 11/11/22, who self presented to [facility] with increased paranoid, auditory hallucinations and paranoia, secondary to medication non-adherence. During admission assessment, patient presented guarded and irritable. Patient stated, I came here because I was worried that my kids wouldn't have a mom because of my mental illness and drug use. I didn't take my meds for 4 days . T/W was taking notes during conversation and patient began demanding to know what T/W was writing; pt stated, what are you writing down?! It's my right to know! I can nic you guys and get you fired if you don't tell me . Patient was unable to express what her concern was and was informed that T/W was writing down the important topics regarding our discussion. Patient was able to calm down and apologized for getting angry. pt denies SI/HI/VH; she reports auditory hallucinations of mumbles . She is requesting to be referred to respite after her stay here; criminal justice social worker notified. During hospital course, restarted home medications. Patient reports feeling sad and anxious today. Patient stated, I'm too anxious to be around people but I will try to go to one group today . Patient reports she is not having paranoia anymore ; pt reports nightmares; risks/benefits discussed regarding Prozosin, pt agreed to trial. Start prazosin 1mg PO bedtime; monitor BPs. T/W and criminal justice social worker met with patient together. Patient does not recall meeting with this headline writer prior. Patient labile during during meeting; believes she is not allowed back in her current apartment d/t her neighbor not getting along with her. Pt stated, I can hear her whispering and talking about me . shake out worker confirmed that patient is allowed back in her apartment. She continues to report of nightmares; will increase prazosin to 2mg PO bedtime. c/o of abdominal pain; pt has a hx of constipation, ordered miralax, senna and labs. Latuda increased to 60mg PO bedtime. T/W and criminal justice social worker met with patient together. Patient labile during during meeting; yelling at T/W and criminal justice social worker. Patient was upset at criminal justice social worker because she was accusing her of breaking HIPAA by talking to the treatment team. Patient was educated regarding the importance of the treatment team communicating; pt was unable to accept response and continued to state that T/W and criminal justice social worker were wrong. Patient began to yell at T/W when discussing medications and became demanding, stated she did not want any of her medications touched. T/W explained the benefits of increasing some of her medications to assist in stabilizing her mood and paranoia. Patient was able to calm down and apologized, stating I know you're not the devil. I'm trying to trust you . Lamictal increased 200mg PO BID Latuda increased 80mg PO daily CORY Cogmignon RAY Seroquel 200mg PO daily Will discuss possibly adding another antipsychotic with patient tomorrow. Patient labile during during meeting; continues to perseverate on criminal justice social worker breaking HIPAA by talking to treatment team. T/W explained the benefits of possibly being on a long acting injectable medication; patient was open to the idea and agreed to a trial of risperidone; risks/benefits discussed. Will start risperidone 1mg PO BID. Added one extra dose of Risperdal and Klonopin today to sx mgt. Sustenna scheduled for 12/06. Ferrous Sulfate 325 mg daily Prolactin, FSH, Estradiol levels. Sustenna injection 12/13. Discharge 12/13 Declines us contact with OP team at this time. She will present herself and a letter explaining her situation, then decided if we may have communication Patient reports feeling good today. She reports she plans on following up with her outpatient providers. Denies SI/HI/VH/AH at this time. Time spent discussing smoking cessation with patient: 3 to 10 minutes Status at Discharge Cognitive/behavioral status at discharge: Patient was interviewed prior to discharge and found to be fully oriented and without any SI or HI. Patient has insight and demonstrates good judgment in terms of wanting to pursue treatment. Patient is not in imminent risk of harm to self or others and has a safety plan that includes presenting to the closest ER or calling 911 if feeling unsafe. Patient has been observed closely by nursing and unit staff throughout admission; patient has not engaged in any behaviors that suggest dangerousness to self or others and has demonstrated appropriate behaviors and impulse control. Functional status at discharge: independent ambulation Overall status at discharge: patient is back to baseline Time Spent with Patient Time attestation: Total time managing care of this patient today _30___ minutes. Time spent: Less than 30 minutes Discharge Plan Discharge Anticipated Discharge Date/Time: 12/13/22 12:00 Patient Disposition: Home, Self-Care Discharge Diagnosis: PTSD Bipolar Disorder with Psychotic Features Cocaine Use Disorder Referrals: [facility] [Other] - 1 Week Discharge Medications: New clonidine HCl 0.1 mg Tablet 0.1 mg PO BID@0800,1500 Qty: 30 1RF Protocol: Hold for SBP< HOLD for SBP < : 90 ferrous sulfate 324 mg (65 mg iron) Tablet,Delayed Release (Dr/Ec) 324 mg PO DAILY Qty: 30 0RF lurasidone [Latuda] 80 mg Tablet 80 mg PO BEDTIME Qty: 30 0RF multivitamin [Daily-Fina] Tablet 1 tab PO DAILY Qty: 30 0RF sennosides [Senna Lax] 8.6 mg Tablet 8.6 mg PO DAILY Qty: 30 0RF clonazepam 1 mg Tablet 1 mg PO TID Qty: 21 1RF benztropine 1 mg Tablet 1 mg PO BID PRN (Reason: Extrapyramidal Effects) Qty: 30 1RF bisacodyl 5 mg Tablet,Delayed Release (Dr/Ec) 10 mg PO DAILY PRN (Reason: Constipation) Qty: 14 0RF risperidone 1 mg Tablet 1 mg PO BID PRN (Reason: agitation) Qty: 14 0RF cholecalciferol (vitamin D3) [Vitamin D3] 10 mcg (400 unit) Tablet 10 mcg PO DAILY Qty: 30 0RF thiamine mononitrate (vit B1) 100 mg Tablet 100 mg PO DAILY Qty: 30 0RF lamotrigine [Lamictal] 200 mg tablet 200 mg PO BID Qty: 30 1RF prazosin 2 mg capsule 2 mg PO BEDTIME Qty: 14 1RF quetiapine [Seroquel] 300 mg tablet 600 mg PO BEDTIME Qty: 14 1RF gabapentin 600 mg tablet 600 mg PO TID Qty: 21 1RF Continued nicotine (polacrilex) 2 mg Gum 4 mg buccal Q2H PRN (Reason: Nicotine Cravings) 30 Days Qty: 100 1RF Rx Instructions: MAX 24 PIECES/DAY clonazepam 1 mg tablet 1 mg PO TID 7 Days Qty: 21 0RF buspirone 30 mg tablet 30 mg PO BID@0730,1500 Qty: 30 1RF nicotine 21 mg/24 hr Patch 24 Hour 21 mg transdermal DAILY 28 Days Qty: 28 1RF Changed bupropion HCl 300 mg tablet extended release 24 hr 300 mg PO DAILY Qty: 30 0RF Discontinued hydroxyzine HCl 25 mg Tablet 25 mg PO Q6H PRN (Reason: Anxiety) 30 Days Qty: 60 0RF lamotrigine [Lamictal] 150 mg tablet 150 mg PO BID 30 Days Qty: 60 0RF quetiapine [Seroquel] 200 mg tablet 200 mg PO DAILY 30 Days Qty: 30 0RF quetiapine [Seroquel] 300 mg tablet 600 mg PO BEDTIME 30 Days Qty: 60 0RF clonidine HCl 0.1 mg tablet 0.1 mg PO TID lurasidone 40 mg tablet 40 mg PO BEDTIME benztropine 0.5 mg tablet 0.5 mg PO BID gabapentin 300 mg capsule 600 mg PO QID Discharge Orders: Discharge Order (Routine); Ordered 12/12/22 Ordered By: Ramya Gutiérrez Diet: Advance to usual diet Activity on Discharge: As tolerated Stand Alone Forms: Patient Portal Discharge page, Community Support Care Plan Goals: Mood and Behavioral Stabilization Sobriety Health Concerns: Mood and Behavioral Stabilization Sobriety Plan of Treatment: Attend follow up appointments Take medications as directed Call [facility] for a new Primary Care Physician assignment and appointment at [phone] Assessment: Pt interviewed prior to discharge and found to be fully oriented and without SI/HI. Pt has insight and demonstrates adequate judgment in terms of wanting to pursue treatment. Pt is not in imminent risk of harm to self or others and has a safety plan that includes presenting to the closest ER or calling 911 if feeling unsafe. Pt has been observed closely by nurisng and unit staff throughout admission. Pt has not engaged in any behaviors that suggest dangerousness to self or others and has demonstrated appropriate behaviors and impulse control. Discharge Date/Time: 12/13/22 10:55
[2022-12-13 09:34] LABS: Anion Gap 14 (12-20)
[2022-12-13 09:38] LABS: Alanine Aminotransferase 18 U/L (0-31); Albumin Level 4.1 g/dL (3.5-5.0); Alkaline Phosphatase 59 U/L (39-117); Aspartate Amino Transferase 19 U/L (5-31); Bilirubin Total 0.2 mg/dL (0.0-1.0); Blood Urea Nitrogen 19 mg/dL (9-16); Calcium 9.6 mg/dL (8.4-10.2); Carbon Dioxide 23 mmol/L (22-29); Chloride 107 mmol/L (96-108); Cholesterol 241 mg/dL (<200); Creatinine Clr Calc Pharmacy 77.9; Estimated Glomerular Filt Rate > 60; Glucose Random 96 mg/dL (60-115); HDL Cholesterol 101 mg/dL (>40); LDL Cholesterol Calculated 130 mg/dL (<100); Potassium 4.2 mmol/L (3.3-5.1); Sodium 140 mmol/L (135-145); Total Protein 7.4 g/dL (6.5-8.0); Triglycerides 50 mg/dL (<150)
[2022-12-13] MEDS: Paliperidone Palmitate 156 MG/ML SYRINGE IM (10:16)
== END 2022-12-13 10:55 | disposition home or self-care (01) | DRG 753 ==
LOC: HO.ED 12:11 → HO.PM5 11-24 14:40
PROVIDERS: Registered Nurse; Admitting Provider Psychiatry & Neurology Psychiatry; Emergency Provider Emergency Medicine Emergency Medical Services; Visit Provider Clinical Nurse Specialist Psychiatric/Mental Health, Adult
DX: F31.9 Bipolar disorder, unspecified (principal); Z91.148 Patient's other noncompliance with medication regimen for other reason; F14.20 Cocaine dependence, uncomplicated; F17.210 Nicotine dependence, cigarettes, uncomplicated; F19.10 Other psychoactive substance abuse, uncomplicated; Z20.822 Contact with and (suspected) exposure to COVID-19; Z59.02 Unsheltered homelessness; Z71.6 Tobacco abuse counseling; Z79.899 Other long term (current) drug therapy
CPT/HCPCS: 0241U; 36415; 80053; 80061; 80143; 80179; 80307; 81001; 81025; 82140; 82248; 82670; 83036; 83540; 83690; 85025; 87086; 93005; 97161; 99285; J2426

== ENCOUNTER → 2022-11-24 14:35 | Outpatient (BNV) | payer OTHER, SELFPAY | PROVIDERS: Admitting Provider Psychiatry & Neurology Psychiatry; Emergency Provider Emergency Medicine Emergency Medical Services; Responsible Provider Registered Nurse; Visit Provider Registered Nurse | DX: F31.13 Bipolar disorder, current episode manic without psychotic features, severe (principal); F14.20 Cocaine dependence, uncomplicated; F43.11 Post-traumatic stress disorder, acute | CPT/HCPCS: 90792; 99231; 99232 ==

== ENCOUNTER → 2022-11-24 14:35 | Outpatient (BNV) | payer OTHER, SELFPAY | PROVIDERS: Admitting Provider Psychiatry & Neurology Psychiatry; Emergency Provider Emergency Medicine Emergency Medical Services; Responsible Provider Registered Nurse; Visit Provider Psychiatry & Neurology Psychiatry | DX: F31.81 Bipolar II disorder (principal); F43.11 Post-traumatic stress disorder, acute; F14.20 Cocaine dependence, uncomplicated | CPT/HCPCS: 99232; 99238 ==

== ENCOUNTER 2024-07-01 22:08 | Emergency (ER) | payer OTHER, SELFPAY ==
--- NOTE | ~2024-07-01 | CT_ITS ---
CLINICAL HISTORY: Left flank pain CT abdomen and pelvis without contrast Comparison: None Findings: Mild scattered atelectasis both lungs. Probable cyst left superior kidney image 39:3. Cholecystectomy. Abdominal solid organs otherwise unremarkable. No urolithiasis. No bowel obstruction, pneumoperitoneum, or pneumatosis. Large amount of stool. Uterus and ovaries unremarkable. Normal appendix. Grade 1 chronic isthmic L5-S1 spondylolisthesis. IMPRESSION: 1. Large amount of stool without bowel obstruction. 2. No urolithiasis or hydronephrosis. This document has been electronically signed by: Nidhi Salinas MD on 07/02/2024 02:37:56
[2024-07-01 22:19] VITALS: BP 109/82; BP 144/100; PULSE 100; PULSE 98; RESP 18; TEMP 36.4; O2SAT 100; O2SAT 98; BMI 26.6
[2024-07-01 22:43] LABS: MANUAL DIFF FLAG NO
[2024-07-01 22:44] LABS: Basophils Absolute Auto 0.1 X10*3/uL (0.0-0.2); Basophils Percent Auto 1.3 % (0-2); Eosinophils Absolute Auto 0.3 X10*3/uL (0.0-0.4); Eosinophils Percent Auto 4.4 % (0-4); Hematocrit 28.5 % (37.0-47.0); Hemoglobin 8.1 g/dl (12.0-16.0); Imm Gran Abs Auto 0.03 X10*3/uL (0.00-0.03); Imm Gran Pct Auto 0.5 % (0.0-0.4); Lymphocytes Absolute Auto 2.5 X10*3/uL (1.2-4.9); Lymphocytes Percent Auto 39.9 % (20-40); Mean Corpuscular HGB Conc 28.4 g/dl (31.0-35.0); Mean Corpuscular Hemoglobin 19.7 pg (27.0-33.0); Mean Corpuscular Volume 69.3 fL (80.0-98.0); Mean Platelet Volume 8.9 fL (9.4-12.3); Monocytes Absolute Auto 0.6 X10*3/uL (0.1-1.2); Monocytes Percent Auto 9.6 % (2-11); Neutrophils Absolute Auto 2.8 x10*3/uL (2.0-8.3); Neutrophils Percent Auto 44.3 % (45-73); Platelet Count 322 X10*3/uL (160-400); Red Blood Count 4.11 X10*6/uL (4.20-5.50); Red Cell Distribution Width 19.3 % (11.0-16.0); White Blood Count 6.4 X10*3/uL (4.8-10.8)
[2024-07-01 22:45] LABS: Appearance Urine Cloudy; Color Urine Yellow; Glucose Urine UA Negative (Negative); Leukocyte Esterase Urine Trace (Negative); Nitrite Urine Negative (Negative); PH 5.5 (5.0-9.0); Specific Gravity - Urine 1.025 (1.005-1.025); UMIC TRIGGER UACC YES; Urine Blood Negative (Negative); Urine Ketones Trace mg/dL (Negative); Urine Protein 30 (1+) mg/dL (Neg-Trace)
[2024-07-01 22:49] LABS: Bacteria Urine 4+ (None Seen); RBC Urine 0-2 /HPF (0-2); WBC Urine 0-5 /HPF (0-5)
[2024-07-01 22:57] LABS: Alanine Aminotransferase 13 U/L (0-31); Albumin Level 4.1 g/dL (3.5-5.0); Alkaline Phosphatase 78 U/L (39-117); Anion Gap 14 (12-20); Aspartate Amino Transferase 21 U/L (5-31); Bilirubin Total 0.1 mg/dL (0.0-1.0); Blood Urea Nitrogen 9 mg/dL (9-16); Carbon Dioxide 21 mmol/L (22-29); Chloride 108 mmol/L (96-108); Creatinine Clr Calc Pharmacy 63.4; Estimated Glomerular Filt Rate 52; Glucose Random 92 mg/dL (60-115); Lipase 33 U/L (8-78); Potassium 3.8 mmol/L (3.3-5.1); Sodium 139 mmol/L (135-145); Total Protein 7.3 g/dL (6.5-8.0)
[2024-07-01 23:05] LABS: Troponin-I High Sensitivity < 2.7 ng/L (<3.5-17.0)
[2024-07-02 00:29] VITALS: BP 123/84; PULSE 71; RESP 16; TEMP 36.3; O2SAT 96
--- NOTE | 2024-07-02 00:45 | PC.NURSE ---
PT arousable to name, resting quietly in no acute distress. respirations even and unlabored. During assessment pt slurring and speech delayed incoherent. Unable to continue assessment as pt fell back asleep.
--- NOTE | 2024-07-02 01:20 | ED.GENADULT ---
HPI - General Adult General Chief complaint: General Medical Stated complaint: bilateral pain in stomach hx renal failure Time Seen by Provider: 07/02/24 01:20 Source: patient Mode of arrival: EMS Limitations: no limitations History of Present Illness ED Provider: HPI narrative: Patient is complaining of diffuse abdominal pain left flank pain for last several days also complaining of dysuria feeling very sleepy history of renal failure in the past denies any alcohol use or any substance abuse patient does have history of constipation in the past complaining of nausea no vomiting Related Data Previous Rx's ?Medication ?Instructions ?Recorded benztropine 1 mg tablet 1 mg PO BID PRN Extrapyramidal 12/12/22 Effects #30 tabs bisacodyl 5 mg tablet,delayed 10 mg (2 x 5 mg) PO DAILY PRN 12/12/22 release Constipation #14 tabs bupropion HCl 300 mg 24 hr tablet, 300 mg PO DAILY #30 tabs 12/12/22 extended release buspirone 30 mg tablet 30 mg PO BID@0730,1500 #30 tabs 12/12/22 cholecalciferol (vitamin D3) 10 10 mcg PO DAILY #30 tabs 12/12/22 mcg (400 unit) tablet (Vitamin D3) clonazepam 1 mg tablet 1 mg PO TID #21 tabs 12/12/22 clonazepam 1 mg tablet 1 mg PO TID 7 days #21 tabs 12/12/22 clonidine HCl 0.1 mg tablet 0.1 mg PO BID@0800,1500 #30 tabs 12/12/22 ferrous sulfate 324 mg (65 mg 324 mg PO DAILY #30 tabs 12/12/22 iron) tablet,delayed release gabapentin 600 mg tablet 600 mg PO TID #21 tabs 12/12/22 lamotrigine 200 mg tablet 200 mg PO BID #30 tabs 12/12/22 (Lamictal) lurasidone 80 mg tablet (Latuda) 80 mg PO BEDTIME #30 tabs 12/12/22 multivitamin (Daily-Fina tablet) 1 tab PO DAILY #30 tabs 12/12/22 nicotine (polacrilex) 2 mg gum 4 mg buccal Q2H PRN Nicotine 12/12/22 Cravings 30 days #100 ea nicotine 21 mg/24 hr daily 21 mg transdermal DAILY 28 days 12/12/22 transdermal patch #28 ea prazosin 2 mg capsule 2 mg PO BEDTIME #14 caps 12/12/22 quetiapine 300 mg tablet (Seroquel) 600 mg (2 x 300 mg) PO BEDTIME #14 12/12/22 tabs risperidone 1 mg tablet 1 mg PO BID PRN agitation #14 tabs 12/12/22 sennosides 8.6 mg tablet (Senna 8.6 mg PO DAILY #30 tabs 12/12/22 Lax) thiamine mononitrate (vit B1) 100 100 mg PO DAILY #30 tabs 12/12/22 mg tablet polyethylene glycol 3350 17 17 g PO DAILY #510 grams 07/02/24 gram/dose oral powder (Miralax) sennosides 8.6 mg capsule (senna) 8.6 mg PO BEDTIME PRN constipation 07/02/24 #30 caps Allergies Allergy/AdvReac Type Severity Reaction Status Date / Time Penicillins [PCN] Allergy Unknown UNKNOWN Verified 07/01/24 22:23 tramadol [TRAMADOL] Allergy Unknown HIVES Verified 07/01/24 22:23 Review of Systems Review of Systems: Yes all other systems are reviewed and are negative PMFSH Past Medical History Medical History Bipolar disorder Social History Social History Household Members: None Household Members Other:: I don't have a home now . Housing: Condominium Housing Other:: Reports homeless Do you presently have visiting nurse or other home services: No Alcohol intake: never Patient Tobacco Use Status: Current everyday Tobacco user Tobacco use type: Cigarette Cigarette Packs Per Day: 1 Cigarettes Per Day: 20.0 Years Smoked: 11 e-Cigarette/Vaping Use: Currently Using Second Hand Smoke Exposure: No Substance Use Type: Crack/Cocaine, Marijuana and Caffiene Advance Directives: No Advance Directives Information Provided: Yes Do you have a plan to hurt others: No Plan service: No Sexual orientation: Bisexual Physical Exam ED Vital Signs: Vital Signs - 24 hr 07/01/24 22:19 07/02/24 00:29 Temperature 97.5 F 97.4 F Pulse Rate 98 71 Respiratory Rate 18 16 Blood Pressure 109/82 123/84 Pulse Oximetry 100 96 Oxygen Delivery Method Room Air Room Air BMI result Body Mass Index 26.6 Appearance: Alert. Oriented X3. No acute distress. Eyes: PERRLA, No Nystagmus ENT: Pharynx normal. Oral Mucosa moist Neck: Normal inspection. Neck supple. CVS: Normal heart rate and rhythm. Pulses normal. Respiratory: No respiratory distress. Equal air entry bilateral, no wheezing/rales/rhonchi Abdomen: Soft and mild diffuse tenderness left flank tenderness. Bowel sounds are present, no mass palpable, Skin: Skin warm and dry. Normal skin color. Normal skin turgor. Extremities: No lower extremity edema. No calf tenderness Neuro: Oriented X 3. No motor deficit. No sensory deficit.No cerebellar signs , cranial nerves II-XII intact Medical Decision Making Medical Decision Making [facility] Narrative: Patient has diffuse abdominal pain workup showed constipation CT scan negative for acute labs are stable discharge patient home on stool softener patient does have chronic iron-deficiency anemia will prescribe iron tablets Differential Diagnosis Differential Diagnoses: The differential diagnosis associated with the presentation includes Lab Data [facility] Lab Attestation statement: I reviewed the patient's lab results. 07/01/24 22:39 07/01/24 22:38 Labs: Lab Results 07/01/24 07/01/24 Range/Units 22:38 22:39 WBC 6.4 (4.8-10.8) X10*3/uL RBC 4.11 L (4.20-5.50) X10*6/uL Hgb 8.1 L (12.0-16.0) g/dl Hct 28.5 L (37.0-47.0) % MCV 69.3 L (80.0-98.0) fL MCH 19.7 L (27.0-33.0) pg MCHC 28.4 L (31.0-35.0) g/dl RDW 19.3 H (11.0-16.0) % Plt Count 322 (160-400) X10*3/uL MPV 8.9 L (9.4-12.3) fL Immature Gran % (Auto) 0.5 H (0.0-0.4) % Neut % (Auto) 44.3 L (45-73) % Lymph % (Auto) 39.9 (20-40) % Davidson % (Auto) 9.6 (2-11) % Eos % (Auto) 4.4 H (0-4) % Baso % (Auto) 1.3 (0-2) % Lymph # (Auto) 2.5 (1.2-4.9) X10*3/uL Davidson # (Auto) 0.6 (0.1-1.2) X10*3/uL Eos # (Auto) 0.3 (0.0-0.4) X10*3/uL Baso # (Auto) 0.1 (0.0-0.2) X10*3/uL Abs Immat Gran (auto) 0.03 (0.00-0.03) X10*3/uL Absolute Neuts (auto) 2.8 (2.0-8.3) x10*3/uL Absolute Nucleated RBC 0.000 (0.0-0.012) X10*3/uL Nucleated RBC % (auto) 0.0 (0.0-0.2) /100WBC Sodium 139 (135-145) mmol/L Potassium 3.8 (3.3-5.1) mmol/L Chloride 108 (96-108) mmol/L Carbon Dioxide 21 L (22-29) mmol/L Anion Gap 14 (12-20) BUN 9 (9-16) mg/dL Creatinine 1.13 (0.5-1.4) mg/dL Estim Creat Clear Calc 63.4 Estimated GFR 52 Random Glucose 92 (60-115) mg/dL Calcium 9.0 D (8.4-10.2) mg/dL Total Bilirubin 0.1 (0.0-1.0) mg/dL AST 21 (5-31) U/L ALT 13 (0-31) U/L Alkaline Phosphatase 78 (39-117) U/L Troponin I High Sens < 2.7 (<3.5-17.0) ng/L Total Protein 7.3 (6.5-8.0) g/dL Albumin 4.1 (3.5-5.0) g/dL Lipase 33 (8-78) U/L Urine Color Yellow Urine Appearance Cloudy Urine pH 5.5 (5.0-9.0) Ur Specific [place] 1.025 (1.005-1.025) Urine Protein 30 (1+) H (Neg-Trace) mg/dL Urine Glucose (UA) Negative (Negative) mg/dL Urine Ketones Trace (Negative) mg/dL Urine Blood Negative (Negative) Urine Nitrite Negative (Negative) Ur Leukocyte Esterase Trace H (Negative) Urine RBC 0-2 (0-2) /HPF Urine WBC 0-5 (0-5) /HPF Ur Squamous Epith Cells 3-5 (0-2) /HPF Urine Bacteria 4+ (None Seen) Hyaline Casts 3-5 (0-2) /LPF Independent Interpretation I performed an independent interpretation of an: CT Scan Radiology Impression Discussion of test interpretation with radiology: I have reviewed the radiologist's reading. Discharge Plan Discharge Clinical Impression: Constipation Patient Disposition: Home, Self-Care Instructions: Constipation (DC) Additional Instructions: Drink plenty of fluids Stool softener as advised Your CT scan is negative for acute pathology Prescriptions: New polyethylene glycol 3350 [Miralax] 17 gram/dose powder 17 g PO DAILY Qty: 510 0RF senna 8.6 mg capsule 8.6 mg PO BEDTIME PRN (Reason: constipation) Qty: 30 0RF No Action clonidine HCl 0.1 mg Tablet 0.1 mg PO BID@0800,1500 Qty: 30 1RF Protocol: Hold for SBP< HOLD for SBP < : 90 ferrous sulfate 324 mg (65 mg iron) Tablet,Delayed Release (Dr/Ec) 324 mg PO DAILY Qty: 30 0RF lurasidone [Latuda] 80 mg Tablet 80 mg PO BEDTIME Qty: 30 0RF multivitamin [Daily-Fina] Tablet 1 tab PO DAILY Qty: 30 0RF sennosides [Senna Lax] 8.6 mg Tablet 8.6 mg PO DAILY Qty: 30 0RF clonazepam 1 mg Tablet 1 mg PO TID Qty: 21 1RF benztropine 1 mg Tablet 1 mg PO BID PRN (Reason: Extrapyramidal Effects) Qty: 30 1RF bisacodyl 5 mg Tablet,Delayed Release (Dr/Ec) 10 mg PO DAILY PRN (Reason: Constipation) Qty: 14 0RF risperidone 1 mg Tablet 1 mg PO BID PRN (Reason: agitation) Qty: 14 0RF cholecalciferol (vitamin D3) [Vitamin D3] 10 mcg (400 unit) Tablet 10 mcg PO DAILY Qty: 30 0RF thiamine mononitrate (vit B1) 100 mg Tablet 100 mg PO DAILY Qty: 30 0RF lamotrigine [Lamictal] 200 mg tablet 200 mg PO BID Qty: 30 1RF prazosin 2 mg capsule 2 mg PO BEDTIME Qty: 14 1RF quetiapine [Seroquel] 300 mg tablet 600 mg PO BEDTIME Qty: 14 1RF gabapentin 600 mg tablet 600 mg PO TID Qty: 21 1RF nicotine (polacrilex) 2 mg Gum 4 mg buccal Q2H PRN (Reason: Nicotine Cravings) 30 Days Qty: 100 1RF Rx Instructions: MAX 24 PIECES/DAY clonazepam 1 mg tablet 1 mg PO TID 7 Days Qty: 21 0RF buspirone 30 mg tablet 30 mg PO BID@0730,1500 Qty: 30 1RF nicotine 21 mg/24 hr Patch 24 Hour 21 mg transdermal DAILY 28 Days Qty: 28 1RF bupropion HCl 300 mg tablet extended release 24 hr 300 mg PO DAILY Qty: 30 0RF Print Language: Romanian
[2024-07-02] MEDS: bisacodyL 5 MG TABLET.DR 10 MG PO (03:44)
[2024-07-02] MEDS: Milk of Magnesia 30 ML ORAL.SUSP PO (03:44)
[2024-07-02 03:45] VITALS: BP 00/00; PULSE 0; RESP 20; TEMP -17.7; TEMP 0
--- NOTE | 2024-07-02 05:16 | PC.NURSE ---
Pt refusing to leave without speaking to provider, Dr. Ryan at bedside. Pt continues to refuse to leave, cupola charger insulation made aware, demanding taxi to bring home, suggestion made to take bus at 6am. Pt continued to refused, security called. Pt ambulated independently with steady gait.
== END 2024-07-02 05:17 | disposition home or self-care (01) ==
PROVIDERS: Emergency Provider Internal Medicine; PCP Family Medicine
DX: K59.00 Constipation, unspecified (principal); D50.9 Iron deficiency anemia, unspecified; R11.0 Nausea; G47.00 Insomnia, unspecified; N19 Unspecified kidney failure; F17.210 Nicotine dependence, cigarettes, uncomplicated; Z79.899 Other long term (current) drug therapy
CPT/HCPCS: 36415; 74176; 80053; 81001; 83690; 84484; 85025; 99283; 99284

== ENCOUNTER → 2024-07-02 01:33 | Outpatient (BNV) | payer OTHER, SELFPAY | PROVIDERS: Emergency Provider Internal Medicine; PCP Family Medicine; Visit Provider Radiology Diagnostic Radiology | DX: K56.41 Fecal impaction (principal) | CPT/HCPCS: 74176 ==

== ENCOUNTER 2024-09-27 08:45 | Inpatient (IN) | payer OTHER, SELFPAY ==
[2024-09-27 08:50] VITALS: BP 138/82; PULSE 109; O2SAT 98
[2024-09-27 08:51] VITALS: BP 141/78; PULSE 100; RESP 20; TEMP 36.3; O2SAT 99; BMI 26.2
--- NOTE | 2024-09-27 09:00 | PC.NURSE ---
Pt erratic, slurred speech, dilated pupils, denies drug use except daily marijuana; reports upper abd pain because shes rotting on the inside for months, but they didn't want to tell me ; denies following up with PCP; reports lower back pain due to kidney failure, N/V/constipation; unable to establish a timeline of how long pt has had pain or when it became worse; pt denies SI at this time, but says I dont want to live with this pain anymore ; denies SI plan
--- NOTE | 2024-09-27 09:22 | PC.NURSE ---
Pt assessed again by this RN because pt stated to EMS that she didn't want to live anymore because of her pain; pt has denied SI to this RN 3 times
--- OUTSIDE RECORDS SUMMARY | 2024-09-27 10:07 | XMS_ITS | Clinical Summary ---
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 [address] [address] Anthony Wyatt MD [address] [address] Health Maintenance Due Date Last Done Comments Hepatitis B Vaccine (1 of 3 - 19+ 3-dose series) 12/24 Pneumococcal Vaccine: Peds ( 0 to 5 Years) and At-Risk Patients (6 to 49 Years) (1 of 2 - PCV) 12/24/1998 Influenza Vaccine (#1) 2024 Insurance [facility] Care Teams Iron Launder Operator Relationship Specialty Start Date End Date Shiloh Song MD [facility] [place] [address] PCP - General Family Medicine 09/14/24
--- OUTSIDE RECORDS SUMMARY | 2024-09-27 10:07 | XMS_ITS | Clinical Summary ---
Author Organization [facility] Address [address] [place] [address] Phone Care Team Providers Care Exhibitions And Collections Manager Name Role Phone Frederick Taylor MD Primary Care Provide r Allergies Active Allergy Reactions Criticality Noted Date Comments Penicillins Unknown 07/29/2024 Tramadol Unknown 07/29/2024 Encounters Date Type Department Care Team Description 07/29/2024 5:58 PM EDT - 07/29/2024 7:38 PM EDT Emergency [facility] Emergency [address] [place] [address] Pain (Primary Dx) Discharge Disposition: Home or Self Care from Last 3 Months Surgical History Surgery Date Site/Laterality Comments CYST REMOVAL PROCEDURE: RI EXCISION PILONIDAL CYST/SINUS SIMPLE CHOLECYSTECTOMY 06/24/06 PROCEDURE: HISTORICAL CHOLECYSTECTOMY; COMMENT: Postop intraabd bleed- Dr. Michelle CHOLECYSTECTOMY PROCEDURE:CHOLECYSTECTOMY TUBAL LIGATION PROCEDURE:TUBAL LIGATION Medical History Medical History Date Comments Hypertension DX:Hypertension Renal failure DX:Renal failure ;COMMENT:patient states Hx of renal failure and kidneys are almost back to normal Family History Medical History Relation Name Comments Diabetes Maternal Grandmother Glaucoma Mother Relation Name Status Comments Maternal Grandmother Alive Mother Alive Social History Tobacco Use Types Packs/Day Years Used Date Smoking Tobacco: Every Day Cigarettes Alcohol Use Standard Drinks/Week Comments Not Currently 0 (1 standard drink = 0.6 oz pur e alcohol) Comments Unknown Sex and Gender Information Value Date Recorded Sex Assigned at Not on file Legal Sex Female 1:44 PM EST Gender Identity Not on file Sexual Orientation Not on file Obstetrics History Last Filed Vital Signs Vital Sign Reading Time Taken Comments Blood Pressure 131/90 07/29/2024 6:41 PM EDT Pulse 86 07/29/2024 6:41 PM EDT Temperature 36.6 C (97.9 F) 07/29/2024 6:41 PM EDT Respiratory Rate 16 07/29/2024 6:41 PM EDT Oxygen Saturation 99% 07/29/2024 6:41 PM EDT Inhaled Oxygen Concentration - - Weight 68 kg (150 lb) 07/29/2024 4:33 PM EDT Height 165.1 cm (5' 5 ) 07/29/2024 4:33 PM EDT Body Mass Index 24.96 07/29/2024 4:33 PM EDT Plan of Treatment Health Maintenance Due Date Last Done Comments Breast Cancer Screening 1979 Pneumococcal Vaccine: Pediatrics (0 to 5 Years) and At-Risk Patients (6 to 49 Years) (1 of 2 - PCV) 12/24/1998 Cervical Cancer Screening: Pap Smear 12/24/2000 Hepatitis A Vaccines (2 of 3 - Hep A Twinrix risk 3-dose series) 09/26/2009 08/29/2009 Hepatitis B Vaccines (3 of 3 - 19+ 3-dose series) 04/28/2021 03/03/2021, 08/29/2009 HIV Screening 01/29/2022 Hepatitis C Screening 01/29/2022 Social Influencers of Health Screening 01/29/2022 COVID-19 Vaccine (2 - season) 2023 03/15/2021 Depression Screening 03/03/2024 Influenza Vaccine (#1) 2024 4, 12/13/2011, 2010, Additional history exists Hypertension/CHF/CAD Annual BMP Blood Test 07/29/2025 07/29/2024, 05/14/2021 Cholesterol Screening (Lipid Panel) 05/14/2026 05/14/2021 DTaP,Tdap,and Td Vaccines (3 - Td or Tdap) 10/29/2032 10/29/2022, 07/02/2011 HIB Vaccines Aged Out No longer eligi ble based on patient's age to complete this topic HPV Vaccines Aged Out No longer eligi ble based on patient's age to complete this topic IPV Vaccines Aged Out No longer eligi ble based on patient's age to complete this topic MMR Vaccines Aged Out No longer eligi ble based on patient's age to complete this topic Meningococcal ACWY Vaccine Aged Out N o longer eligible based on patient's age to complete this topic Meningococcal B Vaccine Aged Out No l onger eligible based on patient's age to complete this topic RSV Immunization Patients Under 20 months Aged Out No longer eligible based on patient's age to complete this topic Varicella Vaccines Aged Out No longer eligible based on patient's age to complete this topic Procedures Procedure Name Priority Date/Time Associated Diagnosis Comments VAS US DUPLEX LOWER EXT VENOUS LEFT STAT 07/29/2024 5:04 PM EDT Pain CBC WITH AUTO DIFFERENTIAL STAT 07/29/2024 5:03 PM EDT BASIC METABOLIC PANEL STAT 07/29/2024 5:03 PM EDT CBC AND DIFFERENTIAL STAT 07/29/2024 5:[address] REPORT 07/02/[address] REPORT 07/02/2024 from Last 3 Months Results * Vascular US Duplex Lower Extremity Venous Left (07/29/2024 5:04 PM EDT) Anatomical Region Laterality Modality Vascular, Abdomen Ultrasound 07/29/2024 5:07 PM EDT Impressions 07/29/2024 5:07 PM EDT NO LEFT LOWER EXTREMITY DEEP VENOUS THROMBOSIS. -------- FINAL REPORT -------- Dictated By: Clay Barakat Dictated Date: 07/29/2024 17:07 ET Assigned Physician: Clay Barakat Reviewed and Electronically Signed By: Clay Barakat Signed Date: 07/29/2024 17:07 ET Workstation ID: [id number] Transcribed By: Self Edit Transcribed Date: 07/29/2024 17:07 ET Narrative 07/29/2024 5:07 PM EDT Ultrasound venous duplex left lower extremity INDICATION: pain in extremities pain/bruising TECHNIQUE: 2-D and color Doppler imaging of the left lower extremity venous vasculature with compression and augmentation maneuvers. COMPARISON: No priors available. FINDINGS: There is normal flow, compression, and augmentation from the common femoral through the popliteal vein. No focal fluid collection. Procedure Note Clay Barakat MD - 07/29/2024 Ultrasound venous duplex left lower extremity INDICATION: pain in extremities pain/bruising TECHNIQUE: 2-D and color Doppler imaging of the left lower extremityvenous vasculature with compression and augmentation maneuvers. COMPARISON: No priors available. FINDINGS: There is normal flow, compression, and augmentation from the commonfemoral through the popliteal vein. No focal fluid collection. IMPRESSION: NO LEFT LOWER EXTREMITY DEEP VENOUS THROMBOSIS. -------- FINAL REPORT -------- Dictated By: Clay Barakat Dictated Date: 07/29/2024 17:07 ET Assigned Physician: Clay Barakat Reviewed and Electronically Signed By: Clay Barakat Signed Date: 07/29/2024 17:07 ET Workstation ID: [id number] Transcribed By: Self Edit Transcribed Date: 07/29/2024 17:07 ET Guillermo Siddiqui MD CV VASCULAR PROCEDURES Final Re sult * (ABNORMAL) CBC auto differential (07/29/2024 5:03 PM EDT) WBC 5.6 4.8 - 10.8 K/mcL LAB HEMETOLOGY METHOD 07/29/2024 5:[address] [facility] RBC 4.00 3.80 - 4.80 M/mcL LAB HEMETOLOGY METHOD 07/29/2024 5:[address] [facility] Hemoglobin 8.5(L) 11.5 - 16.0 g/dL LAB HEMETOLOGY METHOD 07/29/2024 5:[address] [facility] Hematocrit 30.9(L) 35.0 - 47.0 % LAB HEMETOLOGY METHOD 07/29/2024 5:[address] [facility] MCV 77.4(L) 79.0 - 98.0 FL LAB HEMETOLOGY METHOD 07/29/2024 5:[address] [facility] MCH 21.3(L) 27.0 - 32.0 pcg LAB HEMETOLOGY METHOD 07/29/2024 5:[address] [facility] MCHC 27.5(L) 32.0 - 37.0 g/dL LAB HEMETOLOGY [facility] RDW 25.2(H) 11.0 - 15.0 % LAB HEMETOLOGY METHOD 07/29/2024 5:[address] [facility] Platelets 300 130 - 400 K/mcL LAB HEMETOLOGY METHOD 07/29/2024 5:[address] [facility] MPV 10.1 7.0 - 11.0 FL LAB HEMETOLOGY METHOD [facility]/29[facility]2024 5[facility] NRBC 0.0 <1.0 % LAB HEMETOLOGY METHOD 07/29[facility]2024 5[facility] NRBC Absolute 0.00 <0.10 K/mcL LAB HEMETOLOGY METHOD 07/29/2024 5:[address] [facility] Neutrophils Relative 57.8 % LAB HEMETOLOGY METHOD [facility]/29[facility]2024 5[facility] Lymphocytes Relative 30.7 % LAB HEMETOLOGY METHOD 07/29/2024 5:36 PM [facility] Monocytes Relative 6.5 % LAB HEMETOLOGY METHOD 07/29[facility]2024 5:[facility] Eosinophils Relative 3.6 % LAB HEMETOLOGY METHOD 07/29[facility]2024 5:[facility] Basophils Relative 0.9 % LAB HEMETOLOGY METHOD 07/29[facility]2024 5[facility] Immature Granulocytes Relative 0.5 % LAB HEMETOLOGY METHOD [facility]/29[facility]2024 5[facility] Neutrophils Absolute 3.22 1.50 - 7.00 K/mcL LAB HEMETOLOGY METHOD 07/29/2024 5:[address] [facility] Lymphocytes Absolute 1.71 1.00 - 5.00 K/[facility] LAB HEMETOLOGY METHOD 07/29/2024 5:[address] [facility] Monocytes Absolute 0.36 0.20 - 1.00 K/[facility] LAB HEMETOLOGY METHOD 07/29/2024 5:[address] [facility] Eosinophils Absolute 0.20 0.00 - 0.50 K/[facility] LAB HEMETOLOGY METHOD 07/29/2024 5:[address] [facility] Basophils Absolute 0.05 0.00 - 0.20 K/[facility] HEMETOLOGY METHOD 07/29/2024 5:[address] [facility] Immature Granulocytes Absolute 0.03 0.00 - 0.03 K/[facility] HEMETOLOGY METHOD 07/29/2024 5:[address] [facility] Blood Venous blood specimen / Unknown Venipuncture / Unknown 07/29/2024 5:03 PM EDT 07/29/2024 5:23 PM EDT Guillermo Yaakov Siddiqui MD LAB BLOOD ORDERABLES Final Resu lt [facility] [address] [place] [address], * (ABNORMAL) Basic metabolic panel (07/29/2024 5:03 PM EDT) Sodium 137 133 - 145 mmol/L LAB CHEMISTRY METHOD 07/29/2024 5:[address] [facility] Potassium 4.4 3.5 - 5.5 mmol/L LAB CHEMISTRY METHOD 07/29/2024 5:[address] [facility] Chloride 107 96 - 110 mmol/L LAB CHEMISTRY METHOD 07/29/2024 5:[address] [facility] CO2 24 21 - 32 mmol/L LAB CHEMISTRY METHOD [facility]/29[facility]24 [facility] Anion Gap 6 3 - 11 LAB CHEMISTRY METHOD 07/29/2024 5:47 PM [facility] Glucose 80 70 - 100 mg/dL LAB CHEMISTRY METHOD 07/29/2024 5:47 PM [facility] BUN 12 5 - 25 mg/dL LAB CHEMISTRY METHOD 07/29/2024 5:47 PM [facility] Creatinine 1.25(H) 0.50 - 1.10 mg/dL LAB CHEMISTRY METHOD 07/29/2024 5:47 PM [facility] eGFR 55(L) >=60 mL/min/1. 73m2 LAB CHEMISTRY METHOD 07/29/2024 5:47 PM [facility] Comment:Calculation based on the Chronic Kidney Disease Epidemiology Collaboration (CKD-EPI) equation refit without adjustment for race. BUN/Creatinine Ratio 9.6 LAB CHEMISTRY METHOD 07/29/2024 5:47 PM [facility] Calcium 9.1 8.5 - 10.5 mg/dL LAB CHEMISTRY METHOD 07/29/2024 5:47 PM [facility] Blood Venous blood specimen / Unknown Venipuncture / Unknown 07/29/2024 5:03 PM EDT 07/29/2024 5:23 PM EDT us Guillermo Siddiqui MD LAB BLOOD ORDERABLES Final Resu lt [facility] [address] [place] [address], * External CT Report (07/02/2024) Only the most recent of2 resultswithin the time period is included. Anatomical Region Laterality Modality Computed Tomogra phy us Provider [facility] CT PROCEDURES Final Result from Last 3 Months Insurance [facility] Care Teams Exhibitions And Collections Manager Relationship Specialty Start Date End Date Frederick Taylor MD PCP - General Internal Medicine 04/27/18
--- NOTE | 2024-09-27 10:15 | ED.GENADULT ---
HPI - General Adult General Chief complaint: Abdominal Pain Stated complaint: Pain in kidney/Doesn't want to live per ems Time Seen by Provider: 09/27/24 10:05 Source: patient, EMS and old records reviewed Mode of arrival: EMS Limitations: no limitations History of Present Illness ED Provider: DR. Benson HPI narrative: 43-year-old female history of hypertension, PTSD, bipolar disorder, brought in by EMS for evaluation of abdominal pain, patient stated that the abdominal pain is stress related and she feels very stressed, think there is people live in the ceiling of her apartment, claiming that [employer] department is controlling them and she is suing the police department. Patient stated that she had multiple ED visit for her pain and nobody wants to treat her thinking that she is a drug-seeking, patient however declined using alcohol or any street drugs, stated that she has been compliant with her bipolar medication. No SI, no HI. Related Data Home Medications ?Medication ?Instructions ?Recorded ?Confirmed bupropion HCl 150 mg 24 hr tablet, 150 mg PO QAM 09/27/24 09/27/24 extended release bupropion HCl 300 mg 24 hr tablet, 300 mg PO QAM 09/27/24 09/27/24 extended release clonazepam 1 mg tablet See Rx Instructions .Route .COMPLEX 09/27/24 09/27/24 clonidine HCl 0.1 mg tablet 0.1 mg PO TID PRN 09/27/24 09/27/24 Anxiety/Nightmares ferrous sulfate 325 mg (65 mg 325 mg PO Q OTHER DAY 09/27/24 09/27/24 iron) tablet (FeroSul) gabapentin 300 mg capsule 600 mg PO QID 09/27/24 09/27/24 lamotrigine 200 mg tablet 400 mg PO QPM 09/27/24 09/27/24 lisdexamfetamine 30 mg capsule 30 mg PO QNOON 09/27/24 09/27/24 (Vyvanse) lisdexamfetamine 40 mg capsule 40 mg PO QAM 09/27/24 09/27/24 (Vyvanse) lurasidone 60 mg tablet 60 mg PO QAM 09/27/24 09/27/24 quetiapine 25 mg tablet 25 mg PO BID PRN psychosis episodes 09/27/24 09/27/24 quetiapine 300 mg tablet 600 mg PO QPM 09/27/24 09/27/24 sennosides 8.6 mg-docusate sodium 1 tab PO DAILY 09/27/24 09/27/24 50 mg tablet (Stool Softener-Laxative) sertraline 100 mg tablet 100 mg PO BID 09/27/24 09/27/24 Allergies Allergy/AdvReac Type Severity Reaction Status Date / Time Penicillins (PCN) Allergy Unknown UNKNOWN Verified 09/27/24 08:58 tramadol (TRAMADOL) Allergy Unknown HIVES Verified 09/27/24 08:58 Review of Systems Review of Systems: All other systems are reviewed and are negative Constitutional: Reports as per HPI and Reports no additional constitutional complaints Eyes: Reports as per HPI and Reports no additional eye complaints Reports system reviewed and no additional complaints, except as documented Cardiovascular: Reports as per HPI and Reports no additional cardiovascular complaints Respiratory: Reports as per HPI and Reports no additional respiratory complaints Gastrointestinal: Reports as per HPI and Reports no additional gastrointestinal complaints Genitourinary: Reports no additional female genitourinary complaints Musculoskeletal: Reports no additional musculoskeletal complaints Skin/Breast: Reports system reviewed and no additional complaints, except as docu Psychiatric: Reports no additional psychiatric complaints Endocrine: Reports no additional endocrine complaints Hematologic/Lymphatic: Reports no additional hematologic/lymphatic complaints Allergic/Immunologic: Reports no additional allergic/immunologic complaints Reports system reviewed and no additional complaints, except as documented and Reports Abnormal speech present [facility] Past Medical History Medical History Bipolar disorder Social History Social History Household Members: None Household Members Other:: I don't have a home now . Housing: Condominium Housing Other:: Reports homeless Do you presently have visiting nurse or other home services: No Alcohol intake: never Patient Tobacco Use Status: Current everyday Tobacco user Tobacco use type: Cigarette Cigarette Packs Per Day: 1 Cigarettes Per Day: 20.0 Years Smoked: 11 Smoked in Last 30 Days: Yes e-Cigarette/Vaping Use: Currently Using Second Hand Smoke Exposure: No Use of substances other than those prescribed or required for medical reasons: Yes Substance Use Type: Marijuana Substance Use Frequency: Daily Last Used Substance: Just Prior to Admission Advance Directives: No Advance Directives Information Provided: Yes Do you have a plan to hurt others: No Plan Nutrition Risks: No Nutritional Risk Patient : No service: No Sexual orientation: Bisexual Physical Exam ED Vital Signs: Vital Signs - 24 hr 09/28/24 07:29 09/28/24 14:31 Pulse Rate 72 Respiratory Rate 14 16 Blood Pressure 108/77 Pulse Oximetry 98 Oxygen Delivery Method Room Air BMI result Body Mass Index 26.2 Vital signs have been reviewed and appear to be correct. Blood pressure elevated. Heart rate normal. Respiratory rate normal. Temperature normal. Oxygen saturation normal. Appearance: Alert. Oriented X3. No acute distress. Head: Normal external exam. Normocephalic. Atraumatic. No Rehman signs noted. No raccoon eyes noted Eyes: PERRLA. EOMI. Conjunctiva and sclera normal. Eyelids normal. ENT: TM's Normal. Pharynx normal. Uvula midline. Moist mucous membranes. No trismus noted. No drooling noted. No muffled voice noted. Neck: Normal inspection. Neck supple. FROM. No adenopathy. Thyroid Normal. No meningeal signs. No neck mass noted. CVS: Normal heart rate and rhythm. Heart sound normal. No murmurs noted. Pulses normal throughout. Respiratory: No respiratory distress. Painless inspiration. Breath sounds normal. No wheezes/rales/rhonchi noted. Chest nontender. No accessory muscle usage noted or decreased air movement noted. Abdomen: Soft and nontender. Bowel sounds normal in all 4 quadrants. No distention noted. No organomegaly noted. No visible injury noted. Back: No CVA tenderness. Full range of motion noted. Skin: Skin warm and dry. Normal skin color. Normal skin turgor. No rashes/lesions/lacerations noted. Extremities: No lower extremity edema. Extremities exhibit normal range of motion. Extremities nontender. Neuro: Oriented X 3. Cranial nerve exam: II-XII are grossly intact No motor deficit. No sensory deficit. Reflexes normal. Patient Orientation: Person, Place, Time and Situation, okay hygiene and grooming. Fair eye contact, attentive, no tics or tremors. Level of Consciousness: Awake, Appropriate and Alert Patient Behavior: Appropriate, Guarded, Cooperative and Anxious Mood Description: Constricted, Blunted and Apprehensive Affect Description: Constricted, Blunted and Apprehensive Patient Cognition Impaired: No Ability to Follow Directions: Excellent Speech Pattern: Clear, Appropriate and Spontaneous Speech, nonpressured, spontaneous with regular rate and rhythm, normal volume and prosody. No dysarthria. Memory Description: Intact, Immediate Intact and Short Term Intact Hallucinations: None Delusions: Not present Thought Process: Intact Thought Content: positive for Intact, positive for paranoid thoughts, denies Suicidal Ideation and denies Homicidal Ideation. Depressive Symptoms: Not present. Judgement and Insight: Limited but adequate. Course Reevaluation(s) Reevaluation #1: start physician observation, medically cleared. Time: 11:24 Reevaluation #2: Time: 17:10 Date: 09/28/24 Provider: Tomasz Nuno MD Physician observation ended at 16:00. Repeat labs has been done today that showed improved renal function. She was seen by the care team with the recommendation for inpatient psychiatric hospitalization. She was ultimately admitted without incident. Patient to be admitted as inpatient to psychiatry.. Time: 17:11 Medications Administered Generic Name Dose Route Start Last Admin Trade Name Amanq PRN Reason Stop Dose Admin Amphetamine/Dextroamphetamine 5 mg 09/28/24 12:00 09/28/24 13:16 Amphetamine Mixed Salts 10 Mg Tablet PO 5 mg DAILY@1200 CLAUDIO Administration Amphetamine/Dextroamphetamine 7.5 mg 09/28/24 09:00 09/28/24 09:22 Amphetamine Mixed Salts 10 Mg Tablet PO 7.5 mg DAILY CLAUDIO Administration Bupropion HCl 150 mg 09/28/24 09:00 09/28/24 09:22 Bupropion Hcl Xl 150 Mg Tab.Er.24h PO 150 mg DAILY CLAUDIO Administration Bupropion HCl 300 mg 09/28/24 09:00 09/28/24 09:22 Bupropion Hcl Xl 300 Mg Tab.Er.24h PO 300 mg DAILY CLAUDIO Administration Clonazepam 1 mg 09/27/24 18:30 09/28/24 16:38 Clonazepam 1 Mg Tablet PO 1 mg TID@0900,1200,1700 CLAUDIO Administration Ferrous Sulfate 324 mg 09/28/24 09:00 09/28/24 09:22 Ferrous Sulfate 324 Mg Tablet.Dr PO 324 mg Q48H CLAUDIO Administration Gabapentin 600 mg 09/27/24 21:00 09/28/24 16:38 Gabapentin 300 Mg Capsule PO 600 mg QID CLAUDIO Administration Lamotrigine 400 mg 09/27/24 21:00 09/27/24 20:00 Lamotrigine 100 Mg Tablet PO 400 mg BEDTIME CLAUDIO Administration Quetiapine Fumarate 600 mg 09/27/24 21:00 09/27/24 20:00 Quetiapine Fumarate 300 Mg Tablet PO 600 mg BEDTIME CLAUDIO Administration Senna/Docusate Sodium 1 tab 09/28/24 09:00 09/28/24 09:22 Sennosides/Docusate Sodium Tablet PO 1 tab DAILY CLAUDIO Administration Sertraline HCl 100 mg 09/27/24 21:00 09/28/24 09:22 Sertraline Hcl 100 Mg Tablet PO 100 mg BID CLAUDIO Administration Discontinued Medications Generic Name Dose Route Start Last Admin Trade Name Haydee PRN Reason Stop Dose Admin Lurasidone HCl 60 mg 09/28/24 09:00 09/28/24 09:23 Lurasidone Hcl 20 Mg Tablet PO 60 mg DAILY CLAUDIO Administration Nicotine 21 mg 09/28/24 08:51 09/28/24 09:22 Nicotine 21 Mg Patch.Td24 TRANSDERMA 09/28/24 08:52 21 mg ONCE ONE Administration Medical Decision Making Differential Diagnosis Differential Diagnoses: The differential diagnosis associated with the presentation includes ( medically cleared, electrolyte derangement, severe anemia, UTI, acute psychosis,) Admission/Observation Consideration of admission/observation: Escalation of care including admission/observation considered Lab Data MDM Lab Attestation statement: I reviewed the patient's lab results. 09/27/24 10:22 09/28/24 13:10 Labs: Lab Results 09/27/24 09/28/24 Range/Units 10:22 13:10 WBC 9.5 (4.8-10.8) X10*3/uL RBC 4.75 (4.20-5.50) X10*6/uL Hgb 11.6 L D (12.0-16.0) g/dl Hct 37.5 D (37.0-47.0) % MCV 78.9 L (80.0-98.0) fL MCH 24.4 L (27.0-33.0) pg MCHC 30.9 L (31.0-35.0) g/dl RDW 20.6 H (11.0-16.0) % Plt Count 369 (160-400) X10*3/uL MPV 9.2 L (9.4-12.3) fL Immature Gran % (Auto) 2.4 H (0.0-0.4) % Neut % (Auto) 59.5 (45-73) % Lymph % (Auto) 27.8 (20-40) % [place] % (Auto) 6.9 (2-11) % Eos % (Auto) 2.5 (0-4) % Baso % (Auto) 0.9 (0-2) % Lymph # (Auto) 2.7 (1.2-4.9) X10*3/uL [place] # (Auto) 0.7 (0.1-1.2) X10*3/uL Eos # (Auto) 0.2 (0.0-0.4) X10*3/uL Baso # (Auto) 0.1 (0.0-0.2) X10*3/uL Abs Immat Gran (auto) 0.23 H (0.00-0.03) X10*3/uL Absolute Neuts (auto) 5.7 (2.0-8.3) x10*3/uL Absolute Nucleated RBC 0.000 (0.0-0.012) X10*3/uL Nucleated RBC % (auto) 0.0 (0.0-0.2) /100WBC Sodium 138 138 (135-145) mmol/L Potassium 4.5 4.2 (3.3-5.1) mmol/L Chloride 103 105 (96-108) mmol/L Carbon Dioxide 24 25 (22-29) mmol/L Anion Gap 16 12 (12-20) BUN 16 13 (9-16) mg/dL Creatinine 1.56 H 1.24 (0.5-1.4) mg/dL Estim Creat Clear Calc 45.6 57.3 Estimated GFR 36 47 Random Glucose 87 99 (60-115) mg/dL Calcium 10.1 D 9.4 D (8.4-10.2) mg/dL Total Bilirubin 0.2 (0.0-1.0) mg/dL AST 25 (5-31) U/L ALT 14 (0-31) U/L Alkaline Phosphatase 85 (39-117) U/L Total Protein 7.9 (6.5-8.0) g/dL Albumin 4.5 (3.5-5.0) g/dL Urine Color Dark Yellow Urine Appearance Clear Urine pH 6.0 (5.0-9.0) Ur Specific [place] >= 1.030 H (1.005-1.025) Urine Protein 30 (1+) H (Neg-Trace) mg/dL Urine Glucose (UA) Negative (Negative) mg/dL Urine Ketones Trace (Negative) mg/dL Urine Blood Negative (Negative) Urine Nitrite Negative (Negative) Ur Leukocyte Esterase Negative (Negative) Urine RBC 0-2 (0-2) /HPF Urine WBC 0-5 (0-5) /HPF Ur Squamous Epith Cells 3-5 (0-2) /HPF Urine Bacteria None Seen (None Seen) Hyaline Casts 3-5 (0-2) /LPF Urine Test NEGATIVE (NEGATIVE) Urine Opiates Screen Not Detected (Not Detect) Ur Buprenorphine Scrn Not Detected (Not Detect) ng/mL Ur Oxycodone Screen Not Detected (Not Detect) ng/mL Urine Methadone Screen Not Detected (Not Detect) ng/mL Urine Fentanyl Screen Not Detected (Not Detect) Ur Barbiturates Screen Not Detected (Not Detect) Ur Phencyclidine Scrn Not Detected (Not Detect) Ur Amphetamines Screen POSITIVE H (Not Detect) U Benzodiazepines Scrn POSITIVE H (Not Detect) Urine Cocaine Screen Not Detected (Not Detect) U Marijuana (THC) Screen POSITIVE H (Not Detect) Discharge Plan Discharge Clinical Impression: Bipolar disorder Patient Disposition: Admitted As Inpatient Interventions: Admission Worksheet (ED) Last Done: 09/28/24 16:01 Discharge Date/Time: 09/28/24 16:05
[2024-09-27 10:30] LABS: MANUAL DIFF FLAG NO
[2024-09-27 10:33] LABS: Appearance Urine Clear; Glucose Urine UA Negative (Negative); Hematocrit 37.5 % (37.0-47.0); Hemoglobin 11.6 g/dl (12.0-16.0); Imm Gran Abs Auto 0.23 X10*3/uL (0.00-0.03); Imm Gran Pct Auto 2.4 % (0.0-0.4); Lymphocytes Absolute Auto 2.7 X10*3/uL (1.2-4.9); Mean Corpuscular HGB Conc 30.9 g/dl (31.0-35.0); Mean Corpuscular Hemoglobin 24.4 pg (27.0-33.0); Mean Corpuscular Volume 78.9 fL (80.0-98.0); NRBC Abs Auto 0.000 X10*3/uL (0.0-0.012); NRBC Pct Auto 0.0 /100WBC (0.0-0.2); PH 6.0 (5.0-9.0); Platelet Count 369 X10*3/uL (160-400); Red Blood Count 4.75 X10*6/uL (4.20-5.50); Specific Gravity - Urine >= 1.030 (1.005-1.025); UMIC TRIGGER UACC YES; White Blood Count 9.5 X10*3/uL (4.8-10.8)
[2024-09-27 10:35] LABS: UPreg QC Valid YES
[2024-09-27 10:45] LABS: Cannabinoid Screen Urine POSITIVE (Not Detect)
[2024-09-27 10:48] LABS: Alanine Aminotransferase 14 U/L (0-31); Albumin Level 4.5 g/dL (3.5-5.0); Alkaline Phosphatase 85 U/L (39-117); Anion Gap 16 (12-20); Aspartate Amino Transferase 25 U/L (5-31); Blood Urea Nitrogen 16 mg/dL (9-16); Calcium 10.1 mg/dL (8.4-10.2); Carbon Dioxide 24 mmol/L (22-29); Chloride 103 mmol/L (96-108); Creatinine Clr Calc Pharmacy 45.6; Estimated Glomerular Filt Rate 36; Potassium 4.5 mmol/L (3.3-5.1); Sodium 138 mmol/L (135-145); Total Protein 7.9 g/dL (6.5-8.0)
--- NOTE | 2024-09-27 11:15 | PC.NURSE ---
Pt swearing and yelling at random staff members because nobody is doing nothing for me ; pt redirected that there is no tolerance for verbal abuse of staff; pt sitting quietly in room at this time
--- NOTE | 2024-09-27 11:40 | PC.NURSE ---
Pt asked if she was nauseated before offering PO fluids by this RN; pt states I feel like I want to get up and beat the fuck out of everybody here ; devulcanizer charger and security made aware that pt made threatening remarks to staff; pt states she has no plans to do this; its just how I feel
--- NOTE | 2024-09-27 12:04 | PC.NURSE ---
care team at bedside for eval
[2024-09-27 14:00] VITALS: BP 136/80; PULSE 105; RESP 18; TEMP 36.7; O2SAT 97
--- NOTE | 2024-09-27 15:53 | PC.NURSE ---
Awaiting dispo from Care Team; pt remains in room resting quietly; care team trying to reach out to pt's therapist to consult
[2024-09-27 16:30] VITALS: BP 125/45; PULSE 79; RESP 16; TEMP 36.7; O2SAT 99
--- NOTE | 2024-09-27 16:54 | MHC.CARE ---
Patient evaluated by the CARE Team, disposition not reached, have been waiting for collateral contacts to return calls. ED provider, Dr. Benson updated
--- NOTE | 2024-09-27 17:11 | PC.NURSE ---
Report gv to GEORGINA Honeycutt in the pod; pt agreed to be changed over; belongings in locker #4 in the pod; pt tearful, anxious, cooperative at this time; pt brought to room 4 pod; care relinquished at this time
--- NOTE | 2024-09-27 18:06 | PC.NURSE ---
med rec completed via last fill from [facility] - dosing/timing/last dose confirmed w patient, pt denied any additional medications other than ones listed. pt reported that the only medications she was no longer taking was trazodone d/t side effect of nightmares.
--- NOTE | 2024-09-27 18:25 | PHA.MEDREC ---
Pharmacy Consult ? Medication Reconciliation Pharmacy has completed the medication reconciliation. Reviewed med rec done by nursing
--- NOTE | 2024-09-28 | ECG_ITS ---
Test Reason : med clearance Blood Pressure : */* mmHG Vent. Rate : 85 BPM Atrial Rate : 85 BPM P-R Int : 150 ms QRS Dur : 78 ms QT Int : 354 ms P-R-T Axes : 20 7 58 degrees QTcB Int : 421 ms Normal sinus rhythm Nonspecific ST abnormality Abnormal ECG When compared with ECG of 24-Nov-2022 08:00, No significant change was found Referred By: Ara Benson Electronically Signed By: ORLY MICHAUD MD
[2024-09-28 07:29] VITALS: RESP 14
--- NOTE | 2024-09-28 07:32 | PC.NURSE ---
Assumed care of patient at 0645, patient appears agitated this am, angry with staff that she is still here, demanding to be discharged. Pt is currently pending CARE team re-evaluation
[2024-09-28] MEDS: Nicotine 21 MG PATCH.TD24 TRANSDERMA (09:22)
[2024-09-28] MEDS: buPROPion HCl XL 150 MG TAB.ER.24H PO (09:22)
[2024-09-28] MEDS: Ferrous Sulfate 324 MG TABLET.DR PO (09:22)
[2024-09-28] MEDS: buPROPion HCl XL 300 MG TAB.ER.24H PO (09:22)
[2024-09-28] MEDS: Amphetamine Mixed Salts 10 MG TABLET 7.5 MG PO (09:22)
[2024-09-28] MEDS: Amphetamine Mixed Salts 10 MG TABLET 5 MG PO (13:16)
--- NOTE | 2024-09-28 13:27 | MHC.CARE ---
Pt will be an inpatient bedsearch
[2024-09-28 13:29] LABS: Anion Gap 12 (12-20); Blood Urea Nitrogen 13 mg/dL (9-16); Calcium 9.4 mg/dL (8.4-10.2); Carbon Dioxide 25 mmol/L (22-29); Chloride 105 mmol/L (96-108); Creatinine Clr Calc Pharmacy 57.3; Estimated Glomerular Filt Rate 47; Potassium 4.2 mmol/L (3.3-5.1); Sodium 138 mmol/L (135-145)
[2024-09-28 14:31] VITALS: BP 108/77; PULSE 72; RESP 16; O2SAT 98
[2024-09-28 17:48] VITALS: BP 125/73; PULSE 86; RESP 16; TEMP 36.4; O2SAT 95
[2024-09-28 17:49] VITALS: BMI 24.8
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
[2024-09-29 00:16] VITALS: BP 141/77; PULSE 80; RESP 16; TEMP 36.4; O2SAT 98
[2024-09-29 06:31] VITALS: BP 132/77
[2024-09-29 06:53] VITALS: BP 132/77; PULSE 99; RESP 16; TEMP 36.6; O2SAT 99
[2024-09-29] MEDS: Amphetamine Mixed Salts 10 MG TABLET 7.5 MG PO (08:00)
[2024-09-29] MEDS: buPROPion HCl XL 150 MG TAB.ER.24H PO (08:01)
[2024-09-29] MEDS: buPROPion HCl XL 300 MG TAB.ER.24H PO (08:01)
[2024-09-29] MEDS: Nicotine 21 MG PATCH.TD24 TRANSDERMA (08:07)
[2024-09-29 09:10] LABS: Hemoglobin A1C 99.3509 umol/L; Total Hemoglobin (HGBA1C) 2933.2476 umol/L
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
[2024-09-29 09:26] LABS: Alanine Aminotransferase 13 U/L (0-31); Albumin Level 4.3 g/dL (3.5-5.0); Alkaline Phosphatase 80 U/L (39-117); Anion Gap 12 (12-20); Aspartate Amino Transferase 22 U/L (5-31); Blood Urea Nitrogen 13 mg/dL (9-16); Calcium 9.4 mg/dL (8.4-10.2); Carbon Dioxide 26 mmol/L (22-29); Chloride 104 mmol/L (96-108); Cholesterol 285 mg/dL (<200); Creatinine Clr Calc Pharmacy 44.8; Estimated Glomerular Filt Rate 40; HDL Cholesterol 56 mg/dL (>40); Potassium 4.1 mmol/L (3.3-5.1); Sodium 138 mmol/L (135-145); Total Protein 7.9 g/dL (6.5-8.0); Triglycerides 149 mg/dL (<150)
[2024-09-29 09:44] LABS: Free T4 (Free Thyroxine) 0.77 ng/dL (0.71-1.85); Thyroid Stimulating Hormone 1.04 uIU/mL (0.32-4.0)
[2024-09-29] MEDS: Amphetamine Mixed Salts 10 MG TABLET 5 MG PO (12:18)
[2024-09-29 20:00] VITALS: BP 155/108; PULSE 72; RESP 16; TEMP 36.3; O2SAT 97
[2024-09-29 22:35] VITALS: BP 139/71
[2024-09-30 07:00] VITALS: BMI 25.1
[2024-09-30 07:41] VITALS: BP 97/55; PULSE 75; RESP 16; TEMP 36.5; O2SAT 98
[2024-09-30] MEDS: Nicotine 21 MG PATCH.TD24 TRANSDERMA (08:25)
[2024-09-30] MEDS: Amphetamine Mixed Salts 10 MG TABLET 7.5 MG PO (08:26)
[2024-09-30] MEDS: buPROPion HCl XL 150 MG TAB.ER.24H PO (08:26)
[2024-09-30] MEDS: Ferrous Sulfate 324 MG TABLET.DR PO (08:26)
--- NOTE | 2024-09-30 08:34 | HO.PM.IMCN ---
History of Present Illness Data of Consult Service Date: 09/30/24 Primary Care Provider: Unknown Physician HPI Reason for consult: Medical consult for hyperlipidemia and elevated creatinine 43-year-old female with a past medical history of bipolar disorder, PTSD, cocaine use, stage III A chronic kidney disease, iron deficiency anemia, and hyperlipidemia, is admitted to inpatient psychiatry after presenting to ED for evaluation of abdominal pain which was stress related and delusions. Labs demonstrated improved renal function from her baseline, electrolytes within normal limits, anemia improved from her baseline, negative urinalysis, tox screen positive for amphetamines, benzodiazepines, and marijuana. Patient is being seen today for elevated creatinine, and hyperlipidemia. Per patient she had a CT scan done at [facility] that showed arthrosclerotic disease, her LDL is greater than 200. She also has a elevated creatinine of 1.44 baseline appears to be 1.1-1.5. 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 She has never followed up with a hospital food service worker since then. She would like to establish care. She denies any shortness of breath, chest pain, dizziness, lightheadedness or any other concerning symptoms. Patient wants to talk about her psychiatric medications, deferred her to psychiatric team. Review of Systems Review of Systems: Denies any shortness of breath, chest pain, dizziness, lightheadedness, abdominal pain or discomfort, nausea vomiting or diarrhea PMFSH Medical History Bipolar disorder Social History Household Members: Family and None Household Members Other:: I don't have a home now . Housing: Condominium Housing Other:: Reports homeless Do you presently have visiting nurse or other home services: No Alcohol intake: never Patient Tobacco Use Status: Current everyday Tobacco user Tobacco use type: Cigarette Cigarette Packs Per Day: 1 Cigarettes Per Day: 1 Years Smoked: 11 Smoked in Last 30 Days: Yes e-Cigarette/Vaping Use: Currently Using Frequency of e-Cigarette/Vaping Use: daily Patient Interested in Nicotine Replacement: Yes (patch and gum) Patient Given Instructions on How to Stop Smoking: Yes Date Education Initiated: 09/28/24 Second Hand Smoke Exposure: No Use of substances other than those prescribed or required for medical reasons: Yes Substance Use Type: Marijuana Substance Use Frequency: Daily Last Used Substance: Just Prior to Admission Currently Displaying Signs/Symptoms of Drug Intoxication Withdrawal: No Have you been hit, kicked, punched, or otherwise hurt by someone within the past year? If so, by whom?: No Do you feel safe in your current relationship?: No Is there a partner from a previous relationship who is making you feel unsafe now?: No Are you made to feel afraid or neglected: Yes (pt did not elaborate.) Advance Directives: No Advance Directives Information Provided: Yes Do you have thoughts of harming others: None Do you have a plan to hurt others: No Plan Recently lost weight without trying: No How much weight loss: Not applicable Eating poorly because of decreased appetite: No Nutrition screen score: 0 Nutrition Risks: No Nutritional Risk Patient : No : No Poor oral hygiene: No service: No Sexual orientation: Straight/Heterosexual Meds Allergies Allergy/AdvReac Type Severity Reaction Status Date / Time Penicillins (PCN) Allergy Unknown UNKNOWN Verified 09/27/24 08:58 tramadol (TRAMADOL) Allergy Unknown HIVES Verified 09/27/24 08:58 Active Medications: Current Medications Acetaminophen (Acetaminophen 325 Mg Tablet) 650 mg PO Q6H PRN PRN Reason: Headache/Pain, Scale 1-10 Al Hydroxide/Mg Hydroxide (Magnesium Hydrox/Alum Hydrox 30 Ml Oral.Susp) 30 ml PO Q6H PRN PRN Reason: Heartburn/Nausea Amphetamine/Dextroamphetamine (Amphetamine Mixed Salts 10 Mg Tablet) 5 mg PO DAILY@1200 [facility] Last Admin: 09/29/24 12:18 Dose: 5 mg Amphetamine/Dextroamphetamine (Amphetamine Mixed Salts 10 Mg Tablet) 7.5 mg PO DAILY [facility] Last Admin: 09/30/24 08:26 Dose: 7.5 mg Bacitracin (Bacitracin Oint 14 Gm Tube) 1 appl TOPICAL BID [facility]; Protocol Stop: 10/01/24 23:59 Last Admin: 09/29/24 20:07 Dose: 1 appl Bupropion HCl (Bupropion Hcl Xl 150 Mg Tab.Er.24h) 150 mg PO DAILY [facility] Last Admin: 09/30/24 08:26 Dose: 150 mg Clonazepam (Clonazepam 1 Mg Tablet) 1 mg PO TID@0900,1200,1700 [facility] Last Admin: 09/30/24 08:26 Dose: 1 mg Clonidine HCl (Clonidine Hcl 0.1 Mg Tablet) 0.1 mg PO TID PRN; Protocol PRN Reason: Anxiety/Nightmares Last Admin: 09/29/24 22:35 Dose: 0.1 mg Ferrous Sulfate (Ferrous Sulfate 324 Mg Tablet.Dr) 324 mg PO Q48H [facility] Last Admin: 09/30/24 08:26 Dose: 324 mg Gabapentin (Gabapentin 300 Mg Capsule) 600 mg PO QID [facility] Last Admin: 09/30/24 08:26 Dose: 600 mg Hydroxyzine HCl (Hydroxyzine Hcl 50 Mg Tablet) 50 mg PO Q6H PRN PRN Reason: mild anxiety Lamotrigine (Lamotrigine 100 Mg Tablet) 400 mg PO BEDTIME [facility] Last Admin: 09/29/24 20:06 Dose: 400 mg Lurasidone HCl (Lurasidone Hcl 20 Mg Tablet) 60 mg PO DAILY@1700 [facility] Last Admin: 09/29/24 17:35 Dose: 60 mg Magnesium Hydroxide (Milk Of Magnesia 30 Ml Oral.Susp) 30 ml PO DAILY PRN PRN Reason: Constipation Nicotine (Nicotine 21 Mg Patch.Td24) 21 mg TRANSDERMA DAILY PRN PRN Reason: nicotine craving Last Admin: 09/30/24 08:25 Dose: 21 mg Nicotine Polacrilex (Nicotine Polacrilex 2 Mg Gum) 2 mg BUCCAL Q2H PRN PRN Reason: Nicotine Cravings Quetiapine Fumarate (Quetiapine Fumarate 25 Mg Tablet) 25 mg PO BID PRN PRN Reason: psychosis episodes Last Admin: 09/29/24 17:37 Dose: 25 mg Quetiapine Fumarate (Quetiapine Fumarate 300 Mg Tablet) 600 mg PO BEDTIME [facility] Last Admin: 09/29/24 22:32 Dose: 600 mg Senna/Docusate Sodium (Sennosides/Docusate Sodium Tablet) 1 tab PO DAILY [facility] Last Admin: 09/30/24 08:27 Dose: 1 tab Sertraline HCl (Sertraline Hcl 100 Mg Tablet) 100 mg PO BID [facility] Last Admin: 09/30/24 08:26 Dose: 100 mg Trazodone HCl (Trazodone Hcl 50 Mg Tablet) 50 mg PO BEDTIME MRX1 PRN PRN Reason: Insomnia Home Medications ?Medication ?Instructions ?Recorded ?Confirmed ?Last Taken ?Type bupropion HCl 150 mg 24 hr tablet, 150 mg PO QAM 09/27/24 09/27/24 09/26/24 09:00 History extended release bupropion HCl 300 mg 24 hr tablet, 300 mg PO QAM 09/27/24 09/27/24 09/26/24 09:00 History extended release clonazepam 1 mg tablet See Rx Instructions .Route .COMPLEX 09/27/24 09/27/24 09/26/24 17:00 History clonidine HCl 0.1 mg tablet 0.1 mg PO TID PRN 09/27/24 09/27/24 Unknown History Anxiety/Nightmares ferrous sulfate 325 mg (65 mg 325 mg PO Q OTHER DAY 09/27/24 09/27/24 09/26/24 09:00 History iron) tablet (FeroSul) gabapentin 300 mg capsule 600 mg PO QID 09/27/24 09/27/24 09/26/24 21:00 History lamotrigine 200 mg tablet 400 mg PO QPM 09/27/24 09/27/24 09/26/24 21:00 History lisdexamfetamine 30 mg capsule 30 mg PO QNOON 09/27/24 09/27/24 09/26/24 12:00 History (Vyvanse) lisdexamfetamine 40 mg capsule 40 mg PO QAM 09/27/24 09/27/24 09/26/24 09:00 History (Vyvanse) lurasidone 60 mg tablet 60 mg PO QAM 09/27/24 09/27/24 09/26/24 09:00 History quetiapine 25 mg tablet 25 mg PO BID PRN psychosis episodes 09/27/24 09/27/24 Unknown History quetiapine 300 mg tablet 600 mg PO QPM 09/27/24 09/27/24 09/26/24 21:00 History sennosides 8.6 mg-docusate sodium 1 tab PO DAILY 09/27/24 09/27/24 09/26/24 09:00 History 50 mg tablet (Stool Softener-Laxative) sertraline 100 mg tablet 100 mg PO BID 09/27/24 09/27/24 09/26/24 21:00 History Physical Exam Vital Signs and Narrative: Vital Signs: Last Vital Signs Temp 97.7 F 09/30/24 07:41 Pulse 75 09/30/24 07:41 Resp 16 09/30/24 07:41 BP 97/55 L 09/30/24 07:41 Pulse Ox 98 09/30/24 07:41 O2 Del Method Room Air 09/30/24 07:41 BMI result Body Mass Index 24.8 Alert and oriented X3, rapid speech. anxious, perseveration on medications Neuro: CN II-X11 intact, no deficits, visual acuity intact EYES: PERRLA, EOM intact ENT: Hearing intact, lips moist Cardiac: S1 S2 RRR, No ectopy Pulmonary: lungs clear to auscultation, No increased WOB. Abdominal: BS active in all 4 quadrants, no guarding or tenderness MSK: Strength 5/5 upper and lower extremities : Deferred Extremities: No edema in lower extremities Psych: Cooperative, anxious Skin: Warm and dry, Intact Results Labs 09/27/24 10:22 09/29/24 08:42 Labs: Laboratory Results - last 24 hr 09/29/24 08:42 Anion Gap 12 Estim Creat Clear Calc 44.8 Estimated GFR 40 Random Glucose 97 Estimat Average Glucose 105 Hemoglobin A1c % 5.3 Calcium 9.4 Total Bilirubin 0.1 AST 22 ALT 13 Alkaline Phosphatase 80 Total Protein 7.9 Albumin 4.3 Triglycerides 149 Cholesterol 285 H LDL Cholesterol, Calc 200 H HDL Cholesterol 56 TSH 1.04 Free T4 0.77 Assessment and Plan (1) HLD (hyperlipidemia): Status: Acute (2) Stage 3a chronic kidney disease (CKD): Status: Acute Plan Bipolar DO/PTSD/Cocaine use Treatment plan per psychiatry Stage 3A Chronic Kidney disease Baseline 1.1-1.5 [facility] updated regarding need for Nephrology follow up and they will contact patient on DC to make follow up appointment for her. History of Kidmey damage due to lithium use 20 years ago. YENY Ferrous sulfate QOD HLD CT scan noted Atherosclerosis and LDL >200 Will start Moderate intensity statin Follow up outpatient with recheck of LFT's and Lipid panel in 6 weeks. Thank you for allowing me to participate in the care of this patient. Signing off at this time. Please reconsult of any acute concerns or issues arise
[2024-09-30] MEDS: Amphetamine Mixed Salts 10 MG TABLET 5 MG PO (12:04)
[2024-09-30 20:00] VITALS: BP 158/96; PULSE 75; RESP 16; TEMP 36.3; O2SAT 97
[2024-09-30 20:20] VITALS: BP 158/96
--- NOTE | 2024-09-30 22:15 | HO.PSYCHPN ---
Subjective Subjective Date of Service: 09/30/24 Reason For Visit: Psychosis/paranoid Subjective Notes: 3 Day Healthcare Proxy: No Guardianship: No Medical Problems Affecting Mental Status: No Interim History: Medical record and nursing notes reviewed; case discussed during rounds with team/nursing staff, and met with patient for supportive therapy/psychoeducation, as well as medication management. Patient slept well, eating good, compliant with medicationsc. Denies side effects. She is in better space today. Confirmed with her that she is not having kidney failure, or anything in her aorta or lungs issues that she has been missed interpret. She appears to be,, signed a 3 days notice, but later on recognized that she needs to get a treatment. She is receptive with the medication plans and changes today. Social, visible, and attended groups. Less pain compared to yesterday, Tylenol increase helpful Medication Compliance: Yes Side effects from medications: No Attending Groups: Yes Review of Systems Acute medical concerns: No Medical Review of Systems: unchanged Review of Systems Review of Systems Denies any shortness of breath, chest pain, dizziness, lightheadedness, abdominal pain or discomfort, nausea vomiting or diarrhea Yes all other systems are reviewed and are negative Mental Status Exam Mental Status Exam Narrative: Pt is alert and oriented; behavior is anxious but cooperative, friendly and calm but less anxious and irriablbe, dressed in casual attire; mood is described as anxious ; eye contact appropriate; Speech is normal rate, volume and prosody, labilepressured, and tangential; no psychomotor agitation/retardation present; thought process is disorganized, perseverative on Vyvanse and home medications and goal directed; Thought content is on tx; otherwise pertinent to relevant topics and without any delusional content, paranoid ideations or grandiosity; denies SI/HI. There is no evidence of perceptual disturbance. She does not make any paranoid or delusional statements Patients insight and judgment are poor Diagnostics Vital Signs (24Hr): Vital Signs - 24 hr 09/29/24 22:35 09/30/24 07:41 09/30/24 20:00 Temperature 97.7 F 97.3 F Pulse Rate 75 75 Respiratory Rate 16 16 Blood Pressure 139/71 97/55 L 158/96 H Pulse Oximetry 98 97 Oxygen Delivery Method Room Air Room Air 09/30/24 20:20 Temperature Pulse Rate Respiratory Rate Blood Pressure 158/96 H Pulse Oximetry Oxygen Delivery Method BMI result Body Mass Index 25.1 Labs 09/27/24 10:22 09/29/24 08:42 Labs: Laboratory Results - last 48 hr 09/29/24 08:42 Sodium 138 Potassium 4.1 Chloride 104 Carbon Dioxide 26 Anion Gap 12 BUN 13 Creatinine 1.44 H Estim Creat Clear Calc 44.8 Estimated GFR 40 Random Glucose 97 Estimat Average Glucose 105 Hemoglobin A1c % 5.3 Calcium 9.4 Total Bilirubin 0.1 AST 22 ALT 13 Alkaline Phosphatase 80 Total Protein 7.9 Albumin 4.3 Triglycerides 149 Cholesterol 285 H LDL Cholesterol, Calc 200 H HDL Cholesterol 56 TSH 1.04 Free T4 0.77 Medications Medications Current Medications Acetaminophen (Acetaminophen 325 Mg Tablet) 975 mg PO Q6H PRN PRN Reason: Headache/Pain, Scale 1-10 Last Admin: 09/30/24 20:38 Dose: 975 mg Al Hydroxide/Mg Hydroxide (Magnesium Hydrox/Alum Hydrox 30 Ml Oral.Susp) 30 ml PO Q6H PRN PRN Reason: Heartburn/Nausea Amphetamine/Dextroamphetamine (Amphetamine Mixed Salts 10 Mg Tablet) 5 mg PO DAILY@1200 [facility] Last Admin: 09/30/24 12:04 Dose: 5 mg Amphetamine/Dextroamphetamine (Amphetamine Mixed Salts 10 Mg Tablet) 7.5 mg PO DAILY [facility] Last Admin: 09/30/24 08:26 Dose: 7.5 mg Atorvastatin Calcium (Atorvastatin Calcium 20 Mg Tablet) 20 mg PO BEDTIME [facility] Last Admin: 09/30/24 20:20 Dose: 20 mg Bacitracin (Bacitracin Oint 14 Gm Tube) 1 appl TOPICAL BID [facility]; Protocol Stop: 10/01/24 23:59 Last Admin: 09/30/24 20:19 Dose: 1 appl Bupropion HCl (Bupropion Hcl Xl 150 Mg Tab.Er.24h) 150 mg PO DAILY [facility] Last Admin: 09/30/24 08:26 Dose: 150 mg Clonazepam (Clonazepam 1 Mg Tablet) 1 mg PO TID@0900,1200,1700 [facility] Last Admin: 09/30/24 16:53 Dose: 1 mg Clonidine HCl (Clonidine Hcl 0.1 Mg Tablet) 0.1 mg PO TID PRN; Protocol PRN Reason: Anxiety/Nightmares Last Admin: 09/30/24 20:20 Dose: 0.1 mg Docusate Sodium (Docusate Sodium 100 Mg Capsule) 100 mg PO BID PRN PRN Reason: Constipation Ferrous Sulfate (Ferrous Sulfate 324 Mg Tablet.Dr) 324 mg PO Q48H [facility] Last Admin: 09/30/24 08:26 Dose: 324 mg Gabapentin (Gabapentin 300 Mg Capsule) 600 mg PO QID [facility] Last Admin: 09/30/24 20:20 Dose: 600 mg Hydroxyzine HCl (Hydroxyzine Hcl 50 Mg Tablet) 50 mg PO Q6H PRN PRN Reason: mild anxiety Lamotrigine (Lamotrigine 100 Mg Tablet) 400 mg PO BEDTIME [facility] Last Admin: 09/30/24 20:19 Dose: 400 mg Lurasidone HCl (Lurasidone Hcl 80 Mg Tablet) 80 mg PO DAILY@1700 [facility] Last Admin: 09/30/24 16:53 Dose: 80 mg Magnesium Hydroxide (Milk Of Magnesia 30 Ml Oral.Susp) 30 ml PO DAILY PRN PRN Reason: Constipation Nicotine (Nicotine 21 Mg Patch.Td24) 21 mg TRANSDERMA DAILY PRN PRN Reason: nicotine craving Last Admin: 09/30/24 08:25 Dose: 21 mg Nicotine Polacrilex (Nicotine Polacrilex 2 Mg Gum) 2 mg BUCCAL Q2H PRN PRN Reason: Nicotine Cravings Quetiapine Fumarate (Quetiapine Fumarate 300 Mg Tablet) 600 mg PO BEDTIME [facility] Last Admin: 09/30/24 20:19 Dose: 600 mg Quetiapine Fumarate (Quetiapine Fumarate 50 Mg Tablet) 50 mg PO BID PRN PRN Reason: psychosis episodes Last Admin: 09/30/24 18:16 Dose: 50 mg Senna/Docusate Sodium (Sennosides/Docusate Sodium Tablet) 1 tab PO DAILY [facility] Last Admin: 09/30/24 08:27 Dose: 1 tab Sertraline HCl (Sertraline Hcl 100 Mg Tablet) 100 mg PO BID [facility] Last Admin: 09/30/24 20:20 Dose: 100 mg Trazodone HCl (Trazodone Hcl 50 Mg Tablet) 50 mg PO BEDTIME MRX1 PRN PRN Reason: Insomnia Allergies Allergies Allergy/AdvReac Type Severity Reaction Status Date / Time Penicillins (PCN) Allergy Unknown UNKNOWN Verified 09/27/24 08:58 tramadol (TRAMADOL) Allergy Unknown HIVES Verified 09/27/24 08:58 Assessment & Plan Assessment & Plan (1) HLD (hyperlipidemia): Status: Acute Code(s): E78.5 - Hyperlipidemia, unspecified (2) Stage 3a chronic kidney disease (CKD): Status: Acute Code(s): N18.31 - Chronic kidney disease, stage 3a (3) PTSD (post-traumatic stress disorder): Status: Acute Code(s): F43.10 - Post-traumatic stress disorder, unspecified (4) Bipolar 2 disorder, major depressive episode: Status: Acute Code(s): F31.81 - Bipolar II disorder Plan HPI: Patient is a 43 years old single Estonian-speaking female with history of PTSD, personality, and bipolar disorders who came to [facility] ED by ambulance that she called from home seeking help for abdominal pain. While in the ED she presented with agitated mood and appeared to be psychotic when she thoughts were police and others above the ceiling monitoring her. 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 Patient seen on 09/29 at 11:22 with chief complaint a couple of months ago I have kidney failure and a disease of the mass in aorta and lumps in my back, my lungs. I was so angry about what is going on . History of suicide thoughts with plan and intention, history of 12 suicide attempts. Formulation/clinical reasoning: Bipolar, manic depression episode, labile mood paranoia, increased anxiety and depression, increase in agitation, feeling like her compliant was not heard or addressed. No supports family system. Has a therapist but she does not feel this person is helpful, history of suicidal thoughts with plan and intention, history of numerous suicide attempts. History of bipolar, and PTSD, personality disorder. Given the above information, patient will be safe in the restrictive environment, to monitor her safety, medication management/adjustment, with therapeutic environment, and continue with outpatient psychiatry services upon the discharge. Hospital course: 09/29/24: Due to poor renal function, per up-to-date recommendations, will pushing should be only 150 mg a day. Reduced from 450 as home medication. Reports she is on Wellbutrin as a stimulant. We do not carrying Vyvanse. Therefore Adderall use as a substitute per pharmacist. Patient do not have anyone to bring own medication here. Continue with Seroquel as home dose 600 at bedtime and 25mg as needed. She does not want any change in her medication. Klonopin 1 mg 3 times a day scheduled for severe anxiety. Lamictal 400 at bedtime. Latuda 60 mg with dinner. Sertraline 100 twice a day. 09/30/24: Patient slept well, eating good, compliant with medicationsc. Denies side effects. She is in better space today. Confirmed with her that she is not having kidney failure, or anything in her aorta or lungs issues that she has been missed interpret. She appears to be,, signed a 3 days notice, but later on recognized that she needs to get a treatment. She is receptive with the medication plans and changes today. Social, visible, and attended groups. Less pain compared to yesterday, Tylenol increase helpful. Increased Tylenol up to 975 mg PRNs for pain. Increase p.r.n. Seroquel 25 up to 50 mg p.r.n.. Increase Latuda from 60 to 80 mg for mood/psychosis Plan Patient on 15 minute checks for safety. Admitted to . CV. Three day notice up on Friday. Work with treatment team to do collateral with outpatient psychiatry team-[facility] Labs results: Normal liver function. Creatinine 1.4. Estimate creatinine clearance 44.8. eGFR is 40. Need to continue to monitor and recheck in 1-2 days. A1c is 5.3, elevated cholesterol 285. LDL is 200. CMP on October 01. Patient seen by hospitalist on 09/30/24. Per hospitalist note and plan: Stage 3A Chronic Kidney disease Baseline 1.1-1.5 [facility] updated regarding need for Nephrology follow up and they will contact patient on DC to make follow up appointment for her. History of Kidmey damage due to lithium use [address] scan noted Atherosclerosis and LDL >200 Will start Moderate intensity statin Follow up outpatient with recheck of LFT's and Lipid panel in 6 weeks. Patient educated on: diagnosis, medication risk/benefits and therapeutic strategies Informed Consent: understands and further education needed Reason for continued inpatient stay Substantial Risk for: med/psych decompensation Time Spent With Patient Time: Total time managing care of this patient today ____ minutes.
[2024-10-01] MEDS: Amphetamine Mixed Salts 10 MG TABLET 7.5 MG PO (08:45)
[2024-10-01] MEDS: buPROPion HCl XL 150 MG TAB.ER.24H PO (08:45)
[2024-10-01] MEDS: Nicotine 21 MG PATCH.TD24 TRANSDERMA (09:04)
--- NOTE | 2024-10-01 09:58 | PM.PSYDC ---
DS: Providers Provider Date of Service: 10/01/24 Date of admission: 09/28/24 15:01 Date of discharge: 10/01/24 Primary care physician: Unknown Physician Admitting clinician: Lesvia Askew Attending physician on admission: Mian Garber Consults: 09/29/24 21:51 Consult to Hospitalist Routine Comment: Consulting Provider: [facility] Hospitalists Reason For Exam: Poor renal functions, elevated lipid profile Attending physician on discharge: Mian Garber Discharging clinician: Gill Hernandez DS: Diagnosis Discharge Diagnosis (1) HLD (hyperlipidemia): Status: Acute (2) Stage 3a chronic kidney disease (CKD): Status: Acute (3) PTSD (post-traumatic stress disorder): Status: Acute (4) Bipolar 2 disorder, major depressive episode: Status: Acute DS: Medications Discharge Medications Home Medications: Home Medications ?Medication ?Instructions ?Recorded ?Confirmed bupropion HCl 150 mg 24 hr tablet, 150 mg PO QAM 09/27/24 09/27/24 extended release bupropion HCl 300 mg 24 hr tablet, 300 mg PO QAM 09/27/24 09/27/24 extended release clonazepam 1 mg tablet See Rx Instructions .Route .COMPLEX 09/27/24 09/27/24 clonidine HCl 0.1 mg tablet 0.1 mg PO TID PRN 09/27/24 09/27/24 Anxiety/Nightmares ferrous sulfate 325 mg (65 mg 325 mg PO Q OTHER DAY 09/27/24 09/27/24 iron) tablet (FeroSul) gabapentin 300 mg capsule 600 mg PO QID 09/27/24 09/27/24 lamotrigine 200 mg tablet 400 mg PO QPM 09/27/24 09/27/24 lisdexamfetamine 30 mg capsule 30 mg PO QNOON 09/27/24 09/27/24 (Vyvanse) lisdexamfetamine 40 mg capsule 40 mg PO QAM 09/27/24 09/27/24 (Vyvanse) lurasidone 60 mg tablet 60 mg PO QAM 09/27/24 09/27/24 quetiapine 25 mg tablet 25 mg PO BID PRN psychosis episodes 09/27/24 09/27/24 quetiapine 300 mg tablet 600 mg PO QPM 09/27/24 09/27/24 sennosides 8.6 mg-docusate sodium 1 tab PO DAILY 09/27/24 09/27/24 50 mg tablet (Stool Softener-Laxative) sertraline 100 mg tablet 100 mg PO BID 09/27/24 09/27/24 Mental Status Exam Mental Status Exam Narrative: Pt is alert and oriented; behavior is cooperative; dressed in casual attire; irritable; eye contact appropriate; Speech is normal rate, volume and not pressured; thought process is organized; Thought content is on discharge; denies SI/HI/VH/AH. Data Data Completed and Pending Completed studies during hospitalization [Text1]: 09/27/24 09/28/24 09/29/24 10:22 13:10 08:42 WBC 9.5 RBC 4.75 Hgb 11.6 L D Hct 37.5 D MCV 78.9 L MCH 24.4 L MCHC 30.9 L RDW 20.6 H Plt Count 369 MPV 9.2 L Immature Gran % (Auto) 2.4 H Neut % (Auto) 59.5 Lymph % (Auto) 27.8 [place] % (Auto) 6.9 Eos % (Auto) 2.5 Baso % (Auto) 0.9 Lymph # (Auto) 2.7 [place] # (Auto) 0.7 Eos # (Auto) 0.2 Baso # (Auto) 0.1 Abs Immat Gran (auto) 0.23 H Absolute Neuts (auto) 5.7 Absolute Nucleated RBC 0.000 Nucleated RBC % (auto) 0.0 Sodium 138 138 138 Potassium 4.5 4.2 4.1 Chloride 103 105 104 Carbon Dioxide 24 25 26 Anion Gap 16 12 12 BUN 16 13 13 Creatinine 1.56 H 1.24 1.44 H Estim Creat Clear Calc 45.6 57.3 44.8 Estimated GFR 36 47 40 Random Glucose 87 99 97 Estimat Average Glucose 105 Hemoglobin A1c % 5.3 Calcium 10.1 D 9.4 D 9.4 Total Bilirubin 0.2 0.1 AST 25 22 ALT 14 13 Alkaline Phosphatase 85 80 Total Protein 7.9 7.9 Albumin 4.5 4.3 Triglycerides 149 Cholesterol 285 H LDL Cholesterol, Calc 200 H HDL Cholesterol 56 TSH 1.04 Free T4 0.77 Urine Color Dark Yellow Urine Appearance Clear Urine pH 6.0 Ur Specific [place] >= 1.030 H Urine Protein 30 (1+) H Urine Glucose (UA) Negative Urine Ketones Trace Urine Blood Negative Urine Nitrite Negative Ur Leukocyte Esterase Negative Urine RBC 0-2 Urine WBC 0-5 Ur Squamous Epith Cells 3-5 Urine Bacteria None Seen Hyaline Casts 3-5 Urine Test NEGATIVE Urine Opiates Screen Not Detected Ur Buprenorphine Scrn Not Detected Ur Oxycodone Screen Not Detected Urine Methadone Screen Not Detected Urine Fentanyl Screen Not Detected Ur Barbiturates Screen Not Detected Ur Phencyclidine Scrn Not Detected Ur Amphetamines Screen POSITIVE H U Benzodiazepines Scrn POSITIVE H Urine Cocaine Screen Not Detected U Marijuana (THC) Screen POSITIVE H DS: Summary Hospital Course Hospital Course: Patient is a 43 years old single Bahamian-speaking female with history of PTSD, personality, and bipolar disorders who came to [facility] ED by ambulance that she called from home seeking help for abdominal pain. While in the ED she presented with agitated mood and appeared to be psychotic when she thoughts were police and others above the ceiling monitoring her. 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 Patient seen on 09/29 at 11:22 with chief complaint a couple of months ago I have kidney failure and a disease of the mass in aorta and lumps in my back, my lungs. I was so angry about what is going on . Denies SI/SIB/HI/AVH. Reports that he has suicidal thoughts a few days ago with history of suicide or thoughts in the past. Reported that she had thoughts of hanging herself a week ago. She feels like no one listens to me . History of suicide attempts stated 12 of them via overdose on aspirin, hanging self suffocated. Legal issue: Reports she was pulled over 1 point weeks ago for suspended license. Driving without a license for many years. Pressured speech, tangential, hyper focused on home medications labile, She was tearful, not treatment focused when being told her Wellbutrin was reduced from 450 mg down to 150 daily due to low creatinine clearance. Formulation/clinical reasoning: Bipolar, manic depression episode, labile mood paranoia, increased anxiety and depression, increase in agitation, feeling like her compliant was not heard or addressed. No supports family system. Has a therapist but she does not feel this person is helpful, history of suicidal thoughts with plan and intention, history of numerous suicide attempts. History of bipolar, and PTSD, personality disorder. Given the above information, patient will be safe in the restrictive environment, to monitor her safety, medication management/adjustment, with therapeutic environment, and continue with outpatient psychiatry services upon the discharge. Patient on 15 minute checks for safety. Admitted to . . Three day notice up on Friday. Work with treatment team to do collateral with outpatient psychiatry team[facility] Labs results: Normal liver function. Creatinine 1.4. Estimate creatinine clearance 44.8. eGFR is 40. Need to continue to monitor and recheck in 1-2 days. A1c is 5.3, elevated cholesterol 285. LDL is 200. CMP on October 01. Hospital course: Due to poor renal function, per up-to-date recommendations, will pushing should be only 150 mg a day. Reduced from 450 as home medication. Reports she is on Wellbutrin as a stimulant. We do not carrying Vyvanse. Therefore Adderall use as a substitute per pharmacist. Patient do not have anyone to bring own medication here. Continue with Seroquel as home dose 600 at bedtime and 25mg as needed. She does not want any change in her medication. Klonopin 1 mg 3 times a day scheduled for severe anxiety. Lamictal 400 at bedtime. Latuda 60 mg with dinner. Sertraline 100 twice a day. Patient slept well, eating good, compliant with medicationsc. Denies side effects. She is in better space today. Confirmed with her that she is not having kidney failure, or anything in her aorta or lungs issues that she has been missed interpret. She appears to be,, signed a 3 days notice, but later on recognized that she needs to get a treatment. She is receptive with the medication plans and changes today. Social, visible, and attended groups. Less pain compared to yesterday, Tylenol increase helpful. Increased Tylenol up to 975 mg PRNs for pain. Increase p.r.n. Seroquel 25 up to 50 mg p.r.n.. Increase Latuda from 60 to 80 mg for mood/psychosis Per nursing, pt self reports having an unwitnessed seizure last night; pt reportedly slept 8 hours last night. Intrusive with peers treatment, poor boundaries. Negative regarding treatment; upset regarding medication changes made by another provider. Pt reports she wants to go home and follow up with her outpatient providers. Pt stated she plans on taking her medications the way I want . denies SI/HI/VH/AH. Pt discharged home with plan for her to follow up with outpatient providers. Status at Discharge Cognitive/behavioral status at discharge: Patient has insight and demonstrates good judgment in terms of wanting to pursue treatment. Patient has a safety plan that includes presenting to the closest ER or calling 911 if feeling unsafe. Functional status at discharge: independent ambulation Overall status at discharge: patient is back to baseline Time Spent with Patient Time attestation: Total time managing care of this patient today _20___ minutes. Time spent: Less than 30 minutes Discharge Plan Discharge Anticipated Discharge Date/Time: 10/01/24 11:00 Patient Disposition: Home, Self-Care Discharge Diagnosis: Bipolar d/o, PTSD Referrals: Therapy & Psychiatry [Other] - 1 Week Referral Note: *Please follow up with your outpatient providers through [facility] regarding aftercare appointments. [facility] [Outside] - 1 Week Referral Note: 10-01-24 Please contact your primary care provider to schedule a follow up appt within 7-10 days of discharge. Discharge Medications: New atorvastatin 20 mg Tablet 20 mg PO BEDTIME 30 Days Qty: 30 0RF Continued clonidine HCl 0.1 mg tablet 0.1 mg PO TID PRN (Reason: Anxiety/Nightmares) clonazepam 1 mg tablet See Rx Instructions .ROUTE .COMPLEX Rx Instructions: 1 mg orally TID at 0900, 1200 and 1700 ferrous sulfate [FeroSul] 325 mg (65 mg iron) tablet 325 mg PO Q OTHER DAY Rx Instructions: every other day quetiapine 25 mg tablet 25 mg PO BID PRN (Reason: psychosis episodes) lamotrigine 200 mg tablet 400 mg PO QPM quetiapine 300 mg tablet 600 mg PO QPM sennosides-docusate sodium [Stool Softener-Laxative] 8.6-50 mg tablet 1 tab PO DAILY sertraline 100 mg tablet 100 mg PO BID gabapentin 300 mg capsule 600 mg PO QID bupropion HCl 150 mg tablet extended release 24 hr 150 mg PO QAM lisdexamfetamine [Vyvanse] 30 mg capsule 30 mg PO QNOON lisdexamfetamine [Vyvanse] 40 mg capsule 40 mg PO QAM lurasidone 60 mg tablet 60 mg PO QAM Discontinued bupropion HCl 300 mg tablet extended release 24 hr 300 mg PO QAM Discharge Orders: Discharge Order (Routine); Ordered 10/01/24 Ordered By: Gill Hernandez Diet: Regular diet Activity on Discharge: As tolerated Stand Alone Forms: Patient Portal Discharge page, Community Support Print Language: Bahamian Care Plan Goals: Maintain mood and safe behaviors Take medications as prescribed Continue to pursue sobriety Practice coping skills Continue with outpatient providers and reach out to them as needed Health Concerns: Mood stability and behaviors Sobriety Plan of Treatment: Follow up with your PCP, psychiatric provider and other outpatient providers regarding above concerns Take medications as prescribed Assessment: Patient has insight and demonstrates good judgment in terms of wanting to pursue treatment. Patient has a safety plan that includes presenting to the closest ER or calling 911 if feeling unsafe. Discharge Date/Time: 10/01/24 11:00
== END 2024-10-01 11:00 | disposition home or self-care (01) | DRG 753 ==
LOC: HO.ED 09-28 06:27 → HO.PADLT16 09-28 15:26
PROVIDERS: Emergency Medicine; Admitting Provider Nurse Practitioner Psychiatric/Mental Health; Emergency Provider Emergency Medicine; Visit Provider Nurse Practitioner Psychiatric/Mental Health
DX: F31.81 Bipolar II disorder (principal); D50.9 Iron deficiency anemia, unspecified; F43.10 Post-traumatic stress disorder, unspecified; F17.210 Nicotine dependence, cigarettes, uncomplicated; E78.5 Hyperlipidemia, unspecified; N18.31 Chronic kidney disease, stage 3a; T43.595S Adverse effect of other antipsychotics and neuroleptics, sequela; Z71.6 Tobacco abuse counseling; Z79.899 Other long term (current) drug therapy
CPT/HCPCS: 36415; 80048; 80053; 80061; 80307; 81001; 81025; 83036; 84439; 84443; 85025; 93005; 99285; S9485

== ENCOUNTER 2024-09-28 15:01 | Outpatient (BNV) | payer OTHER, SELFPAY | END 2024-09-28 18:02 | PROVIDERS: Admitting Provider Nurse Practitioner Psychiatric/Mental Health; Emergency Provider Emergency Medicine; Visit Provider Internal Medicine Cardiovascular Disease | DX: R94.31 Abnormal electrocardiogram [ECG] [EKG] (principal); Z13.6 Encounter for screening for cardiovascular disorders | CPT/HCPCS: 93010 ==

== ENCOUNTER → 2024-09-28 15:01 | Outpatient (BNV) | payer OTHER, SELFPAY | PROVIDERS: Admitting Provider Nurse Practitioner Psychiatric/Mental Health; Emergency Provider Emergency Medicine; Visit Provider Nurse Practitioner Family | DX: E78.5 Hyperlipidemia, unspecified (principal); N18.31 Chronic kidney disease, stage 3a | CPT/HCPCS: 99222 ==

== ENCOUNTER → 2024-09-28 15:01 | Outpatient (BNV) | payer OTHER, SELFPAY | PROVIDERS: Admitting Provider Nurse Practitioner Psychiatric/Mental Health; Emergency Provider Emergency Medicine; Visit Provider Nurse Practitioner Psychiatric/Mental Health | DX: F31.81 Bipolar II disorder (principal); F43.11 Post-traumatic stress disorder, acute; E78.5 Hyperlipidemia, unspecified; N18.31 Chronic kidney disease, stage 3a | CPT/HCPCS: 99238 ==

== ENCOUNTER 2024-10-31 17:59 | Inpatient (IN) | payer OTHER, SELFPAY ==
[2024-10-31 18:11] VITALS: BP 148/102; PULSE 130; O2SAT 98; BMI 25.0
[2024-10-31 18:15] VITALS: BP 99/71; PULSE 101; RESP 18; TEMP 36.7; O2SAT 99
[2024-10-31 18:20] VITALS: BP 99/71; PULSE 100; RESP 20; TEMP 37.1; O2SAT 95
--- NOTE | 2024-10-31 18:33 | MHC.EDTECH ---
Patient has a ring on. tried removing the ring, but wouldn't come off nurse aware.
--- NOTE | 2024-10-31 18:39 | PC.NURSE ---
Patient is a 43 years old single Yi-speaking female with history of PTSD, personality, and bipolar disorders who came to [facility] ED by ambulance that she called from home seeking help for SI with no plan with assoc visual hallucinations. While in the ED she presented with agitated mood and appeared to be psychotic when she thoughts were police and others above the ceiling monitoring her. Patient alert and manic. Speech is disorganized and tangential. No distress noted at this time. Pending CARE team eval.
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
[2024-10-31 19:40] LABS: MANUAL DIFF FLAG NO
[2024-10-31 19:43] LABS: Hematocrit 37.7 % (37.0-47.0); Hemoglobin 11.7 g/dl (12.0-16.0); Imm Gran Abs Auto 0.03 X10*3/uL (0.00-0.03); Imm Gran Pct Auto 0.4 % (0.0-0.4); Lymphocytes Absolute Auto 1.3 X10*3/uL (1.2-4.9); Mean Corpuscular HGB Conc 31.0 g/dl (31.0-35.0); Mean Corpuscular Hemoglobin 25.7 pg (27.0-33.0); Mean Corpuscular Volume 82.9 fL (80.0-98.0); NRBC Abs Auto 0.000 X10*3/uL (0.0-0.012); NRBC Pct Auto 0.0 /100WBC (0.0-0.2); Platelet Count 257 X10*3/uL (160-400); Red Blood Count 4.55 X10*6/uL (4.20-5.50); White Blood Count 7.0 X10*3/uL (4.8-10.8)
[2024-10-31 19:45] LABS: Appearance Urine Clear; Glucose Urine UA Negative (Negative); PH 5.5 (5.0-9.0); Specific Gravity - Urine 1.025 (1.005-1.025); UMIC TRIGGER UACC YES
[2024-10-31 19:46] LABS: UPreg QC Valid YES
[2024-10-31 19:53] LABS: Cannabinoid Screen Urine POSITIVE (Not Detect)
[2024-10-31 19:58] LABS: Alanine Aminotransferase 19 U/L (0-31); Albumin Level 4.5 g/dL (3.5-5.0); Alkaline Phosphatase 74 U/L (39-117); Anion Gap 13 (12-20); Aspartate Amino Transferase 30 U/L (5-31); Blood Urea Nitrogen 12 mg/dL (9-16); Calcium 9.5 mg/dL (8.4-10.2); Carbon Dioxide 22 mmol/L (22-29); Chloride 107 mmol/L (96-108); Creatinine Clr Calc Pharmacy 42.5; Estimated Glomerular Filt Rate 37; Lipase 32 U/L (8-78); Potassium 4.0 mmol/L (3.3-5.1); Sodium 138 mmol/L (135-145); Total Protein 8.0 g/dL (6.5-8.0)
[2024-10-31 20:04] LABS: UACC Culture Trigger YES
[2024-10-31 20:05] LABS: Troponin-I High Sensitivity 4.2 ng/L (<3.5-17.0)
[2024-10-31] MEDS: Magnesium Hydrox/Alum Hydrox 30 ML ORAL.SUSP PO (20:51)
[2024-10-31] MEDS: buPROPion HCl XL 150 MG TAB.ER.24H PO (20:52)
[2024-11-01 05:15] VITALS: BP 110/60; PULSE 82; RESP 14; O2SAT 100
--- NOTE | 2024-11-01 05:36 | PC.NURSE ---
At 0500 this nurse heard a loud noise coming from pts bed area. Upon reaching pt, pt was already sitting at the bedside. Pt stated I got up too fast . Pt fell while getting up to go to the bathroom. Denies head strike. Denies any complaints related to the fall. VSS. No visible injuries noted. Charge nurse and MD made aware. Assistance provided to the bathroom. Pt returned to the bed. Pt advised to get up from bed slowly to prevent falling. Food and liquid provided as requested.
[2024-11-01] MEDS: buPROPion HCl XL 150 MG TAB.ER.24H PO (08:36)
[2024-11-01] MEDS: Ferrous Sulfate 324 MG TABLET.DR PO (08:36)
[2024-11-01] MEDS: Nicotine 21 MG PATCH.TD24 TRANSDERMA (09:55)
--- NOTE | 2024-11-01 10:21 | PC.NURSE ---
Assumed care, report received. She is anxious and tearful in the am. she is compliant with meds and her breakfast. she has alot of worry that everyone thinks she took drugs other than Marijuana. She talks about fear of dying and that it will be painful. She denies SI/HI/AVH
--- NOTE | 2024-11-01 11:57 | MHC.CARE ---
Pt will be an inpatient bedsearch
[2024-11-01 14:00] VITALS: BP 126/80; PULSE 87; RESP 16; O2SAT 97
--- NOTE | 2024-11-01 15:37 | ECG_ITS ---
Test Reason : prolong qtc Blood Pressure : */* mmHG Vent. Rate : 73 BPM Atrial Rate : 73 BPM P-R Int : 164 ms QRS Dur : 86 ms QT Int : 390 ms P-R-T Axes : 51 37 61 degrees QTcB Int : 429 ms Normal sinus rhythm Nonspecific ST abnormality Abnormal ECG When compared with ECG of 28-Sep-2024 18:02, No significant change was found Referred By: Leonides Hess Electronically Signed By: David Adams
--- NOTE | 2024-11-01 16:13 | PHA.MEDREC ---
Pharmacy Consult ? Medication Reconciliation Pharmacy has completed the medication reconciliation. Reviewed med rec done by nursing, matches claim history
--- NOTE | 2024-11-01 18:28 | PC.NURSE ---
Pt requested her medication list to be reviewed. Pt is on Vyvanse, provider is notified at 230pm for a possible replacement. Second shift provider is notified at 1740 for a possible replacement. Awaiting POC. She remains anxious and paraniod.
[2024-11-02 04:11] VITALS: BP 102/62
[2024-11-02 04:17] VITALS: BP 102/62; PULSE 84; RESP 16; TEMP 36.6; O2SAT 99
--- NOTE | 2024-11-02 07:26 | PC.NURSE ---
Assumed care, report received. Pt is currently resting. safety maintained.
[2024-11-02] MEDS: buPROPion HCl XL 150 MG TAB.ER.24H PO (09:11)
[2024-11-02] MEDS: Dextroamphetamine/Amphetamine XR 5 MG CAP.ER.24H PO (09:11)
[2024-11-02] MEDS: Dextroamphetamine/Amphetamine XR 10 MG CAP.ER.24H PO (09:11)
[2024-11-02 10:03] VITALS: BP 102/71; PULSE 89; RESP 14; TEMP 37.2; O2SAT 98
[2024-11-02] MEDS: Amphetamine Mixed Salts 10 MG TABLET PO (12:12)
[2024-11-02] MEDS: Amphetamine Mixed Salts 10 MG TABLET 5 MG PO (12:13)
[2024-11-02 18:37] LABS: Anion Gap 15 (12-20); Blood Urea Nitrogen 15 mg/dL (9-16); Calcium 10.3 mg/dL (8.4-10.2); Carbon Dioxide 25 mmol/L (22-29); Chloride 104 mmol/L (96-108); Creatinine Clr Calc Pharmacy 45.5; Estimated Glomerular Filt Rate 40; Potassium 4.2 mmol/L (3.3-5.1); Sodium 140 mmol/L (135-145)
--- NOTE | 2024-11-02 18:41 | PC.NURSE ---
Pt has remained calm and cooperative, she is tearful at times and believes she is going through withdrawal. She has remained isolated to her bed, she has been encouraged to ambulate and increase her fluid intake. A re-draw to check her Cr. as been sent. She admits to intermittent SI due to feeling worthless. She denies HI/AVH
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
[2024-11-02 22:53] VITALS: BP 138/76; PULSE 85; RESP 16; TEMP 36.7; O2SAT 98
[2024-11-02 22:58] VITALS: BP 138/76; PULSE 85; RESP 18; TEMP 36.9; O2SAT 98
[2024-11-02 23:38] VITALS: BP 128/76
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
[2024-11-03] MEDS: buPROPion HCl XL 150 MG TAB.ER.24H PO (07:59)
[2024-11-03] MEDS: Dextroamphetamine/Amphetamine XR 5 MG CAP.ER.24H PO (07:59)
[2024-11-03] MEDS: Ferrous Sulfate 324 MG TABLET.DR PO (07:59)
[2024-11-03] MEDS: Dextroamphetamine/Amphetamine XR 10 MG CAP.ER.24H PO (07:59)
[2024-11-03 08:00] VITALS: BP 108/81; PULSE 95; RESP 18; TEMP 36.7; O2SAT 99
[2024-11-03 09:27] LABS: Hemoglobin A1C 105.4336 umol/L; Total Hemoglobin (HGBA1C) 3197.6157 umol/L
[2024-11-03 09:42] LABS: Alanine Aminotransferase 18 U/L (0-31); Albumin Level 4.6 g/dL (3.5-5.0); Alkaline Phosphatase 75 U/L (39-117); Anion Gap 13 (12-20); Aspartate Amino Transferase 25 U/L (5-31); Blood Urea Nitrogen 14 mg/dL (9-16); Calcium 9.6 mg/dL (8.4-10.2); Carbon Dioxide 27 mmol/L (22-29); Chloride 103 mmol/L (96-108); Cholesterol 326 mg/dL (<200); Creatinine Clr Calc Pharmacy 40.9; Estimated Glomerular Filt Rate 36; HDL Cholesterol 84 mg/dL (>40); Potassium 4.1 mmol/L (3.3-5.1); Sodium 139 mmol/L (135-145); Total Protein 8.1 g/dL (6.5-8.0); Triglycerides 135 mg/dL (<150)
--- NOTE | 2024-11-03 09:49 | P.PNPSI_ITS ---
Subjective Subjective Date of Service: 11/03/24 Reason For Visit: increased paranoid/delusions Subjective Notes: Conditional Voluntary Interim History: Patient found sitting in her bed. Reports moderate anxiety and denies depression. She is perseverative about nursing trying to give her Ativan instead of oxycodone although she does not have oxycodone ordered. She states she made a phone call to the hospitalist and complained about not receiving oxycodone. She states nursing did not want her to sleep. She slept 8 hours according to nursing but she states she did not sleep that long. She reports persistent upper back pain and pain to her bilat upper abd quad x 4 months, which she attributes to chronic kidney disease. She denies SI/HI/AH/VH. Medication Compliance: Yes Side effects from medications: No Attending Groups: No Review of Systems Acute medical concerns: No Review of Systems Review of Systems Musculoskeletal: Reports upper back pain x 4 months Mental Status Exam Mental Status Exam Narrative: Appearance: Casually dressed, adequate hygiene Behavior: Talkative, distractive, cooperative throughout the interview. Eye contact is intense, and there are no signs of psychomotor agitation or retardation Speech: Clear, loud, rapid Thought process: Rapid thoughts, circumstantial, perseverative Thought content: Paranoid Mood: Labile, elevated Affect: Blunted SI:denies HI:denies VH/AH:none Delusions: Paranoid Insight/judgment: Impaired insight and judgment Memory/cog: Alert, oriented x 3. grossly intact to conversational testing Diagnostics Vital Signs (24Hr): Vital Signs - 24 hr 11/02/24 10:03 11/02/24 22:53 11/02/24 22:58 Temperature 98.9 F 98.1 F 98.5 F Pulse Rate 89 85 85 Respiratory Rate 14 16 18 Blood Pressure 102/71 138/76 138/76 Pulse Oximetry 98 98 98 Oxygen Delivery Method Room Air Room Air Room Air 11/02/24 23:38 11/03/24 08:00 Temperature 98.1 F Pulse Rate 95 Respiratory Rate 18 Blood Pressure 128/76 108/81 Pulse Oximetry 99 Oxygen Delivery Method Room Air BMI result Body Mass Index 25.0 Labs 10/31/24 19:33 11/03/24 09:02 Labs: Laboratory Results - last 48 hr 11/02/24 11/03/24 18:18 09:02 Sodium 140 139 Potassium 4.2 4.1 Chloride 104 103 Carbon Dioxide 25 27 Anion Gap 15 13 BUN 15 14 Creatinine 1.42 H 1.58 H Estim Creat Clear Calc 45.5 40.9 Estimated GFR 40 36 Random Glucose 85 139 H Estimat Average Glucose 103 Hemoglobin A1c % 5.2 Calcium 10.3 H D 9.6 D Total Bilirubin 0.2 AST 25 ALT 18 Alkaline Phosphatase 75 Total Protein 8.1 H Albumin 4.6 Triglycerides 135 Cholesterol 326 H LDL Cholesterol, Calc 215 H HDL Cholesterol 84 Medications Medications Current Medications Acetaminophen (Acetaminophen 325 Mg Tablet) 650 mg PO Q6H PRN PRN Reason: Headache/Pain, Scale 1-10 Al Hydroxide/Mg Hydroxide (Magnesium Hydrox/Alum Hydrox 30 Ml Oral.Susp) 30 ml PO Q6H PRN PRN Reason: Heartburn/Nausea Amphetamine/Dextroamphetamine (Dextroamphetamine/Amphetamine Xr 10 Mg Cap.Er.24h) 10 mg PO DAILY [facility] Last Admin: 11/03/24 07:59 Dose: 10 mg Amphetamine/Dextroamphetamine (Dextroamphetamine/Amphetamine Xr 5 Mg Cap.Er.24h) 5 mg PO DAILY [facility] Last Admin: 11/03/24 07:59 Dose: 5 mg Amphetamine/Dextroamphetamine (Amphetamine Mixed Salts 10 Mg Tablet) 10 mg PO DAILY@1200 [facility] Last Admin: 11/02/24 12:12 Dose: 10 mg Amphetamine/Dextroamphetamine (Amphetamine Mixed Salts 10 Mg Tablet) 5 mg PO DAILY@1200 [facility] Last Admin: 11/02/24 12:13 Dose: 5 mg Bupropion HCl (Bupropion Hcl Xl 150 Mg Tab.Er.24h) 150 mg PO DAILY [facility] Last Admin: 11/03/24 07:59 Dose: 150 mg Clonazepam (Clonazepam 1 Mg Tablet) 1 mg PO TID@0900,1200,1700 [facility] Last Admin: 11/03/24 07:59 Dose: 1 mg Clonidine HCl (Clonidine Hcl 0.1 Mg Tablet) 0.1 mg PO TID PRN; Protocol PRN Reason: Anxiety/Nightmares Last Admin: 11/02/24 23:38 Dose: 0.1 mg Ferrous Sulfate (Ferrous Sulfate 324 Mg Tablet.) 324 mg PO Q48H [facility] Last Admin: 11/03/24 07:59 Dose: 324 mg Gabapentin (Gabapentin 300 Mg Capsule) 600 mg PO QID [facility] Last Admin: 11/03/24 07:59 Dose: 600 mg Hydroxyzine HCl (Hydroxyzine Hcl 25 Mg Tablet) 25 mg PO Q6H PRN PRN Reason: mild anxiety Lamotrigine (Lamotrigine 100 Mg Tablet) 400 mg PO DAILY [facility] Last Admin: 11/03/24 07:59 Dose: 400 mg Lurasidone HCl (Lurasidone Hcl 20 Mg Tablet) 20 mg PO DAILY [facility] Last Admin: 11/03/24 07:59 Dose: 20 mg Lurasidone HCl (Lurasidone Hcl 40 Mg Tablet) 40 mg PO DAILY [facility] Last Admin: 11/03/24 07:59 Dose: 40 mg Magnesium Hydroxide (Milk Of Magnesia 30 Ml Oral.Susp) 30 ml PO DAILY PRN PRN Reason: Constipation Nicotine (Nicotine 21 Mg Patch.Td24) 21 mg TRANSDERMA DAILY PRN PRN Reason: Nicotine Cravings Last Admin: 11/01/24 09:55 Dose: 21 mg Nicotine Polacrilex (Nicotine Polacrilex 2 Mg Gum) 2 mg BUCCAL Q2H PRN PRN Reason: Nicotine Cravings Quetiapine Fumarate (Quetiapine Fumarate 25 Mg Tablet) 25 mg PO BID PRN PRN Reason: psychosis episodes Quetiapine Fumarate (Quetiapine Fumarate 300 Mg Tablet) 600 mg PO BEDTIME [facility] Last Admin: 11/02/24 23:38 Dose: 600 mg Sertraline HCl (Sertraline Hcl 100 Mg Tablet) 100 mg PO BID [facility] Last Admin: 11/03/24 08:00 Dose: 100 mg Trazodone HCl (Trazodone Hcl 50 Mg Tablet) 50 mg PO BEDTIME MRX1 PRN PRN Reason: Insomnia Allergies Allergies Allergy/AdvReac Type Severity Reaction Status Date / Time Penicillins (PCN) Allergy Unknown UNKNOWN Verified 10/31/24 18:14 tramadol (TRAMADOL) Allergy Unknown HIVES Verified 10/31/24 18:14 Assessment & Plan Assessment & Plan (1) PTSD (post-traumatic stress disorder): Status: Acute Code(s): F43.10 - Post-traumatic stress disorder, unspecified (2) Stage 3a chronic kidney disease (CKD): Status: Acute Code(s): N18.31 - Chronic kidney disease, stage 3a (3) Bipolar disorder with psychotic features: Status: Acute Code(s): F31.9 - Bipolar disorder, unspecified Plan HPI: patient is 43 years old single speaking female with history of bipolar, PTSD, stage III A kidney disease who was brought in hospital secondary to experiencing symptoms of paranoid and delusional. She believes she is being monitor by the police and states that they live in the ceiling . Reported that she was being watched when she showers and when she was naked and she is is afraid to go home due to being believe that the police are in the ceiling. Patient also endorsed SI saying that I can not working take it anymore . She thinks she is dying fell down that she has multiple medical conditions that she was recently diagnosed with I can not do with the fact that I am dying. I want to be accepted, my brain is obsessing over everything . Reports sleep and appetite has been decreased and feeling depressed. Formulation/clinical reasoning: Suicidal thoughts, paranoid, delusional, increased depression, increased insomnia, poor appetite, believes she is dying, police she has cancer, believes he is really sick with multiple medical conditions, police people/police following her. History of PTSD, history of bipolar with psychotic feature, stage IIIA kidney disease. History of suicidal thoughts and suicide attempts. Given the above information, patient could be benefit in restrictive environment monitor her safety, medication adjustment/management to target psychotic behaviors, and refer patient out to outpatient psychiatric services. 11/03: Continue current treatment regimen. Encouraged to take Tylenol as needed for pain. Creatinine level today is elevated, 1.58 and GFR 40.9; previous levels were 1.42 and 45.5 respectively. Hospital course: Currently: Continue with home medication except Wellbutrin. Currently Wellbutrin ordered 150 mg daily in the morning. Home meds total of 450 mg. Need to verify if creatinine clearance level is appropriate for 450. Was only given 150 in the ED since since 11/01. Klonopin 3 times a day. Latuda 60 mg daily. Seroquel 600 at bedtime. Adderall b.i.d.. Gabapentin 600 q.i.d.. Clonidine 0.1 t.i.d. p.r.n. for severe anxiety Seroquel 25 mg b.i.d. p.r.n. for severe agitation/psychosis. Zoloft 100 b.i.d.. Plan Patient on 15 minute checks for safety. Admitted to . CV. Work with treatment team to do collateral with OP providers/therapist. Patient educated on: therapeutic strategies Reason for continued inpatient stay Substantial Risk for: rapid decompensation Time Spent With Patient Time: Total time managing care of this patient today ____ minutes.
[2024-11-03 09:52] LABS: Free T4 (Free Thyroxine) 0.83 ng/dL (0.71-1.85); Thyroid Stimulating Hormone 0.76 uIU/mL (0.32-4.0)
[2024-11-03] MEDS: Amphetamine Mixed Salts 10 MG TABLET PO (12:11)
[2024-11-03] MEDS: Amphetamine Mixed Salts 10 MG TABLET 5 MG PO (12:11)
[2024-11-03 19:53] VITALS: BP 134/90; PULSE 106; RESP 18; TEMP 36.6; O2SAT 100
[2024-11-04 07:00] VITALS: BMI 25.0
[2024-11-04 08:00] VITALS: BP 130/72; PULSE 97; RESP 16; TEMP 36.6; O2SAT 99
[2024-11-04] MEDS: Dextroamphetamine/Amphetamine XR 10 MG CAP.ER.24H PO (08:25)
[2024-11-04] MEDS: buPROPion HCl XL 150 MG TAB.ER.24H PO (08:25)
[2024-11-04] MEDS: Dextroamphetamine/Amphetamine XR 5 MG CAP.ER.24H PO (08:26)
--- NOTE | 2024-11-04 09:53 | P.PNPSI_ITS ---
Subjective Subjective Date of Service: 11/04/24 Reason For Visit: increased paranoid/delusions Subjective Notes: Conditional Voluntary and 3 Day Interim History: Patient reports severe anxiety and depression. She also reports upper back pain x3 days which she attributes to kidney disease. Has been requesting oxycodone for pain and notes was given to her while at [facility], although there is no record for that. She denies SI/HI/AH/VH. Medication Compliance: Yes Side effects from medications: No Attending Groups: No Review of Systems Acute medical concerns: Yes Musculoskeletal: Reports back upper back pain x 3 days which she attributes to kidney disease Mental Status Exam Mental Status Exam Narrative: Appearance: Casually dressed, adequate hygiene Behavior: Talkative, distractive, irritable, cooperative throughout the interview. Eye contact is intense, and there are no signs of psychomotor agitation or retardation Speech: Clear, loud, rapid Thought process: Rapid thoughts, circumstantial, perseverative, disorganized Thought content: Paranoid Mood: Labile, elevated Affect: Blunted SI:denies HI:denies VH/AH:none Delusions: Paranoid Insight/judgment: Impaired insight and judgment Memory/cog: Alert, oriented x 3. grossly intact to conversational testing Diagnostics Vital Signs (24Hr): Vital Signs - 24 hr 11/03/24 19:53 11/04/24 08:00 Temperature 97.8 F 97.9 F Pulse Rate 106 H 97 Respiratory Rate 18 16 Blood Pressure 134/90 H 130/72 Pulse Oximetry 100 99 Oxygen Delivery Method Room Air Room Air BMI result Body Mass Index 25.0 Labs 10/31/24 19:33 11/03/24 09:02 Labs: Laboratory Results - last 48 hr 11/02/24 11/03/24 18:18 09:02 Sodium 140 139 Potassium 4.2 4.1 Chloride 104 103 Carbon Dioxide 25 27 Anion Gap 15 13 BUN 15 14 Creatinine 1.42 H 1.58 H Estim Creat Clear Calc 45.5 40.9 Estimated GFR 40 36 Random Glucose 85 139 H Estimat Average Glucose 103 Hemoglobin A1c % 5.2 Calcium 10.3 H D 9.6 D Total Bilirubin 0.2 AST 25 ALT 18 Alkaline Phosphatase 75 Total Protein 8.1 H Albumin 4.6 Triglycerides 135 Cholesterol 326 H LDL Cholesterol, Calc 215 H HDL Cholesterol 84 TSH 0.76 Free T4 0.83 Medications Medications Current Medications Acetaminophen (Acetaminophen 325 Mg Tablet) 975 mg PO Q6H PRN PRN Reason: Headache/Pain, Scale 1-10 Last Admin: 11/04/24 08:25 Dose: 975 mg Al Hydroxide/Mg Hydroxide (Magnesium Hydrox/Alum Hydrox 30 Ml Oral.Susp) 30 ml PO Q6H PRN PRN Reason: Heartburn/Nausea Amphetamine/Dextroamphetamine (Dextroamphetamine/Amphetamine Xr 10 Mg Cap.Er.24h) 10 mg PO DAILY [facility] Last Admin: 11/04/24 08:25 Dose: 10 mg Amphetamine/Dextroamphetamine (Dextroamphetamine/Amphetamine Xr 5 Mg Cap.Er.24h) 5 mg PO DAILY [facility] Last Admin: 11/04/24 08:26 Dose: 5 mg Amphetamine/Dextroamphetamine (Amphetamine Mixed Salts 10 Mg Tablet) 10 mg PO DAILY@1200 [facility] Last Admin: 11/03/24 12:11 Dose: 10 mg Amphetamine/Dextroamphetamine (Amphetamine Mixed Salts 10 Mg Tablet) 5 mg PO DAILY@1200 [facility] Last Admin: 11/03/24 12:11 Dose: 5 mg Bupropion HCl (Bupropion Hcl Xl 150 Mg Tab.Er.24h) 150 mg PO DAILY [facility] Last Admin: 11/04/24 08:25 Dose: 150 mg Clonazepam (Clonazepam 1 Mg Tablet) 1 mg PO TID@0900,1200,1700 [facility] Last Admin: 11/04/24 08:25 Dose: 1 mg Clonidine HCl (Clonidine Hcl 0.1 Mg Tablet) 0.1 mg PO TID PRN; Protocol PRN Reason: Anxiety/Nightmares Last Admin: 11/02/24 23:38 Dose: 0.1 mg Ferrous Sulfate (Ferrous Sulfate 324 Mg Tablet.Dr) 324 mg PO Q48H [facility] Last Admin: 11/03/24 07:59 Dose: 324 mg Gabapentin (Gabapentin 300 Mg Capsule) 600 mg PO QID [facility] Last Admin: 11/04/24 08:26 Dose: 600 mg Hydroxyzine HCl (Hydroxyzine Hcl 25 Mg Tablet) 25 mg PO Q6H PRN PRN Reason: mild anxiety Lamotrigine (Lamotrigine 100 Mg Tablet) 400 mg PO DAILY [facility] Last Admin: 11/04/24 08:25 Dose: 400 mg Lurasidone HCl (Lurasidone Hcl 20 Mg Tablet) 20 mg PO DAILY [facility] Last Admin: 11/04/24 08:26 Dose: 20 mg Lurasidone HCl (Lurasidone Hcl 40 Mg Tablet) 40 mg PO DAILY [facility] Last Admin: 11/04/24 08:26 Dose: 40 mg Magnesium Hydroxide (Milk Of Magnesia 30 Ml Oral.Susp) 30 ml PO DAILY PRN PRN Reason: Constipation Nicotine (Nicotine 21 Mg Patch.Td24) 21 mg TRANSDERMA DAILY PRN PRN Reason: Nicotine Cravings Last Admin: 11/01/24 09:55 Dose: 21 mg Nicotine Polacrilex (Nicotine Polacrilex 2 Mg Gum) 2 mg BUCCAL Q2H PRN PRN Reason: Nicotine Cravings Quetiapine Fumarate (Quetiapine Fumarate 25 Mg Tablet) 25 mg PO BID PRN PRN Reason: psychosis episodes Quetiapine Fumarate (Quetiapine Fumarate 300 Mg Tablet) 600 mg PO BEDTIME [facility] Last Admin: 11/03/24 22:08 Dose: 600 mg Sertraline HCl (Sertraline Hcl 100 Mg Tablet) 100 mg PO BID [facility] Last Admin: 11/04/24 08:26 Dose: 100 mg Trazodone HCl (Trazodone Hcl 50 Mg Tablet) 50 mg PO BEDTIME MRX1 PRN PRN Reason: Insomnia Allergies Allergies Allergy/AdvReac Type Severity Reaction Status Date / Time Penicillins (PCN) Allergy Unknown UNKNOWN Verified 10/31/24 18:14 tramadol (TRAMADOL) Allergy Unknown HIVES Verified 10/31/24 18:14 Assessment & Plan Assessment & Plan (1) PTSD (post-traumatic stress disorder): Status: Acute Code(s): F43.10 - Post-traumatic stress disorder, unspecified (2) Stage 3a chronic kidney disease (CKD): Status: Acute Code(s): N18.31 - Chronic kidney disease, stage 3a (3) Bipolar disorder with psychotic features: Status: Acute Code(s): F31.9 - Bipolar disorder, unspecified Plan HPI: patient is 43 years old single speaking female with history of bipolar, PTSD, stage III A kidney disease who was brought in hospital secondary to experiencing symptoms of paranoid and delusional. She believes she is being monitor by the police and states that they live in the ceiling . Reported that she was being watched when she showers and when she was naked and she is is afraid to go home due to being believe that the police are in the ceiling. Patient also endorsed SI saying that I can not working take it anymore . She thinks she is dying fell down that she has multiple medical conditions that she was recently diagnosed with I can not do with the fact that I am dying. I want to be accepted, my brain is obsessing over everything . Reports sleep and appetite has been decreased and feeling depressed. Formulation/clinical reasoning: Suicidal thoughts, paranoid, delusional, increased depression, increased insomnia, poor appetite, believes she is dying, police she has cancer, believes he is really sick with multiple medical conditions, police people/police following her. History of PTSD, history of bipolar with psychotic feature, stage IIIA kidney disease. History of suicidal thoughts and suicide attempts. Given the above information, patient could be benefit in restrictive environment monitor her safety, medication adjustment/management to target psychotic behaviors, and refer patient out to outpatient psychiatric services. 11/03: Continue current treatment regimen. Encouraged to take Tylenol as needed for pain. Creatinine level today is elevated, 1.58 and GFR 40.9; previous levels were 1.42 and 45.5 respectively. 11/04: She is in agreement to taper down and likely discontinue Adderall due to potential adverse reactions of drug-induced psychosis. Will decrease Adderall from 15 mg daily to 10 mg daily. Encouraged to take Tylenol as needed for pain or discomfort. Continue current treatment regimen. Verbalized understanding and agreed with the plan. Hospital course: Currently: Continue with home medication except Wellbutrin. Currently Wellbutrin ordered 150 mg daily in the morning. Home meds total of 450 mg. Need to verify if creatinine clearance level is appropriate for 450. Was only given 150 in the ED since since 11/01. Klonopin 3 times a day. Latuda 60 mg daily. Seroquel 600 at bedtime. Adderall b.i.d.. Gabapentin 600 q.i.d.. Clonidine 0.1 t.i.d. p.r.n. for severe anxiety Seroquel 25 mg b.i.d. p.r.n. for severe agitation/psychosis. Zoloft 100 b.i.d.. Plan Patient on 15 minute checks for safety. Admitted to . CV. Work with treatment team to do collateral with OP providers/therapist. Patient educated on: diagnosis, medication risk/benefits and therapeutic strategies Reason for continued inpatient stay Substantial Risk for: rapid decompensation Time Spent With Patient Time: Total time managing care of this patient today ____ minutes.
[2024-11-04] MEDS: Amphetamine Mixed Salts 10 MG TABLET 5 MG PO (12:52)
[2024-11-04] MEDS: Amphetamine Mixed Salts 10 MG TABLET PO (12:58)
[2024-11-04 20:00] VITALS: BP 146/90; PULSE 86; RESP 20; TEMP 36.4; O2SAT 98
[2024-11-05 08:00] VITALS: BP 129/88; PULSE 90; TEMP 36.8; O2SAT 99
[2024-11-05] MEDS: Ferrous Sulfate 324 MG TABLET.DR PO (09:26)
[2024-11-05] MEDS: Dextroamphetamine/Amphetamine XR 10 MG CAP.ER.24H PO (09:27)
[2024-11-05] MEDS: buPROPion HCl XL 150 MG TAB.ER.24H PO (09:27)
[2024-11-05] MEDS: Amphetamine Mixed Salts 10 MG TABLET PO (12:25)
[2024-11-05] MEDS: Amphetamine Mixed Salts 10 MG TABLET 5 MG PO (12:25)
--- NOTE | 2024-11-05 13:29 | PC.NURSE ---
Patient has been saying that she had 400.00 folded in a pill bottle in her belongings when she was admitted ,Yenny Cox went threw everything of her belongings, checked her chart and call down to security,there is no evidence that there was any money at all.
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
[2024-11-05] MEDS: Nicotine 21 MG PATCH.TD24 TRANSDERMA (14:47)
--- NOTE | 2024-11-05 18:47 | HO.PSYCHPN ---
Subjective Subjective Date of Service: 11/05/24 Reason For Visit: increased paranoid/delusions Subjective Notes: Conditional Voluntary Healthcare Proxy: No Guardianship: No Medical Problems Affecting Mental Status: No Interim History: Medical record and nursing notes reviewed; case discussed during rounds with team/nursing staff, and met with patient for supportive therapy/psychoeducation, as well as medication management. Patient slept for 8 hours was medication compliant. Denies side effects. She reports severe abdominal pain for a long time and asked for oxycodone. Patient was hyper verbal, delusional, paranoid, irritable and blaming everything on the pain that no one addressed which was not true I have 2 psychotic breaks since I got here because of the pain . She reminded this provider that she had seizure the day we discharge her from last admission. She attended no groups. However, she started to shower this morning after 3 4 days has not performed any ADLs. She had Adderall decreased from yesterday. Inform her that the Latuda also increased up to 80 mg today. Later on, observe her in the renee, a peer happier stating that she feels better. She met with hospitalist to address the medical issues related to kidneys lipid profile, and pain. Medication Compliance: Yes Side effects from medications: No Attending Groups: No Review of Systems Acute medical concerns: No Medical Review of Systems: unchanged Review of Systems Review of Systems Denies any shortness of breath, chest pain, dizziness, lightheadedness, + chronic abdominal pain, no nausea vomiting or diarrhea Mental Status Exam Mental Status Exam Narrative: Appearance: Casually dressed, adequate hygiene Behavior: Talkative, distractive, irritable, cooperative throughout the interview. Eye contact is intense, and there are mild signs of psychomotor agitation or retardation Speech: Clear, loud, rapid Thought process: Rapid thoughts, circumstantial, perseverative, disorganized Thought content: Paranoid Mood: Labile, elevated Affect: Blunted SI:denies HI:denies VH/AH:none Delusions: Paranoid Insight/judgment: Impaired insight and judgment Memory/cog: Alert, oriented x 3. grossly intact to conversational testing Diagnostics Vital Signs (24Hr): Vital Signs - 24 hr 11/04/24 20:00 11/05/24 08:00 Temperature 97.5 F 98.2 F Pulse Rate 86 90 Respiratory Rate 20 Blood Pressure 146/90 H 129/88 Pulse Oximetry 98 99 Oxygen Delivery Method Room Air Room Air BMI result Body Mass Index 25.0 Labs 10/31/24 19:33 11/03/24 09:02 Medications Medications Current Medications Acetaminophen (Acetaminophen 325 Mg Tablet) 975 mg PO Q6H PRN PRN Reason: Headache/Pain, Scale 1-10 Last Admin: 11/05/24 09:28 Dose: 975 mg Al Hydroxide/Mg Hydroxide (Magnesium Hydrox/Alum Hydrox 30 Ml Oral.Susp) 30 ml PO Q6H PRN PRN Reason: Heartburn/Nausea Amphetamine/Dextroamphetamine (Dextroamphetamine/Amphetamine Xr 10 Mg Cap.Er.24h) 10 mg PO DAILY [facility] Last Admin: 11/05/24 09:27 Dose: 10 mg Amphetamine/Dextroamphetamine (Amphetamine Mixed Salts 10 Mg Tablet) 10 mg PO DAILY@1200 [facility] Last Admin: 11/05/24 12:25 Dose: 10 mg Amphetamine/Dextroamphetamine (Amphetamine Mixed Salts 10 Mg Tablet) 5 mg PO DAILY@1200 [facility] Last Admin: 11/05/24 12:25 Dose: 5 mg Atorvastatin Calcium (Atorvastatin Calcium 20 Mg Tablet) 20 mg PO DAILY [facility] Bupropion HCl (Bupropion Hcl Xl 150 Mg Tab.Er.24h) 150 mg PO DAILY [facility] Last Admin: 11/05/24 09:27 Dose: 150 mg Clonazepam (Clonazepam 1 Mg Tablet) 1 mg PO TID@0900,1200,1700 [facility] Last Admin: 11/05/24 17:17 Dose: 1 mg Clonidine HCl (Clonidine Hcl 0.1 Mg Tablet) 0.1 mg PO TID PRN; Protocol PRN Reason: Anxiety/Nightmares Last Admin: 11/02/24 23:38 Dose: 0.1 mg Ferrous Sulfate (Ferrous Sulfate 324 Mg Tablet.Dr) 324 mg PO Q48H [facility] Last Admin: 11/05/24 09:26 Dose: 324 mg Gabapentin (Gabapentin 300 Mg Capsule) 600 mg PO QID [facility] Last Admin: 11/05/24 17:17 Dose: 600 mg Hydroxyzine HCl (Hydroxyzine Hcl 25 Mg Tablet) 25 mg PO Q6H PRN PRN Reason: mild anxiety Ibuprofen (Ibuprofen 600 Mg Tablet) 600 mg PO Q8H PRN PRN Reason: severe pain Last Admin: 11/05/24 14:54 Dose: 600 mg Lamotrigine (Lamotrigine 100 Mg Tablet) 400 mg PO DAILY [facility] Last Admin: 11/05/24 09:27 Dose: 400 mg Lurasidone HCl (Lurasidone Hcl 80 Mg Tablet) 80 mg PO DAILY [facility] Magnesium Hydroxide (Milk Of Magnesia 30 Ml Oral.Susp) 30 ml PO DAILY PRN PRN Reason: Constipation Nicotine (Nicotine 21 Mg Patch.Td24) 21 mg TRANSDERMA DAILY PRN PRN Reason: Nicotine Cravings Last Admin: 11/05/24 14:47 Dose: 21 mg Nicotine Polacrilex (Nicotine Polacrilex 2 Mg Gum) 2 mg BUCCAL Q2H PRN PRN Reason: Nicotine Cravings Quetiapine Fumarate (Quetiapine Fumarate 25 Mg Tablet) 25 mg PO BID PRN PRN Reason: psychosis episodes Quetiapine Fumarate (Quetiapine Fumarate 300 Mg Tablet) 600 mg PO BEDTIME [facility] Last Admin: 11/04/24 21:50 Dose: 600 mg Sertraline HCl (Sertraline Hcl 100 Mg Tablet) 100 mg PO BID [facility] Last Admin: 11/05/24 09:27 Dose: 100 mg Trazodone HCl (Trazodone Hcl 50 Mg Tablet) 50 mg PO BEDTIME MRX1 PRN PRN Reason: Insomnia Allergies Allergies Allergy/AdvReac Type Severity Reaction Status Date / Time Penicillins (PCN) Allergy Unknown UNKNOWN Verified 10/31/24 18:14 tramadol (TRAMADOL) Allergy Unknown HIVES Verified 10/31/24 18:14 Assessment & Plan Assessment & Plan (1) HLD (hyperlipidemia): Status: Acute Code(s): E78.5 - Hyperlipidemia, unspecified (2) Stage 3a chronic kidney disease (CKD): Status: Acute Code(s): N18.31 - Chronic kidney disease, stage 3a (3) Bipolar disorder with psychotic features: Status: Acute Code(s): F31.9 - Bipolar disorder, unspecified (4) PTSD (post-traumatic stress disorder): Status: Acute Code(s): F43.10 - Post-traumatic stress disorder, unspecified Plan HPI: patient is 43 years old single speaking female with history of bipolar, PTSD, stage III A kidney disease who was brought in hospital secondary to experiencing symptoms of paranoid and delusional. She believes she is being monitor by the police and states that they live in the ceiling . Reported that she was being watched when she showers and when she was naked and she is is afraid to go home due to being believe that the police are in the ceiling. Patient also endorsed SI saying that I can not working take it anymore . She thinks she is dying fell down that she has multiple medical conditions that she was recently diagnosed with I can not do with the fact that I am dying. I want to be accepted, my brain is obsessing over everything . Reports sleep and appetite has been decreased and feeling depressed. Formulation/clinical reasoning: Suicidal thoughts, paranoid, delusional, increased depression, increased insomnia, poor appetite, believes she is dying, police she has cancer, believes he is really sick with multiple medical conditions, police people/police following her. History of PTSD, history of bipolar with psychotic feature, stage IIIA kidney disease. History of suicidal thoughts and suicide attempts. Given the above information, patient could be benefit in restrictive environment monitor her safety, medication adjustment/management to target psychotic behaviors, and refer patient out to outpatient psychiatric services. Hospital course: 11/02: Currently: Continue with home medication except Wellbutrin. Currently Wellbutrin ordered 150 mg daily in the morning. Home meds total of 450 mg. Need to verify if creatinine clearance level is appropriate for 450. Was only given 150 in the ED since since 11/01. Klonopin 3 times a day. Latuda 60 mg daily. Seroquel 600 at bedtime. Adderall b.i.d.. Gabapentin 600 q.i.d.. Clonidine 0.1 t.i.d. p.r.n. for severe anxiety Seroquel 25 mg b.i.d. p.r.n. for severe agitation/psychosis. Zoloft 100 b.i.d.. 11/03: Continue current treatment regimen. Encouraged to take Tylenol as needed for pain. Creatinine level today is elevated, 1.58 and GFR 40.9; previous levels were 1.42 and 45.5 respectively. 11/04: She is in agreement to taper down and likely discontinue Adderall due to potential adverse reactions of drug-induced psychosis. Will decrease Adderall from 15 mg daily to 10 mg daily. Encouraged to take Tylenol as needed for pain or discomfort. Continue current treatment regimen. Verbalized understanding and agreed with the plan. 11/05/24: Patient slept for 8 hours was medication compliant. Denies side effects. She reports severe abdominal pain for a long time and asked for oxycodone. Patient was hyper verbal, delusional, paranoid, irritable and blaming everything on the pain that no one addressed which was not true I have 2 psychotic breaks since I got here because of the pain . She reminded this provider that she had seizure the day we discharge her from last admission. She attended no groups. However, she started to shower this morning after 3 4 days has not performed any ADLs. She had Adderall decreased from yesterday. Inform her that the Latuda also increased up to 80 mg today. Later on, observe her in the renee, a peer happier stating that she feels better. Increase Latuda from 60 to 80mg for psychosis. Give her Motrin 600mg q6hrs PRN for severe pain. however, will lower or would discontinue next couple of days (scheduled to stop on 11/08/24) as we do not want toxic to the kidney. She met with hospitalist to address the medical issues related to kidneys lipid profile, and pain on 11/05/24 for complaint of severe abdomen pain: per hospitalist plan: Wishes to see addiction medicine. Referral placed: at one breaking point, she yelled out loud that she does not want use street drug for pain. Abdominal pain No elevation in LFTs, no leukocytosis, recent CT scan at [facility] with no acute pathology Abdomen benign Would defer pain management to psychiatric team Stage 3A Chronic Kidney disease Baseline 1.1-1.5 Patient was scheduled for follow up with Nephrology last admission, she reports that she missed 2 appointments. N is helping her reestablish care. 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 YENY Ferrous sulfate QOD HLD CT scan noted Atherosclerosis and LDL >200 Will start atorvastatin 20 mg daily Follow up outpatient with recheck of LFT's and Lipid panel in 6 weeks. Plan Patient on 15 minute checks for safety. Admitted to [facility]. CV. Work with treatment team to do collateral with OP providers/therapist. Pending result with addition team. Patient educated on: diagnosis, medication risk/benefits, substance abuse and therapeutic strategies Informed Consent: further education needed Reason for continued inpatient stay Substantial Risk for: med/psych decompensation Time Spent With Patient Time: Total time managing care of this patient today ____ minutes.
[2024-11-05 20:00] VITALS: BP 137/63; PULSE 97; RESP 18; TEMP 36.4; O2SAT 99
[2024-11-06 08:18] VITALS: BP 135/78; PULSE 92; TEMP 36.9; O2SAT 99
--- NOTE | 2024-11-06 08:32 | HO.PSYCHPN ---
Subjective Subjective Date of Service: 11/06/24 Reason For Visit: increased paranoid/delusions Interim History: Met With patient; discussed with team; reviewed chart Patient with paranoid ideations, very upset feeling uncared about and that people are purposely change in her medications to cause her trouble. She points to the ceiling and says I know you got holes... You have got holes through the vents to see me... I can hear it and people are watching me... Don't you deny it... I am not stupid. Patient insists that she was given oxycodone in the ED for epigastric pain however there is no record of this anywhere. Patient says that she has been having pain in her belly, pointing to her epigastric area saying that it has been so bad it has made her psychotic. She says yesterday she got pain medications, ibuprofen which helped her tremendously for which she was grateful. [employer] discussed however that patient has CKD and is saying she has pain in the epigastric region, both of these are contraindications for ibuprofen. Patient continues to insist that she was getting oxycodone and says that she has been sober and is not trying to manipulate in order to get opioids. She says she does not want to hurt the hospital by exposing that she is being spite on and that were racing her medication history from the computer... Patient is rambling and accusatory; she is very upset that adjusto writer operator wants to hold her remaining Wellbutrin dose which has already been lowered further reduce her Zoloft asking if adjusto writer operator is crazy. When adjusto writer operator considered holding her Adderall dose patient got extremely agitated, standing up and yelling. She does agree to starting Depakote (refused increase in Seroquel) purposely for mood stabilization. She also agrees to both omeprazole, famotidine. Mental Status Exam Mental Status Exam Narrative: Pt is alert and oriented; behavior is guarded, emotionally upset, reactive, but also cooperative; patient is not in distress; dressed in casual attire with unkempt hair but adequate hygiene; mood is described as emotionally upset and affect congruent, intense, constricted; eye contact appropriate; Speech is a little pressured and loud due to being upset; no psychomotor agitation/retardation present; thought process is organized and goal directed; Thought content is epigastric pain, paranoid ideations; denies any SI/HI. Not clear if AVH Patients insight and judgment impaired Diagnostics Vital Signs (24Hr): Vital Signs - 24 hr 11/05/24 20:00 11/06/24 08:18 Temperature 97.5 F 98.4 F Pulse Rate 97 92 Respiratory Rate 18 Blood Pressure 137/63 135/78 Pulse Oximetry 99 99 Oxygen Delivery Method Room Air Room Air BMI result Body Mass Index 25.0 Labs 10/31/24 19:33 11/03/24 09:02 Medications Medications Current Medications Acetaminophen (Acetaminophen 325 Mg Tablet) 975 mg PO Q6H PRN PRN Reason: Headache/Pain, Scale 1-10 Last Admin: 11/05/24 09:28 Dose: 975 mg Al Hydroxide/Mg Hydroxide (Magnesium Hydrox/Alum Hydrox 30 Ml Oral.Susp) 30 ml PO Q6H PRN PRN Reason: Heartburn/Nausea Amphetamine/Dextroamphetamine (Dextroamphetamine/Amphetamine Xr 10 Mg Cap.Er.24h) 10 mg PO DAILY [facility] Last Admin: 11/05/24 09:27 Dose: 10 mg Amphetamine/Dextroamphetamine (Amphetamine Mixed Salts 10 Mg Tablet) 10 mg PO DAILY@1200 [facility] Last Admin: 11/05/24 12:25 Dose: 10 mg Amphetamine/Dextroamphetamine (Amphetamine Mixed Salts 10 Mg Tablet) 5 mg PO DAILY@1200 [facility] Last Admin: 11/05/24 12:25 Dose: 5 mg Atorvastatin Calcium (Atorvastatin Calcium 20 Mg Tablet) 20 mg PO DAILY [facility] Bupropion HCl (Bupropion Hcl Xl 150 Mg Tab.Er.24h) 150 mg PO DAILY [facility] Last Admin: 11/05/24 09:27 Dose: 150 mg Clonazepam (Clonazepam 1 Mg Tablet) 1 mg PO TID@0900,1200,1700 [facility] Last Admin: 11/05/24 17:17 Dose: 1 mg Clonidine HCl (Clonidine Hcl 0.1 Mg Tablet) 0.1 mg PO TID PRN; Protocol PRN Reason: Anxiety/Nightmares Last Admin: 11/02/24 23:38 Dose: 0.1 mg Ferrous Sulfate (Ferrous Sulfate 324 Mg Tablet.) 324 mg PO Q48H [facility] Last Admin: 11/05/24 09:26 Dose: 324 mg Gabapentin (Gabapentin 300 Mg Capsule) 600 mg PO QID [facility] Last Admin: 11/05/24 20:46 Dose: 600 mg Hydroxyzine HCl (Hydroxyzine Hcl 25 Mg Tablet) 25 mg PO Q6H PRN PRN Reason: mild anxiety Ibuprofen (Ibuprofen 600 Mg Tablet) 600 mg PO Q8H PRN PRN Reason: severe pain Stop: 11/08/24 23:59 Last Admin: 11/05/24 14:54 Dose: 600 mg Lamotrigine (Lamotrigine 100 Mg Tablet) 400 mg PO DAILY [facility] Last Admin: 11/05/24 09:27 Dose: 400 mg Lurasidone HCl (Lurasidone Hcl 80 Mg Tablet) 80 mg PO DAILY [facility] Magnesium Hydroxide (Milk Of Magnesia 30 Ml Oral.Susp) 30 ml PO DAILY PRN PRN Reason: Constipation Nicotine (Nicotine 21 Mg Patch.Td24) 21 mg TRANSDERMA DAILY PRN PRN Reason: Nicotine Cravings Last Admin: 11/05/24 14:47 Dose: 21 mg Nicotine Polacrilex (Nicotine Polacrilex 2 Mg Gum) 2 mg BUCCAL Q2H PRN PRN Reason: Nicotine Cravings Quetiapine Fumarate (Quetiapine Fumarate 25 Mg Tablet) 25 mg PO BID PRN PRN Reason: psychosis episodes Quetiapine Fumarate (Quetiapine Fumarate 300 Mg Tablet) 600 mg PO BEDTIME [facility] Last Admin: 11/05/24 20:46 Dose: 600 mg Sertraline HCl (Sertraline Hcl 100 Mg Tablet) 100 mg PO BID [facility] Last Admin: 11/05/24 20:46 Dose: 100 mg Trazodone HCl (Trazodone Hcl 50 Mg Tablet) 50 mg PO BEDTIME MRX1 PRN PRN Reason: Insomnia Allergies Allergies Allergy/AdvReac Type Severity Reaction Status Date / Time Penicillins (PCN) Allergy Unknown UNKNOWN Verified 10/31/24 18:14 tramadol (TRAMADOL) Allergy Unknown HIVES Verified 10/31/24 18:14 Assessment & Plan Assessment & Plan (1) Bipolar disorder with psychotic features: Status: Acute Code(s): F31.9 - Bipolar disorder, unspecified (2) PTSD (post-traumatic stress disorder): Status: Acute Code(s): F43.10 - Post-traumatic stress disorder, unspecified (3) HLD (hyperlipidemia): Status: Acute Code(s): E78.5 - Hyperlipidemia, unspecified (4) Stage 3a chronic kidney disease (CKD): Status: Acute Code(s): N18.31 - Chronic kidney disease, stage 3a Plan HPI: patient is 43 years old single speaking female with history of bipolar, PTSD, stage III A kidney disease who was brought in hospital secondary to experiencing symptoms of paranoid and delusional. She believes she is being monitor by the police and states that they live in the ceiling . Reported that she was being watched when she showers and when she was naked and she is is afraid to go home due to being believe that the police are in the ceiling. Patient also endorsed SI saying that I can not working take it anymore . She thinks she is dying fell down that she has multiple medical conditions that she was recently diagnosed with I can not do with the fact that I am dying. I want to be accepted, my brain is obsessing over everything . Reports sleep and appetite has been decreased and feeling depressed. Formulation/clinical reasoning: Suicidal thoughts, paranoid, delusional, increased depression, increased insomnia, poor appetite, believes she is dying, police she has cancer, believes he is really sick with multiple medical conditions, police people/police following her. History of PTSD, history of bipolar with psychotic feature, stage IIIA kidney disease. History of suicidal thoughts and suicide attempts. Given the above information, patient could be benefit in restrictive environment monitor her safety, medication adjustment/management to target psychotic behaviors, and refer patient out to outpatient psychiatric services. Hospital course: 11/02: Currently: Continue with home medication except Wellbutrin. Currently Wellbutrin ordered 150 mg daily in the morning. Home meds total of 450 mg. Need to verify if creatinine clearance level is appropriate for 450. Was only given 150 in the ED since since 11/01. Klonopin 3 times a day. Latuda 60 mg daily. Seroquel 600 at bedtime. Adderall b.i.d.. Gabapentin 600 q.i.d.. Clonidine 0.1 t.i.d. p.r.n. for severe anxiety Seroquel 25 mg b.i.d. p.r.n. for severe agitation/psychosis. Zoloft 100 b.i.d.. 11/03: Continue current treatment regimen. Encouraged to take Tylenol as needed for pain. Creatinine level today is elevated, 1.58 and GFR 40.9; previous levels were 1.42 and 45.5 respectively. 11/04: She is in agreement to taper down and likely discontinue Adderall due to potential adverse reactions of drug-induced psychosis. Will decrease Adderall from 15 mg daily to 10 mg daily. Encouraged to take Tylenol as needed for pain or discomfort. Continue current treatment regimen. Verbalized understanding and agreed with the plan. 11/05/24: Patient slept for 8 hours was medication compliant. Denies side effects. She reports severe abdominal pain for a long time and asked for oxycodone. Patient was hyper verbal, delusional, paranoid, irritable and blaming everything on the pain that no one addressed which was not true I have 2 psychotic breaks since I got here because of the pain . She reminded this provider that she had seizure the day we discharge her from last admission. She attended no groups. However, she started to shower this morning after 3 4 days has not performed any ADLs. She had Adderall decreased from yesterday. Inform her that the Latuda also increased up to 80 mg today. Later on, observe her in the renee, a peer happier stating that she feels better. Increase Latuda from 60 to 80mg for psychosis. Give her Motrin 600mg q6hrs PRN for severe pain. however, will lower or would discontinue next couple of days (scheduled to stop on 11/08/24) as we do not want toxic to the kidney. 11/06 Patient with paranoid ideations, very upset feeling uncared about and that people are purposely change in her medications to cause her trouble. She points to the ceiling and says I know you got holes... You have got holes through the vents to see me... I can hear it and people are watching me... Don't you deny it... I am not stupid. Patient insists that she was given oxycodone in the ED for epigastric pain however there is no record of this anywhere. Patient says that she has been having pain in her belly, pointing to her epigastric area saying that it has been so bad it has made her psychotic. She says yesterday she got pain medications, ibuprofen which helped her tremendously for which she was grateful. [employer] discussed however that patient has CKD and is saying she has pain in the epigastric region, both of these are contraindications for ibuprofen. Patient continues to insist that she was getting oxycodone and says that she has been sober and is not trying to manipulate in order to get opioids. She says she does not want to hurt the hospital by exposing that she is being spite on and that were racing her medication history from the computer... Patient is rambling and accusatory; she is very upset that adjusto writer operator wants to hold her remaining Wellbutrin dose which has already been lowered further reduce her Zoloft asking if adjusto writer operator is crazy. When adjusto writer operator considered holding her Adderall dose patient got extremely agitated, standing up and yelling. She does agree to starting Depakote (refused increase in Seroquel) purposely for mood stabilization. She also agrees to both omeprazole, famotidine. Formulation: Patient is dysregulated and with paranoid ideations. It is difficult to understand her complaint of epigastric pain; hospitalist AARON saw patient and did not think any acute pathology (CT at [facility], though CT has limitations in detecting stomach ulcer). However patient continues to insist that she is having severe epigastric pain. Though she has history of addiction issues, she is mostly asking for the return of ibuprofen which she got yesterday and said was helpful (though she is also insisting that she got oxycodone in the ED, which as far as adjusto writer operator can tell she did not). At this time, adjusto writer operator can not continue ibuprofen given her history of CKD and the fact that she is complaining of epigastric pain, both of which are contraindications for NSAIDs. Patient is allergic to tramadol. Given the region she points to the epigastric region, [employer] gave patient famotidine and started her on a PPI (and dose of sulcrafate) out of concern for possible stomach ulcer however patient said these medications were not helpful. Patient is complaining of ongoing pain. Because it is not clear if this is psychosocial manic verse organic [employer] chooses to treat for pain and ordered 1 dose of oxycodone 5 mg. -also starting patient on Depakote ER 500 mg b.i.d. -holding Wellbutrin 150 mg (which was already lowered from 450 mg) due to concern for gisselle/psychosis -further lowered Zoloft to 100 mg (keeping some to avoid discontinuation syndrome) -Would like to lower Adderall however mentioned this severely dysregulated patient so will leave for now Plan Patient on 15 minute checks for safety. Admitted to [facility]. [facility]. Started omeprazole 20 mg b.i.d. Gave 1 dose of famotidine (july schedule); ordered dose of Sulcrafate (will consider schedule) Continue with increased dose of Latuda 80 mg -starting patient on Depakote ER 500 mg b.i.d. -holding Wellbutrin 150 mg (which was already lowered from 450 mg) due to concern for gisselle/psychosis -further lowered Zoloft to 100 mg (keeping some to avoid discontinuation syndrome) -Would like to lower Adderall however mentioned this severely dysregulated patient so will leave for now pt started on atorvastatin 20 mg daily for HLD Abdominal pain She met with hospitalist to address the medical issues related to kidneys lipid profile, and pain on 11/05/24 for complaint of severe abdomen pain: per hospitalist plan: Wishes to see addiction medicine. Referral placed: at one breaking point, she yelled out loud that she does not want use street drug for pain. hospitalist Director Of Programming: No elevation in LFTs, no leukocytosis, recent CT [facility] at [facility] with no acute pathology Abdomen benign; Would defer pain management to psychiatric team Stage 3A Chronic Kidney disease Baseline 1.1-1.5 Patient was scheduled for follow up with Nephrology last admission, she reports that she missed 2 appointments. 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 Patient educated on: diagnosis, medication risk/benefits and medical condition Informed Consent: understands, does not understand and further education needed Reason for continued inpatient stay Substantial Risk for: rapid decompensation Time Spent With Patient Time: Total time managing care of this patient today ____ minutes.
[2024-11-06] MEDS: buPROPion HCl XL 150 MG TAB.ER.24H PO (09:33)
[2024-11-06] MEDS: Dextroamphetamine/Amphetamine XR 10 MG CAP.ER.24H PO (09:34)
[2024-11-06] MEDS: Nicotine 21 MG PATCH.TD24 TRANSDERMA (09:35)
[2024-11-06] MEDS: Amphetamine Mixed Salts 10 MG TABLET PO (12:12)
[2024-11-06] MEDS: Amphetamine Mixed Salts 10 MG TABLET 5 MG PO (12:12)
[2024-11-06] MEDS: Magnesium Hydrox/Alum Hydrox 30 ML ORAL.SUSP PO (17:20)
[2024-11-06] MEDS: Sucralfate Oral Suspension 1 GM/10 ML ORAL.SUSP PO (17:38)
[2024-11-06] MEDS: oxyCODONE HCl Immed Release 5 MG TABLET PO (17:58)
[2024-11-06 19:37] VITALS: BP 144/96; PULSE 89; RESP 16; TEMP 36.9; O2SAT 100
[2024-11-07 08:00] VITALS: BP 137/99; PULSE 84; TEMP 37; O2SAT 96
[2024-11-07 08:16] VITALS: BP 111/74
[2024-11-07] MEDS: Ferrous Sulfate 324 MG TABLET.DR PO (08:16)
[2024-11-07] MEDS: Dextroamphetamine/Amphetamine XR 10 MG CAP.ER.24H PO (08:16)
[2024-11-07] MEDS: Nicotine 21 MG PATCH.TD24 TRANSDERMA (08:17)
[2024-11-07] MEDS: Amphetamine Mixed Salts 10 MG TABLET PO (11:44)
[2024-11-07] MEDS: Amphetamine Mixed Salts 10 MG TABLET 5 MG PO (11:44)
[2024-11-07] MEDS: oxyCODONE HCl Immed Release 5 MG TABLET PO (14:40)
--- NOTE | 2024-11-07 16:44 | HO.PSYCHPN ---
Subjective Subjective Date of Service: 11/07/24 Reason For Visit: increased paranoid/delusions Interim History: Met with patient; discussed with team Patient doing better today; says that abdominal pain is better and she wonders if perhaps it is due to famotidine and omeprazole. Still with paranoid ideations that she is being spite on from the ceiling however she says she is not thinking about it that much and it is not concerning to her at this time. She refused Depakote today and song writer agreed that perhaps she does not needed as she is more calm. Mental Status Exam Mental Status Exam Narrative: Pt is alert and oriented; behavior is cooperative, friendly and calm; patient is not in distress; dressed in casual attire with unkempt hair but adequate hygiene; mood is described as better and affect congruent, brighter, calm; eye contact appropriate; Speech is normal rate, volume and prosody and not pressured; no psychomotor agitation/retardation present; thought process is organized and goal directed; Thought content is on tx with residual paranoid ideatons; denies any SI/HI. Denies AVH and there is no evidence of perceptual disturbance. Patients insight and judgment improved. Diagnostics Vital Signs (24Hr): Vital Signs - 24 hr 11/06/24 19:37 11/07/24 08:00 11/07/24 08:16 Temperature 98.4 F 98.6 F Pulse Rate 89 84 Respiratory Rate 16 Blood Pressure 144/96 H 137/99 H 111/74 Pulse Oximetry 100 96 Oxygen Delivery Method Room Air Room Air BMI result Body Mass Index 25.0 Labs 10/31/24 19:33 11/03/24 09:02 Medications Medications Current Medications Acetaminophen (Acetaminophen 325 Mg Tablet) 975 mg PO Q6H PRN PRN Reason: Headache/Pain, Scale 1-10 Last Admin: 11/07/24 14:40 Dose: 975 mg Al Hydroxide/Mg Hydroxide (Magnesium Hydrox/Alum Hydrox 30 Ml Oral.Susp) 30 ml PO Q6H PRN PRN Reason: Heartburn/Nausea Last Admin: 11/06/24 17:20 Dose: 30 ml Amphetamine/Dextroamphetamine (Dextroamphetamine/Amphetamine Xr 10 Mg Cap.Er.24h) 10 mg PO DAILY [facility] Last Admin: 11/07/24 08:16 Dose: 10 mg Amphetamine/Dextroamphetamine (Amphetamine Mixed Salts 10 Mg Tablet) 10 mg PO DAILY@1200 [facility] Last Admin: 11/07/24 11:44 Dose: 10 mg Amphetamine/Dextroamphetamine (Amphetamine Mixed Salts 10 Mg Tablet) 5 mg PO DAILY@1200 [facility] Last Admin: 11/07/24 11:44 Dose: 5 mg Atorvastatin Calcium (Atorvastatin Calcium 20 Mg Tablet) 20 mg PO DAILY [facility] Last Admin: 11/07/24 08:16 Dose: 20 mg Bupropion HCl (Bupropion Hcl Xl 150 Mg Tab.Er.24h) 150 mg PO DAILY [facility] On Hold: 11/06/24 10:51 Last Admin: 11/06/24 09:33 Dose: 150 mg Clonazepam (Clonazepam 1 Mg Tablet) 1 mg PO TID@0900,1200,1700 [facility] Last Admin: 11/07/24 11:44 Dose: 1 mg Clonidine HCl (Clonidine Hcl 0.1 Mg Tablet) 0.1 mg PO TID PRN; Protocol PRN Reason: Anxiety/Nightmares Last Admin: 11/07/24 08:16 Dose: 0.1 mg Divalproex Sodium (Divalproex Sodium Er 500 Mg Tab.Er.24h) 500 mg PO BID [facility] Last Admin: 11/07/24 08:38 Dose: Not Given Famotidine (Famotidine 20 Mg Tablet) 20 mg PO BID [facility] Stop: 11/07/24 23:00 Last Admin: 11/07/24 08:16 Dose: 20 mg Ferrous Sulfate (Ferrous Sulfate 324 Mg Tablet.Dr) 324 mg PO Q48H [facility] Last Admin: 11/07/24 08:16 Dose: 324 mg Gabapentin (Gabapentin 300 Mg Capsule) 600 mg PO QID [facility] Last Admin: 11/07/24 12:02 Dose: 600 mg Gabapentin (Gabapentin 300 Mg Capsule) 300 mg PO TID PRN PRN Reason: breakthrough pain Last Admin: 11/06/24 17:38 Dose: 300 mg Hydroxyzine HCl (Hydroxyzine Hcl 25 Mg Tablet) 25 mg PO Q6H PRN PRN Reason: mild anxiety Lamotrigine (Lamotrigine 100 Mg Tablet) 400 mg PO DAILY [facility] Last Admin: 11/07/24 08:15 Dose: 400 mg Lurasidone HCl (Lurasidone Hcl 80 Mg Tablet) 80 mg PO DAILY [facility] Last Admin: 11/07/24 08:15 Dose: 80 mg Magnesium Hydroxide (Milk Of Magnesia 30 Ml Oral.Susp) 30 ml PO DAILY PRN PRN Reason: Constipation Nicotine (Nicotine 21 Mg Patch.Td24) 21 mg TRANSDERMA DAILY PRN PRN Reason: Nicotine Cravings Last Admin: 11/07/24 08:17 Dose: 21 mg Nicotine Polacrilex (Nicotine Polacrilex 2 Mg Gum) 2 mg BUCCAL Q2H PRN PRN Reason: Nicotine Cravings Omeprazole (Omeprazole 20 Mg Capsule.Dr) 20 mg PO BID [facility] Last Admin: 11/07/24 08:16 Dose: 20 mg Oxycodone HCl (Oxycodone Hcl Immed Release 5 Mg Tablet) 5 mg PO DAILY PRN PRN Reason: severe abdominal pain Last Admin: 11/07/24 14:40 Dose: 5 mg Quetiapine Fumarate (Quetiapine Fumarate 25 Mg Tablet) 25 mg PO BID PRN PRN Reason: psychosis episodes Quetiapine Fumarate (Quetiapine Fumarate 300 Mg Tablet) 600 mg PO BEDTIME [facility] Last Admin: 11/06/24 22:50 Dose: 600 mg Sertraline HCl (Sertraline Hcl 100 Mg Tablet) 100 mg PO DAILY [facility] Last Admin: 11/07/24 08:15 Dose: 100 mg Trazodone HCl (Trazodone Hcl 50 Mg Tablet) 50 mg PO BEDTIME MRX1 PRN PRN Reason: Insomnia Allergies Allergies Allergy/AdvReac Type Severity Reaction Status Date / Time Penicillins (PCN) Allergy Unknown UNKNOWN Verified 10/31/24 18:14 tramadol (TRAMADOL) Allergy Unknown HIVES Verified 10/31/24 18:14 Assessment & Plan Assessment & Plan (1) Bipolar disorder with psychotic features: Status: Acute Code(s): F31.9 - Bipolar disorder, unspecified (2) PTSD (post-traumatic stress disorder): Status: Acute Code(s): F43.10 - Post-traumatic stress disorder, unspecified (3) HLD (hyperlipidemia): Status: Acute Code(s): E78.5 - Hyperlipidemia, unspecified (4) Stage 3a chronic kidney disease (CKD): Status: Acute Code(s): N18.31 - Chronic kidney disease, stage 3a Plan HPI: patient is 43 years old single speaking female with history of bipolar, PTSD, stage III A kidney disease who was brought in hospital secondary to experiencing symptoms of paranoid and delusional. She believes she is being monitor by the police and states that they live in the ceiling . Reported that she was being watched when she showers and when she was naked and she is is afraid to go home due to being believe that the police are in the ceiling. Patient also endorsed SI saying that I can not working take it anymore . She thinks she is dying fell down that she has multiple medical conditions that she was recently diagnosed with I can not do with the fact that I am dying. I want to be accepted, my brain is obsessing over everything . Reports sleep and appetite has been decreased and feeling depressed. Formulation/clinical reasoning: Suicidal thoughts, paranoid, delusional, increased depression, increased insomnia, poor appetite, believes she is dying, police she has cancer, believes he is really sick with multiple medical conditions, police people/police following her. History of PTSD, history of bipolar with psychotic feature, stage IIIA kidney disease. History of suicidal thoughts and suicide attempts. Given the above information, patient could be benefit in restrictive environment monitor her safety, medication adjustment/management to target psychotic behaviors, and refer patient out to outpatient psychiatric services. Hospital course: 11/02: Currently: Continue with home medication except Wellbutrin. Currently Wellbutrin ordered 150 mg daily in the morning. Home meds total of 450 mg. Need to verify if creatinine clearance level is appropriate for 450. Was only given 150 in the ED since since 11/01. Klonopin 3 times a day. Latuda 60 mg daily. Seroquel 600 at bedtime. Adderall b.i.d.. Gabapentin 600 q.i.d.. Clonidine 0.1 t.i.d. p.r.n. for severe anxiety Seroquel 25 mg b.i.d. p.r.n. for severe agitation/psychosis. Zoloft 100 b.i.d.. 11/03: Continue current treatment regimen. Encouraged to take Tylenol as needed for pain. Creatinine level today is elevated, 1.58 and GFR 40.9; previous levels were 1.42 and 45.5 respectively. 11/04: She is in agreement to taper down and likely discontinue Adderall due to potential adverse reactions of drug-induced psychosis. Will decrease Adderall from 15 mg daily to 10 mg daily. Encouraged to take Tylenol as needed for pain or discomfort. Continue current treatment regimen. Verbalized understanding and agreed with the plan. 11/05/24: Patient slept for 8 hours was medication compliant. Denies side effects. She reports severe abdominal pain for a long time and asked for oxycodone. Patient was hyper verbal, delusional, paranoid, irritable and blaming everything on the pain that no one addressed which was not true I have 2 psychotic breaks since I got here because of the pain . She reminded this provider that she had seizure the day we discharge her from last admission. She attended no groups. However, she started to shower this morning after 3 4 days has not performed any ADLs. She had Adderall decreased from yesterday. Inform her that the Latuda also increased up to 80 mg today. Later on, observe her in the renee, a peer happier stating that she feels better. Increase Latuda from 60 to 80mg for psychosis. Give her Motrin 600mg q6hrs PRN for severe pain. however, will lower or would discontinue next couple of days (scheduled to stop on 11/08/24) as we do not want toxic to the kidney. 11/06 Patient with paranoid ideations, very upset feeling uncared about and that people are purposely change in her medications to cause her trouble. She points to the ceiling and says I know you got holes... You have got holes through the vents to see me... I can hear it and people are watching me... Don't you deny it... I am not stupid. Patient insists that she was given oxycodone in the ED for epigastric pain however there is no record of this anywhere. Patient says that she has been having pain in her belly, pointing to her epigastric area saying that it has been so bad it has made her psychotic. She says yesterday she got pain medications, ibuprofen which helped her tremendously for which she was grateful. Senior Search Marketing Analyst discussed however that patient has CKD and is saying she has pain in the epigastric region, both of these are contraindications for ibuprofen. Patient continues to insist that she was getting oxycodone and says that she has been sober and is not trying to manipulate in order to get opioids. She says she does not want to hurt the hospital by exposing that she is being spite on and that were racing her medication history from the computer... Patient is rambling and accusatory; she is very upset that song writer wants to hold her remaining Wellbutrin dose which has already been lowered further reduce her Zoloft asking if song writer is crazy. When song writer considered holding her Adderall dose patient got extremely agitated, standing up and yelling. She does agree to starting Depakote (refused increase in Seroquel) purposely for mood stabilization. She also agrees to both omeprazole, famotidine. Formulation: Patient is dysregulated and with paranoid ideations. It is difficult to understand her complaint of epigastric pain (been going on for 5 months; no endoscopy); hospitalist AARON saw patient and did not think any acute pathology (CT at [facility], though CT has limitations in detecting stomach ulcer). However patient continues to insist that she is having severe epigastric pain. Though she has history of addiction issues, she is mostly asking for the return of ibuprofen which she got yesterday and said was helpful (though she is also insisting that she got oxycodone in the ED, which as far as song writer can tell she did not). At this time, song writer can not continue ibuprofen given her history of CKD and the fact that she is complaining of epigastric pain, both of which are contraindications for NSAIDs. Patient is allergic to tramadol. Given the region she points to the epigastric region, Senior Search Marketing Analyst gave patient famotidine and started her on a PPI (and dose of sulcrafate) out of concern for possible stomach ulcer however patient said these medications were not helpful. Patient is complaining of ongoing pain. Because it is not clear if this is psychosocial manic verse organic Senior Search Marketing Analyst chooses to treat for pain and ordered 1 dose of oxycodone 5 mg. -also starting patient on Depakote ER 500 mg b.i.d. -holding Wellbutrin 150 mg (which was already lowered from 450 mg) due to concern for gisselle/psychosis -further lowered Zoloft to 100 mg (keeping some to avoid discontinuation syndrome) -Would like to lower Adderall however mentioned this severely dysregulated patient so will leave for now 11/07 Patient doing better today; says that abdominal pain is better and she wonders if perhaps it is due to famotidine and omeprazole. Still with paranoid ideations that she is being spite on from the ceiling however she says she is not thinking about it that much and it is not concerning to her at this time. She refused Depakote today and song writer agreed that perhaps she does not needed as she is more calm. -of note, patient reports that epigastric pain is doing better ostensibly with famotidine and omeprazole; will likely refer to GI as an outpatient to r/o ulcer Plan Patient on 15 minute checks for safety. Admitted to [facility]. [facility]. Started omeprazole 20 mg b.i.d. famotidine for 2 days while omeprazole takes affect; pain improved and no need for Sulcrafate Continue with increased dose of Latuda 80 mg -starting patient on Depakote ER 500 mg b.i.d. -holding Wellbutrin 150 mg (which was already lowered from 450 mg) due to concern for gisselle/psychosis -further lowered Zoloft to 100 mg (keeping some to avoid discontinuation syndrome) -Would like to lower Adderall however mentioned this severely dysregulated patient so will leave for now pt started on atorvastatin 20 mg daily for HLD Abdominal pain She met with hospitalist to address the medical issues related to kidneys lipid profile, and pain on 11/05/24 for complaint of severe abdomen pain: per hospitalist plan: Wishes to see addiction medicine. Referral placed: at one breaking point, she yelled out loud that she does not want use street drug for pain. hospitalist Camera Mechanic: No elevation in LFTs, no leukocytosis, recent CT scan at [facility] with no acute pathology Abdomen benign; Would defer pain management to psychiatric team Stage 3A Chronic Kidney disease Baseline 1.1-1.5 Patient was scheduled for follow up with Nephrology last admission, she reports that she missed 2 appointments. 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 Patient educated on: diagnosis, medication risk/benefits and medical condition Informed Consent: understands and further education needed Reason for continued inpatient stay Substantial Risk for: rapid decompensation Time Spent With Patient Time: Total time managing care of this patient today ____ minutes.
[2024-11-07 19:40] VITALS: BP 111/58; PULSE 71; RESP 18; TEMP 36.6; O2SAT 97
[2024-11-08] MEDS: oxyCODONE HCl Immed Release 5 MG TABLET PO ×2 (06:51→17:02)
[2024-11-08 07:15] VITALS: BP 128/76
[2024-11-08 08:00] VITALS: BP 123/67; PULSE 97; RESP 16; TEMP 36.5; O2SAT 99
[2024-11-08] MEDS: Dextroamphetamine/Amphetamine XR 10 MG CAP.ER.24H PO (08:30)
[2024-11-08] MEDS: Nicotine 21 MG PATCH.TD24 TRANSDERMA (09:11)
[2024-11-08] MEDS: Amphetamine Mixed Salts 10 MG TABLET PO (12:40)
[2024-11-08] MEDS: Amphetamine Mixed Salts 10 MG TABLET 5 MG PO (12:40)
--- NOTE | 2024-11-08 17:44 | P.PNPSI_ITS ---
Subjective Subjective Date of Service: 11/08/24 Reason For Visit: increased paranoid/delusions Interim History: Met with patient; discussed with team Patient reports feeling better, pain is better with PPI and famotidine; she still has paranoid ideations that she is being spot on but says she is not thinking about it very much. Discussed medication and currently patient thinks that perhaps Depakote is helpful and will continue taking it for now however she is amenable to whatever medication regimen manual writer thinks best. Mental Status Exam Mental Status Exam Narrative: Pt is alert and oriented; behavior is cooperative, friendly and calm; patient is not in distress; dressed in casual attire with unkempt hair but adequate hygiene; mood is described as better and affect overall brighter, calm; eye contact appropriate; Speech is normal rate, volume and prosody and not pressured; no psychomotor agitation/retardation present; thought process is organized and goal directed; Thought content is on tx; residual paranoid ideatons present but only expressed on inquiry; denies any SI/HI. Denies AVH and there is no evidence of perceptual disturbance. Patients insight and judgment improved and approaching baseline. Diagnostics Vital Signs (24Hr): Vital Signs - 24 hr 11/07/24 19:40 11/08/24 07:15 11/08/24 08:00 Temperature 97.8 F 97.7 F Pulse Rate 71 97 Respiratory Rate 18 16 Blood Pressure 111/58 L 128/76 123/67 Pulse Oximetry 97 99 Oxygen Delivery Method Room Air BMI result Body Mass Index 25.0 Labs 10/31/24 19:33 11/03/24 09:02 Medications Medications Current Medications Acetaminophen (Acetaminophen 325 Mg Tablet) 975 mg PO Q6H PRN PRN Reason: Headache/Pain, Scale 1-10 Last Admin: 11/07/24 14:40 Dose: 975 mg Al Hydroxide/Mg Hydroxide (Magnesium Hydrox/Alum Hydrox 30 Ml Oral.Susp) 30 ml PO Q6H PRN PRN Reason: Heartburn/Nausea Last Admin: 11/06/24 17:20 Dose: 30 ml Amphetamine/Dextroamphetamine (Dextroamphetamine/Amphetamine Xr 10 Mg Cap.Er.24h) 10 mg PO DAILY [facility] Last Admin: 11/08/24 08:30 Dose: 10 mg Amphetamine/Dextroamphetamine (Amphetamine Mixed Salts 10 Mg Tablet) 10 mg PO DAILY@1200 [facility] Last Admin: 11/08/24 12:40 Dose: 10 mg Amphetamine/Dextroamphetamine (Amphetamine Mixed Salts 10 Mg Tablet) 5 mg PO DAILY@1200 [facility] Last Admin: 11/08/24 12:40 Dose: 5 mg Atorvastatin Calcium (Atorvastatin Calcium 20 Mg Tablet) 20 mg PO DAILY [facility] Last Admin: 11/08/24 08:31 Dose: 20 mg Bupropion HCl (Bupropion Hcl Xl 150 Mg Tab.Er.24h) 150 mg PO DAILY [facility] On Hold: 11/06/24 10:51 Last Admin: 11/06/24 09:33 Dose: 150 mg Clonazepam (Clonazepam 1 Mg Tablet) 1 mg PO TID@0900,1200,1700 [facility] Last Admin: 11/08/24 17:02 Dose: 1 mg Clonidine HCl (Clonidine Hcl 0.1 Mg Tablet) 0.1 mg PO TID PRN; Protocol PRN Reason: Anxiety/Nightmares Last Admin: 11/08/24 07:15 Dose: 0.1 mg Divalproex Sodium (Divalproex Sodium Er 500 Mg Tab.Er.24h) 500 mg PO BID [facility] Last Admin: 11/08/24 08:31 Dose: 500 mg Ferrous Sulfate (Ferrous Sulfate 324 Mg Tablet.) 324 mg PO Q48H [facility] Last Admin: 11/07/24 08:16 Dose: 324 mg Gabapentin (Gabapentin 300 Mg Capsule) 600 mg PO QID [facility] Last Admin: 11/08/24 17:02 Dose: 600 mg Hydroxyzine HCl (Hydroxyzine Hcl 25 Mg Tablet) 25 mg PO Q6H PRN PRN Reason: mild anxiety Lamotrigine (Lamotrigine 100 Mg Tablet) 400 mg PO DAILY [facility] Last Admin: 11/08/24 08:30 Dose: 400 mg Lurasidone HCl (Lurasidone Hcl 80 Mg Tablet) 80 mg PO DAILY [facility] Last Admin: 11/08/24 08:31 Dose: 80 mg Magnesium Hydroxide (Milk Of Magnesia 30 Ml Oral.Susp) 30 ml PO DAILY PRN PRN Reason: Constipation Nicotine Polacrilex (Nicotine Polacrilex 2 Mg Gum) 2 mg BUCCAL Q2H PRN PRN Reason: Nicotine Cravings Omeprazole (Omeprazole 40 Mg Capsule.Dr) 40 mg PO BID@0630,1630 [facility] Last Admin: 11/08/24 17:02 Dose: 40 mg Oxycodone HCl (Oxycodone Hcl Immed Release 5 Mg Tablet) 5 mg PO DAILY PRN PRN Reason: severe abdominal pain Last Admin: 11/08/24 06:51 Dose: 5 mg Quetiapine Fumarate (Quetiapine Fumarate 25 Mg Tablet) 25 mg PO BID PRN PRN Reason: psychosis episodes Last Admin: 11/08/24 08:30 Dose: 25 mg Quetiapine Fumarate (Quetiapine Fumarate 300 Mg Tablet) 600 mg PO BEDTIME [facility] Last Admin: 11/07/24 21:09 Dose: 600 mg Sertraline HCl (Sertraline Hcl 50 Mg Tablet) 150 mg PO DAILY [facility] Trazodone HCl (Trazodone Hcl 50 Mg Tablet) 50 mg PO BEDTIME MRX1 PRN PRN Reason: Insomnia Allergies Allergies Allergy/AdvReac Type Severity Reaction Status Date / Time Penicillins (PCN) Allergy Unknown UNKNOWN Verified 10/31/24 18:14 tramadol (TRAMADOL) Allergy Unknown HIVES Verified 10/31/24 18:14 Assessment & Plan Assessment & Plan (1) Bipolar disorder with psychotic features: Status: Acute Code(s): F31.9 - Bipolar disorder, unspecified (2) PTSD (post-traumatic stress disorder): Status: Acute Code(s): F43.10 - Post-traumatic stress disorder, unspecified (3) HLD (hyperlipidemia): Status: Acute Code(s): E78.5 - Hyperlipidemia, unspecified (4) Stage 3a chronic kidney disease (CKD): Status: Acute Code(s): N18.31 - Chronic kidney disease, stage 3a Plan HPI: patient is 43 years old single speaking female with history of bipolar, PTSD, stage III A kidney disease who was brought in hospital secondary to experiencing symptoms of paranoid and delusional. She believes she is being monitor by the police and states that they live in the ceiling . Reported that she was being watched when she showers and when she was naked and she is is afraid to go home due to being believe that the police are in the ceiling. Patient also endorsed SI saying that I can not working take it anymore . She thinks she is dying fell down that she has multiple medical conditions that she was recently diagnosed with I can not do with the fact that I am dying. I want to be accepted, my brain is obsessing over everything . Reports sleep and appetite has been decreased and feeling depressed. Formulation/clinical reasoning: Suicidal thoughts, paranoid, delusional, increased depression, increased insomnia, poor appetite, believes she is dying, police she has cancer, believes he is really sick with multiple medical conditions, police people/police following her. History of PTSD, history of bipolar with psychotic feature, stage IIIA kidney disease. History of suicidal thoughts and suicide attempts. Given the above information, patient could be benefit in restrictive environment monitor her safety, medication adjustment/management to target psychotic behaviors, and refer patient out to outpatient psychiatric services. Hospital course: 11/02: Currently: Continue with home medication except Wellbutrin. Currently Wellbutrin ordered 150 mg daily in the morning. Home meds total of 450 mg. Need to verify if creatinine clearance level is appropriate for 450. Was only given 150 in the ED since since 11/01. Klonopin 3 times a day. Latuda 60 mg daily. Seroquel 600 at bedtime. Adderall b.i.d.. Gabapentin 600 q.i.d.. Clonidine 0.1 t.i.d. p.r.n. for severe anxiety Seroquel 25 mg b.i.d. p.r.n. for severe agitation/psychosis. Zoloft 100 b.i.d.. 11/03: Continue current treatment regimen. Encouraged to take Tylenol as needed for pain. Creatinine level today is elevated, 1.58 and GFR 40.9; previous levels were 1.42 and 45.5 respectively. 11/04: She is in agreement to taper down and likely discontinue Adderall due to potential adverse reactions of drug-induced psychosis. Will decrease Adderall from 15 mg daily to 10 mg daily. Encouraged to take Tylenol as needed for pain or discomfort. Continue current treatment regimen. Verbalized understanding and agreed with the plan. 11/05/24: Patient slept for 8 hours was medication compliant. Denies side effects. She reports severe abdominal pain for a long time and asked for oxycodone. Patient was hyper verbal, delusional, paranoid, irritable and blaming everything on the pain that no one addressed which was not true I have 2 psychotic breaks since I got here because of the pain . She reminded this provider that she had seizure the day we discharge her from last admission. She attended no groups. However, she started to shower this morning after 3 4 days has not performed any ADLs. She had Adderall decreased from yesterday. Inform her that the Latuda also increased up to 80 mg today. Later on, observe her in the renee, a peer happier stating that she feels better. Increase Latuda from 60 to 80mg for psychosis. Give her Motrin 600mg q6hrs PRN for severe pain. however, will lower or would discontinue next couple of days (scheduled to stop on 11/08/24) as we do not want toxic to the kidney. 11/06 Patient with paranoid ideations, very upset feeling uncared about and that people are purposely change in her medications to cause her trouble. She points to the ceiling and says I know you got holes... You have got holes through the vents to see me... I can hear it and people are watching me... Don't you deny it... I am not stupid. Patient insists that she was given oxycodone in the ED for epigastric pain however there is no record of this anywhere. Patient says that she has been having pain in her belly, pointing to her epigastric area saying that it has been so bad it has made her psychotic. She says yesterday she got pain medications, ibuprofen which helped her tremendously for which she was grateful. Mattress Specialist discussed however that patient has CKD and is saying she has pain in the epigastric region, both of these are contraindications for ibuprofen. Patient continues to insist that she was getting oxycodone and says that she has been sober and is not trying to manipulate in order to get opioids. She says she does not want to hurt the hospital by exposing that she is being spite on and that were racing her medication history from the computer... Patient is rambling and accusatory; she is very upset that manual writer wants to hold her remaining Wellbutrin dose which has already been lowered further reduce her Zoloft asking if manual writer is crazy. When manual writer considered holding her Adderall dose patient got extremely agitated, standing up and yelling. She does agree to starting Depakote (refused increase in Seroquel) purposely for mood stabilization. She also agrees to both omeprazole, famotidine. Formulation: Patient is dysregulated and with paranoid ideations. It is difficult to understand her complaint of epigastric pain (been going on for 5 months; no endoscopy); hospitalist AARON saw patient and did not think any acute pathology (CT at [facility], though CT has limitations in detecting stomach ulcer). However patient continues to insist that she is having severe epigastric pain. Though she has history of addiction issues, she is mostly asking for the return of ibuprofen which she got yesterday and said was helpful (though she is also insisting that she got oxycodone in the ED, which as far as manual writer can tell she did not). At this time, manual writer can not continue ibuprofen given her history of CKD and the fact that she is complaining of epigastric pain, both of which are contraindications for NSAIDs. Patient is allergic to tramadol. Given the region she points to the epigastric region, Mattress Specialist gave patient famotidine and started her on a PPI (and dose of sulcrafate) out of concern for possible stomach ulcer however patient said these medications were not helpful. Patient is complaining of ongoing pain. Because it is not clear if this is psychosocial manic verse organic Mattress Specialist chooses to treat for pain and ordered 1 dose of oxycodone 5 mg. -also starting patient on Depakote ER 500 mg b.i.d. -holding Wellbutrin 150 mg (which was already lowered from 450 mg) due to concern for gisselle/psychosis -further lowered Zoloft to 100 mg (keeping some to avoid discontinuation syndrome) -Would like to lower Adderall however mentioned this severely dysregulated patient so will leave for now 11/07 Patient doing better today; says that abdominal pain is better and she wonders if perhaps it is due to famotidine and omeprazole. Still with paranoid ideations that she is being spite on from the ceiling however she says she is not thinking about it that much and it is not concerning to her at this time. She refused Depakote today and manual writer agreed that perhaps she does not needed as she is more calm. -of note, patient reports that epigastric pain is doing better ostensibly with famotidine and omeprazole; will likely refer to GI as an outpatient to r/o ulcer 11/08 Patient reports feeling better, pain is better with PPI and famotidine; she still has paranoid ideations that she is being spot on but says she is not thinking about it very much. Discussed medication and currently patient thinks that perhaps Depakote is helpful and will continue taking it for now however she is amenable to whatever medication regimen manual writer thinks best. Plan Patient on 15 minute checks for safety. Admitted to [facility]. CV. Started omeprazole 20 mg b.i.d. famotidine for 2 days while omeprazole takes affect; pain improved and no need for Sulcrafate Continue with increased dose of Latuda 80 mg -starting patient on Depakote ER 500 mg b.i.d. -holding Wellbutrin 150 mg (which was already lowered from 450 mg) due to concern for gisselle/psychosis -further lowered Zoloft to 100 mg (keeping some to avoid discontinuation syndrome) -Would like to lower Adderall however mentioned this severely dysregulated patient so will leave for now pt started on atorvastatin 20 mg daily for HLD Abdominal pain She met with hospitalist to address the medical issues related to kidneys lipid profile, and pain on 11/05/24 for complaint of severe abdomen pain: per hospitalist plan: Wishes to see addiction medicine. Referral placed: at one breaking point, she yelled out loud that she does not want use street drug for pain. hospitalist [employer]: No elevation in LFTs, no leukocytosis, recent CT scan at [facility] with no acute pathology Abdomen benign; Would defer pain management to psychiatric team Stage 3A Chronic Kidney disease Baseline 1.1-1.5 Patient was scheduled for follow up with Nephrology last admission, she reports that she missed 2 appointments. 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 Patient educated on: diagnosis, medication risk/benefits and medical condition Informed Consent: understands Reason for continued inpatient stay Substantial Risk for: rapid decompensation Time Spent With Patient Time: Total time managing care of this patient today ____ minutes.
[2024-11-08 20:00] VITALS: BP 128/76; PULSE 96; RESP 16; TEMP 36.6; O2SAT 98
[2024-11-09 08:00] VITALS: BP 123/67; PULSE 85; RESP 18; TEMP 36.5; O2SAT 97
[2024-11-09] MEDS: Dextroamphetamine/Amphetamine XR 10 MG CAP.ER.24H PO (08:05)
[2024-11-09] MEDS: Ferrous Sulfate 324 MG TABLET.DR PO (08:08)
[2024-11-09] MEDS: oxyCODONE HCl Immed Release 5 MG TABLET PO ×2 (08:15→15:33)
--- NOTE | 2024-11-09 10:04 | P.PNPSI_ITS ---
Subjective Subjective Date of Service: 11/09/24 Reason For Visit: increased paranoid/delusions Interim History: Met with patient; discussed with team Patient remains doing better. She says she feels better and appreciative of help received. GI consult placed and outpatient appointments made for follow up. Patient intermittently getting excessively emotional involved with some select peers but redirectable. Discussed the problem with Depakote, and its affect on Lamictal which he has been on for a few years. Patient thinks probably better to just beyond Lamictal but agrees to continue with Depakote for now Mental Status Exam Mental Status Exam Narrative: Pt is alert and oriented; behavior is cooperative, friendly and calm; patient is not in distress; dressed in casual attire with unkempt hair but adequate hygiene; mood is described as good and affect overall brighter, calm; eye contact appropriate; Speech is normal rate, volume and prosody and not pressured; no psychomotor agitation/retardation present; thought process is organized and goal directed; Thought content is on tx; residual paranoid ideatons present but only expressed on inquiry; denies any SI/HI. Denies AVH and there is no evidence of perceptual disturbance. Patients insight and judgment improved at baseline and adequate. Diagnostics Vital Signs (24Hr): Vital Signs - 24 hr 11/08/24 20:00 11/09/24 08:00 Temperature 97.8 F 97.7 F Pulse Rate 96 85 Respiratory Rate 16 18 Blood Pressure 128/76 123/67 Pulse Oximetry 98 97 Oxygen Delivery Method Room Air Room Air BMI result Body Mass Index 25.0 Labs 10/31/24 19:33 11/03/24 09:02 Medications Medications Current Medications Acetaminophen (Acetaminophen 325 Mg Tablet) 975 mg PO Q6H PRN PRN Reason: Headache/Pain, Scale 1-10 Last Admin: 11/07/24 14:40 Dose: 975 mg Al Hydroxide/Mg Hydroxide (Magnesium Hydrox/Alum Hydrox 30 Ml Oral.Susp) 30 ml PO Q6H PRN PRN Reason: Heartburn/Nausea Last Admin: 11/06/24 17:20 Dose: 30 ml Amphetamine/Dextroamphetamine (Dextroamphetamine/Amphetamine Xr 10 Mg Cap.Er.24h) 10 mg PO DAILY [facility] Last Admin: 11/09/24 08:05 Dose: 10 mg Amphetamine/Dextroamphetamine (Amphetamine Mixed Salts 10 Mg Tablet) 10 mg PO DAILY@1200 [facility] Last Admin: 11/08/24 12:40 Dose: 10 mg Amphetamine/Dextroamphetamine (Amphetamine Mixed Salts 10 Mg Tablet) 5 mg PO DAILY@1200 [facility] Last Admin: 11/08/24 12:40 Dose: 5 mg Atorvastatin Calcium (Atorvastatin Calcium 20 Mg Tablet) 20 mg PO DAILY [facility] Last Admin: 11/09/24 08:05 Dose: 20 mg Bupropion HCl (Bupropion Hcl Xl 150 Mg Tab.Er.24h) 150 mg PO DAILY [facility] On Hold: 11/06/24 10:51 Last Admin: 11/06/24 09:33 Dose: 150 mg Clonazepam (Clonazepam 1 Mg Tablet) 1 mg PO TID@0900,1200,1700 [facility] Last Admin: 11/09/24 08:06 Dose: 1 mg Clonidine HCl (Clonidine Hcl 0.1 Mg Tablet) 0.1 mg PO TID PRN; Protocol PRN Reason: Anxiety/Nightmares Last Admin: 11/08/24 07:15 Dose: 0.1 mg Divalproex Sodium (Divalproex Sodium Er 500 Mg Tab.Er.24h) 500 mg PO BID [facility] Last Admin: 11/09/24 08:05 Dose: 500 mg Ferrous Sulfate (Ferrous Sulfate 324 Mg Tablet.Dr) 324 mg PO Q48H [facility] Last Admin: 11/09/24 08:08 Dose: 324 mg Gabapentin (Gabapentin 300 Mg Capsule) 600 mg PO QID [facility] Last Admin: 11/09/24 08:07 Dose: 600 mg Hydroxyzine HCl (Hydroxyzine Hcl 25 Mg Tablet) 25 mg PO Q6H PRN PRN Reason: mild anxiety Lamotrigine (Lamotrigine 100 Mg Tablet) 400 mg PO DAILY [facility] Last Admin: 11/09/24 08:06 Dose: 400 mg Lurasidone HCl (Lurasidone Hcl 80 Mg Tablet) 80 mg PO DAILY [facility] Last Admin: 11/09/24 08:05 Dose: 80 mg Magnesium Hydroxide (Milk Of Magnesia 30 Ml Oral.Susp) 30 ml PO DAILY PRN PRN Reason: Constipation Nicotine Polacrilex (Nicotine Polacrilex 2 Mg Gum) 2 mg BUCCAL Q2H PRN PRN Reason: Nicotine Cravings Omeprazole (Omeprazole 40 Mg Capsule.Dr) 40 mg PO BID@0630,1630 [facility] Last Admin: 11/09/24 06:38 Dose: 40 mg Oxycodone HCl (Oxycodone Hcl Immed Release 5 Mg Tablet) 5 mg PO DAILY PRN PRN Reason: severe abdominal pain Last Admin: 11/09/24 08:15 Dose: 5 mg Quetiapine Fumarate (Quetiapine Fumarate 25 Mg Tablet) 25 mg PO BID PRN PRN Reason: psychosis episodes Last Admin: 11/08/24 08:30 Dose: 25 mg Quetiapine Fumarate (Quetiapine Fumarate 300 Mg Tablet) 600 mg PO BEDTIME [facility] Last Admin: 11/08/24 22:35 Dose: 600 mg Sertraline HCl (Sertraline Hcl 50 Mg Tablet) 150 mg PO DAILY [facility] Last Admin: 11/09/24 08:07 Dose: 150 mg Trazodone HCl (Trazodone Hcl 50 Mg Tablet) 50 mg PO BEDTIME MRX1 PRN PRN Reason: Insomnia Allergies Allergies Allergy/AdvReac Type Severity Reaction Status Date / Time Penicillins (PCN) Allergy Unknown UNKNOWN Verified 10/31/24 18:14 tramadol (TRAMADOL) Allergy Unknown HIVES Verified 10/31/24 18:14 Assessment & Plan Assessment & Plan (1) Schizoaffective disorder, bipolar type: Status: Acute Code(s): F25.0 - Schizoaffective disorder, bipolar type (2) PTSD (post-traumatic stress disorder): Status: Acute Code(s): F43.10 - Post-traumatic stress disorder, unspecified (3) HLD (hyperlipidemia): Status: Acute Code(s): E78.5 - Hyperlipidemia, unspecified (4) Stage 3a chronic kidney disease (CKD): Status: Acute Code(s): N18.31 - Chronic kidney disease, stage 3a (5) Epigastric pain: Status: Acute Code(s): R10.13 - Epigastric pain Plan HPI: patient is 43 years old single speaking female with history of bipolar, PTSD, stage III A kidney disease who was brought in hospital secondary to experiencing symptoms of paranoid and delusional. She believes she is being monitor by the police and states that they live in the ceiling . Reported that she was being watched when she showers and when she was naked and she is is afraid to go home due to being believe that the police are in the ceiling. Patient also endorsed SI saying that I can not working take it anymore . She thinks she is dying fell down that she has multiple medical conditions that she was recently diagnosed with I can not do with the fact that I am dying. I want to be accepted, my brain is obsessing over everything . Reports sleep and appetite has been decreased and feeling depressed. Formulation/clinical reasoning: Suicidal thoughts, paranoid, delusional, increased depression, increased insomnia, poor appetite, believes she is dying, police she has cancer, believes he is really sick with multiple medical conditions, police people/police following her. History of PTSD, history of bipolar with psychotic feature, stage IIIA kidney disease. History of suicidal thoughts and suicide attempts. Given the above information, patient could be benefit in restrictive environment monitor her safety, medication adjustment/management to target psychotic behaviors, and refer patient out to outpatient psychiatric services. Hospital course: 11/02: Currently: Continue with home medication except Wellbutrin. Currently Wellbutrin ordered 150 mg daily in the morning. Home meds total of 450 mg. Need to verify if creatinine clearance level is appropriate for 450. Was only given 150 in the ED since since 11/01. Klonopin 3 times a day. Latuda 60 mg daily. Seroquel 600 at bedtime. Adderall b.i.d.. Gabapentin 600 q.i.d.. Clonidine 0.1 t.i.d. p.r.n. for severe anxiety Seroquel 25 mg b.i.d. p.r.n. for severe agitation/psychosis. Zoloft 100 b.i.d.. 11/03: Continue current treatment regimen. Encouraged to take Tylenol as needed for pain. Creatinine level today is elevated, 1.58 and GFR 40.9; previous levels were 1.42 and 45.5 respectively. 11/04: She is in agreement to taper down and likely discontinue Adderall due to potential adverse reactions of drug-induced psychosis. Will decrease Adderall from 15 mg daily to 10 mg daily. Encouraged to take Tylenol as needed for pain or discomfort. Continue current treatment regimen. Verbalized understanding and agreed with the plan. 11/05/24: Patient slept for 8 hours was medication compliant. Denies side effects. She reports severe abdominal pain for a long time and asked for oxycodone. Patient was hyper verbal, delusional, paranoid, irritable and blaming everything on the pain that no one addressed which was not true I have 2 psychotic breaks since I got here because of the pain . She reminded this provider that she had seizure the day we discharge her from last admission. She attended no groups. However, she started to shower this morning after 3 4 days has not performed any ADLs. She had Adderall decreased from yesterday. Inform her that the Latuda also increased up to 80 mg today. Later on, observe her in the renee, a peer happier stating that she feels better. Increase Latuda from 60 to 80mg for psychosis. Give her Motrin 600mg q6hrs PRN for severe pain. however, will lower or would discontinue next couple of days (scheduled to stop on 11/08/24) as we do not want toxic to the kidney. 11/06 Patient with paranoid ideations, very upset feeling uncared about and that people are purposely change in her medications to cause her trouble. She points to the ceiling and says I know you got holes... You have got holes through the vents to see me... I can hear it and people are watching me... Don't you deny it... I am not stupid. Patient insists that she was given oxycodone in the ED for epigastric pain however there is no record of this anywhere. Patient says that she has been having pain in her belly, pointing to her epigastric area saying that it has been so bad it has made her psychotic. She says yesterday she got pain medications, ibuprofen which helped her tremendously for which she was grateful. Ladies' [employer] Room Attendant discussed however that patient has CKD and is saying she has pain in the epigastric region, both of these are contraindications for ibuprofen. Patient continues to insist that she was getting oxycodone and says that she has been sober and is not trying to manipulate in order to get opioids. She says she does not want to hurt the hospital by exposing that she is being spite on and that were racing her medication history from the computer... Patient is rambling and accusatory; she is very upset that marine underwriter wants to hold her remaining Wellbutrin dose which has already been lowered further reduce her Zoloft asking if marine underwriter is crazy. When marine underwriter considered holding her Adderall dose patient got extremely agitated, standing up and yelling. She does agree to starting Depakote (refused increase in Seroquel) purposely for mood stabilization. She also agrees to both omeprazole, famotidine. Formulation: Patient is dysregulated and with paranoid ideations. It is difficult to understand her complaint of epigastric pain (been going on for 5 months; no endoscopy); hospitalist AARON saw patient and did not think any acute pathology (CT at [facility], though CT has limitations in detecting stomach ulcer). However patient continues to insist that she is having severe epigastric pain. Though she has history of addiction issues, she is mostly asking for the return of ibuprofen which she got yesterday and said was helpful (though she is also insisting that she got oxycodone in the ED, which as far as marine underwriter can tell she did not). At this time, marine underwriter can not continue ibuprofen given her history of CKD and the fact that she is complaining of epigastric pain, both of which are contraindications for NSAIDs. Patient is allergic to tramadol. Given the region she points to the epigastric region, Ladies' [employer] Room Attendant gave patient famotidine and started her on a PPI (and dose of sulcrafate) out of concern for possible stomach ulcer however patient said these medications were not helpful. Patient is complaining of ongoing pain. Because it is not clear if this is psychosocial manic verse organic Ladies' Locker Room Attendant chooses to treat for pain and ordered 1 dose of oxycodone 5 mg. -also starting patient on Depakote ER 500 mg b.i.d. -holding Wellbutrin 150 mg (which was already lowered from 450 mg) due to concern for gisselle/psychosis -further lowered Zoloft to 100 mg (keeping some to avoid discontinuation syndrome) -Would like to lower Adderall however mentioned this severely dysregulated patient so will leave for now 11/07 Patient doing better today; says that abdominal pain is better and she wonders if perhaps it is due to famotidine and omeprazole. Still with paranoid ideations that she is being spite on from the ceiling however she says she is not thinking about it that much and it is not concerning to her at this time. She refused Depakote today and marine underwriter agreed that perhaps she does not needed as she is more calm. -of note, patient reports that epigastric pain is doing better ostensibly with famotidine and omeprazole; will likely refer to GI as an outpatient to r/o ulcer 11/08 Patient reports feeling better, pain is better with PPI and famotidine; she still has paranoid ideations that she is being spot on but says she is not thinking about it very much. Discussed medication and currently patient thinks that perhaps Depakote is helpful and will continue taking it for now however she is amenable to whatever medication regimen marine underwriter thinks best. 11/09 Patient remains doing better. She says she feels better and appreciative of help received. GI consult placed and outpatient appointments made for follow up. Patient intermittently getting excessively emotional involved with some select peers but redirectable. Discussed the problem with Depakote, and its affect on Lamictal which he has been on for a few years. Patient thinks probably better to just beyond Lamictal but agrees to continue with Depakote for now -will change diagnosis to schizoaffective disorder bipolar type since patient continues to have paranoid ideations independent of mood -will likely discontinue Depakote in favor of Lamictal as she has been on it for years. Will discuss further with patient but perhaps she agreed to increasing Latuda as a way to help with psychotic symptoms and mood stability Plan Patient on 15 minute checks for safety. Admitted to [facility]. [facility]. Started omeprazole 20 mg b.i.d. famotidine for 2 days while omeprazole takes affect; pain improved and no need for Sulcrafate Continue with increased dose of Latuda 80 mg -starting patient on Depakote ER 500 mg b.i.d. -holding Wellbutrin 150 mg (which was already lowered from 450 mg) due to concern for gisselle/psychosis -further lowered Zoloft to 100 mg (keeping some to avoid discontinuation syndrome) -Would like to lower Adderall however mentioned this severely dysregulated patient so will leave for now pt started on atorvastatin 20 mg daily for HLD Abdominal pain She met with hospitalist to address the medical issues related to kidneys lipid profile, and pain on 11/05/24 for complaint of severe abdomen pain: per hospitalist plan: Wishes to see addiction medicine. Referral placed: at one breaking point, she yelled out loud that she does not want use street drug for pain. hospitalist [employer]: No elevation in LFTs, no leukocytosis, recent CT scan at [facility] with no acute pathology Abdomen benign; Would defer pain management to psychiatric team Stage 3A Chronic Kidney disease Baseline 1.1-1.5 Patient was scheduled for follow up with Nephrology last admission, she reports that she missed 2 appointments. 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 Patient educated on: diagnosis, medication risk/benefits, therapeutic strategies and medical condition Informed Consent: understands Reason for continued inpatient stay Substantial Risk for: stable for discharge Time Spent With Patient Time: Total time managing care of this patient today ____ minutes.
[2024-11-09] MEDS: Amphetamine Mixed Salts 10 MG TABLET 5 MG PO (11:31)
[2024-11-09] MEDS: Amphetamine Mixed Salts 10 MG TABLET PO (11:31)
[2024-11-09] MEDS: Nicotine 21 MG PATCH.TD24 TRANSDERMA (15:44)
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
[2024-11-09 19:11] VITALS: BP 148/105
[2024-11-09 20:00] VITALS: BP 142/82; PULSE 83; RESP 16; TEMP 37.3; O2SAT 99
[2024-11-09 20:25] LABS: Ferritin 32 ng/mL (10-250)
[2024-11-09 20:39] LABS: Folate 6.5 ng/mL (> or = 4.0); Vitamin B12 396 pg/mL (200-900)
[2024-11-10] MEDS: Nicotine 21 MG PATCH.TD24 TRANSDERMA (07:55)
[2024-11-10] MEDS: Dextroamphetamine/Amphetamine XR 10 MG CAP.ER.24H PO (07:57)
[2024-11-10] MEDS: oxyCODONE HCl Immed Release 5 MG TABLET PO ×2 (07:58→14:52)
[2024-11-10 08:00] VITALS: BP 141/67; PULSE 78; TEMP 36.8; O2SAT 95
[2024-11-10 09:08] LABS: Alanine Aminotransferase 10 U/L (0-31); Albumin Level 3.9 g/dL (3.5-5.0); Alkaline Phosphatase 60 U/L (39-117); Aspartate Amino Transferase 26 U/L (5-31); Total Protein 6.9 g/dL (6.5-8.0)
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
--- NOTE | 2024-11-10 11:29 | P.PNPSI_ITS ---
Subjective Subjective Date of Service: 11/10/24 Reason For Visit: increased paranoid/delusions Interim History: met with patient; discussed with team Patient got into a verbal argument with peer who is intrusive and psychotic; patient was able to be redirected and apologetic. Patient shared about her history of trauma and how she felt triggered. Otherwise she remains feeling much better and continues to express gratitude for help received. Discussed medications at length and patient overall feels that Lamictal, which he has been on for years is most helpful and she does not want to discontinue it due to being on Depakote. Instead patient agrees to increase Latuda to 120 mg to help with mood stability. Mental Status Exam Mental Status Exam Narrative: Pt is alert and oriented; behavior is cooperative, friendly and calm; patient is not in distress; dressed in casual attire with unkempt hair but adequate hygiene; mood is described as good and affect overall brighter, calm; eye contact appropriate; Speech is normal rate, volume and prosody and not pressured; no psychomotor agitation/retardation present; thought process is organized and goal directed; Thought content is on tx; residual paranoid ideatons present but only expressed on inquiry; denies any SI/HI. Denies AVH and there is no evidence of perceptual disturbance. Patients insight and judgment improved at baseline and adequate. Diagnostics Vital Signs (24Hr): Vital Signs - 24 hr 11/09/24 19:11 11/09/24 20:00 11/10/24 08:00 Temperature 99.1 F 98.2 F Pulse Rate 83 78 Respiratory Rate 16 Blood Pressure 148/105 H 142/82 H 141/67 H Pulse Oximetry 99 95 Oxygen Delivery Method Room Air Room Air BMI result Body Mass Index 25.0 Labs 10/31/24 19:33 11/03/24 09:02 Labs: Laboratory Results - last 48 hr 11/09/24 11/10/24 19:35 08:30 Ferritin 32 Total Bilirubin 0.1 Direct Bilirubin < 0.2 AST 26 ALT 10 Alkaline Phosphatase 60 Total Protein 6.9 Albumin 3.9 Vitamin B12 396 Folate 6.5 Valproic Acid 53.4 Medications Medications Current Medications Acetaminophen (Acetaminophen 325 Mg Tablet) 975 mg PO Q6H PRN PRN Reason: Headache/Pain, Scale 1-10 Last Admin: 11/09/24 19:09 Dose: 975 mg Al Hydroxide/Mg Hydroxide (Magnesium Hydrox/Alum Hydrox 30 Ml Oral.Susp) 30 ml PO Q6H PRN PRN Reason: Heartburn/Nausea Last Admin: 11/06/24 17:20 Dose: 30 ml Amphetamine/Dextroamphetamine (Dextroamphetamine/Amphetamine Xr 10 Mg Cap.Er.24h) 10 mg PO DAILY [facility] Last Admin: 11/10/24 07:57 Dose: 10 mg Amphetamine/Dextroamphetamine (Amphetamine Mixed Salts 10 Mg Tablet) 10 mg PO DAILY@1200 [facility] Last Admin: 11/09/24 11:31 Dose: 10 mg Amphetamine/Dextroamphetamine (Amphetamine Mixed Salts 10 Mg Tablet) 5 mg PO DAILY@1200 [facility] Last Admin: 11/09/24 11:31 Dose: 5 mg Atorvastatin Calcium (Atorvastatin Calcium 20 Mg Tablet) 20 mg PO DAILY [facility] Last Admin: 11/10/24 07:56 Dose: 20 mg Bupropion HCl (Bupropion Hcl Xl 150 Mg Tab.Er.24h) 150 mg PO DAILY [facility] Last Admin: 11/06/24 09:33 Dose: 150 mg Clonazepam (Clonazepam 1 Mg Tablet) 1 mg PO TID@0900,1200,1700 [facility] Last Admin: 11/10/24 07:55 Dose: 1 mg Clonidine HCl (Clonidine Hcl 0.1 Mg Tablet) 0.1 mg PO TID PRN; Protocol PRN Reason: Anxiety/Nightmares Last Admin: 11/09/24 19:11 Dose: 0.1 mg Ferrous Sulfate (Ferrous Sulfate 324 Mg Tablet.) 324 mg PO Q48H [facility] Last Admin: 11/09/24 08:08 Dose: 324 mg Gabapentin (Gabapentin 300 Mg Capsule) 600 mg PO QID [facility] Last Admin: 11/10/24 07:56 Dose: 600 mg Hydroxyzine HCl (Hydroxyzine Hcl 25 Mg Tablet) 25 mg PO Q6H PRN PRN Reason: mild anxiety Lamotrigine (Lamotrigine 100 Mg Tablet) 400 mg PO DAILY [facility] Last Admin: 11/10/24 07:55 Dose: 400 mg Lurasidone HCl (Lurasidone Hcl 80 Mg Tablet) 80 mg PO DAILY [facility] Last Admin: 11/10/24 07:58 Dose: 80 mg Magnesium Hydroxide (Milk Of Magnesia 30 Ml Oral.Susp) 30 ml PO DAILY PRN PRN Reason: Constipation Nicotine (Nicotine 21 Mg Patch.Td24) 21 mg TRANSDERMA DAILY PRN PRN Reason: smoking cessation Last Admin: 11/10/24 07:55 Dose: 21 mg Nicotine Polacrilex (Nicotine Polacrilex 2 Mg Gum) 2 mg BUCCAL Q2H PRN PRN Reason: Nicotine Cravings Omeprazole (Omeprazole 40 Mg Capsule.Dr) 40 mg PO BID@0630,1630 [facility] Last Admin: 11/10/24 07:56 Dose: 40 mg Oxycodone HCl (Oxycodone Hcl Immed Release 5 Mg Tablet) 5 mg PO BID PRN PRN Reason: severe abdominal pain Last Admin: 11/10/24 07:58 Dose: 5 mg Quetiapine Fumarate (Quetiapine Fumarate 25 Mg Tablet) 25 mg PO BID PRN PRN Reason: psychosis episodes Last Admin: 11/08/24 08:30 Dose: 25 mg Quetiapine Fumarate (Quetiapine Fumarate 300 Mg Tablet) 600 mg PO BEDTIME [facility] Last Admin: 11/09/24 21:12 Dose: 600 mg Sertraline HCl (Sertraline Hcl 100 Mg Tablet) 200 mg PO DAILY [facility] Trazodone HCl (Trazodone Hcl 50 Mg Tablet) 50 mg PO BEDTIME MRX1 PRN PRN Reason: Insomnia Allergies Allergies Allergy/AdvReac Type Severity Reaction Status Date / Time Penicillins (PCN) Allergy Unknown UNKNOWN Verified 10/31/24 18:14 tramadol (TRAMADOL) Allergy Unknown HIVES Verified 10/31/24 18:14 Assessment & Plan Assessment & Plan (1) Schizoaffective disorder, bipolar type: Status: Acute Code(s): F25.0 - Schizoaffective disorder, bipolar type (2) PTSD (post-traumatic stress disorder): Status: Acute Code(s): F43.10 - Post-traumatic stress disorder, unspecified (3) HLD (hyperlipidemia): Status: Acute Code(s): E78.5 - Hyperlipidemia, unspecified (4) Epigastric pain: Status: Acute Code(s): R10.13 - Epigastric pain Plan HPI: patient is 43 years old single speaking female with history of bipolar, PTSD, stage III A kidney disease who was brought in hospital secondary to experiencing symptoms of paranoid and delusional. She believes she is being monitor by the police and states that they live in the ceiling . Reported that she was being watched when she showers and when she was naked and she is is afraid to go home due to being believe that the police are in the ceiling. Patient also endorsed SI saying that I can not working take it anymore . She thinks she is dying fell down that she has multiple medical conditions that she was recently diagnosed with I can not do with the fact that I am dying. I want to be accepted, my brain is obsessing over everything . Reports sleep and appetite has been decreased and feeling depressed. Formulation/clinical reasoning: Suicidal thoughts, paranoid, delusional, increased depression, increased insomnia, poor appetite, believes she is dying, police she has cancer, believes he is really sick with multiple medical conditions, police people/police following her. History of PTSD, history of bipolar with psychotic feature, stage IIIA kidney disease. History of suicidal thoughts and suicide attempts. Given the above information, patient could be benefit in restrictive environment monitor her safety, medication adjustment/management to target psychotic behaviors, and refer patient out to outpatient psychiatric services. Hospital course: 11/02: Currently: Continue with home medication except Wellbutrin. Currently Wellbutrin ordered 150 mg daily in the morning. Home meds total of 450 mg. Need to verify if creatinine clearance level is appropriate for 450. Was only given 150 in the ED since since 11/01. Klonopin 3 times a day. Latuda 60 mg daily. Seroquel 600 at bedtime. Adderall b.i.d.. Gabapentin 600 q.i.d.. Clonidine 0.1 t.i.d. p.r.n. for severe anxiety Seroquel 25 mg b.i.d. p.r.n. for severe agitation/psychosis. Zoloft 100 b.i.d.. 11/03: Continue current treatment regimen. Encouraged to take Tylenol as needed for pain. Creatinine level today is elevated, 1.58 and GFR 40.9; previous levels were 1.42 and 45.5 respectively. 11/04: She is in agreement to taper down and likely discontinue Adderall due to potential adverse reactions of drug-induced psychosis. Will decrease Adderall from 15 mg daily to 10 mg daily. Encouraged to take Tylenol as needed for pain or discomfort. Continue current treatment regimen. Verbalized understanding and agreed with the plan. 11/05/24: Patient slept for 8 hours was medication compliant. Denies side effects. She reports severe abdominal pain for a long time and asked for oxycodone. Patient was hyper verbal, delusional, paranoid, irritable and blaming everything on the pain that no one addressed which was not true I have 2 psychotic breaks since I got here because of the pain . She reminded this provider that she had seizure the day we discharge her from last admission. She attended no groups. However, she started to shower this morning after 3 4 days has not performed any ADLs. She had Adderall decreased from yesterday. Inform her that the Latuda also increased up to 80 mg today. Later on, observe her in the renee, a peer happier stating that she feels better. Increase Latuda from 60 to 80mg for psychosis. Give her Motrin 600mg q6hrs PRN for severe pain. however, will lower or would discontinue next couple of days (scheduled to stop on 11/08/24) as we do not want toxic to the kidney. 11/06 Patient with paranoid ideations, very upset feeling uncared about and that people are purposely change in her medications to cause her trouble. She points to the ceiling and says I know you got holes... You have got holes through the vents to see me... I can hear it and people are watching me... Don't you deny it... I am not stupid. Patient insists that she was given oxycodone in the ED for epigastric pain however there is no record of this anywhere. Patient says that she has been having pain in her belly, pointing to her epigastric area saying that it has been so bad it has made her psychotic. She says yesterday she got pain medications, ibuprofen which helped her tremendously for which she was grateful. Terminal Block Assembler discussed however that patient has CKD and is saying she has pain in the epigastric region, both of these are contraindications for ibuprofen. Patient continues to insist that she was getting oxycodone and says that she has been sober and is not trying to manipulate in order to get opioids. She says she does not want to hurt the hospital by exposing that she is being spite on and that were racing her medication history from the computer... Patient is rambling and accusatory; she is very upset that typewriter operator automatic wants to hold her remaining Wellbutrin dose which has already been lowered further reduce her Zoloft asking if typewriter operator automatic is crazy. When typewriter operator automatic considered holding her Adderall dose patient got extremely agitated, standing up and yelling. She does agree to starting Depakote (refused increase in Seroquel) purposely for mood stabilization. She also agrees to both omeprazole, famotidine. Formulation: Patient is dysregulated and with paranoid ideations. It is difficult to understand her complaint of epigastric pain (been going on for 5 months; no endoscopy); hospitalist AARON saw patient and did not think any acute pathology (CT at [facility], though CT has limitations in detecting stomach ulcer). However patient continues to insist that she is having severe epigastric pain. Though she has history of addiction issues, she is mostly asking for the return of ibuprofen which she got yesterday and said was helpful (though she is also insisting that she got oxycodone in the ED, which as far as typewriter operator automatic can tell she did not). At this time, typewriter operator automatic can not continue ibuprofen given her history of CKD and the fact that she is complaining of epigastric pain, both of which are contraindications for NSAIDs. Patient is allergic to tramadol. Given the region she points to the epigastric region, Terminal Block Assembler gave patient famotidine and started her on a PPI (and dose of sulcrafate) out of concern for possible stomach ulcer however patient said these medications were not helpful. Patient is complaining of ongoing pain. Because it is not clear if this is psychosocial manic verse organic Terminal Block Assembler chooses to treat for pain and ordered 1 dose of oxycodone 5 mg. -also starting patient on Depakote ER 500 mg b.i.d. -holding Wellbutrin 150 mg (which was already lowered from 450 mg) due to concern for gisselle/psychosis -further lowered Zoloft to 100 mg (keeping some to avoid discontinuation syndrome) -Would like to lower Adderall however mentioned this severely dysregulated patient so will leave for now 11/07 Patient doing better today; says that abdominal pain is better and she wonders if perhaps it is due to famotidine and omeprazole. Still with paranoid ideations that she is being spite on from the ceiling however she says she is not thinking about it that much and it is not concerning to her at this time. She refused Depakote today and typewriter operator automatic agreed that perhaps she does not needed as she is more calm. -of note, patient reports that epigastric pain is doing better ostensibly with famotidine and omeprazole; will likely refer to GI as an outpatient to r/o ulcer 11/08 Patient reports feeling better, pain is better with PPI and famotidine; she still has paranoid ideations that she is being spot on but says she is not thinking about it very much. Discussed medication and currently patient thinks that perhaps Depakote is helpful and will continue taking it for now however she is amenable to whatever medication regimen typewriter operator automatic thinks best. 11/09 Patient remains doing better. She says she feels better and appreciative of help received. GI consult placed and outpatient appointments made for follow up. Patient intermittently getting excessively emotional involved with some select peers but redirectable. Discussed the problem with Depakote, and its affect on Lamictal which he has been on for a few years. Patient thinks probably better to just beyond Lamictal but agrees to continue with Depakote for now -will change diagnosis to schizoaffective disorder bipolar type since patient continues to have paranoid ideations independent of mood -will likely discontinue Depakote in favor of Lamictal as she has been on it for years. Will discuss further with patient but perhaps she agreed to increasing Latuda as a way to help with psychotic symptoms and mood stability 11/10 Patient got into a verbal argument with peer who is intrusive and psychotic; patient was able to be redirected and apologetic. Patient shared about her history of trauma and how she felt triggered. Otherwise she remains feeling much better and continues to express gratitude for help received. Discussed medications at length and patient overall feels that Lamictal, which he has been on for years is most helpful and she does not want to discontinue it due to being on Depakote. Instead patient agrees to increase Latuda to 120 mg to help with mood stability. Patient feels stable and back to her regular self. Terminal Block Assembler agrees she is at baseline. Patient feels ready for discharge. She is not in imminent risk for harm to self or others and appropriate to return to the community for treatment Plan Patient on 15 minute checks for safety. Admitted to [facility]. [facility]. Increase Latuda to 120 mg for help with mood stability psychotic symptoms DC Depakote omeprazole 20 mg b.i.d. famotidine for 2 days while omeprazole takes affect; pain improved and no need for Sulcrafate Continue with increased dose of Latuda 80 mg -will restart Wellbutrin 150 mg ; patient stable and on this at baseline -will increase back to home dose of Zoloft to 200 mg -Would like to lower Adderall however mentioned this severely dysregulated patient so will leave for now pt started on atorvastatin 20 mg daily for HLD Abdominal pain She met with hospitalist to address the medical issues related to kidneys lipid profile, and pain on 11/05/24 for complaint of severe abdomen pain: per hospitalist plan: Wishes to see addiction medicine. Referral placed: at one breaking point, she yelled out loud that she does not want use street drug for pain. hospitalist Nuclear Plant Instrument Technician: No elevation in LFTs, no leukocytosis, recent CT scan at [facility] with no acute pathology Abdomen benign; Would defer pain management to psychiatric team Stage 3A Chronic Kidney disease Baseline 1.1-1.5 Patient was scheduled for follow up with Nephrology last admission, she reports that she missed 2 appointments. 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 Patient educated on: diagnosis, medication risk/benefits and therapeutic strategies Informed Consent: understands and further education needed Reason for continued inpatient stay Substantial Risk for: stable for discharge Time Spent With Patient Time: Total time managing care of this patient today ____ minutes.
[2024-11-10] MEDS: Amphetamine Mixed Salts 10 MG TABLET PO (12:12)
[2024-11-10] MEDS: Amphetamine Mixed Salts 10 MG TABLET 5 MG PO (12:12)
--- NOTE | 2024-11-10 17:19 | MHC.RECOVRN ---
TW met with the patient in to discuss potential substance use and concerns related to increased risk and related problems of SCOTT. On approach pt was laying in bed, coloring. She presented as tearful and irritable but did agree to meet with TW. TW explained the nature of the ACS team and elaborated to state that the reason for the visit was to explore her positive tox screen and see if help or resources could be offered. Pt denies the use of illicit substances and stated, ?I only take what I?m prescribed. I?m not addicted to anything?. TW explained that she was thankful for the pt?s input, apologized for troubling the pt? and? reiterated that she was here to help if needed. During the interview pt became extremely tangential and labile and began crying and sobbing about ?not wanting to be addicted to drugs anymore?. When asked what she meant the pt explained that she may need to go to a pain clinic but would not be able to go every day and wait in line each morning. TW explained the difference between a pain clinic and methadone clinic. Pt verbalized her understanding and went on to explain that she has had ongoing abdominal pain ?for at least 4 months? and reports her assigned psychiatrist recommended she attend a clinic.? Pt was asked if she ever attended a methadone clinic to which she looked up to the ceiling, peered through slightly clenched fists as if they were binoculars, and said, ?I just want to make sure they?re aren?t listening? Pt then went on to verbalize that she was previously addicted to crack cocaine and has remained abstinent for 1 year ?all by myself. I?m not into that AA/NA, [place] my name is Viviana rodriguez?. Pt then became labile, sobbing, with tears running down cheeks, crying that she tested positive for PCP ?because my cousin drugged my pot. I was told in the ED but I don?t even know what PCP is. All I know is I said I wouldn't do it because my cousin did and killed himself after he turned into a snake, and a cardinal, then thought he could fly. He killed himself?.? It does not appear the? patient is psychiatrically stable and able to meaningfully participate in addiction medicine assessment at this time. Support and resources were not discussed. TW is available if needed for questions, support, and resources once psychiatrically stable.?
[2024-11-10 20:00] VITALS: BP 145/89; PULSE 96; RESP 16; TEMP 37.4; O2SAT 96
[2024-11-10 22:06] VITALS: BP 134/90
[2024-11-11 08:00] VITALS: BP 161/67; PULSE 82; TEMP 36.9; O2SAT 97
[2024-11-11] MEDS: Dextroamphetamine/Amphetamine XR 10 MG CAP.ER.24H PO (08:18)
[2024-11-11] MEDS: Nicotine 21 MG PATCH.TD24 TRANSDERMA (08:19)
[2024-11-11] MEDS: oxyCODONE HCl Immed Release 5 MG TABLET PO ×2 (08:19→12:31)
[2024-11-11] MEDS: buPROPion HCl XL 150 MG TAB.ER.24H PO (08:19)
[2024-11-11] MEDS: Ferrous Sulfate 324 MG TABLET.DR PO (08:20)
[2024-11-11] MEDS: Naloxone HCl Nasal TAKE HOME 4 MG SPRAY 8 MG NOSTRILALT (11:07)
[2024-11-11] MEDS: Amphetamine Mixed Salts 10 MG TABLET 5 MG PO (11:29)
[2024-11-11] MEDS: Amphetamine Mixed Salts 10 MG TABLET PO (11:29)
--- NOTE | 2024-11-11 12:13 | PM.PSYDC ---
DS: Providers Provider Date of Service: 11/11/24 Date of admission: 11/02/24 18:53 Date of discharge: 11/11/24 Primary care physician: Unknown Physician Admitting clinician: Luma Delarosa Consults: 11/05/24 12:24 Consult to Hospitalist Routine Comment: Consulting Provider: [facility] Hospitalists Reason For Exam: severe pain on abdomen. Hx of Stage IIIA kidney dz 11/05/24 15:21 Addiction Medicine Provider Routine Consulting Provider: Addiction Covering Reason for consultation: Polysubstance misuse 11/09/24 10:38 Consult to Gastroenterology Routine Consulting Provider: Maxwell Chaney Reason for consultation: assess for gastric ulcer Attending physician on discharge: Stan Vargas DS: Diagnosis Discharge Diagnosis (1) Schizoaffective disorder, bipolar type: Status: Acute (2) PTSD (post-traumatic stress disorder): Status: Acute (3) HLD (hyperlipidemia): Status: Acute (4) Epigastric pain: Status: Acute DS: Medications Discharge Medications Home Medications: Home Medications ?Medication ?Instructions ?Recorded ?Confirmed bupropion HCl 150 mg 24 hr tablet, 150 mg PO QAM 09/27/24 10/31/24 extended release clonazepam 1 mg tablet 1 mg PO TID@0900,1200,1700 09/27/24 11/01/24 clonidine HCl 0.1 mg tablet 0.1 mg PO TID PRN 09/27/24 10/31/24 Anxiety/Nightmares ferrous sulfate 325 mg (65 mg 325 mg PO Q OTHER DAY 09/27/24 10/31/24 iron) tablet (FeroSul) gabapentin 300 mg capsule 600 mg PO QID 09/27/24 10/31/24 lamotrigine 200 mg tablet 400 mg PO QPM 09/27/24 10/31/24 lisdexamfetamine 30 mg capsule 30 mg PO QNOON 09/27/24 10/31/24 (Vyvanse) lisdexamfetamine 40 mg capsule 40 mg PO QAM 09/27/24 10/31/24 (Vyvanse) quetiapine 25 mg tablet 25 mg PO BID PRN psychosis episodes 09/27/24 10/31/24 quetiapine 300 mg tablet 600 mg PO QPM 09/27/24 10/31/24 sertraline 100 mg tablet 100 mg PO BID 09/27/24 10/31/24 bupropion HCl 300 mg 24 hr tablet, 300 mg PO DAILY 11/01/24 11/01/24 extended release Previous Rx's ?Medication ?Instructions ?Recorded atorvastatin 20 mg tablet 20 mg PO DAILY 30 days #30 tabs 11/11/24 lurasidone 120 mg tablet 120 mg PO DAILY 30 days #30 tabs 11/11/24 nicotine 21 mg/24 hr daily 21 mg transdermal DAILY PRN 11/11/24 transdermal patch smoking cessation 28 days #28 ea omeprazole 40 mg capsule,delayed 40 mg PO BID@0630,1630 30 days #60 11/11/24 release caps oxycodone 5 mg tablet 5 mg PO BID PRN severe abdominal 11/11/24 pain 7 days #14 tabs Data Data Completed and Pending Completed studies during hospitalization [Text1]: 11/09/24 11/10/24 19:35 08:30 Ferritin 32 Total Bilirubin 0.1 Direct Bilirubin < 0.2 AST 26 ALT 10 Alkaline Phosphatase 60 Total Protein 6.9 Albumin 3.9 Vitamin B12 396 Folate 6.5 Valproic Acid 53.4 IgA Pending Tiss Transglutamin IgA Pending Celiac Disease Interp Pending 10/31/24 19:33 Urine clean catch - Clean Catch Midstream Urine Culture - Final No growth. DS: Summary Hospital Course Hospital Course: HPI: patient is 43 years old single speaking female with history of bipolar, PTSD, stage III A kidney disease who was brought in hospital secondary to experiencing symptoms of paranoid and delusional. She believes she is being monitor by the police and states that they live in the ceiling . Reported that she was being watched when she showers and when she was naked and she is is afraid to go home due to being believe that the police are in the ceiling. Patient also endorsed SI saying that I can not working take it anymore . She thinks she is dying fell down that she has multiple medical conditions that she was recently diagnosed with I can not do with the fact that I am dying. I want to be accepted, my brain is obsessing over everything . Reports sleep and appetite has been decreased and feeling depressed. Formulation/clinical reasoning: Suicidal thoughts, paranoid, delusional, increased depression, increased insomnia, poor appetite, believes she is dying, police she has cancer, believes he is really sick with multiple medical conditions, police people/police following her. History of PTSD, history of bipolar with psychotic feature, stage IIIA kidney disease. History of suicidal thoughts and suicide attempts. Given the above information, patient could be benefit in restrictive environment monitor her safety, medication adjustment/management to target psychotic behaviors, and refer patient out to outpatient psychiatric services. Hospital course: 11/02: Currently: Continue with home medication except Wellbutrin. Currently Wellbutrin ordered 150 mg daily in the morning. Home meds total of 450 mg. Need to verify if creatinine clearance level is appropriate for 450. Was only given 150 in the ED since since 11/01. Klonopin 3 times a day. Latuda 60 mg daily. Seroquel 600 at bedtime. Adderall b.i.d.. Gabapentin 600 q.i.d.. Clonidine 0.1 t.i.d. p.r.n. for severe anxiety Seroquel 25 mg b.i.d. p.r.n. for severe agitation/psychosis. Zoloft 100 b.i.d.. 11/03: Continue current treatment regimen. Encouraged to take Tylenol as needed for pain. Creatinine level today is elevated, 1.58 and GFR 40.9; previous levels were 1.42 and 45.5 respectively. 11/04: She is in agreement to taper down and likely discontinue Adderall due to potential adverse reactions of drug-induced psychosis. Will decrease Adderall from 15 mg daily to 10 mg daily. Encouraged to take Tylenol as needed for pain or discomfort. Continue current treatment regimen. Verbalized understanding and agreed with the plan. 11/05/24: Patient slept for 8 hours was medication compliant. Denies side effects. She reports severe abdominal pain for a long time and asked for oxycodone. Patient was hyper verbal, delusional, paranoid, irritable and blaming everything on the pain that no one addressed which was not true I have 2 psychotic breaks since I got here because of the pain . She reminded this provider that she had seizure the day we discharge her from last admission. She attended no groups. However, she started to shower this morning after 3 4 days has not performed any ADLs. She had Adderall decreased from yesterday. Inform her that the Latuda also increased up to 80 mg today. Later on, observe her in the renee, a peer happier stating that she feels better. Increase Latuda from 60 to 80mg for psychosis. Give her Motrin 600mg q6hrs PRN for severe pain. however, will lower or would discontinue next couple of days (scheduled to stop on 11/08/24) as we do not want toxic to the kidney. 11/06 Patient with paranoid ideations, very upset feeling uncared about and that people are purposely change in her medications to cause her trouble. She points to the ceiling and says I know you got holes... You have got holes through the vents to see me... I can hear it and people are watching me... Don't you deny it... I am not stupid. Patient insists that she was given oxycodone in the ED for epigastric pain however there is no record of this anywhere. Patient says that she has been having pain in her belly, pointing to her epigastric area saying that it has been so bad it has made her psychotic. She says yesterday she got pain medications, ibuprofen which helped her tremendously for which she was grateful. [employer] discussed however that patient has CKD and is saying she has pain in the epigastric region, both of these are contraindications for ibuprofen. Patient continues to insist that she was getting oxycodone and says that she has been sober and is not trying to manipulate in order to get opioids. She says she does not want to hurt the hospital by exposing that she is being spite on and that were racing her medication history from the computer... Patient is rambling and accusatory; she is very upset that conventional mortgage underwriter wants to hold her remaining Wellbutrin dose which has already been lowered further reduce her Zoloft asking if conventional mortgage underwriter is crazy. When conventional mortgage underwriter considered holding her Adderall dose patient got extremely agitated, standing up and yelling. She does agree to starting Depakote (refused increase in Seroquel) purposely for mood stabilization. She also agrees to both omeprazole, famotidine. Formulation: Patient is dysregulated and with paranoid ideations. It is difficult to understand her complaint of epigastric pain (been going on for 5 months; no endoscopy); hospitalist AARON saw patient and did not think any acute pathology (CT at [facility], though CT has limitations in detecting stomach ulcer). However patient continues to insist that she is having severe epigastric pain. Though she has history of addiction issues, she is mostly asking for the return of ibuprofen which she got yesterday and said was helpful (though she is also insisting that she got oxycodone in the ED, which as far as conventional mortgage underwriter can tell she did not). At this time, conventional mortgage underwriter can not continue ibuprofen given her history of CKD and the fact that she is complaining of epigastric pain, both of which are contraindications for NSAIDs. Patient is allergic to tramadol. Given the region she points to the epigastric region, Tennis [employer] gave patient famotidine and started her on a PPI (and dose of sulcrafate) out of concern for possible stomach ulcer however patient said these medications were not helpful. Patient is complaining of ongoing pain. Because it is not clear if this is psychosocial manic verse organic [employer] chooses to treat for pain and ordered 1 dose of oxycodone 5 mg. -also starting patient on Depakote ER 500 mg b.i.d. -holding Wellbutrin 150 mg (which was already lowered from 450 mg) due to concern for gisselle/psychosis -further lowered Zoloft to 100 mg (keeping some to avoid discontinuation syndrome) -Would like to lower Adderall however mentioned this severely dysregulated patient so will leave for now 11/07 Patient doing better today; says that abdominal pain is better and she wonders if perhaps it is due to famotidine and omeprazole. Still with paranoid ideations that she is being spite on from the ceiling however she says she is not thinking about it that much and it is not concerning to her at this time. She refused Depakote today and conventional mortgage underwriter agreed that perhaps she does not needed as she is more calm. -of note, patient reports that epigastric pain is doing better ostensibly with famotidine and omeprazole; will likely refer to GI as an outpatient to r/o ulcer 11/08 Patient reports feeling better, pain is better with PPI and famotidine; she still has paranoid ideations that she is being spot on but says she is not thinking about it very much. Discussed medication and currently patient thinks that perhaps Depakote is helpful and will continue taking it for now however she is amenable to whatever medication regimen conventional mortgage underwriter thinks best. 9/9 Patient remains doing better. She says she feels better and appreciative of help received. GI consult placed and outpatient appointments made for follow up. Patient intermittently getting excessively emotional involved with some select peers but redirectable. Discussed the problem with Depakote, and its affect on Lamictal which he has been on for a few years. Patient thinks probably better to just beyond Lamictal but agrees to continue with Depakote for now -will change diagnosis to schizoaffective disorder bipolar type since patient continues to have paranoid ideations independent of mood -will likely discontinue Depakote in favor of Lamictal as she has been on it for years. Will discuss further with patient but perhaps she agreed to increasing Latuda as a way to help with psychotic symptoms and mood stability 11/10 Patient got into a verbal argument with peer who is intrusive and psychotic; patient was able to be redirected and apologetic. Patient shared about her history of trauma and how she felt triggered. Otherwise she remains feeling much better and continues to express gratitude for help received. Discussed medications at length and patient overall feels that Lamictal, which he has been on for years is most helpful and she does not want to discontinue it due to being on Depakote. Instead patient agrees to increase Latuda to 120 mg to help with mood stability. Patient feels stable and back to her regular self. [employer] agrees she is at baseline. Patient feels ready for discharge. She is not in imminent risk for harm to self or others and appropriate to return to the community for treatment Plan Patient on 15 minute checks for safety. Admitted to [facility]. CV. Increase Latuda to 120 mg for help with mood stability psychotic symptoms DC Depakote omeprazole 20 mg b.i.d. famotidine for 2 days while omeprazole takes affect; pain improved and no need for Sulcrafate Continue with increased dose of Latuda 80 mg -will restart Wellbutrin 150 mg ; patient stable and on this at baseline -will increase back to home dose of Zoloft to 200 mg -Would like to lower Adderall however mentioned this severely dysregulated patient so will leave for now pt started on atorvastatin 20 mg daily for HLD Abdominal pain She met with hospitalist to address the medical issues related to kidneys lipid profile, and pain on 11/05/24 for complaint of severe abdomen pain: per hospitalist plan: Wishes to see addiction medicine. Referral placed: at one breaking point, she yelled out loud that she does not want use street drug for pain. hospitalist Roads Superintendent: No elevation in LFTs, no leukocytosis, recent CT scan at [facility] with no acute pathology Abdomen benign; Would defer pain management to psychiatric team Stage 3A Chronic Kidney disease Baseline 1.1-1.5 Patient was scheduled for follow up with Nephrology last admission, she reports that she missed 2 appointments. 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 Time Spent with Patient Time attestation: Total time managing care of this patient today ____ minutes. Discharge Plan Discharge Anticipated Discharge Date/Time: 11/11/24 12:12 Patient Disposition: Home, Self-Care Discharge Diagnosis: Schizoaffective disorder, bipolar type Referrals: [facility] [Other] - 11/16/24 9:00 am Referral Note: *Follow-up therapy appointment 11/16/2024 - 09:00 AM - 09:40 AM Psychiatric E/M Established - Telehealth v2 Prog: Psychiatric Services Site: [facility] Staff: PRAMOD LIN [place] [email or web address] [Other] - 11/13/24 11:30 am Referral Note: 11/13/2024 - 11:30 AM - 12:00 PM (Mandatory consultation with counselor) Substance Use Case Management - Non MA - In Office Prog: [facility] Clinic Site: [address] [place] [address] Staff: ELAINE AU [place] [email or web address] [Other] - 11/13/24 12:00 pm Referral Note: 11/13/2024 - 12:00 PM - 01:00 PM [facility] Adult Comprehensive Assessment - In Office Prog: [facility] Clinic Site: [address] [place] [address] Staff: LISBET THOMAS Tuyyab, MD [Physician, Gastroenterology] - 11/15/24 12:15 pm Discharge Medications: New nicotine 21 mg/24 hr Patch 24 Hour 21 mg transdermal DAILY PRN (Reason: smoking cessation) 28 Days Qty: 28 0RF atorvastatin 20 mg Tablet 20 mg PO DAILY 30 Days Qty: 30 0RF omeprazole 40 mg Capsule,Delayed Release(Dr/Ec) 40 mg PO BID@0630,1630 30 Days Qty: 60 0RF oxycodone 5 mg Tablet 5 mg PO BID PRN (Reason: severe abdominal pain) 7 Days Qty: 14 0RF Rx Instructions: Partial Fill upon patient request. Continued clonidine HCl 0.1 mg tablet 0.1 mg PO TID PRN (Reason: Anxiety/Nightmares) clonazepam 1 mg tablet 1 mg PO TID@0900,1200,1700 ferrous sulfate [FeroSul] 325 mg (65 mg iron) tablet 325 mg PO Q OTHER DAY Rx Instructions: every other day quetiapine 25 mg tablet 25 mg PO BID PRN (Reason: psychosis episodes) lamotrigine 200 mg tablet 400 mg PO QPM quetiapine 300 mg tablet 600 mg PO QPM sertraline 100 mg tablet 100 mg PO BID gabapentin 300 mg capsule 600 mg PO QID bupropion HCl 150 mg tablet extended release 24 hr 150 mg PO QAM lisdexamfetamine [Vyvanse] 30 mg capsule 30 mg PO QNOON lisdexamfetamine [Vyvanse] 40 mg capsule 40 mg PO QAM bupropion HCl 300 mg tablet extended release 24 hr 300 mg PO DAILY Changed lurasidone 120 mg tablet 120 mg PO DAILY 30 Days Qty: 30 0RF Rx Instructions: must administer with food (at least 350 calories) Discharge Orders: Discharge Order (Routine); Ordered 11/11/24 Ordered By: Stan Vargas Diet: Regular diet Activity on Discharge: As tolerated Stand Alone Forms: Patient Portal Discharge page, Community Support Print Language: Croatian Care Plan Goals: Maintain mood and safe behaviors Take medications as prescribed Continue to pursue sobriety Practice coping skills Continue with outpatient providers and reach out to them as needed Health Concerns: Mood stability and behaviors Epigastric pain, chronic CKD Hyperlipidemia Plan of Treatment: Follow up with your PCP, [employer] and psychiatric provider and other outpatient providers regarding above concerns Take medications as prescribed Assessment: Risk assessment at time of discharge:? Patient was interviewed prior to discharge and found to be fully oriented and without any SI or HI. Patient has improved insight and judgment and wants to continue treatment. Patient is not in imminent risk of harm to self or others and has a safety plan that includes presenting to the closest ER or calling 911 if feeling unsafe.? Patient has been observed closely by nursing and unit staff throughout admission; patient has not engaged in any behaviors that suggest dangerousness to self or others and has demonstrated appropriate behaviors and impulse control Discharge Date/Time: 11/11/24 12:46
[2024-11-11 22:39] LABS: Immunoglobulin A 231 mg/dL (47-310)
== END 2024-11-11 12:46 | disposition home or self-care (01) | DRG 750 ==
LOC: HO.ED 19:11 → HO.PM5 11-02 19:21
PROVIDERS: Internal Medicine Gastroenterology; Psychiatry & Neurology Psychiatry; Admitting Provider Nurse Practitioner Psychiatric/Mental Health; Emergency Provider Emergency Medicine; Visit Provider Nurse Practitioner Psychiatric/Mental Health
DX: F25.0 Schizoaffective disorder, bipolar type (principal); D50.9 Iron deficiency anemia, unspecified; F17.210 Nicotine dependence, cigarettes, uncomplicated; F43.10 Post-traumatic stress disorder, unspecified; E78.5 Hyperlipidemia, unspecified; N18.31 Chronic kidney disease, stage 3a; R10.9 Unspecified abdominal pain; Z71.6 Tobacco abuse counseling; Z79.899 Other long term (current) drug therapy
CPT/HCPCS: 36415; 80048; 80053; 80061; 80076; 80164; 80307; 81001; 81025; 82607; 82728; 82746; 82784; 83036; 83690; 84439; 84443; 84484; 85025; 86364; 87086; 93005; 99285; S9485

== ENCOUNTER → 2024-11-01 15:37 | Outpatient (BNV) | payer OTHER, SELFPAY | PROVIDERS: Emergency Provider Emergency Medicine; Visit Provider Internal Medicine Cardiovascular Disease | DX: R94.31 Abnormal electrocardiogram [ECG] [EKG] (principal) | CPT/HCPCS: 93010 ==

== ENCOUNTER → 2024-11-02 18:53 | Outpatient (BNV) | payer OTHER, SELFPAY | PROVIDERS: Admitting Provider Nurse Practitioner Psychiatric/Mental Health; Emergency Provider Emergency Medicine; Visit Provider Nurse Practitioner Family | DX: F31.5 Bipolar disorder, current episode depressed, severe, with psychotic features (principal); F43.11 Post-traumatic stress disorder, acute; N18.31 Chronic kidney disease, stage 3a; E78.5 Hyperlipidemia, unspecified | CPT/HCPCS: 90792; 99232 ==

== ENCOUNTER → 2024-11-02 18:53 | Outpatient (BNV) | payer OTHER, SELFPAY | PROVIDERS: Admitting Provider Nurse Practitioner Psychiatric/Mental Health; Emergency Provider Emergency Medicine; Visit Provider Nurse Practitioner Family | DX: E78.5 Hyperlipidemia, unspecified (principal); N18.31 Chronic kidney disease, stage 3a | CPT/HCPCS: 99222 ==

== ENCOUNTER → 2024-11-02 18:53 | Outpatient (BNV) | payer OTHER, SELFPAY | PROVIDERS: Admitting Provider Nurse Practitioner Psychiatric/Mental Health; Emergency Provider Emergency Medicine; Visit Provider Internal Medicine Gastroenterology | DX: R10.30 Lower abdominal pain, unspecified (principal) | CPT/HCPCS: 99223 ==